=== PATIENT | female | born 1950 | race Caucasian/White ===

== ENCOUNTER 2016-02-07 17:57 | Inpatient (IN) | payer OTHER ==
[~2016-02-07] VITALS: Ht 172.7 cm; Wt 113.4 kg
[~2016-02-07 17:57] MED LIST: AMITRIPTYLINE H25 M2 PO; ASPIRIN EC81 M1 PO; AUGMENTIN 875-1 EACH PO; BACLOFEN10 M1; CALCIUM 600600 M1 PO; CO-Q-10 200 MG-1 SGL PO; COLACE100 MG PO; CRANBERRY FRUI425 MG PO; DOXYCYCLINE MO100 M2 PO; ENSURE CLEAR PO; FERROUS SULFAT325 M1 PO; FLAGYL 500500 MG/100 IV; GABAPENTIN300 M2 PO; KLONOPIN0.5 M1 PO; LOVAZA1 GM PO; MEDROL4 M2 PO; NITROFURANTOIN100 M1 PO; ROCEPHIN2000 MG IV; TIZANIDINE HCL4 M1 PO; TYLENOL 8 HOUR650 MG PO; Theragran Vitamins PO; ULTRAM(MONOGRAP50 MG PO; VITAMIN A NA10000 IU PO; VITAMIN B121000 MCG PO; VITAMIN C250 M1 PO; VITAMIN D31000 UNI2 PO; ZINC SULFATE 2220 MG PO
--- NOTE | 2016-02-07 18:07 | ED GI/GU/ABDOMINAL COMPLAINT ---
History of Present Illness General Chief Complaint: General Adult Stated Complaint: SBO Source: patient, old records Exam Limitations: no limitations Vital Signs & Intake/Output Vital Signs & Intake/Output Vital Signs Date Time Temp Pulse Resp B/P Pulse O2 O2 Flow FiO2 Ox Delivery Rate 02/07 0026 97.8 91 18 151/83 93 Nasal 4.0L Cannula 02/062 99.3 93 16 141/91 90 Nasal 4.0L Cannula 02/06 2006 Room Air Room Air 02/06 1836 97.0 84 22 158/89 98 Room Air ED Intake and Output 02/07 0000 02/06 1200 Intake Total 1000 Output Total Balance 1000 Intake, IV 1000 Patient 250 lb Weight Allergies Coded Allergies: amoxicillin (From Augmentin) (UNKNOWN 11/08/15) clavulanic acid (From Augmentin) (UNKNOWN 11/08/15) Reconcile Medications Amitriptyline HCl 25 MG TABLET ANTIDEPRESSANT (Reported) Aspirin (Ecotrin) 81 MG TABLET.DR 1 TAB PO DAILY HEART HEALTH (Reported) Baclofen 20 MG TABLET 2 TAB PO 4 TIMES/DAY MS (Reported) Cholecalciferol (Vitamin D3) 5,000 IU CAP 1 CAP PO DAILY SUPPLEMENT (Reported ) Clonazepam 0.5 MG TABLET 1 TAB PO DAILY SHAKES (Reported) Oxybutynin Chloride (Unknown Strength) TABLET 15 MG PO BID INCONTINENCE ( Reported) Tizanidine HCl (Unknown Strength) TABLET (Unknown Dose) PO AD PRN MUSCLE SPASM (Reported) Triage Nurses Notes Reviewed? yes ? n Is pt currently ? No Onset: Abrupt Duration: day(s): (3), constant Timing: recent history Quality/Severity: vomiting Severity Numbers: 6 Radiation: no radiation Activities at Onset: none Prior Abdominal Problems: none No Modifying Factors: none Associated Symptoms: nausea/vomiting HPI: 65-year-old female with history of MS, colostomy bag for the past 10 years status post perfect diverticulitis, with recent suprapubic tube, transvaginal bladder neck closure 9 days ago here at this hospital presents to emergency room complaining of a three-day history of multiple episodes of nausea and vomiting and decreased output from her colostomy bag. The patient had an outpatient x- ray performed today that showed "marketed small bowel dilatation in the midabdomen this could represent ileus or partial obstruction." The patient denies any abdominal pain, no black or bloody stools noted in her ostomy. She denies any fever chills chest pain shortness of breath (RONAL MONTOYA) Past History Travel History Traveled to [place] past 21 day No Medical History Any Pertinent Medical History? 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 No (RONAL MONTOYA) Review of Systems Review of Systems Constitutional: Reports: see HPI. All Other Systems: Reviewed and Negative Comments Review of systems: See HPI, All other systems negative. Constitutional, no chills no fever, no malaise no weight loss HEENT: No visual changes no sore throat no congestion Cardiovascular: No chest pain , no palpitation Skin, no jaundice no rashes, no change in skin Respiratory: No dyspnea no cough no sputum GI: nausea vomiting, no diarrhea, : No dysuria No hematuria, no frequency, no discharge Muscle skeletal: No joint pain, no back pain, no neck pain Neurologic: No numbness no headache Psych: No stress Heme/endocrine: No bruising no bleeding Immunology: No lymphadenopathy (RONAL MONTOYA) Physical Exam Physical Exam General Appearance: well developed/nourished, no apparent distress, alert, awake Gastrointestinal: soft Comments: Well-developed well-nourished person in no acute distress HEENT: Normal EENT exam; PERRL, EOMI. HEAD is atraumatic. moist mucous membranes. Neck: Supple, normal range of motion Back: Nontender, no CVA tenderness. Full range of motion Cardiovascular: Regular rate and rhythms no murmurs rubs Respiratory: No respiratory distress. Patient speaking in full complete sentences. Breath sounds clear to auscultation bilaterally: NO W/R/R Abdomen: Soft, colostomy bag noted to the left lower quadrant with small amount of stool noted in bag nontender nondistended, no appreciable organomegaly. Normal bowel sounds. No rebound/guarding, Extremity: No edema, full range of motion of extremities Neuro: Alert oriented x3, motor sensory normal,There were no obvious focal neurologic abnormalities. Skin: No appreciable rash on exposed skin, skin is warm and dry. Psych: Mood and affect is normal, memory and judgment is normal. Core Measures ACS in differential dx? No Severe Sepsis Present: No Septic Shock Present: No (SERA RAMIREZ,RONAL) Progress Differential Diagnosis: appendicitis, bowel obstruction, colon cancer, cholecystitis, diverticulitis, gastritis, inflamm bowel dis, peptic ulcer, PUD/ GERD, perforated viscous, SBO, ileus Plan of Care: Orders Procedure Date/time Status Nothing by Mouth 02/07 B Active Admit to inpatient 02/07 013 Active Vital Signs 02/07 013 Active Code Status 02/07 013 Active XRY-PORTABLE ABDOMEN 02/07 0049 Active NGT 02/068 Active LIPASE 02/06 1813 Complete COMPREHENSIVE METABOLIC PANEL 02/06 181 Complete CBC WITHOUT DIFFERENTIAL 02/06 181 Complete AMYLASE 02/06 181 Complete EKG 02/06 1802 Active Laboratory Tests 02/06/ 1826: Anion Gap 14, Estimated GFR > 60, BUN/Creatinine Ratio 41.3 H, Glucose 156 H, Calcium 9.5, Total Bilirubin 0.6, AST 23, ALT 32, Alkaline Phosphatase 118, Total Protein 8.8 H, Albumin 4.1, Globulin 4.7 H, Albumin/Globulin Ratio 0.9 L, Amylase 75, Lipase 67, CBC w Diff NO MAN DIFF REQ, RBC 5.89 H, MCV 82.0, MCH 26.7 L, RDW 15.1 H, MPV 7.9, Gran % 77.2 H, Lymphocytes % 11.6 L, Monocytes % 10.9 H, Eosinophils % 0.1, Basophils % 0.2, Absolute Granulocytes 12.2 H, Absolute Lymphocytes 1.8, Absolute Monocytes 1.7 H, Absolute Eosinophils 0, Absolute Basophils 0, PUBS MCHC 32.6 L Old records reviewed including the patient's outpatient x-ray that she had performed today. The results of the AP study demonstrated markedly dilated small bowel loops in the mid abdomen. There is gas in the nondistended colon. The stomach is nondistended. No suspicious calcifications. This could represent an ileus or partial obstruction clinical correlation is recommended Patient medicated with Zofran 4 IV IV fluids CAT scan and labs ordered. case d/w dr sevilla 02/07/2016 9:31:13 PM pending callback from surgery 02/07/2016 10:22:59 PM STILL PENDING CALL BACK FROM SURGERY, PER NURSING PICKER FEEDER HE IS CURRENTLY IN CASE 02/07/2016 11:25:07 PM pending call back from surgery, pt has had no episodes of vomiting resting comfortably 2335 CASE D/W DR BILL will have surgical pa eval the pt 02/08/2016 12:57:56 AMPatient was evaluated by surgical PA, pending callback from urology at surgeries request Zac was discussed with and signed out to Dr. sevilla at 100 pending urology callback (SERA RAMIREZ,RONAL) Diagnostic Imaging: Viewed by Me: Radiology Read, CT Scan. Discussed w/RAD: Radiology Read, CT Scan. Radiology Impression: PATIENT: GLENN MAYO PRESENT AGE: 65 PATIENT ACCOUNT NO: [id number] : 49 LOCATION: [facility] ORDERING PHYSICIAN: RONAL RAMIREZ SERVICE DATE: 02/07/16 EXAM TYPE: RAD - XRY- PORTABLE CHEST XRAY EXAMINATION: XR PORTABLE CHEST CLINICAL INFORMATION: Hypoxia. Cough. COMPARISON: Chest x-ray 06/14/2015. TECHNIQUE: Portable view of the chest was obtained. FINDINGS: The lungs are hypoinflated, without focal airspace consolidation. There is minimal dependent bibasilar atelectasis. No pleural effusions or pneumothoraces are identified. Cardiomediastinal contours are stable. Soft tissues are unremarkable. No acute osseous abnormality is identified. IMPRESSION: Pulmonary hypoinflation and dependent bibasilar atelectasis. No focal airspace consolidation. DICTATED BY: FOX VARGAS MD DATE/TIME DICTATED:02/07/162257 SUEDING MACHINE OPERATOR:PB DATE/TIME TRANSCRIBED:02/07/162257 CONFIDENTIAL, DO NOT COPY WITHOUT APPROPRIATE AUTHORIZATION. <Electronically signed in Other Vendor System> SIGNED BY: FOX VARGAS MD 02/07/16 [id number], PATIENT: GLENN MAYO PRESENT AGE: 65 PATIENT ACCOUNT NO: [id number] : 49 LOCATION: [facility] ORDERING PHYSICIAN: RONAL RAMIREZ SERVICE DATE: 02/07/16 EXAM TYPE: CAT - CT ABD & PELVIS W/O IV CONTRAS EXAMINATION: CT ABDOMEN AND PELVIS WITHOUT CONTRAST CLINICAL INFORMATION: Nausea and vomiting. Evaluate for small bowel obstruction. COMPARISON: CT abdomen and pelvis without contrast 07/13/2012. TECHNIQUE: Multidetector volumetric imaging was performed from the superior aspect of the liver through the pubic symphysis. Sagittal and coronal reformatted images were obtained on the technologist's workstation. DLP: 1581 mGy-cm. FINDINGS: Limited evaluation of the solid abdominal viscera in the absence of intravenous contrast. LUNG BASES: Evaluation of the included lung bases demonstrates right basilar infiltrates. This finding is nonspecific but may reflect atelectasis, infection or aspiration pneumonitis. No pleural or pericardial effusions are identified. LIVER, GALLBLADDER, AND BILIARY TREE: The liver is normal in size, shape, and attenuation. No focal hepatic lesion or biliary ductal dilatation is present. The gallbladder is surgically absent. PANCREAS: Unremarkable. SPLEEN: Unremarkable. ADRENAL GLANDS: Unremarkable. KIDNEYS AND URETERS: Mild renal cortical atrophy of the bilateral kidneys. Nephrolithiasis of the right kidney with nonobstructing stones identified within the upper and lower poles of the right kidneys. Specifically, there is a 6 mm nonobstructing stone within the upper pole of the right kidney. There are several clustered nonobstructing stones within the lower pole of the right kidney visualized measuring up to 4 mm. No appreciable nephrolithiasis of the left kidney. No ureteral stones and no hydroureteronephrosis of either kidney or renal collecting system. BLADDER: Suprapubic catheter is in place within the urinary bladder. No large bladder stones are identified. GASTROINTESTINAL TRACT: Evaluation of the gastrointestinal system is notable for multiple dilated air and fluid-filled loops of small bowel throughout the abdomen and pelvis which are visualized measuring up to 6.9 cm. There is a suspected transition point within the left hemipelvis, at the level of the left sacroiliac joint (series 2, image 75). This site of transition may correspond to the proximal ileum. Loops of small bowel distal to this site of transition or decompressed. Loops of small bowel proximal to this site of transition including the duodenum and stomach are distended. Redemonstrated is evidence of prior distal colonic surgery and left lower quadrant colostomy. There is a moderate amount of retained stool within the cecum and ascending colon. A large fecalith is present within the rectum. ABDOMINAL WALL: Left lower quadrant colostomy. Moderate fat-containing parastomal hernia. LYMPH NODES: No significant intra-abdominal or pelvic adenopathy. VASCULAR: Normal caliber of the abdominal aorta and its branching vessels, without aneurysmal dilatation. Limited evaluation for vascular patency in the absence of intravenous contrast. PELVIC VISCERA: Unremarkable. OSSEOUS STRUCTURES: Diffuse demineralization of the visualized bones. Remote intertrochanteric fracture of the right femur. Left convex curvature of the lumbar spine. No acute thoracolumbar compression deformity. Moderate multilevel degenerative disc disease and facet arthrosis of the imaged thoracolumbar spine. IMPRESSION: Multiple dilated air and fluid-filled loops of small bowel throughout the abdomen and pelvis, visualized measuring up to 6.9 cm in diameter. There is a suspected transition point within the left hemipelvis, at the level of the left sacroiliac joint. Primary diagnostic consideration is for small bowel obstruction. Loops of small bowel distal to this site of transition or decompressed. Loops of small bowel proximal to the site of transition including the duodenum and stomach or distended. This critical result was discussed with Dr. Ronal Persaud at 8:28 PM on 01/30/2016 and it was ascertained that the content and urgency of the report was understood at the time of direct communication. DICTATED BY: FOX VARGAS MD DATE/TIME DICTATED:02/07/162002 SUEDING MACHINE OPERATOR:PB DATE/TIME TRANSCRIBED:02/07/162002 CONFIDENTIAL, DO NOT COPY WITHOUT APPROPRIATE AUTHORIZATION. <Electronically signed in Other Vendor System> SIGNED BY: FOX VARGAS MD 02/07/162031 Initial ED EKG: none Hand-Off Endorsed To: EYAL SEVILLA MD Endorsed Time: 57 Pending: consult (urology) (RONAL MONTOYA) Departure Departure Disposition: STILL A PATIENT Condition: Stable Clinical Impression Primary Impression: SBO (small bowel obstruction) Referrals: BARBARA MACIEL MD (PCP/Family) Referred to [facility] as new patient No Departure Forms: Customer Survey General Discharge Information (RONAL MONTOYA) Departure Time of Disposition: 144 Admission Note Spoke With: LANDY CHUNG,AWA N. Documentation of Exam: Documentation of any treatments & extenuating circumstances including Concerns Regarding Discharge (functional status, medication knowledge or non-compliance, living conditions, etc.) that warrant an admission rather than observation: [NPO , NGT, IV FLUID, SERIAL ABDOMINAL EXAMINATIONS, DR HESS CONSULTED FROM UROLOGY] PA/RESOURCE SPECIALIST Co-Sign Statement Statement: ED Attending supervision documentation- [X] I saw and evaluated the patient. I have also reviewed all the pertinent lab results and diagnostic results. I agree with the findings and the plan of care as documented in the PA's/RESOURCE SPECIALIST's documentation. [X] I have reviewed the ED Record and agree with the PA's/RESOURCE SPECIALIST's documentation. [] Additions or exceptions (if any) to the PAs/RESOURCE SPECIALIST's note and plan are summarized below: [] (JAY CHUNG,EYAL)
--- NOTE | 2016-02-07 18:16 | NUR ---
PT BIBA FROM [facility] FOR ?SBO. PT WENT FOR XRAY'S TODAY AND XRAY REPORT CAME BACK WITH ?SBO. PT SENT FOR SURGICAL EVAL. PT HAS BEEN VOMITING; MINIMAL OUTPUT INTO COLOSTOMY BAG.
[2016-02-07 18:37] LABS: ABSOLUTE BASOPHIL COUNT 0 /CUMM (0.0-0.2); ABSOLUTE EOSINOPHIL COUNT 0 /CUMM (0.0-0.7); ABSOLUTE GRANULOCYTE CT 12.2 /CUMM (1.4-6.5); ABSOLUTE LYMPH COUNT 1.8 /CUMM (1.2-3.4); ABSOLUTE MONOCYTE COUNT 1.7 /CUMM (0.10-0.60); BASOPHIL % 0.2 % (0.0-2.0); EOSINOPHIL % 0.1 % (0-5); GRANULOCYTE % 77.2 % (42.2-75.2); HEMATOCRIT 48.3 % (37-47); MEAN CORPUSCULAR HGB 26.7 PG (27.0-31.0); MEAN CORPUSCULAR HGB CONC 32.6 G/DL (33.0-37.0); MEAN PLATELET VOLUME 7.9 FL (7.4-10.4); PLATELET COUNT 381 /CUMM (130-400); RBC DISTRIBUTION WIDTH 15.1 % (11.5-14.5); RED BLOOD CELL CT 5.89 /CUMM (4.20-5.40); WHITE BLOOD CELL COUNT 15.8 /CUMM (4.8-10.8)
--- NOTE | 2016-02-07 20:08 | NUR ---
PT RETURNED FROM CAT SCAN.
--- NOTE | 2016-02-07 20:32 | CT SCAN REPORT ---
EXAMINATION: CT ABDOMEN AND PELVIS WITHOUT CONTRAST CLINICAL INFORMATION: Nausea and vomiting. Evaluate for small bowel obstruction. COMPARISON: CT abdomen and pelvis without contrast 07/13/2012. TECHNIQUE: Multidetector volumetric imaging was performed from the superior aspect of the liver through the pubic symphysis. Sagittal and coronal reformatted images were obtained on the technologist's workstation. DLP: 1581 mGy-cm. FINDINGS: Limited evaluation of the solid abdominal viscera in the absence of intravenous contrast. LUNG BASES: Evaluation of the included lung bases demonstrates right basilar infiltrates. This finding is nonspecific but may reflect atelectasis, infection or aspiration pneumonitis. No pleural or pericardial effusions are identified. LIVER, GALLBLADDER, AND BILIARY TREE: The liver is normal in size, shape, and attenuation. No focal hepatic lesion or biliary ductal dilatation is present. The gallbladder is surgically absent. PANCREAS: Unremarkable. SPLEEN: Unremarkable. ADRENAL GLANDS: Unremarkable. KIDNEYS AND URETERS: Mild renal cortical atrophy of the bilateral kidneys. Nephrolithiasis of the right kidney with nonobstructing stones identified within the upper and lower poles of the right kidneys. Specifically, there is a 6 mm nonobstructing stone within the upper pole of the right kidney. There are several clustered nonobstructing stones within the lower pole of the right kidney visualized measuring up to 4 mm. No appreciable nephrolithiasis of the left kidney. No ureteral stones and no hydroureteronephrosis of either kidney or renal collecting system. BLADDER: Suprapubic catheter is in place within the urinary bladder. No large bladder stones are identified. GASTROINTESTINAL TRACT: Evaluation of the gastrointestinal system is notable for multiple dilated air and fluid-filled loops of small bowel throughout the abdomen and pelvis which are visualized measuring up to 6.9 cm. There is a suspected transition point within the left hemipelvis, at the level of the left sacroiliac joint (series 2, image 75). This site of transition may correspond to the proximal ileum. Loops of small bowel distal to this site of transition or decompressed. Loops of small bowel proximal to this site of transition including the duodenum and stomach are distended. Redemonstrated is evidence of prior distal colonic surgery and left lower quadrant colostomy. There is a moderate amount of retained stool within the cecum and ascending colon. A large fecalith is present within the rectum. ABDOMINAL WALL: Left lower quadrant colostomy. Moderate fat-containing parastomal hernia. LYMPH NODES: No significant intra-abdominal or pelvic adenopathy. VASCULAR: Normal caliber of the abdominal aorta and its branching vessels, without aneurysmal dilatation. Limited evaluation for vascular patency in the absence of intravenous contrast. PELVIC VISCERA: Unremarkable. OSSEOUS STRUCTURES: Diffuse demineralization of the visualized bones. Remote intertrochanteric fracture of the right femur. Left convex curvature of the lumbar spine. No acute thoracolumbar compression deformity. Moderate multilevel degenerative disc disease and facet arthrosis of the imaged thoracolumbar spine. IMPRESSION: Multiple dilated air and fluid-filled loops of small bowel throughout the abdomen and pelvis, visualized measuring up to 6.9 cm in diameter. There is a suspected transition point within the left hemipelvis, at the level of the left sacroiliac joint. Primary diagnostic consideration is for small bowel obstruction. Loops of small bowel distal to this site of transition or decompressed. Loops of small bowel proximal to the site of transition including the duodenum and stomach or distended. This critical result was discussed with Dr. Jeffrey Persaud at 8:28 PM on 01/30/2016 and it was ascertained that the content and urgency of the report was understood at the time of direct communication.
--- NOTE | 2016-02-07 21:40 | NUR ---
PT PLACED ON 4L OXYGEN. O2 SAT STEADY AT 90%. PA AWARE
--- NOTE | 2016-02-07 21:44 | NUR ---
PT REPORTS +SKIN BREAKDOWN ON COCCYX AREA; UNABLE TO VIEW DURING ASSESSMENT DUE TO PT'S SIZE. PT UNABLE TO TURN IN BED TO VISUALIZE ?SORES.
--- NOTE | 2016-02-07 21:50 | NUR ---
PT NOTED TO BE HYPOXIC AT 85% ON RA WITH STEADY WAVEFORM. PT PLACED ON 4L NC O2 WITH IMPROVEMENT TO 90%. ASHLEY BOLIVAR.
--- NOTE | 2016-02-07 22:37 | NUR ---
SPOKE WITH KENNEDY IN REGARDS TO PT STAYING OVERNIGHT.
--- NOTE | 2016-02-07 23:03 | RADIOLOGY REPORT ---
EXAMINATION: XR PORTABLE CHEST CLINICAL INFORMATION: Hypoxia. Cough. COMPARISON: Chest x-ray 06/14/2015. TECHNIQUE: Portable view of the chest was obtained. FINDINGS: The lungs are hypoinflated, without focal airspace consolidation. There is minimal dependent bibasilar atelectasis. No pleural effusions or pneumothoraces are identified. Cardiomediastinal contours are stable. Soft tissues are unremarkable. No acute osseous abnormality is identified. IMPRESSION: Pulmonary hypoinflation and dependent bibasilar atelectasis. No focal airspace consolidation.
--- NOTE | 2016-02-08 | NUR ---
PT A/O X4. RESP UNLABORED. NO APPARENT DISTRESS. WILL CONTINUE TO MONITOR.
--- NOTE | 2016-02-08 00:51 | NUR ---
NG TUBE PLACED IN LEFT NARE. MARKED AT 48 PRIOR TO XRAY.
--- NOTE | 2016-02-08 02:06 | NUR ---
PT ADMIT TO RM [id number]
--- NOTE | 2016-02-08 02:25 | NUR ---
PT CLEANED OF URINARY INCONTINENCE. SHEETS CLEANED. PT REPOSTIONED TO THE RIGHT. PT HAS PILLOWS UNDER ARMS, LEGS AND HEAD.
--- NOTE | 2016-02-08 02:37 | RADIOLOGY REPORT ---
EXAMINATION: XR PORTABLE ABDOMEN CLINICAL INFORMATION: NG tube placement. COMPARISON: CT abdomen 02/07/2016. TECHNIQUE: Frontal image of the abdomen was obtained. FINDINGS: The NG tube terminates over the distal esophagus. Dilated loops of bowel are redemonstrated. Right upper quadrant surgical clips. Asymmetric elevation of the right hemidiaphragm. Scoliosis. IMPRESSION: NG tube terminates over the distal esophagus. Recommend advancement.
--- NOTE | 2016-02-08 02:53 | NUR ---
X- RAY BACK NG TUBE ADVANCED 10 CM TO 58 1400 ML GASTRIC CONTENTS OUTPUT
[2016-02-08 03:30] VITALS: BP 141/79
--- NOTE | 2016-02-08 03:30 | NUR ---
NURSING NOTE: PT ARRIVED TO FLOOR VIA STRETCHER WITH ER STAFF. DIAGNOSIS SBO. PT AWAKE AX0 X3, BED ALAM PLACED. VITALS OBTIANED AND STABLE. 4L NC 94%. NG TUBE TO LOW WALL SUCTION PER TEE RAMIREZ 416. IV PATENT, COLOSTOMY TO LEFT ABD, SUPRAPUBIC TUBE. MULTIPLE AREAS OF SKIN ALTERATION. WOUND CARE EVAL PENDING. WILL ORDER SIZEWISE MATTRESS. NPO. DENIES PAIN. ADMISSION ASSESSMENT COMPLTEED PT ORIENTED TO ROOM AND CALL [facility], INFO PACKET GIVEN. BED ALARM WORKING. WILL CONTINUE TO MONITOR.
--- NOTE | 2016-02-08 07:23 | PN- Student ---
Subjective Subjective: Patient admitted from ED last night for SBO. Patient was here last week for transvaginal bladder neck closure with replacement of suprapubic tube. Since then patient had been complaining of nausea and vomiting. She currently has a NGT in place and reports to feeling better this AM. She denies any more episodes of nausea or vomiting. She wants to know when she can go back on her home medications for her MS and for her bladder. She denies pain, discomfort, headaches, dizziness, lightheadedness, chest pain, shortness of breath. Objective Objective: Temp: 98.4, HR: 87, RR: 20, BP: 141/79, O2: 94% 4L NC Urine: 350mL shift NGT: 1400mL Ostomy: gas, fecal content, brown Gen: in no apparent distress, resting in bed Skin: warm, dry, multiple lesions on distal extremities Cardiac: S1 S2 present Pulm: CTA bilaterally Abd: hypoactive bowel sounds. Non-tender, mildly distended. Suprapubic tube draining urine. Colostomy on left side, intact, bag has gas and fecal content. no green content Ext: sacral decubitus. Right foot has dry gauze over wound. Non-palpable pulses. Assessment/Plan Assessment: 65 yo F with extensive PMHx significant for MS, neurogenic bladder s/p transvaginal bladder neck closure with replacement of suprapubic tube 01/29/2016 now admitted for SBO. Currently patient's symptoms have improved since yesterday with all vital signs stable. - Keep NPO - Continue NGT to suction - FU multi-view in AM - Continue D5 NS - DVT prophylaxis: heparin - Discuss with attending
[2016-02-08 08:19] VITALS: BP 160/80
--- NOTE | 2016-02-08 12:36 | RADIOLOGY REPORT ---
EXAMINATION: XR ABDOMEN WITH PA CHEST CLINICAL INDICATION: Nausea and vomiting. COMPARISON: CT abdomen and pelvis, and chest radiograph, from 02/07/2016 TECHNIQUE: Chest, PA view Abdomen, 2 views FINDINGS: Large body habitus. There is persistent opacity of atelectasis or consolidation in the posteroinferior right lower lobe; overall, the aeration of the lower lobes is improved compared to 02/07/2016. Again noted is mild elevation of the right diaphragm. Cardiac silhouette is normal in size. The enteric tube extends below the diaphragm and into the proximal stomach, and the side-port of the tube is located just above the level of the EG junction. There is anterior fusion hardware of the incompletely visualized lower cervical spine. Small bowel is diffusely distended with gas and measures up to approximately 6 cm maximum dimension-- consistent with high-grade small bowel obstruction. No pneumatosis intestinalis or pneumoperitoneum. There are cholecystectomy clips in the right upper quadrant. Bones appear diffusely osteopenic. No acute findings within the visualized degenerated thoracolumbar spine. IMPRESSION: 1. The aeration of the lower lobes has improved compared to 02/07/2016. 2. Persistent high-grade small bowel obstruction without pneumoperitoneum. 3. The side port of the enteric tube projects just above the level of the EG junction and the tip of the tube is in the proximal stomach; consider advancing the tube further into the stomach.
--- NOTE | 2016-02-08 14:04 | NUR ---
WOUND CARE: REQUESTED BY NURSING STAFF TO EVALUATE PT FOR SKIN ALTERATIONS PRESENT ON ADMISSION TO MULTIPLE AREAS MENTIONED BELOW - PT HX REVIEWED - PT HAS BEEN AT [facility] FOR SHORT TERM REHAB FOR APPROX 2 WEEKS - SKIN ASSESSMENT FOLLOWS: RIGHT ISCHIUM STAGE 3 PRESSURE INJURY 4X2X0.2 CM CLEAN RED JOE FILL - MOD AMOUNT SANG DRNG - PERIWOUND NO INDURATION - RIGHT BUTTOCKS EVOLVING DEEP TISSUE INJURY 12X96 CM WITH MULTIPLE SUPERFICIAL AREAS OF SKIN BREAKDOWN AND EXCORIATION THROUGHOUT - LIGHT PURPLE DISCOLORED HUE OVER PREDOMINANENTLY RED HUE - COCCYX STAGE 3 PRESSURE INJURY 2.6 X 3 X 0.2 CM DARK RED GRANULAR FILL WTIH PERIWOUND MACERATION - SMALL AMOUNT SEROUS DRNG - LEFT BUTTOCKS 18X9 CM EVOLVING DTI PRESENTS CLUSTERED WOUND WITH VARYING PARTIAL AND FULL THICKNESS SKIN LOSS WTIH EXCORATION - MAJORITY OF KORTNEY BUTTOCKS TISSUE IS DRY FLAKY PEELING SKIN - LEFT DORSAL FOOT THICK CALLOUS AREA AT BASE OF TOES CURRENTLY TX WITH BETADINE - RIGHT POSTERIOR LEG STAGE 3 PRESSURE INJURY WITH SIGNIFICANT DETERIORATION SINCE PRIOR ASSESSMENT 7.5 X 4.5 CM MIXED RED AND YELLOW FILL - PERIWOUND ERYTHEMA WITH ? CELLULITIC CHANGES NOTED - DR HOYT MADE AWARE OF THIS WRITERS FINDINGS AND NEED FOR MD TO ASSESS IMPRESSION: DETERIORATION OF ALL WOUNDS SINCE LAST HOSPITAL ADMISSION ASSESSMENT - KROTNEY BUTTOCKS INC ASSOCIATED DERMATITIS WITH PRESSURE INJUROES RECOMMENDATION: CLEANSE RIGHT POSTERIOR LEG WOUND WTIH NS FB SANTYL OINTMENT FB XEROFORM AND DPD DAILY - OFFLOAD PRESSURE TO POSTERIOR CALF AT ALL TIMES - DUE TO CONDITION OF BUTTOCKS, APPLICATION OF SECONDARY DRESSING WILL BE DIFFICULT AND MAY WORSEN SKIN INTEGRITY - APPLY VITAMIN A+D OINTMENT AND ZINC OXIDE TO KORTNEY BUTTOCKS WOUNDS FB (2) LARGE 5X9" XEROFORM DRESSINGS TO BUTTOCKS AND COCCYX TWICE DAILY AND PRN AFTER INC EPISODES - SIDELYING POSITION WIB - AWAIT DELIVERY OF GROUP 2 ALTERNATING PRESSURE MATTRESS - IF CONDITION SHOWS NO IMPROVEMENT IN 5 DAYS, CONSIDER CLINITRON MATTRESS - PLEASE HAVE DR HOYT ASSESS (MD AWARE) - LEAVE LEFT FOOT OPEN TO AIR AND MONITOR QS
[2016-02-08 16:00] VITALS: BP 130/78
[2016-02-08 16:19] VITALS: BP 130/78
--- NOTE | 2016-02-08 20:33 | NUR ---
NURSING NOTE: NG TUBE WWAS CLOGGED @ 1500. ASHLEY BABB AND DR LANGE WAS NOTIFIED. UNCLOGGED NG TUBE @ 1600 AND NOTIFIED ASHLEY AND . NG TUBE TO LOW WALL SXN ORDERED.
--- NOTE | 2016-02-08 20:54 | History & Physical Pre-Op ---
General Information and HPI Exam Limitations: confusion, poor historian History of Present Illness: Chief complaint vomiting History of present illness: Nondiabetic nonsmoker with MS for over 15 years, complicated by urinary incontinence, sacral decubiti, she's nonambulatory. We' ve seen her in the past for the decubiti, I did a consult on her here on 2013 the PFSH and ROS were reviewed and have not changed significantly since then, unless stated here. She has a colostomy from 2004 related to diverticulitis, this was not reversed because she is relatively bedbound, but last week she was just discharged on the after a transvaginal bladder neck closure this was not intraperitoneal, she's been doing well for several days but just started to vomit no real abdominal pain no fevers no sweats this is unusual not really one of her issues, and according to the ER the ostomy still has some stool in it, but overall the senses that it's not as productive the past day or 2. She is a little confused and somewhat lethargic so most of the history is gotten from the chart prepares is not her baseline an NG tube has been placed in the significant amount has come out. The particular onset or any meals right before is unknown. Allergies/Medications Allergies: Coded Allergies: amoxicillin (From Augmentin) (UNKNOWN 11/08/15) clavulanic acid (From Augmentin) (UNKNOWN 11/08/15) Home Med list Amitriptyline HCl 25 MG TABLET ANTIDEPRESSANT (Reported) Aspirin (Ecotrin) 81 MG TABLET.DR 1 TAB PO DAILY HEART HEALTH (Reported) Baclofen 20 MG TABLET 2 TAB PO 4 TIMES/DAY MS (Reported) Cholecalciferol (Vitamin D3) 5,000 IU CAP 1 CAP PO DAILY SUPPLEMENT (Reported ) Clonazepam 0.5 MG TABLET 1 TAB PO DAILY SHAKES (Reported) Tizanidine HCl (Unknown Strength) TABLET (Unknown Dose) PO AD PRN MUSCLE SPASM (Reported) Past History Medical History Neurological: multiple sclerosis EENT: NONE Cardiovascular: NONE Respiratory: NONE Gastrointestinal: DIVERTICULITIS W COLON RESECTION Hepatic: NONE Renal: SUPRAPUBIC TUBE Musculoskeletal: NONE Psychiatric: NONE Endocrine: NONE Blood Disorders: NONE Cancer(s): NONE History of MRSA: Yes History of VRE: No History of CDIFF: No Isolation History: Contact Pneumonia Vaccine: 02/07/13 Influenza Vaccine: 11/11/15 Surgical History Pertinent Surgical History: cholecystectomy, COLOSTOMY BAG LOW BACK SURGERY R HEEL I+D Past Family/Social History Family History Relations & Conditions if any BROTHER FH: cancer MOTHER Pacemaker Relation not specified for: Family history unknown 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, 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 Smoking Status: Never Smoked ETOH Use: denies use Illicit Drug Use: denies illicit drug use Review of Systems Review of Systems: As mentioned above her previously in my consult otherwise unobtainable Exam & Diagnostic Data Last 24 Hrs of Vital Signs/I&O I reviewed Vital Signs Date Time Temp Pulse Resp B/P Pulse O2 O2 Flow FiO2 Ox Delivery Rate 02/07 1619 98.0 91 20 130/78 96 Nasal 4.0L Cannula 02/07 1600 98.0 91 20 130/78 96 Nasal 4.0L Cannula 02/07 0819 98.3 79 20 160/80 95 Nasal 4.0L Cannula 02/07 0410 94 Nasal 4.0L Cannula 02/07 0330 98.4 87 20 141/79 94 Nasal 4.0L Cannula 02/07 0255 85 18 148/66 96 Nasal 4.0L Cannula 02/07 0026 97.8 91 18 151/83 93 Nasal 4.0L Cannula 02/06 2142 99.3 93 16 141/91 90 Nasal 4.0L Cannula I reviewed Intake & Output 02/07 1600 02/07 0800 02/07 0000 Intake Total 720 1000 Output Total 451 2150 Balance 269 -2150 1000 Intake, IV 700 1000 Intake, Tube 20 Feeding Number 1 Bowel Movements Output, 1800 Gastric Drainage Output, Stool 1 Output, Urine 450 350 Patient 250 lb 250 lb Weight Physical Exam: Constitutional: pleasant, no acute distress, confused not really conversant denies abdominal pain Eyes: sclera anicteric ENMT: ears and nose atraumatic, moist mucous membranes, good dentition, no lip lesions Neck: Supple, trachea is midline, no cervical or supraclavicular adenopathy and no palpable thyromegaly Cardiovascular: S1, S2, no murmurs, no peripheral edema Respiratory: clear to auscultation with normal respiratory effort and no intercostal retractions GI: abdomen soft, nontender, large but seems a little distended, because of habitus unable to assess hepatosplenomegaly by palpation, suprapubic catheter Extremities / lymphatics: symmetrically warm, range of motion not evaluated, dressing on dorsum right foot chronic wound, no peripheral edema, no cervical, supraclavicular, axillary adenopathy Musculoskeletal: gait and station N/A, no digital cyanosis, muscle strength not evaluated, no increased tone no atrophy Skin: no jaundice, no rashes warm, nondiaphoretic, presently her back was not examined Psychiatric: mood and affect are appropriate but reticent right now Last 24 Hrs of Labs/Ace: I reviewed Assessment/Plan Assessment/Plan: Studies I reviewed CT scan from yesterday in the ER on PACS myself, there are some significantly dilated loops of small bowel with distal collapse suggesting a transition in the pelvis. Impression is small bowel obstruction presumably from adhesions from prior surgeries, often exacerbated by an unusual meal high in fiber or chewy food, or even straining. We don't have these historical details available now, but also interesting is that she was just admitted and discharged here for urologic procedure but that was not intraperitoneal. In the meantime will treat in routine nonoperative fashion with bowel rest, NG tube for decompression, maintenance IV fluids and for the GI losses, monitor uo, electrolytes, vital signs, serial exams, labs, abdominal x-rays. Presently there are no peritoneal signs, if situation plateaus or worsens, especially if abdominal pain worsens in next 6-12 hours, might need urgent surgical intervention in the interest of bowel viability, but as I explained, most of the time it is not needed. The wound care service will follow her back As Ranked By This Provider Problem List: 1. SBO (small bowel obstruction) 2. Sacral decubitus ulcer 3. H/O multiple sclerosis
[2016-02-08 23:40] VITALS: BP 130/72
[2016-02-09 08:00] LABS: ABSOLUTE BASOPHIL COUNT 0 /CUMM (0.0-0.2); ABSOLUTE EOSINOPHIL COUNT 0.2 /CUMM (0.0-0.7); ABSOLUTE GRANULOCYTE CT 7.2 /CUMM (1.4-6.5); ABSOLUTE LYMPH COUNT 2.2 /CUMM (1.2-3.4); ABSOLUTE MONOCYTE COUNT 1.1 /CUMM (0.10-0.60); GRANULOCYTE % 67.4 % (42.2-75.2); MEAN CORPUSCULAR HGB CONC 32.7 G/DL (33.0-37.0); MEAN CORPUSCULAR VOLUME 82.3 FL (81.0-99.0); WHITE BLOOD CELL COUNT 10.7 /CUMM (4.8-10.8)
[2016-02-09 08:30] LABS: BASOPHIL % 0.1 % (0.0-2.0); EOSINOPHIL % 1.6 % (0-5); MEAN CORPUSCULAR HGB 26.9 PG (27.0-31.0); MEAN PLATELET VOLUME 8.2 FL (7.4-10.4); PLATELET COUNT 261 /CUMM (130-400); RBC DISTRIBUTION WIDTH 14.9 % (11.5-14.5); RED BLOOD CELL CT 4.62 /CUMM (4.20-5.40)
[2016-02-09 11:11] VITALS: BP 160/90
--- NOTE | 2016-02-09 13:00 | NUR ---
LATE ENTRY: RN CONTACTED WOUND CARE CENTER TO INQUIRE IF DR. HOYT WAS INDEED COMING IN TO ASSESS PT'S WOUNDS. PER STAFF MEMBER AT WOUND CENTER, DR. ALFONSO WILL COME UP TO DO SO SHORTLY. PENDING MD ASSESSMENT OF PT'S WOUNDS. WILL CONT TO MONITOR.
--- NOTE | 2016-02-09 15:00 | NUR ---
LATE ENTRY: DR. ALFONSO CONTACTED AGAIN MD NOT NOTED TO ASSESS PT MENTIONED EARLIER (SEE PREVIOUS NOTE). PER MD, HE IS "OFF" RN NOTIFIED MD THAT WOUND RN'S RECOMMENDATION WILL BE UTILIZED UNTIL HE MAKES HIS ASSESSMENT OF THE WOUNDS. SURGICAL PA MICKIE HIGGINS- [facility]O. WILL FOLLOW ORDERS AND CONT TO MONITOR. PT PLACED ON SIZEWISE WELL PER RECOMMENDATIONS.
[2016-02-09 16:36] VITALS: BP 142/78
--- NOTE | 2016-02-09 20:09 | PN- General Surgery ---
Subjective Subjective: Follow-up for small bowel obstruction NG tube in 250 overnight denies any nausea or vomiting denies abdominal pain there is ostomy output and with flatus, thirsty Objective Vital Signs and I&Os I reviewed Vital Signs Date Time Temp Pulse Resp B/P Pulse O2 O2 Flow FiO2 Ox Delivery Rate 02/08 1636 98.4 76 18 142/78 95 Nasal 2.0L Cannula 02/08 1111 98.2 90 20 160/90 93 Nasal 2.0L Cannula 02/08 0800 94 Nasal 4.0L Cannula 02/08 0000 Nasal 4.0L Cannula 02/07 2340 98.2 82 20 130/72 94 Nasal 4.0L Cannula I reviewed Intake & Output 02/08 1600 02/08 0800 02/08 0000 02/07 1600 02/07 0800 02/07 0000 Intake Total 800 783 443 8911 Output Total 440 700 302 238 7269 Balance -440 100 125 269 -2150 1000 Intake, IV 800 719 659 2583 Intake, Tube 20 Feeding Number 1 Bowel Movements Output, 698 518 9654 Gastric Drainage Output, Stool 50 75 1 Output, Urine 440 400 450 350 Patient 250 lb 250 lb Weight Physical Exam: Constitutional: no acute distress no pain Eyes: sclera anicteric ENMT: moist mucous membranes Cardiovascular: S1-S2 no murmurs no peripheral edema Respiratory: clear to auscultation with normal respiratory effort and no intercostal retractions GI: abdomen soft nontender not more distended Extremities / lymphatics: free range of motion no peripheral edema Skin: no jaundice no rashes warm, nondiaphoretic Psychiatric: mood and affect are appropriate and alert and oriented to person place and time Current Medications: I reviewed Current Medications Sig/Mary Grace Start time Last Medication Dose Route Stop Time Status Admin Amitriptyline HCl 25 MG DAILY 02/07 1000 AC 02/08 PO 1018 Aspirin 81 MG DAILY 02/08 1000 AC 02/08 PO 1020 Aspirin Buffered 81 MG DAILY 02/07 1000 DC 02/07 PO 1000 Baclofen 40 MG Q6 02/07 0600 AC 02/08 PO 1831 Cholecalciferol 5,000 IU DAILY 02/07 1000 AC 02/08 PO 1020 Clonazepam 0.5 MG DAILY 02/07 1000 AC 02/08 PO 02/14 0959 1020 Collagenase 1 LAZARA DAILY 02/08 1330 AC 02/08 TOP 1530 Dextrose/Sodium 1,000 ML Q10H 02/07 0645 DC 02/08 Chloride IV 0536 Heparin Sodium 5,000 UNIT Q8 02/07 0634 AC 02/08 (Porcine) SC 1526 Nystatin 1 LAZARA Q8P PRN 02/07 0815 AC 02/07 TOP 1951 Oxybutynin Chloride 15 MG BID 02/07 1000 AC 02/08 PO 1018 Vitamin A/Vitamin D 1 LAZARA BID 02/08 1319 AC 02/08 TOP 1530 Zinc Oxide 1 LAZARA BID 02/08 1320 AC 02/08 TOP 1530 Results Last 48 Hours of Labs: I reviewed Laboratory Tests 02/08 0650 Chemistry Sodium (137 - 145 mmol/L) 141 Potassium (3.5 - 5.1 mmol/L) 3.7 Chloride (98 - 107 mmol/L) 107 Carbon Dioxide (22 - 30 mmol/L) 26 Anion Gap (5 - 16) 8 BUN (7 - 17 mg/dL) 20 H Creatinine (0.5 - 1.0 mg/dL) 0.6 Estimated GFR (>60 ml/min) > 60 BUN/Creatinine Ratio (7 - 25 %) 33.3 H Hematology CBC w Diff NO MAN DIFF REQ WBC (4.8 - 10.8 /CUMM) 10.7 RBC (4.20 - 5.40 /CUMM) 4.62 Hgb (12.0 - 16.0 G/DL) 12.4 Hct (37 - 47 %) 38.0 MCV (81.0 - 99.0 FL) 82.3 MCH (27.0 - 31.0 PG) 26.9 L RDW (11.5 - 14.5 %) 14.9 H Plt Count (130 - 400 /CUMM) 261 MPV (7.4 - 10.4 FL) 8.2 Gran % (42.2 - 75.2 %) 67.4 Lymphocytes % (20.5 - 51.1 %) 21.0 Monocytes % (1.7 - 9.3 %) 9.9 H Eosinophils % (0 - 5 %) 1.6 Basophils % (0.0 - 2.0 %) 0.1 Absolute Granulocytes (1.4 - 6.5 /CUMM) 7.2 H Absolute Lymphocytes (1.2 - 3.4 /CUMM) 2.2 Absolute Monocytes (0.10 - 0.60 /CUMM) 1.1 H Absolute Eosinophils (0.0 - 0.7 /CUMM) 0.2 Absolute Basophils (0.0 - 0.2 /CUMM) 0 PUBS MCHC (33.0 - 37.0 G/DL) 32.7 L Assessment/Plan Assessment/Plan Small bowel obstruction with improved ostomy output will remove NG tube and start clear liquid diet monitor for aspiration precautions and start slow. Core Measures/Miscellaneous Venous Thromboembolism VTE Risk Factors: Acute medical illness VTE Contraindications: No Contraindications VTE Prophylaxis Ordered Inpt Mech & Pharm VTE Diagnosis: No Beta Nora Is Beta Nora a Home Med? No Antibiotics Is Patient on Antibiotics? No
[2016-02-09 23:40] VITALS: BP 143/96
--- NOTE | 2016-02-10 07:05 | NUR ---
SURGICAL PA 416 MADE AWARE THAT SPT IS LEAKING LARGE AMOUNT OF FLUID AT INSERTION SITE. DRESSING CHANGED SEVERAL TIMES. WILL CONTINUE TO MONITOR.
[2016-02-10 08:00] VITALS: BP 144/78
--- NOTE | 2016-02-10 11:37 | PN- General Surgery ---
See Addendum Subjective Subjective: Awake, alert, no complaints except constant leakage around the suprapubic. Pt states this has happened in the distant past but Dr Nicole replaced the tube with a larger size (24) and it resolved. She now has a size 18 catheter. Denies abdominal pain or nausea Objective Vital Signs and I&Os Vital Signs Date Time Temp Pulse Resp B/P Pulse O2 O2 Flow FiO2 Ox Delivery Rate 02/09 08 98.4 73 20 144/78 95 Nasal 3.0L Cannula 02/09 0000 Nasal 3.0L Cannula 02/08 2340 98.2 76 18 143/96 93 Nasal 2.0L Cannula 02/08 1636 98.4 76 18 142/78 95 Nasal 2.0L Cannula Intake & Output 02/09 1600 02/09 0800 02/09 0000 02/08 1600 02/08 0800 02/08 0000 Intake Total 120 480 600 800 800 Output Total 401 300 441 700 675 Balance -281 180 159 100 125 Intake, IV 300 800 800 Intake, Oral 120 480 300 Output, 250 600 Gastric Drainage Output, Stool 1 0 1 50 75 Output, Urine 400 300 440 400 Physical Exam: afebrile, vss Ostomy: gas, fecal content, brown Gen: in no apparent distress, resting in bed Skin: warm, dry, multiple lesions on distal extremities Cardiac: RRR, CTA anteriorly bilaterally Abd: hypoactive bowel sounds. Non-tender, softly distended. Suprapubic tube draining urine. Colostomy on left side, intact, bag has gas and soft/liquid brown stool Current Medications: Current Medications Sig/Mary Grace Start time Last Medication Dose Route Stop Time Status Admin Amitriptyline HCl 25 MG DAILY 02/07 1000 AC 02/09 PO 0934 Aspirin 81 MG DAILY 02/08 1000 AC 02/09 PO 0932 Baclofen 40 MG Q6 02/07 0600 AC 02/09 PO 0646 Cholecalciferol 5,000 IU DAILY 02/07 1000 AC 02/09 PO 0933 Clonazepam 0.5 MG DAILY 02/07 1000 AC 02/09 PO 02/14 0959 0933 Collagenase 1 LAZARA DAILY 02/08 1330 AC 02/09 TOP 0934 Dextrose/Sodium 1,000 ML Q10H 02/07 0645 DC 02/08 Chloride IV 0536 Heparin Sodium 5,000 UNIT Q8 02/07 0634 AC 02/09 (Porcine) SC 0647 Nystatin 1 LAZARA Q8P PRN 02/07 0815 AC 02/09 TOP 0934 Oxybutynin Chloride 15 MG BID 02/07 1000 AC 02/09 PO 0932 Vitamin A/Vitamin D 1 LAZARA BID 02/08 1319 AC 02/09 TOP 0934 Zinc Oxide 1 LAZARA BID 02/08 1320 AC 02/09 TOP 0934 Assessment/Plan Assessment/Plan 65 yo female admitted with SBO, now resolved Discussed with Dr Del Toro advance to fulls chronic wounds managed by wound care continue to reinforce dressing around suprapubic tube - Pt will need to return to Dr Hernandez for catheter management and recommendations hep sc - dvt ppx Core Measures/Miscellaneous Lopez Catheter Date In: 02/08/16 (chronic indwelling) Still Needed? Yes Venous Thromboembolism VTE Risk Factors: Age > 40 VTE Contraindications: No Contraindications VTE Prophylaxis Ordered Inpt Mech & Pharm VTE Diagnosis: No Beta Nora Is Beta Nora a Home Med? No Antibiotics Is Patient on Antibiotics? No
--- NOTE | 2016-02-10 14:21 | NUR ---
O2 SAT 94% ON 2L. WILL TITRATE TOLERATED.
--- NOTE | 2016-02-10 16:13 | Patient Discharge Instructions ---
Discharge Instructions General Discharge Information You were seen/treated for: small bowel obstruction Watch for these problems: increased abdominal pain, nausea, vomiting Diet Continue normal diet: Yes Activity Activity Self Limited: Yes Acute Coronary Syndrome Inclusion Criteria At DC or during hospital stay patient has or had the following: ACS DIAGNOSIS No Discharge Core Measures Meds if any: Prescribed or Continued at Discharge Meds if any: NOT Prescribed or Continued at Discharge Congestive Heart Failure Inclusion Criteria At DC or during hospital stay patient has or had the following: CHF DIAGNOSIS No Discharge Core Measures Meds if any: Prescribed or Continued at Discharge Meds if any: NOT Prescribed or Continued at Discharge Cerebrovascular accident Inclusion Criteria At DC or during hospital stay patient has or had the following: CVA/TIA Diagnosis No Discharge Core Measures Meds if any: Prescribed or Continued at Discharge Meds if any: NOT Prescribed or Continued at Discharge Venous thromboembolism Inclusion Criteria VTE Diagnosis No VTE Type NONE VTE Confirmed by (Test) NONE Discharge Core Measures - Per Current guidelines, there needs to be overlap - treatment for the first 5 days of Warfarin therapy. - If discharged on Warfarin prior to 5 days of - overlap therapy, the patient will need to be - assessed for post discharge needs including - *Post discharge parental anticoagulation - *Warfarin and/or parental anticoagulation education - *Follow up date to check INR post discharge At least 5 days overlap therapy as Inpatient No Meds if any: Prescribed or Continued at Discharge Note: Overlap Therapy is Warfarin and Anticoagulant Meds if any: NOT Prescribed or Continued at Discharge
[2016-02-10 17:13] VITALS: BP 138/82
[2016-02-10 23:40] VITALS: BP 144/78
--- NOTE | 2016-02-11 07:41 | PN- General Surgery ---
See Addendum Subjective Subjective: The patient was seen this morning. She is tolerating a clear liquid diet without any nausea. Her colostomy has restarted putting out formed stools and she continues to leak small amounts of urine around her suprapubic tube. The patient has no other complaints at the current time. Objective Vital Signs and I&Os Vital Signs Date Time Temp Pulse Resp B/P Pulse O2 O2 Flow FiO2 Ox Delivery Rate 02/09 2340 98.9 74 18 144/78 93 Nasal 2.0L Cannula 02/09 1713 98.4 68 22 138/82 93 Nasal Cannula 02/09 08 Nasal 3.0L Cannula 02/10 800 98.4 73 20 144/78 95 Nasal 3.0L Cannula Intake & Output 02/10 0802/10 0000 02/09 1600 02/09 0800 02/09 0000 02/08 1600 Intake Total 240 700 120 480 600 Output Total 1700 401 300 441 Balance -1460 700 -281 180 159 Intake, IV 300 Intake, Oral 240 700 120 480 300 Output, Stool 1 0 1 Output, Urine 1700 400 300 440 Patient 250 lb Weight Physical Exam: Gen.: Alert and in obvious distress Skin: Warm and dry Abdomen: Soft, obese, mild bilateral lower quadrant tenderness without rebound or guarding. Suprapubic tube in place with mild surrounding erythema. Colostomy is pink and viable with positive formed stool and gas in the bag Extremities: Bilateral lower extremities are warm without calf tenderness and are edematous. Assessment/Plan Assessment/Plan Assessment: 65-year-old female with a slowly resolving small bowel obstruction. The patient has shown signs of increased bowel function and she is tolerating clear liquid diet without nausea. Plan: Advance to full liquid diet Strict I's and O's Colostomy and suprapubic tube maintenance Follow-up morning laboratory studies GI and DVT prophylaxis Continue current pain regiment Out of bed to chair Core Measures/Miscellaneous Lopez Catheter Date In: 02/08/16 (chronic indwelling) Venous Thromboembolism VTE Risk Factors: Age > 40 VTE Contraindications: No Contraindications VTE Prophylaxis Ordered Inpt Mech & Pharm VTE Diagnosis: No Beta Nora Is Beta Nora a Home Med? No Antibiotics Is Patient on Antibiotics? No
[2016-02-11 08:35] VITALS: BP 156/76
[2016-02-11 15:54] VITALS: BP 128/66
[2016-02-11 23:52] VITALS: BP 164/64
--- NOTE | 2016-02-12 08:00 | PN- General Surgery ---
See Addendum Subjective Subjective: Patient reporting no overnight nausea and vomitting. Denies chest pain and shortness of breath. Denies pain at the present moment. Objective Vital Signs and I&Os Vital Signs Date Time Temp Pulse Resp B/P Pulse O2 O2 Flow FiO2 Ox Delivery Rate 02/11 0000 Nasal 1.0L Cannula 02/10 2352 97.8 69 20 164/64 92 Nasal 1.0L Cannula 02/10 1554 98.0 76 20 128/66 93 02/10 0835 98.1 72 20 156/76 93 Nasal 2.0L Cannula 02/10 08 Nasal 2.0L Cannula Intake & Output 02/11 0800 02/11 0000 02/10 1600 02/10 0800 02/10 0000 02/09 1600 Intake Total 400 800 600 240 700 Output Total 650 3437 260 4658 Balance -250 -1105 600 -200 -1460 700 Intake, Oral 400 800 600 240 700 Number 1 Bowel Movements Output, Stool 30 200 Output, Urine 650 1875 1700 Patient 250 lb Weight Physical Exam: General: Alert and oriented x3 Cardiac: RRR, s1s2 Pulm: CTA bilaterally [place]: Ostomy with formed stool and flatus, suprapubic with blue tinged urine output Assessment/Plan Assessment/Plan Assessment/Plan Assessment: 65-year-old female with a resolving small bowel obstruction. The patient has shown signs of increased bowel function and she is heart healthy diet without nausea. Plan: Strict I's and O's Colostomy and suprapubic tube maintenance GI and DVT prophylaxis Continue current pain regiment Out of bed to chair Consider d/c to snf today Core Measures/Miscellaneous Lopez Catheter Date In: 02/08/16 (chronic indwelling) Venous Thromboembolism VTE Risk Factors: Age > 40 VTE Contraindications: No Contraindications VTE Prophylaxis Ordered Inpt Mech & Pharm VTE Diagnosis: No Beta Nora Is Beta Nora a Home Med? No Antibiotics Is Patient on Antibiotics? No
[2016-02-12 08:14] VITALS: BP 110/84
[2016-02-12 08:54] LABS: ABSOLUTE BASOPHIL COUNT 0 /CUMM (0.0-0.2); ABSOLUTE EOSINOPHIL COUNT 0.7 /CUMM (0.0-0.7); ABSOLUTE GRANULOCYTE CT 4.5 /CUMM (1.4-6.5); ABSOLUTE LYMPH COUNT 2.1 /CUMM (1.2-3.4); ABSOLUTE MONOCYTE COUNT 0.9 /CUMM (0.10-0.60); BASOPHIL % 0.4 % (0.0-2.0); EOSINOPHIL % 8.2 % (0-5); GRANULOCYTE % 54.6 % (42.2-75.2); MEAN CORPUSCULAR HGB 26.8 PG (27.0-31.0); MEAN CORPUSCULAR HGB CONC 32.9 G/DL (33.0-37.0); MEAN CORPUSCULAR VOLUME 81.6 FL (81.0-99.0); MEAN PLATELET VOLUME 7.9 FL (7.4-10.4); PLATELET COUNT 263 /CUMM (130-400); RBC DISTRIBUTION WIDTH 14.4 % (11.5-14.5); RED BLOOD CELL CT 5.31 /CUMM (4.20-5.40); WHITE BLOOD CELL COUNT 8.2 /CUMM (4.8-10.8)
[2016-02-12 09:54] LABS: HEMATOCRIT 43.4 % (37-47)
[2016-02-12 16:45] VITALS: BP 122/74
[2016-02-12 23:27] VITALS: BP 120/76
--- NOTE | 2016-02-13 07:24 | PN- General Surgery ---
See Addendum Subjective Subjective: NAEO. Patient without new c/o. No pain. Tolerating diet without n/v. Ostomy continues to put out gas/stool. Good UO. Patient does c/o leaking around suprapubic catheter. Continues to have daily wound management by wound care team of decubitus ulcers. Denies CP/SOB. Objective Vital Signs and I&Os Vital Signs Date Time Temp Pulse Resp B/P Pulse O2 O2 Flow FiO2 Ox Delivery Rate 02/12 0000 Nasal 1.0L Cannula 02/11 2327 97.4 68 20 120/76 93 02/11 1645 97.8 69 17 122/74 92 Nasal 1.0L Cannula 02/11 0814 97.8 66 18 110/84 92 Nasal 1.0L Cannula 02/11 0800 Nasal 1.0L Cannula Intake & Output 02/12 0800 02/12 0000 02/11 1600 02/11 0800 02/11 0000 02/10 1600 Intake Total 240 830 460 400 800 600 Output Total 550 700 337 749 8951 Balance -310 130 -390 -250 -1105 600 Intake, IV 10 Intake, Oral 240 830 450 400 800 600 Number 1 Bowel Movements Output, Stool 150 350 30 Output, Urine 550 550 440 034 1287 Physical Exam: General: NAD, comfortable, A&Ox3 Chest: CTAB. RRR. Abdomen: soft, nontender, nondistended. +Bowel sounds x4 quadrants. Stoma pink and viable in ostomy in place with light brown stool and gas in bag. Groin: 18 [place] suprapubic catheter in place with cloudy light yellow colored urine output Ext: No calve swelling/TTP, neurovascularly intact bilateral lower extremities Current Medications: Current Medications Sig/Mary Grace Start time Last Medication Dose Route Stop Time Status Admin Amitriptyline HCl 25 MG DAILY 02/07 1000 AC 02/11 PO 0949 Aspirin 81 MG DAILY 02/08 1000 AC 02/11 PO 0949 Baclofen 40 MG Q6 02/07 0600 AC 02/12 PO 0616 Cholecalciferol 5,000 IU DAILY 02/07 1000 AC 02/11 PO 0949 Clonazepam 0.5 MG DAILY 02/07 1000 AC 02/11 PO 02/14 0959 0949 Collagenase 1 LAZARA DAILY 02/08 1330 AC 02/11 TOP 0950 Heparin Sodium 5,000 UNIT Q8 02/07 0634 AC 02/12 (Porcine) SC 0616 Nystatin 1 LAZARA Q8P PRN 02/07 0815 DC 02/10 TOP 2158 Oxybutynin Chloride 15 MG BID 02/07 1000 AC 02/11 PO 2113 Patient Medication 1 ED .STK-MED ONE 02/11 1345 DC Teaching ED 02/11 1346 Vitamin A/Vitamin D 1 LAZARA BID 02/08 1319 AC 02/11 TOP 2113 Zinc Oxide 1 LAZARA BID 02/08 1320 AC 02/11 TOP 211 Results Last 48 Hours of Labs: Laboratory Tests 02/11 0820 Chemistry Sodium (137 - 145 mmol/L) 138 Potassium (3.5 - 5.1 mmol/L) 3.7 Chloride (98 - 107 mmol/L) 100 Carbon Dioxide (22 - 30 mmol/L) 28 Anion Gap (5 - 16) 10 BUN (7 - 17 mg/dL) 9 Creatinine (0.5 - 1.0 mg/dL) 0.6 Estimated GFR (>60 ml/min) > 60 BUN/Creatinine Ratio (7 - 25 %) 15.0 Hematology CBC w Diff NO MAN DIFF REQ WBC (4.8 - 10.8 /CUMM) 8.2 RBC (4.20 - 5.40 /CUMM) 5.31 Hgb (12.0 - 16.0 G/DL) 14.3 Hct (37 - 47 %) 43.4 MCV (81.0 - 99.0 FL) 81.6 MCH (27.0 - 31.0 PG) 26.8 L RDW (11.5 - 14.5 %) 14.4 Plt Count (130 - 400 /CUMM) 263 MPV (7.4 - 10.4 FL) 7.9 Gran % (42.2 - 75.2 %) 54.6 Lymphocytes % (20.5 - 51.1 %) 25.6 Monocytes % (1.7 - 9.3 %) 11.2 H Eosinophils % (0 - 5 %) 8.2 H Basophils % (0.0 - 2.0 %) 0.4 Absolute Granulocytes (1.4 - 6.5 /CUMM) 4.5 Absolute Lymphocytes (1.2 - 3.4 /CUMM) 2.1 Absolute Monocytes (0.10 - 0.60 /CUMM) 0.9 H Absolute Eosinophils (0.0 - 0.7 /CUMM) 0.7 Absolute Basophils (0.0 - 0.2 /CUMM) 0 PUBS MCHC (33.0 - 37.0 G/DL) 32.9 L Assessment/Plan Assessment/Plan 65yo F with resolving SBO/Ileus. Patient progressing well. - continue diet - wound care - I/O's - OOB to chair - GI and DVT ppx - f/u labs - plan for DC to snf/str today - will d/w attending Core Measures/Miscellaneous Lopez Catheter Date In: 02/08/16 (chronic indwelling) Venous Thromboembolism VTE Risk Factors: Age > 40 VTE Contraindications: No Contraindications VTE Prophylaxis Ordered Inpt Mech & Pharm VTE Diagnosis: No Beta Nora Is Beta Nora a Home Med? No Antibiotics Is Patient on Antibiotics? No
[2016-02-13 08:21] VITALS: BP 120/71
--- NOTE | 2016-02-13 08:55 | PN- Wound Care ---
See Addendum Subjective Subjective: She feels improved and is able to eat her colostomy appears to be functioning. She is on a low air loss mattress. She is incontinence despite Lopez catheter Objective Vital Signs and I&Os Vital Signs Result Date Time Pulse Ox 91 02/13 820 B/P 120/71 02/13 820 O2 Delivery Nasal Cannula 02/13 820 O2 Flow Rate 1.0L 02/13 820 Temp 98.2 02/13 820 Pulse 72 02/13 820 Resp 20 02/13 820 Intake & Output 02/12 0000 02/11 1600 02/11 0800 Intake Total 830 460 400 Output Total 700 850 650 Balance 130 -390 -250 Intake, IV 10 Intake, Oral 830 450 400 Output, Stool 150 350 Output, Urine 550 500 650 There are multiple decubitus ulcers present over both buttocks posterior thighs and coccyx over the left buttock is a 9 x 3 cm full-thickness ulcer with areas of deep tissue injury adjacent 2-2.5 x 1 cm full-thickness O's are over the left posterior thigh is a 2 x 0.3 cm full-thickness ulcer these are stage III over the coccyx is a 4 x 2 cm stage III pressure ulcer over the right posterior thigh is a 2.5 x 2 cm stage III ulcer over the right buttock are several less than 1 cm apparent partial thickness ulcer. Over the right lower lateral leg is a approximately 5 x 3 cm stage III pressure ulcer there is some areas of epithelialization there is 100% red fill Impression/Plan Impression/Plan Impression/Plan: 65-year-old woman functionally paraplegic due to multiple sclerosis who has multiple pressure ulcers of her buttocks coccyx and posterior thighs. Patient requires aggressive offloading and management of her urinary incontinence. Wound care can be barrier cream to areas of partial thickness and deep tissue injury and Xeroform to stage III pressure ulcers. The right leg ulcer needs to be offloaded and elevated Xeroform can be used on a daily basis
[2016-02-13 09:20] LABS: ABSOLUTE BASOPHIL COUNT 0 /CUMM (0.0-0.2); ABSOLUTE EOSINOPHIL COUNT 0.7 /CUMM (0.0-0.7); ABSOLUTE GRANULOCYTE CT 4.6 /CUMM (1.4-6.5); ABSOLUTE LYMPH COUNT 2.2 /CUMM (1.2-3.4); ABSOLUTE MONOCYTE COUNT 0.9 /CUMM (0.10-0.60); BASOPHIL % 0.4 % (0.0-2.0); EOSINOPHIL % 7.9 % (0-5); GRANULOCYTE % 54.5 % (42.2-75.2); HEMATOCRIT 39.4 % (37-47); MEAN CORPUSCULAR HGB 27.1 PG (27.0-31.0); MEAN CORPUSCULAR HGB CONC 33.3 G/DL (33.0-37.0); MEAN CORPUSCULAR VOLUME 81.6 FL (81.0-99.0); MEAN PLATELET VOLUME 8.1 FL (7.4-10.4); PLATELET COUNT 303 /CUMM (130-400); RBC DISTRIBUTION WIDTH 14.6 % (11.5-14.5); RED BLOOD CELL CT 4.84 /CUMM (4.20-5.40); WHITE BLOOD CELL COUNT 8.4 /CUMM (4.8-10.8)
--- NOTE | 2016-02-13 12:00 | NUR ---
SUPRAPUBIC TUBE LEAKING COPIOUS AMT OF INSTENSELY AROMATIC URINE. COMPLETE BED CHANGE, EM COAT CHANGED. ABDOMINAL PAD APPLIED TO SITE. SURG PA CALLED, WHO CALLED DR HESS, LEAKAGE EXPECRED SMALLER TUBE WAS PLACED RECENTLY, NO INTERVENTIONS AT THIS TIME. WILL CONTINUE TO MONITOR.
[2016-02-13] MEDS ORDERED: OXYBUTYNIN CHLOR5 M2 PO (13:37)
--- NOTE | 2016-02-13 14:24 | Discharge Summary ---
Visit Information Visit Dates Admission Date: 02/08/16 Discharge Date: 02/14/16 Hospital Course Course Attending Physician: LANDY CHUNG,AWA Narayanan Primary Care Physician: BARBARA MACIEL MD Hospital Course: Patient is a 65yo F whom is s/p transvaginal bladder neck closure with replacement of suprapubic tube 01/29/2016. She was admitted from ED to floor under Dr. Del Toro's service with small bowel obstruction. Patient was initially NPO with NG tube placed to decompress stomach and small intestine. She initially put out 1400ml through NG tube and 2400mL total over first 24 hour period. NG tube output then decreased and ostomy started putting out stool and gas on HD #3. Her NG tube was dc'd and diet advanced. Patient progressed well. Of note wound care team was consulted for decubitus ulcers. Hospital course uneventful. Complications: None Allergies: Coded Allergies: amoxicillin (From Augmentin) (UNKNOWN 11/08/15) clavulanic acid (From Augmentin) (UNKNOWN 11/08/15) Significant Procedures: None Disposition Summary Disposition Principal Diagnosis: Small bowel obstruction Additional Diagnosis: None Discharge Disposition: SNF Discharge Instructions General Discharge Information Code Status: Full Code Patient's Diet: Resume normal diet. Patient's Activity: As tolerated Follow-Up Instructions/Appts: Call office to schecule/confirm appointment. Medications at Discharge Discharge Medications: Stop taking the following medications: Oxybutynin Chloride (Oxybutynin Chloride) (Unknown Strength) TABLET ORAL TWICE DAILY Continue taking these medications: Amitriptyline HCl (Amitriptyline HCl) 25 MG TABLET Comments: LAST GIVEN 02/13/16 @ 1000 Baclofen (Baclofen) 20 MG TABLET 2 Tablet ORAL 4 TIMES A DAY Qty = 16 Comments: Last Taken: 10/18/13 Time: 1400 Clonazepam (Clonazepam) 0.5 MG TABLET 1 Tablet ORAL DAILY Qty = 135 Comments: Last Taken: 10/17/13 Time: Tizanidine HCl (Tizanidine HCl) (Unknown Strength) TABLET Unknown Dose ORAL As Directed as needed for MUSCLE SPASM Comments: DOCUMENTED PER CMR DURING PRE-SX INTERVIEW Aspirin (Ecotrin) 81 MG TABLET. 1 Tablet ORAL DAILY Cholecalciferol (Vitamin D3) 5,000 IU CAP 1 Capsule ORAL DAILY Start taking the following new medications: Oxybutynin Chloride (Oxybutynin Chloride) 5 MG TABLET 15 Milligram ORAL THREE TIMES DAILY Days = 30 Refills = 1 Comments: NOT GIVEN Copies To: JANELL CUHNG,BARBARA Zhu
[2016-02-13 16:12] VITALS: BP 138/67
--- NOTE | 2016-02-13 17:02 | Discharge Summary ---
See Addendum Visit Information Visit Dates Admission Date: 02/08/16 Discharge Date: 02/13/16 Hospital Course Course Attending Physician: LANDY CHUNG,AWA Narayanan Primary Care Physician: BARBARA MACIEL MD Hospital Course: See note from earlier today she was admitted on the with small bowel obstruction requiring an NG tube placement it's unclear what caused her probably adhesions from prior surgery but it's her first such episode she gradually improved regain bowel function without any relapses she also has an ongoing issue with decubitus ulcers that stable followed in the wound clinic, plan is to discharge her back to rehabilitation facility at this point she has no signs of infection obstruction or ischemia or bleeding. She will also follow-up with urology regarding her bladder Allergies: Coded Allergies: amoxicillin (From Augmentin) (UNKNOWN 11/08/15) clavulanic acid (From Augmentin) (UNKNOWN 11/08/15) Disposition Summary Disposition Principal Diagnosis: Small bowel obstruction Additional Diagnosis: Decubitus ulcers Urinary incontinence Discharge Disposition: SNF Discharge Instructions General Discharge Information Code Status: Full Code Patient's Diet: Continue usual Patient's Activity: Physical therapy every day Follow-Up Instructions/Appts: 2 weeks in the office or sooner if issues arise such as recurrent symptoms fevers sweats nausea Medications at Discharge Discharge Medications: Stop taking the following medications: Oxybutynin Chloride (Oxybutynin Chloride) (Unknown Strength) TABLET ORAL TWICE DAILY Continue taking these medications: Amitriptyline HCl (Amitriptyline HCl) 25 MG TABLET Comments: LAST GIVEN 02/13/16 @ 1000 Baclofen (Baclofen) 20 MG TABLET 2 Tablet ORAL 4 TIMES A DAY Qty = 16 Comments: Last Taken: 10/18/13 Time: 1400 Clonazepam (Clonazepam) 0.5 MG TABLET 1 Tablet ORAL DAILY Qty = 135 Comments: Last Taken: 10/17/13 Time: Tizanidine HCl (Tizanidine HCl) (Unknown Strength) TABLET Unknown Dose ORAL As Directed as needed for MUSCLE SPASM Comments: DOCUMENTED PER CMR DURING PRE-SX INTERVIEW Aspirin (Ecotrin) 81 MG TABLET.DR 1 Tablet ORAL DAILY Cholecalciferol (Vitamin D3) 5,000 IU CAP 1 Capsule ORAL DAILY Start taking the following new medications: Oxybutynin Chloride (Oxybutynin Chloride) 5 MG TABLET 15 Milligram ORAL THREE TIMES DAILY Days = 30 Refills = 1 Comments: NOT GIVEN Copies To: LANDY CHUNG,AWA Narayanan
[2016-02-14 00:02] VITALS: BP 140/70
--- NOTE | 2016-02-14 07:48 | PN- General Surgery ---
Subjective Subjective: Patient reporting no acute overnight events. Denies nausea and vomitting. Denies chest pain, shortness of breath and difficulty breathing. Denies discomfort to bilateral upper and lower extremities. Objective Vital Signs and I&Os Vital Signs Date Time Temp Pulse Resp B/P Pulse O2 O2 Flow FiO2 Ox Delivery Rate 02/13 0002 98.6 70 19 140/70 91 Room Air 02/12 1612 98.5 76 20 138/67 92 02/12 0821 98.2 72 20 120/71 91 Nasal 1.0L Cannula 02/12 08 95 Room Air Intake & Output 02/13 0800 02/13 0000 02/12 1600 02/12 0802/12 0000 02/11 1600 Intake Total 360 700 240 830 460 Output Total 550 450 550 700 850 Balance -550 -90 700 -310 130 -390 Intake, IV 10 Intake, Oral 360 700 240 830 450 Output, Stool 150 350 Output, Urine 550 450 550 550 500 Physical Exam: General: Alert and oriented x3, no acute distress Cardiac: RRR, s1s2 Pulmonary: CTA bilaterally Abdomen: Ostomy with gas/stool, suprapubic catheter continues to leak Extremities: bilateral calves soft and non-tender Assessment/Plan Assessment/Plan This is a 65 year old female, hospital day 5 with resolved ileus/sbo -Plan is for discharge to SNF today -F/U case management regarding bed placement Core Measures/Miscellaneous Lopez Catheter Date In: 02/08/16 (chronic indwelling) Venous Thromboembolism VTE Risk Factors: Acute medical illness VTE Contraindications: No Contraindications VTE Prophylaxis Ordered Inpt Mech & Pharm VTE Diagnosis: No Beta Nora Is Beta Nora a Home Med? No Antibiotics Is Patient on Antibiotics? No
[2016-02-14 08:00] VITALS: BP 144/80
[2016-02-14 15:51] VITALS: BP 140/86
[2016-02-14 15:57] VITALS: BP 140/86
[2016-02-14] MEDS ORDERED: OXYBUTYNIN CHLOR5 M2 PO (16:22)
== END 2016-02-14 17:20 | DRG 388 ==
LOC: ERH 17:57 → ERHI 02-08 01:33 → 2NB 02-08 01:33
PROVIDERS: Nurse Practitioner; Physician Assistant Medical; Physician Assistant Surgical; ADMIT Surgery
PROC: 0D9670Z Drainage of Stomach with Drainage Device, Via Natural or Artificial Opening (ICD-10-PCS; principal; 2016-02-08)
DX: K56.5 Intestinal adhesions [bands] with obstruction (postinfection) (principal); L89.153 Pressure ulcer of sacral region, stage 3; G35 Multiple sclerosis; L89.323 Pressure ulcer of left buttock, stage 3; L89.313 Pressure ulcer of right buttock, stage 3; K56.60 Unspecified intestinal obstruction; Z93.3 Colostomy status
CPT/HCPCS: 2NBP; 36415; 74000; 74022; 74176; 82436; 93005; 93010; 96374; J1644; J2405; J3490; J7042

== ENCOUNTER 2016-03-08 21:02 | Inpatient (IN) | payer OTHER ==
[~2016-03-08] VITALS: Ht 172.7 cm; Wt 113.4 kg
[~2016-03-08 21:02] MED LIST changes: +OXYBUTYNIN CHLOR5 M2 PO
--- NOTE | 2016-03-08 21:13 | NUR ---
PT BIBA FOR POSSIBLE SMALL BOWEL OBSTRUCTION. PER EMS [facility] STATED THAT THEY DID AN XRAY AND "POSSIBLE SMALL BOWEL OBSTRUCTION. PT DENIES PAIN, ONLY COMPLAINT IS NAUSEA. PT CAME IN WITH A ALEJANDRO, PUTTING OUT CLOUDY DARK YELLOW URINE. ASHLEY HIRSCH AT BEDSIDE FOR PT EVAL
--- NOTE | 2016-03-08 21:19 | ED GI/GU/ABDOMINAL COMPLAINT ---
History of Present Illness General Chief Complaint: Abdominal Pain/Flank Pain Stated Complaint: ?SBO Source: patient Exam Limitations: no limitations Vital Signs & Intake/Output Vital Signs & Intake/Output Vital Signs Date Time Temp Pulse Resp B/P Pulse O2 O2 Flow FiO2 Ox Delivery Rate 03/10 2218 98.0 70 20 150/72 92 Room Air 03/10 1400 97.6 79 18 142/76 93 Room Air 03/10 0800 Room Air 03/10 0703 98.2 74 18 120/82 90 Room Air ED Intake and Output 03/11 0000 03/10 1200 Intake Total 1450 640 Output Total 962 275 Balance 488 365 Intake, IV 400 400 Intake, Oral 1050 240 Output, Stool 22 75 Output, Urine 940 200 Allergies Coded Allergies: amoxicillin (From Augmentin) (UNKNOWN 11/08/15) clavulanic acid (From Augmentin) (UNKNOWN 11/08/15) Triage Note: PT BIBA FOR POSSIBLE SMALL BOWEL OBSTRUCTION. PER EMS [facility] STATED THAT THEY DID AN XRAY AND "POSSIBLE SMALL BOWEL OBSTRUCTION. PT DENIES PAIN, ONLY COMPLAINT IS NAUSEA. PT CAME IN WITH A ALEJANDRO, PUTTING OUT CLOUDY DARK YELLOW URINE. Triage Nurses Notes Reviewed? yes ? N Is pt currently ? No Onset: Gradual Duration: day(s): (1) Timing: recent history Quality/Severity: vomiting Severity Numbers: 6 Location: generalized abdomen Activities at Onset: none Prior Abdominal Problems: similar symptoms Past Sexual History: Unobtainable at this time HPI: Patient is a 65-year-old female with history of previous small bowel obstruction , hypertension, sacral ulcer, suprapubic to presenting to the emergency department with chief complaint of nausea and vomiting that started this morning. Because of her history of the small bowel obstruction and did aN abdominal x-ray which showed questionable partial small bowel obstruction. They sent her into the emergency department for evaluation. Patient denying any abdominal pain. Positive nausea. She reports a few episodes of nonbloody nonbilious emesis today. Patient denying any shortness of breath or chest pain. No palpitations. She does report that her suprapubic tube is due to be changed. No fevers or chills. No recent sick contacts. No recent travel. Denies recent antibiotic use. Her last bowel movement was yesterday and normal for her. She does report foul-smelling urine from the [facility]. (TAMI DIAZ) Reconcile Medications Amitriptyline HCl 25 MG TABLET ANTIDEPRESSANT (Reported) Aspirin (Ecotrin*) 81 MG TABLET.DR VERONA HERNANDEZ (Reported) Baclofen 20 MG TABLET 1 TAB PO Q6 Muscle relaxant (Reported) Cholecalciferol (Vitamin D3) 1,000 UNIT TABLET SUPPLEMENT (Reported) Clonazepam (Klonopin) 0.5 MG TABLET SHAKES (Reported) Oxybutynin Chloride 5 MG TABLET 15 MG PO TID incontinence (AMADOR CHUNG,LANDON Kapadia) Past History Travel History Traveled to [place] past 21 day No Medical History Any Pertinent Medical History? 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 No (TAMI DIAZ) Review of Systems Review of Systems Constitutional: Reports: no symptoms. Comments Review of systems: See HPI, All other systems negative. Constitutional, no chills fever or weight loss HEENT: No visual changes no sore throat no congestion Cardiovascular: No chest pain ,palpitation , orthopnea or ankle swelling Skin, no jaundice no rashes Respiratory: No dyspnea cough sputum or hemoptysis GI: No diarrhea : No dysuria No hematuria Muscle skeletal: no back pain, no neck pain, Neurologic: No numbness no confusion Psych: No stress anxiety Immunology: No splenectomy or history of AIDS (TAMI DIAZ) Physical Exam Physical Exam General Appearance: no apparent distress, alert, comfortable, obese Gastrointestinal: non-tender, HYPOACTIVE BOWEL SOUNDS Comments: Well-developed well-nourished person in no acute distress HEENT: Pupils equally round and reactive to light and accommodation. Nose is atraumatic. Neck: Supple, no lymphadenopathy, normal range of motion without pain or tenderness Back: Nontender, no CVA tenderness. Full range of motion Cardiovascular: Regular rate and rhythms no murmurs rubs or gallops, normal JVP Respiratory: Chest nontender. No respiratory distress.breath sounds diminished to auscultation bilaterally Abdomen: Soft and obese, nontender nondistended, no appreciable organomegaly. Normal bowel sounds. No ascites. Suprapubic tube is in place, appears to have slight discharge surrounding the suprapubic tube. THICK YELLOW/GREEN URINE noted in the suprapubic tube. Extremity: NOT PITTING EDEMA, no calf tenderness to palpation, normal and equal pulses. Neuro: Alert oriented x3, motor sensory normal Skin: No appreciable rash on exposed skin, skin is warm and dry. Psych: Mood and affect is normal, memory and judgment is normal. (TORREY RAMIREZ,TAMI) Core Measures ACS in differential dx? No Severe Sepsis Present: No Septic Shock Present: No (AMADOR CHUNG,LANDON Kapadia) Progress Differential Diagnosis: SMALL BOWEL OBSTRUCTION, GASTRITIS, PNEUMONIA, copd, chf , pe, acs, VIRAL SYNDROME, uti, PYELONEPHRITIS Plan of Care: Orders Procedure Date/time Status CBC WITHOUT DIFFERENTIAL 03/11 0600 Active BASIC ELECTROLYTES PLUS BUN&CR 03/11 0600 Active Full Liquid Diet 03/10 L Active Turn and Reposition 03/10 2250 Active CULTURE,URINE 03/10 1039 Active Nursing Misc 03/10 UNK Active Current Medications Sig/Mary Grace Start time Last Medication Dose Stop Time Status Admin Insulin Aspart 0 TIDAC 03/09 0800 AC (NovoLOG) Laboratory Tests 03/10/16 1258: Anion Gap 10, Estimated GFR > 60, BUN/Creatinine Ratio 16.3, CBC w Diff NO MAN DIFF REQ, RBC 5.39, MCV 79.2 L, MCH 25.7 L, RDW 15.0 H, MPV 8.1, Gran % 66.6, Lymphocytes % 23.3, Monocytes % 7.2, Eosinophils % 2.6, Basophils % 0.3, Absolute Granulocytes 7.6 H, Absolute Lymphocytes 2.6, Absolute Monocytes 0.8 H, Absolute Eosinophils 0.3, Absolute Basophils 0, PUBS MCHC 32.5 L Microbiology 03/10 1313 URINE ROUT: Urine Culture - RECD Diagnostic Imaging: Viewed by Me: Radiology Read, CT Scan. Discussed w/RAD: Radiology Read, CT Scan. Radiology Impression: PATIENT: GLENN MAYO PRESENT AGE: 65 PATIENT ACCOUNT NO: [id number] : 49 LOCATION: [facility] ORDERING PHYSICIAN: TAMI RAMIREZ SERVICE DATE: 03/08/16 EXAM TYPE: RAD - XRY-PORTABLE CHEST XRAY EXAMINATION: XR PORTABLE CHEST CLINICAL INFORMATION: Hypoxia. Evaluate for congestive heart failure. COMPARISON: Portable chest x-ray 02/07/2016. TECHNIQUE: Portable AP view of the chest was obtained. FINDINGS: The lungs are hypoinflated. Bibasilar retrocardiac opacities are nonspecific and could reflect atelectasis given low lung volumes although superimposed infiltrates cannot be excluded in the appropriate clinical setting. No pleural effusions or pneumothoraces are identified. Cardiomediastinal contours are stable. Soft tissues are unremarkable. No acute osseous abnormality is identified. The patient is rotated to the left. There is right convex curvature of the thoracic spine. Also noted is mechanical hardware related to anterior cervical discectomy. IMPRESSION: Pulmonary hypoinflation. Bibasilar retrocardiac opacities are nonspecific and could reflect atelectasis given low lung volumes although superimposed infection cannot be excluded in the appropriate clinical setting. Initial ED EKG: INUS TACHYCARDIA AT 101 BPM,PROBABLE LEFT ATRIAL ABNORMALITY Hand-Off Endorsed To: AMADOR CHUNG,LANDON Kapadia Endorsed Time: 2250 Pending: CT, labs Comments: 03/08/2016 10:50:48 PM the patient is hypoxic to 87%. On discharge from the senior living she was 91%. Patient was also tachycardic at senior living. There is a foul-smelling odor in her room and related to the urine. Suprapubic tube was changed. Patient will for CT of the abdomen to rule out SBO. Patient not complaining of any pain. Given nausea medication. 03/08/2016 10:53:33 PM on initial labs patient does seem to be hemoconcentrated, slight bump and BUN and creatinine. IV fluids initiated. (TORREY RAMIREZ,TAMI) Comments: PATIENT: GLENN MAYO PRESENT AGE: 65 PATIENT ACCOUNT NO: [id number] : 49 LOCATION: [facility] ORDERING PHYSICIAN: TAMI RAMIREZ SERVICE DATE: 03/08/16 EXAM TYPE: CAT - CT ABD & PELVIS W/O IV CONTRAS EXAMINATION: CT ABDOMEN AND PELVIS WITHOUT CONTRAST CLINICAL INFORMATION: Nausea and vomiting COMPARISON: Abdominal CT 02/07/2016 TECHNIQUE: Multidetector volumetric imaging was performed from the superior aspect of the liver through the pubic symphysis. Sagittal and coronal reformatted images were obtained on the technologist's workstation. FINDINGS: Airspace opacities at the lung bases may reflect atelectasis, aspiration, or pneumonia. Limited evaluation of the unenhanced liver, spleen, and adrenal glands reveals no definite abnormality. Fatty atrophy of the pancreas. The gallbladder is surgically absent. Several nonobstructing calculi within the right kidney are again noted. A 1.3 cm exophytic structure projecting anteriorly from the left kidney does not definitively measure simple cyst Hounsfield units and should be further assessed with ultrasound. Right parapelvic cysts are again noted. No aortic aneurysm. Stomach and proximal small bowel are significantly dilated with air fluid levels and a transition point to relatively decompressed small bowel within the left pelvis in similar position to the previous study. Remaining small bowel is exhibits air-fluid levels without dilatation. A large fecalith within the rectum is stable in appearance. Redemonstrated evidence of prior colonic surgery and left lower quadrant colostomy. There is no free air. No mesenteric or retroperitoneal adenopathy. Suprapubic Alejandro catheter decompresses the bladder contains air. No pelvic adenopathy. No free fluid within the pelvis. There are no acute osseous abnormalities. Multilevel degenerative disc disease and facet arthropathy throughout the thoracolumbar spine. Leftward convex scoliotic curvature of the upper lumbar spine. Chronic healed fracture of the right femur. There is diffuse osteopenia. No significant soft tissue abnormality. IMPRESSION: - Stomach and small bowel remain significantly dilated with air fluid levels and there is a transition point to relatively decompressed small bowel within the left pelvis that is in similar position to the 02/07/2016 CT study with findings remaining concerning for a small bowel obstruction. Left lower quadrant diverting colostomy is redemonstrated and there is a stable large fecalith within the rectum. - Airspace opacities at the lung bases may reflect atelectasis, aspiration, or pneumonia. - A 1.3 cm exophytic structure projecting anteriorly from the left kidney does not definitively measure simple cyst Hounsfield units and should be further assessed with ultrasound. - Additional stable chronic findings as described. DICTATED BY: LADARIUS RICHARDS MD DATE/TIME DICTATED:03/08/162353 BOTTOM PRESSER:PB DATE/TIME TRANSCRIBED:03/08/162353 CONFIDENTIAL, DO NOT COPY WITHOUT APPROPRIATE AUTHORIZATION. <Electronically signed in Other Vendor System> SIGNED BY: LADARIUS RICHARDS MD 03/09/16 0015 (LANDON ENGLISH MD) Departure Departure Disposition: HOME OR SELF CARE Condition: Stable Referrals: ELADIO GARCIA MD Departure Forms: Customer Survey General Discharge Information (TAMI DIAZ) Departure Clinical Impression Primary Impression: Dehydration Secondary Impressions: Ileus, Leukocytosis, Pneumonia, Sepsis, UTI (urinary tract infection) Admission Note Spoke With: EVELIN PIMENTEL MD Documentation of Exam: Documentation of any treatments & extenuating circumstances including Concerns Regarding Discharge (functional status, medication knowledge or non-compliance, living conditions, etc.) that warrant an admission rather than observation: pt with ileus (discussed with surgery) as well as sepsis (likely pneumonia vs uti). pt merits broad spectrum abx due to recent hospitalization. High mortality/morbidity in this medically complex patient. PA/BRASSIERE CUP MOLD CUTTER Co-Sign Statement Statement: ED Attending supervision documentation- [X] I saw and evaluated the patient. I have also reviewed all the pertinent lab results and diagnostic results. I agree with the findings and the plan of care as documented in the PA's/BRASSIERE CUP MOLD CUTTER's documentation. [] I have reviewed the ED Record and agree with the PA's/BRASSIERE CUP MOLD CUTTER's documentation. [] Additions or exceptions (if any) to the PAs/BRASSIERE CUP MOLD CUTTER's note and plan are summarized below: [] (AMADOR CHUNG,LANDON Kapadia) PA/BRASSIERE CUP MOLD CUTTER Co-Sign Statement Statement: ED Attending supervision documentation- [] I saw and evaluated the patient. I have also reviewed all the pertinent lab results and diagnostic results. I agree with the findings and the plan of care as documented in the PA's/BRASSIERE CUP MOLD CUTTER's documentation. [] I have reviewed the ED Record and agree with the PA's/BRASSIERE CUP MOLD CUTTER's documentation. [] Additions or exceptions (if any) to the PAs/BRASSIERE CUP MOLD CUTTER's note and plan are summarized below: [] (LADARIUS REYNOLDS DO) Procedures Additional Procedures Additional Procedures: SUPRAPUBIC TUBE CHANGE:THE BALLOON OF THE OLD TUBE WAS DEFLATED, 18fRENCH SUPRAPUBIC TUBE WAS THEN REMOVED WITH NO RESISTANCE. mILD AMOUNT OF BLOOD AFTER REMOVING THE 2 WHICH WAS CONTROLLED WITH PRESSURE. wITH STERILE PROCEDURE AND TECHNIQUE A NEW SUPRAPUBIC TUBE, 20 Libyan WAS INSERTED AFTER bETADINE PREP. tHE BLADDER WAS IRRIGATED WITH SALINE. pATIENT TOLERATED PROCEDURE WELL. Progress: Tolerated procedure well. (TORREY RAMIREZ,TAMI) Critical Care Note Critical Care Note Critical Care Time: 30-74 min (AMADOR CHUNG,LANDON Kapadia) within the rectum is stable in appearance. Redemonstrated evidence of prior colonic surgery and left lower quadrant colostomy. There is no free air. No mesenteric or retroperitoneal adenopathy. Suprapubic Alejandro catheter decompresses the bladder contains air. No pelvic adenopathy. No free fluid within the pelvis. There are no acute osseous abnormalities. Multilevel degenerative disc disease and facet arthropathy throughout the thoracolumbar spine. Leftward convex scoliotic curvature of the upper lumbar spine. Chronic healed fracture of the right femur. There is diffuse osteopenia. No significant soft tissue abnormality. IMPRESSION: - Stomach and small bowel remain significantly dilated with air fluid levels and there is a transition point to relatively decompressed small bowel within the left pelvis that is in similar position to the 02/07/2016 CT study with findings remaining concerning for a small bowel obstruction. Left lower quadrant diverting colostomy is redemonstrated and there is a stable large fecalith within the rectum. - Airspace opacities at the lung bases may reflect atelectasis, aspiration, or pneumonia. - A 1.3 cm exophytic structure projecting anteriorly from the left kidney does not definitively measure simple cyst Hounsfield units and should be further assessed with ultrasound. - Additional stable chronic findings as described. DICTATED BY: LADARIUS RICHARDS MD DATE/TIME DICTATED:03/08/162353 BOTTOM PRESSER:PB DATE/TIME TRANSCRIBED:03/08/162353 CONFIDENTIAL, DO NOT COPY WITHOUT APPROPRIATE AUTHORIZATION. <Electronically signed in Other Vendor System> SIGNED BY: LADARIUS RICHARDS MD 03/09/16 0015 (LANDON ENGLISH MD) Departure Departure Disposition: HOME OR SELF CARE Condition: Stable Referrals: ELADIO GARCIA MD Departure Forms: Customer Survey General Discharge Information (TAMI DIAZ) Departure Clinical Impression Primary Impression: Dehydration Secondary Impressions: Ileus, Leukocytosis, Pneumonia, Sepsis, UTI (urinary tract infection) Admission Note Spoke With: EVELIN PIMENTEL MD Documentation of Exam: Documentation of any treatments & extenuating circumstances including Concerns Regarding Discharge (functional status, medication knowledge or non-compliance, living conditions, etc.) that warrant an admission rather than observation: pt with ileus (discussed with surgery) as well as sepsis (likely pneumonia vs uti). pt merits broad spectrum abx due to recent hospitalization. High mortality/morbidity in this medically complex patient. PA/BRASSIERE CUP MOLD CUTTER Co-Sign Statement Statement: ED Attending supervision documentation- [X] I saw and evaluated the patient. I have also reviewed all the pertinent lab results and diagnostic results. I agree with the findings and the plan of care as documented in the PA's/BRASSIERE CUP MOLD CUTTER's documentation. [] I have reviewed the ED Record and agree with the PA's/BRASSIERE CUP MOLD CUTTER's documentation. [] Additions or exceptions (if any) to the PAs/BRASSIERE CUP MOLD CUTTER's note and plan are summarized below: [] (LANDON ENGLISH MD) PA/BRASSIERE CUP MOLD CUTTER Co-Sign Statement Statement: ED Attending supervision documentation- [] I saw and evaluated the patient. I have also reviewed all the pertinent lab results and diagnostic results. I agree with the findings and the plan of care as documented in the PA's/BRASSIERE CUP MOLD CUTTER's documentation. [] I have reviewed the ED Record and agree with the PA's/BRASSIERE CUP MOLD CUTTER's documentation. [] Additions or exceptions (if any) to the PAs/BRASSIERE CUP MOLD CUTTER's note and plan are summarized below: [] (LADARIUS REYNOLDS DO) Procedures Additional Procedures Additional Procedures: SUPRAPUBIC TUBE CHANGE:THE BALLOON OF THE OLD TUBE WAS DEFLATED, 18fRENCH SUPRAPUBIC TUBE WAS THEN REMOVED WITH NO RESISTANCE. mILD AMOUNT OF BLOOD AFTER REMOVING THE 2 WHICH WAS CONTROLLED WITH PRESSURE. wITH STERILE PROCEDURE AND TECHNIQUE A NEW SUPRAPUBIC TUBE, 20 Libyan WAS INSERTED AFTER bETADINE PREP. tHE BLADDER WAS IRRIGATED WITH SALINE. pATIENT TOLERATED PROCEDURE WELL. Progress: Tolerated procedure well. (TAMI DIAZ) Critical Care Note Critical Care Note Critical Care Time: 30-74 min (AMADOR CHUNG,LANDON Kapadia)
--- NOTE | 2016-03-08 21:46 | NUR ---
RESPIRATORY CALLED FOR TREATMENT
--- NOTE | 2016-03-08 21:51 | NUR ---
BLOOD WORK DRAWN AND SENT TO LAB: SST, LAV, BLUE, LUNDBERG TOPS.
--- NOTE | 2016-03-08 21:57 | NUR ---
RESPIRATORY AT BEDSIDE FOR TREATMENT, PT MEDICATED WITH 4MG ZOFRAN PER EMAR
[2016-03-08 22:06] LABS: ABSOLUTE BASOPHIL COUNT 0 /CUMM (0.0-0.2); ABSOLUTE EOSINOPHIL COUNT 0 /CUMM (0.0-0.7); ABSOLUTE LYMPH COUNT 0.9 /CUMM (1.2-3.4); ABSOLUTE MONOCYTE COUNT 0.8 /CUMM (0.10-0.60); BASOPHIL % 0.1 % (0.0-2.0); EOSINOPHIL % 0 % (0-5); HEMATOCRIT 51.6 % (37-47); MEAN CORPUSCULAR HGB 25.5 PG (27.0-31.0); MEAN CORPUSCULAR HGB CONC 32.4 G/DL (33.0-37.0); MEAN CORPUSCULAR VOLUME 78.7 FL (81.0-99.0); MEAN PLATELET VOLUME 8.1 FL (7.4-10.4); PLATELET COUNT 318 /CUMM (130-400); RBC DISTRIBUTION WIDTH 14.6 % (11.5-14.5); RED BLOOD CELL CT 6.56 /CUMM (4.20-5.40); WHITE BLOOD CELL COUNT 18.7 /CUMM (4.8-10.8)
[2016-03-08 22:10] LABS: GRANULOCYTE % 90.7 % (42.2-75.2)
--- NOTE | 2016-03-08 22:33 | RADIOLOGY REPORT ---
EXAMINATION: XR PORTABLE CHEST CLINICAL INFORMATION: Hypoxia. Evaluate for congestive heart failure. COMPARISON: Portable chest x-ray 02/07/2016. TECHNIQUE: Portable AP view of the chest was obtained. FINDINGS: The lungs are hypoinflated. Bibasilar retrocardiac opacities are nonspecific and could reflect atelectasis given low lung volumes although superimposed infiltrates cannot be excluded in the appropriate clinical setting. No pleural effusions or pneumothoraces are identified. Cardiomediastinal contours are stable. Soft tissues are unremarkable. No acute osseous abnormality is identified. The patient is rotated to the left. There is right convex curvature of the thoracic spine. Also noted is mechanical hardware related to anterior cervical discectomy. IMPRESSION: Pulmonary hypoinflation. Bibasilar retrocardiac opacities are nonspecific and could reflect atelectasis given low lung volumes although superimposed infection cannot be excluded in the appropriate clinical setting.
--- NOTE | 2016-03-08 22:50 | NUR ---
PT SUPRAPUBIC CATHETER REPLACED BY , ASHLEY HIRSCH, AND ASSISTANCE BY THIS RN.
--- NOTE | 2016-03-09 00:15 | CT SCAN REPORT ---
EXAMINATION: CT ABDOMEN AND PELVIS WITHOUT CONTRAST CLINICAL INFORMATION: Nausea and vomiting COMPARISON: Abdominal CT 02/07/2016 TECHNIQUE: Multidetector volumetric imaging was performed from the superior aspect of the liver through the pubic symphysis. Sagittal and coronal reformatted images were obtained on the technologist's workstation. FINDINGS: Airspace opacities at the lung bases may reflect atelectasis, aspiration, or pneumonia. Limited evaluation of the unenhanced liver, spleen, and adrenal glands reveals no definite abnormality. Fatty atrophy of the pancreas. The gallbladder is surgically absent. Several nonobstructing calculi within the right kidney are again noted. A 1.3 cm exophytic structure projecting anteriorly from the left kidney does not definitively measure simple cyst Hounsfield units and should be further assessed with ultrasound. Right parapelvic cysts are again noted. No aortic aneurysm. Stomach and proximal small bowel are significantly dilated with air fluid levels and a transition point to relatively decompressed small bowel within the left pelvis in similar position to the previous study. Remaining small bowel is exhibits air-fluid levels without dilatation. A large fecalith within the rectum is stable in appearance. Redemonstrated evidence of prior colonic surgery and left lower quadrant colostomy. There is no free air. No mesenteric or retroperitoneal adenopathy. Suprapubic Lopez catheter decompresses the bladder contains air. No pelvic adenopathy. No free fluid within the pelvis. There are no acute osseous abnormalities. Multilevel degenerative disc disease and facet arthropathy throughout the thoracolumbar spine. Leftward convex scoliotic curvature of the upper lumbar spine. Chronic healed fracture of the right femur. There is diffuse osteopenia. No significant soft tissue abnormality. IMPRESSION: - Stomach and small bowel remain significantly dilated with air fluid levels and there is a transition point to relatively decompressed small bowel within the left pelvis that is in similar position to the 02/07/2016 CT study with findings remaining concerning for a small bowel obstruction. Left lower quadrant diverting colostomy is redemonstrated and there is a stable large fecalith within the rectum. - Airspace opacities at the lung bases may reflect atelectasis, aspiration, or pneumonia. - A 1.3 cm exophytic structure projecting anteriorly from the left kidney does not definitively measure simple cyst Hounsfield units and should be further assessed with ultrasound. - Additional stable chronic findings as described.
--- NOTE | 2016-03-09 01:14 | NUR ---
PT COLOSTOMY BAG CHANGED. PT CLEANED. BARRIER CREAM APPLED. PT REPOSITIONED. PT APPEARS MORE COMFORTBALE. RESP UNLABORED. DENIES PAIN AND SOB
--- NOTE | 2016-03-09 02:36 | NUR ---
COLOSTOMY BAG EMPTIED OF LIQUID STOOL
--- NOTE | 2016-03-09 02:51 | Cons- General Surgery ---
BAILEE RAMIREZJANINA 03/09/16 0236: General Information and HPI Consulting Request Date of Consult: 03/09/16 Requested By: Emerson Maravilla MD (Emergency dept) Reason for Consult: vomiting, possible sbo Source of Information: patient, old records Exam Limitations: poor historian History of Present Illness: Pt is a 65 yo F, resident at [facility], with a pmh significant for HTN, MS (non-ambulatory), s/p diverting colostomy due to chronic decubitus ulcers and suprapubic catheter due to neurogenic bladder, who was brought into the ED by ambulance with reports of vomiting this morning. Pt states that she vomited x 1 after breakfast yesterday morning and was nauseated throughout most of the day. She thinks she had bowel function in her ostomy during the day because it was changed, but she was not sure. Per [facility] reports, an x-ray of the abdomen was done , which revealed suspicion for partial sbo. At this time, pt denies nausea or further emesis. A large amount of stool was just emptied from her ostomy, prior to my arrival. Pt denies abdominal pain or fever, but max temp in the ED is 100. She is noted to have gross hematuria with pink urine. She is also requiring 4L of O2 to maintain adequate saturations. Of note, she is s/p transvaginal bladder neck closure on 01/29/[address] Hernandez. This procedure was followed by a hospital admission for sbo on 02/08/16, which was treated conservatively with npo, ngt decompression, and slow advancement of diet upon resumption of bowel function. CT on this admission reveals concerns for recurrent partial sbo, so surgical consultation is being requested. Allergies/Medications Allergies: Coded Allergies: amoxicillin (From Augmentin) (UNKNOWN 11/08/15) clavulanic acid (From Augmentin) (UNKNOWN 11/08/15) Past History Medical History Neurological: multiple sclerosis EENT: NONE Cardiovascular: NONE Respiratory: NONE Gastrointestinal: DIVERTING COLOSTOMY Hepatic: NONE Renal: SUPRAPUBIC TUBE Musculoskeletal: NONE Psychiatric: NONE Endocrine: NONE Blood Disorders: NONE Cancer(s): NONE Surgical History Pertinent Surgical History: cholecystectomy, COLOSTOMY BAG LOW BACK SURGERY R HEEL I+D'S SACRAL DECUB I&D'S Family History Relations & Conditions If Any: BROTHER FH: cancer MOTHER Pacemaker Relation not specified for: Family history unknown Psychosocial History Where Do You Live? [facility] Services at Home: Home Health Aide, Nursing Functional Ability Ambulation: non-ambulatory Review of Systems Review of Systems: Positive for emesis, low grade fever, hematuria. Negative for chills, sweating, weakness, fatigue, dizziness, visual disturbances , chest pain, palpitations, shortness of breath, cough, congestion, abdominal pain, nausea (at this time), constipation, hematochezia. Exam & Diagnostic Data Vital Signs and I&O Vital Signs Date Time Temp Pulse Resp B/P Pulse O2 O2 Flow FiO2 Ox Delivery Rate 03/09 0100 99.3 96 20 128/69 95 Nasal 4.0L Cannula 03/08 2306 100.0 103 20 122/65 93 Nasal 4.0L Cannula 03/08 2256 90 Nasal 4.0L Cannula 03/08 2125 18 89 Nasal 4.0L Cannula 03/08 2124 98.6 106 18 128/71 82 Room Air Intake & Output 03/09 0800 03/09 0000 03/08 1600 03/08 0800 03/08 0000 03/07 1600 Intake Total 1000 Output Total Balance 1000 Intake, IV 1000 Patient 250 lb Weight Physical Exam: General: Pt is awake and alert. NAD. Verbalizing well. Abdomen: Obese, soft. Moderate distention in the epigastric area. Stoma is pink and viable. There is a small amount of soft stool in the bag. No air, but the bag was just changed and RN reported very large amounts of air and soft stool. Suprapubic catheter in place. Normoactive BS are heard throughtout. Rectal exam deferred as pt is unable to turn on her own and limited available staff at this time. Last 24 Hours of Labs: Laboratory Tests 03/09 03/09 0252 0210 Chemistry Lactic Acid Pending Urines Urine Color (YEL,AMB,STR) PINK H Urine Clarity (CLEAR) HAZY H Urine pH (5.0 - 8.0) 6.0 Ur Specific [place] (1.001 - 1.035) 1.010 Urine Protein (NEG,<30 MG/DL) 30 H Urine Ketones (NEG) NEG Urine Nitrite (NEG) POS H Urine Bilirubin (NEG) NEG@ICTO Urine Urobilinogen (0.1 - 1.0 EU/dl) 0.2 Ur Leukocyte Esterase (NEG) MOD H Ur Microscopic SEDIMENT EXAMINED Urine RBC (0 - 5 /HPF) PACKD H Urine WBC (0 - 2 /HPF) 3-5 H Ur Epithelial Cells (NONE,FEW) FEW Urine Hemoglobin (NEG) LARGE H Urine Glucose (N MG/DL) NEG 03/08 03/08 2145 2125 Chemistry Sodium (137 - 145 mmol/L) 137 Potassium (3.5 - 5.1 mmol/L) 5.0 Chloride (98 - 107 mmol/L) 100 Carbon Dioxide (22 - 30 mmol/L) 19 L Anion Gap (5 - 16) 19 H BUN (7 - 17 mg/dL) 19 H Creatinine (0.5 - 1.0 mg/dL) 1.1 H Estimated GFR (>60 ml/min) 50 L BUN/Creatinine Ratio (7 - 25 %) 17.3 Glucose (65 - 99 mg/dL) 226 H Lactic Acid (0.7 - 2.1 mmol/L) 2.5 H Calcium (8.4 - 10.2 mg/dL) 10.1 Total Bilirubin (0.2 - 1.3 mg/dL) 0.6 AST (14 - 36 U/L) 32 ALT (9 - 52 U/L) 39 Alkaline Phosphatase (<127 U/L) 161 H Troponin I (< 0.11 ng/ml) < 0.01 Cancelled Jku-H-Ghimcwlsuci Pept (<125 pg/mL) 204 H Cancelled Total Protein (6.3 - 8.2 g/dL) 9.8 H Albumin (3.5 - 5.0 g/dL) 4.4 Globulin (1.9 - 4.2 gm/dL) 5.4 H Albumin/Globulin Ratio (1.1 - 2.2 %) 0.8 L Hematology CBC w Diff MAN DIFF ORDERED WBC (4.8 - 10.8 /CUMM) 18.7 H RBC (4.20 - 5.40 /CUMM) 6.56 H Hgb (12.0 - 16.0 G/DL) 16.7 H Hct (37 - 47 %) 51.6 H MCV (81.0 - 99.0 FL) 78.7 L MCH (27.0 - 31.0 PG) 25.5 L RDW (11.5 - 14.5 %) 14.6 H Plt Count (130 - 400 /CUMM) 318 MPV (7.4 - 10.4 FL) 8.1 Gran % (42.2 - 75.2 %) 90.7 H Lymphocytes % (20.5 - 51.1 %) 4.8 L Monocytes % (1.7 - 9.3 %) 4.4 Eosinophils % (0 - 5 %) 0 Basophils % (0.0 - 2.0 %) 0.1 Absolute Granulocytes (1.4 - 6.5 /CUMM) 17.0 H Segmented Neutrophils (42.2 - 75.2 %) 85 H Band Neutrophils (0.0 - 5.0 %) 4 Absolute Lymphocytes (1.2 - 3.4 /CUMM) 0.9 L Lymphocytes (20.5 - 51.1 %) 5 L Monocytes (1.7 - 9.3 %) 6 Absolute Monocytes (0.10 - 0.60 /CUMM) 0.8 H Absolute Eosinophils (0.0 - 0.7 /CUMM) 0 Absolute Basophils (0.0 - 0.2 /CUMM) 0 Platelet Estimate (ADEQUATE) VERIFIED BY SMEAR Normocytic RBCs VERIFIED Normochromic RBCs VERIFIED PUBS MCHC (33.0 - 37.0 G/DL) 32.4 L Other Body Source Fld Total RBCs Counted (%) 100 Imaging Results: CT abdomen/pelvis: - Stomach and small bowel remain significantly dilated with air fluid levels and there is a transition point to relatively decompressed small bowel within the left pelvis that is in similar position to the 02/07/2016 CT study with findings remaining concerning for a small bowel obstruction. Left lower quadrant diverting colostomy is redemonstrated and there is a stable large fecalith within the rectum. - Airspace opacities at the lung bases may reflect atelectasis, aspiration, or pneumonia. - A 1.3 cm exophytic structure projecting anteriorly from the left kidney does not definitively measure simple cyst Hounsfield units and should be further assessed with ultrasound. - Additional stable chronic findings as described. CXR: Pulmonary hypoinflation. Bibasilar retrocardiac opacities are nonspecific and could reflect atelectasis given low lung volumes although superimposed infection cannot be excluded in the appropriate clinical setting. Other Results: EKG: Sinus tachycardia, rate 101 Assessment/Plan Assessment/Plan Pt is a 65 yo F, resident at [facility], with a pmh significant for HTN, diabetes, MS (non-ambulatory), s/p diverting colostomy due to chronic decubitus ulcers and suprapubic catheter due to neurogenic bladder, who returns with emesis, hematuria, and leukocytosis. UA is grossly positive for UTI and CT reveals suspicion for sbo. At this time, pt is not clinically obstructed. However, given her hx of recent SBO, should be monitored closely. Recommendations: -Agree with admission to medicine for urosepsis. -Would keep pt npo overnight and monitor for nausea. Ok to hold off on placing NGT since pt is not nauseated and is having bowel function. Low threshold for placement if nausea occurs because stomach is dilated on CT upon admission. During her last admission for sbo in January, she had large output from her NGT upon placement. Repeat MV x-ray of the abdomen in the AM. -IV antibiotics. IVF. -Repeat lactic acid level. Monitor lytes. -I d/w Dr. Simmons, who is covering the surgical service [facility], and he agrees. Consult Acknowledgment - Thank you for your consult request. HANG MARTINEZHERB 03/09/16 1219: General Information and HPI Allergies/Medications Home Med List: Amitriptyline HCl 25 MG TABLET ANTIDEPRESSANT (Reported) Aspirin (Ecotrin*) 81 MG TABLET.DR VERONA HERNANDEZ (Reported) Baclofen 20 MG TABLET 1 TAB PO Q6 Muscle relaxant (Reported) Cholecalciferol (Vitamin D3) 1,000 UNIT TABLET SUPPLEMENT (Reported) Clonazepam (Klonopin) 0.5 MG TABLET SHAKES (Reported) Oxybutynin Chloride 5 MG TABLET 15 MG PO TID incontinence Assessment/Plan Consult Acknowledgment - Thank you for your consult request. Attending MD Review Statement Attending Statement Attending MD Statement: examined this patient, discuss w/resident/PA/COLD ROLL CATCHER, agreed w/resident/PA/COLD ROLL CATCHER Attending Assessment/Plan: Vomiting and nuasea, less than a month ago admission for SBO. Has had ostomy output. AVSS Abd-soft, ostomy with gas and still this AM. Will give PO gastrograffin and then repeat AXR to assess for transit. Clinically does not appear to be obstructed as she is tolerating diet w/o N/V.
--- NOTE | 2016-03-09 03:28 | History & Physical ---
GEENA MONSALVE MD 03/09/16 0328: General Information and HPI MD Statement: I have seen and personally examined GLENN MAYO and documented this H&P. The patient is a 65 year old F who presented with a patient stated chief complaint of [nausea and vomiting]. Source of Information: patient, old records Exam Limitations: no limitations, pt agitated because she wants to sleep History of Present Illness: 65-year-old female with PMH of multiple sclerosis, with sacral ulcers, diverting colostomy, suprapubic catheter, small bowel obstruction, was brought to the hospital from [place] for nausea and 1 episode of vomiting. On the last hospital admission on 01/29/16, patient had small bowel obstruction that was relieved with NPO, and NGT decompression. At that time, she was not passing stool for days and had nausea for days. She has liquid stool in her ostomy bag. The ostomy bag was already changed at least once in the ED. During our evaluation, she denied any symptoms other than feeling tired and agitated because she wants to rest. She specifically denied abdominal pain, nausea, or vomiting since she came to the hospital. Her suprapubic catheter was changed in the ED today, and her urine turned bloody afterwards. She reports that "it always happens when they change the catheter". The urine has cleared up to clear yellow in color. She denied urinary symptoms, including foul smelling urine. She has grown pseudomonas in her urine in the past. She denied sick contacts at the facility. She denies cough, shortness of breath. On presentation, she was 82% on RA, which improved to 95% on 4L. She reports that her O2 sat is always low on the pulse oxymeter. She still has pressure ulcers, she described it as "chafed" skin. Allergies/Medications Allergies: Coded Allergies: amoxicillin (From Augmentin) (UNKNOWN 11/08/15) clavulanic acid (From Augmentin) (UNKNOWN 11/08/15) Home Med list Amitriptyline HCl 25 MG TABLET ANTIDEPRESSANT (Reported) Aspirin (Ecotrin*) 81 MG TABLET.DR VERONA HERNANDEZ (Reported) Baclofen 20 MG TABLET 1 TAB PO Q6 Muscle relaxant (Reported) Cholecalciferol (Vitamin D3) 1,000 UNIT TABLET SUPPLEMENT (Reported) Clonazepam (Klonopin) 0.5 MG TABLET SHAKES (Reported) Oxybutynin Chloride 5 MG TABLET 15 MG PO TID incontinence Past History Travel History Traveled to [place] past 21 day No Medical History Neurological: multiple sclerosis EENT: NONE Cardiovascular: NONE Respiratory: NONE Gastrointestinal: DIVERTING COLOSTOMY, small bowel obstruction Hepatic: NONE Renal: SUPRAPUBIC TUBE Musculoskeletal: NONE Psychiatric: NONE Endocrine: NONE Blood Disorders: NONE Cancer(s): NONE History of MRSA: Yes History of VRE: No History of CDIFF: No Pneumonia Vaccine: 02/07/13 Influenza Vaccine: 11/11/15 Surgical History Surgical History: cholecystectomy, COLOSTOMY BAG LOW BACK SURGERY R HEEL I+D'S SACRAL DECUB I&D'S Past Family/Social History Family History Relations & Conditions if any BROTHER FH: cancer MOTHER Pacemaker Relation not specified for: Family history unknown Psychosocial History Where do you live? [facility] Services at Home: Home Health Aide, Nursing Functional Ability Ambulation: non-ambulatory, wheelchair Sexual History Past Sexual History Unobtainable at this time Review of Systems Review of Systems Constitutional: Denies: chills, diaphoresis, fever. EENTM: Denies: visual changes. Cardiovascular: Denies: chest pain, palpitations. Respiratory: Denies: cough, short of breath, sputum production. GI: Denies: abdominal pain, bloating, constipation, diarrhea, nausea, bloody stool, vomiting. Genitourinary: Reports: hematuria (after cath replacement). Exam & Diagnostic Data Last 24 Hrs of Vital Signs/I&O Vital Signs Date Time Temp Pulse Resp B/P Pulse O2 O2 Flow FiO2 Ox Delivery Rate 03/09 0441 98.3 87 20 114/68 93 Nasal Cannula 03/09 0325 99.9 96 18 135/79 95 Nasal 4.0L Cannula 03/09 0100 99.3 96 20 128/69 95 Nasal 4.0L Cannula 03/08 2306 100.0 103 20 122/65 93 Nasal 4.0L Cannula 03/08 2256 90 Nasal 4.0L Cannula 03/086 18 89 Nasal 4.0L Cannula 03/08 2124 98.6 106 18 128/71 82 Room Air Intake & Output 03/09 0800 03/09 0000 03/08 1600 Intake Total 1000 Output Total Balance 1000 Intake, IV 1000 Patient 113.398 kg Weight Physical Exam General Appearance Alert, Oriented X3, Mild Distress, agitated due to fatigue Skin pressure ulcers on right buttock, left buttock , coccyx, right thigh. , ulcer on right ankle/alcantar HEENT Atraumatic, PERRLA, EOMI, dry mucous membrane Neck Supple, +2 Carotid Pulse wo Bruit Lymphatic Axillary nl, Cervical nl Cardiovascular Regular Rate, Normal S1, Normal S2, No Murmurs, Gallops, Rubs Lungs difficult to assess due to body habitus and paraplegia Abdomen Normal Bowel Sounds, Soft, No Tenderness, stoma red, brown liquid stool in ostomy bag , urine clear yellow in catheter Neurological Normal Speech Extremities No Edema, Normal Pulses, cold feet, chronic Vascular Normal Pulses Last 24 Hrs of Labs/Ace: Laboratory Tests 03/09/16 0252: Lactic Acid 2.8 H 03/09/16 0210: Urine Color PINK H, Urine Clarity HAZY H, Urine pH 6.0, Ur Specific [place] 1.010, Urine Protein 30 H, Urine Ketones NEG, Urine Nitrite POS H, Urine Bilirubin NEG@ICTO, Urine Urobilinogen 0.2, Ur Leukocyte Esterase MOD H, Ur Microscopic SEDIMENT EXAMINED, Urine RBC PACKD H, Urine WBC 3-5 H, Ur Epithelial Cells FEW, Urine Hemoglobin LARGE H, Urine Glucose NEG 03/08/16 2145: Anion Gap 19 H, Estimated GFR 50 L, BUN/Creatinine Ratio 17.3, Glucose 226 H, Lactic Acid 2.5 H, Calcium 10.1, Total Bilirubin 0.6, AST 32, ALT 39, Alkaline Phosphatase 161 H, Troponin I < 0.01, Afo-I-Sflmuvetrha Pept 204 H, Total Protein 9.8 H, Albumin 4.4, Globulin 5.4 H, Albumin/Globulin Ratio 0.8 L, CBC w Diff MAN DIFF ORDERED, RBC 6.56 H, MCV 78.7 L, MCH 25.5 L, RDW 14.6 H, MPV 8.1, Gran % 90.7 H, Lymphocytes % 4.8 L, Monocytes % 4.4, Eosinophils % 0, Basophils % 0.1, Absolute Granulocytes 17.0 H, Segmented Neutrophils 85 H, Band Neutrophils 4, Absolute Lymphocytes 0.9 L, Lymphocytes 5 L, Monocytes 6, Absolute Monocytes 0.8 H, Absolute Eosinophils 0, Absolute Basophils 0, Platelet Estimate VERIFIED BY SMEAR, Normocytic RBCs VERIFIED, Normochromic RBCs VERIFIED, PUBS MCHC 32.4 L, Fld Total RBCs Counted 100 Microbiology 03/09 327 LOWER RESP: Respiratory Culture - ORD 03/09 327 LOWER RESP: Gram Stain - ORD 03/09 0210 URINE ROUT: Urine Culture - RECD 03/08 2316 BLOOD: Blood Culture - RECD Diagnostic Data EKG Results SR, 101, QTc 493 CXR Results IMPRESSION: Pulmonary hypoinflation. Bibasilar retrocardiac opacities are nonspecific and could reflect atelectasis given low lung volumes although superimposed infection cannot be excluded in the appropriate clinical setting. Other Results IMPRESSION: - Stomach and small bowel remain significantly dilated with air fluid levels and there is a transition point to relatively decompressed small bowel within the left pelvis that is in similar position to the 02/07/2016 CT study with findings remaining concerning for a small bowel obstruction. Left lower quadrant diverting colostomy is redemonstrated and there is a stable large fecalith within the rectum. - Airspace opacities at the lung bases may reflect atelectasis, aspiration, or pneumonia. - A 1.3 cm exophytic structure projecting anteriorly from the left kidney does not definitively measure simple cyst Hounsfield units and should be further assessed with ultrasound. Assessment/Plan Assessment: 65-year-old female with PMH of multiple sclerosis, with sacral ulcers, diverting colostomy, suprapubic catheter, small bowel obstruction, was brought to the hospital from [place] for nausea and 1 episode of vomiting. UA suggestive of UTI. # Sepsis of urological origin, risk factor being suprapubic catheter, previously grew pseudomonas in her urine. She had tachycardia with leukocytosis and bandemia. Other source of sepsis could be HCAP, pt was at [place] facility, desat to 82% on RA, CXR suspicous for PNA vs atelectasis, however pt reports that desaturation is chronic and denies respiratory symptoms. vs C diff colitis (liquid stool in ostomy bag, however unlikely given no recent abx use) - Suprapubic catheter changed in ED - Given 1 time IV ceftriaxone , IV ceftazidime, vancomycin in ED * Continue ceftazidime * Follow up UC, BCX2, LRC * Consider checking for c diff # Possible partial small bowel obstruction - Pt has significant liquid output in the ostomy bag - Lactic acid 2.5 --> 2.8 - GIven zofran 4 mg once, QTc prolonged at 493 * Surgery on board * Keep NPO * Hold off NGT unless pt has significant nausea and vomiting * Follow up lactic acid * Follow up EKG in am at 11(for QTc prolongation) # Acute kidney injury - BUN/Cr: 1.1 - Feb 262017: 11/0.7 * Gentle hydration with 50ml/hr # Exophytic mass on the left kidney * Consider follow up with kidney ultrasound # Multiple sclerosis - Pressure ulcers over coccyx, right buttock, left buttock, right thigh, right ankle/alcantar present on admission * Continue amitriptylene 25 mg daily, clonazepam 0.5, oxybutinin 15, baclofen 20 qid * Obtain wound consult in am # DM * Accucheck and novolog ss low dose # Home meds * Continue aspirin 81 mg daily , vit d3 1000 Diet: NPO DVT ppx: mech and pharm FULL CODE As Ranked By This Provider Problem List: 1. Sepsis 2. UTI (urinary tract infection) 3. Sacral decubitus ulcer, stage III 4. SBO (small bowel obstruction) Core Measures/Miscellaneous Acute Coronary Syndrome ACS Diagnosis: No Cerebrovascular Accident CVA/TIA Diagnosis: No Congestive Heart Failure CHF Diagnosis: No Venous Thromboembolism VTE Risk Factors: Acute medical illness, Age > 40 VTE Prophylaxis Ordered Inpt: Mech & Pharm No Mech VTE prophylaxis d/t: No contraindications No VTE Pharm Prophylaxis d/t: No contraindications VTE Diagnosis: No VTE Type: NONE VTE Confirmed by (Test): NONE Severe Sepsis Severe Sepsis Present: No Septic Shock Septic Shock Present: No Miscellaneous Documentation Attending Case Discussed With: EVELIN PIMENTEL MD Primary Care Physician: BARBARA MACIEL MD Patient sees these Specialists Dr Hernandez urology Level of Patient Care: General Medicine MARIN MAHAN 03/09/16 0403: Resident Review Statement Resident Statement: examined this patient, discussed with director international, agreed with director international, reviewed images Other Findings: This is a 65-year-old lady with past medical history significant for MS, sacral ulcers, status post colostomy and suprapubic catheter, small bowel obstruction who was brought to the hospital from [facility] for nausea and vomiting. Patient has recent history of small bowel obstruction which was relieved with NG tube decompression and keeping nothing by mouth(01/29/2016). Please see above for more details. On admission, she had maximum temperature of 100, pulse rate 106, respiratory rate 18, blood pressure 128/71, oxygen saturation 82% on room air (improved to 95% with 4 L nasal cannula oxygen) Physical exam at the time of admission: AAO 3, in no distress, head atraumatic, normocephalic, PERRLA, EOMI, mucous membranes dry. Neck supple, no JVD, no carotid bruit. Cardiovascular, RRR, no murmur. Lungs CTA BL. Abdomen: Normal bowel sounds, soft, nontender, nondistended, ostomy bag and suprapubic catheter intact. Urine clear and yellow in catheter, red color in bag extremities: Bilateral lower extremity edema noted, pulses palpable and symmetrical. Neurology exam: Cranial nerves III-12 intact. Normal speech, sensation intact, reflexes 2+ and symmetrical skin: Pressure ulcers present on buttocks, coccyx right thigh. Also on right alcantar/ankle. Available labs on diagnostic data reviewed. Problem list #1 sepsis: SIRS positive, source most likely UTI, chest x-ray shows suspect area for atelectasis versus pneumonia however patient has no clinical signs of pneumonia; no cough, sputum etc. #2 possible small bowel obstruction versus ileus #3 AK I #4 MS #5 mass on the left kidney Plan * Vital signs per protocol * I's and O's * Incentive spirometry * Blood cultures, urine culture, sputum culture * Trend lactic acid levels continue normal * Patient received a dose of vancomycin and ceftriaxone in the ED. Given history of positive urine culture for Pseudomonas in past will start the patient on ceftazidime, will discontinue ceftriaxone and vancomycin. * Surgery consult was placed in the ED; no need for NG tube at the moment, consider NG tube placement if nausea or worsening abdominal distention * Given QTC prolongation will avoid Zofran, can use Tigan for nausea * Will keep the patient nothing by mouth; will start gentle IV hydration * Continue home medications of baclofen, amitriptyline, aspirin and oxybutynin * Was consider renal ultrasound * Wound Consult in the morning * Please confirm medications * Full code EVELIN PIMENTEL 03/09/16 0727: Attending MD Review Statement Attending Statement Attending MD Statement: examined this patient, discuss w/resident/PA/EDITORIAL MANAGER, agreed w/resident/PA/EDITORIAL MANAGER, reviewed EMR data (avail), reviewed images, amended to note Attending Assessment/Plan: Cc : Nausea vomiting PMH: MS, paraparesis, left-sided colostomy bag (diverting colostomy due to chronic decubitus ulcers) suprapubic catheter due to neurogenic bladder Patient was recently admitted for small bowel obstruction, managed consultatively and discharged to [facility]. She was brought in ER for 4 episodes of vomiting today, x-ray abdomen was obtained which showed small bowel obstruction. Patient had stool output in colostomy bag, does not have any other complaints. Patient does not have any cough, chest pain, shortness of breath, phlegm production. Yesterday, She had temperature of 100 in half-way. In ER suprapubic catheter was changed ?Blocked, and it had pus discharge. Vitals: T max 100.0, mild tachycardia on presentation, RR, BP unremarkable, patient on 4 L saturating 94% on exam: A O 3, no distress, responds appropriately, no strength bilateral lower extremity and right upper extremity, good strength left upper extremity, abdomen: Colostomy bag present with liquid stool, suprapubic catheter present there is some blood around the perineum, local examination did not reveal any vaginal bleed. Bowel sounds present, no guarding or rigidity. CVS: S1-S2, RRR. RS: Clear to auscultation at bases. No dependent edema. Labs: WBC 18.7, hemoglobin 16.7, neutrophils 90%, bicarbonate 19, anion gap 19, lactate 2.5, alkaline phosphatase 161, proBNP 204, troponin less than 0.01, albumin 4.4 UA is positive for nitrite and leukocyte esterse. CT abdomen: Stomach and small bowel remain significantly dilated with air fluid levels and there is a transition point to relatively decompressed small bowel within the left pelvis that is in similar position to the 02/07/2016 CT study with findings remaining concerning for a small bowel obstruction. Left lower quadrant diverting colostomy is redemonstrated and there is a stable large fecalith within the rectum. Airspace opacities at the lung bases may reflect atelectasis, aspiration, or pneumonia. A 1.3 cm exophytic structure projecting anteriorly from the left kidney does not definitively measure simple cyst Hounsfield units and should be further assessed with ultrasound. A and P #1 ? Partial SBO versus ileus : Surgery was consulted in ER, follow their suggestions, nothing by mouth, gentle hydration #2 patient has evidence of UTI on UA, pus while changing suprapubic catheter, leukocytosis, low-grade fever: Patient has history of Pseudomonas and manipulations with the suprapubic catheter, continue ceftaz, get urine culture, and blood culture. Continue hydration #3 there is blood in urinary bag, also around her perineum area, patient states that whenever they changed the suprapubic catheter she gets this blood which is not new to her. Patient recently underwent transvaginal bladder neck closure and has not followed up with urologist thereafter I would recommend to consult urology at this point. #4 anion gap acidosis: Lactate 2.5: Sepsis secondary to UTI, continue hydration, repeat BMP in 6 hours. Trend lactate #5 CT and chest x-ray shows some evidence of airspace disease, patient denies any cough or chest pain sputum production. Patient does not require baseline oxygen, but currently on 4 L, try to titrate down oxygen. Less likely pneumonia. Patient may have atelectasis secondary to her for sure and abdominal distention. Incentive spirometry. #6 DVT prophylaxis with Lovenox, adequate pain control.
--- NOTE | 2016-03-09 03:36 | NUR ---
PT'S RM ASSIGNMENT 221 BED 1
--- NOTE | 2016-03-09 03:46 | NUR ---
HOUSE STAFF AT BEDSIDE
--- NOTE | 2016-03-09 03:48 | NUR ---
PT A/O X3. RESP UNLABORED. NO APPARENT DISTRESS. DENIES PAIN
[2016-03-09 04:41] VITALS: BP 114/68
[2016-03-09] MEDS ORDERED: BACLOFEN20 M1 PO (06:13)
--- NOTE | 2016-03-09 06:58 | NUR ---
PT ARRIVED TO FLOOR AT 0422 VIA STRETCHER. A&OX3, VSS, ON 4L NC 02 SAT 94%, LUNGS EXPRIATORY WHEEZES, NO DISTRESS, PT BED BOUND AND NAMITA AT BASELINE. RT ARM WEAKNESS PT STATES FROM MS AND HX OF OLD FRACTURE. LEFT FOOT PURPLE SCALY SCAB NOTED, MULTIPLE ULCERS, ULCER TO RT LLE PURPLE, RED NO DRAINAGE MEASURES [id number] KERLEX, BACITRACIN AND TELFA APPLIED, NO DRESSING ORDERS. MULTIPLE ULCERS TO BUTTOM, COCCYX ULCER RED 3CM DIAMETER AND .5 DEPTH. RT BUTTOCK ULCER 3X1CM, LEFT BUTTOCK ULCER 6CMX3 RED AND DRAINING SEROSANGIOUS FLUID. RT POSTERIOR THIGH 1.5CMX2. ULCERS TO BUTTOM HAD OLD DRIED XEROFORM, REMOVED AND RE-DRESSED AWAITING DRESSING ORDERS. PT HAS COLOSTOMY DRAINING BROWN LIQUID AND APPLIANCE LEAKING, APPLICAN WAS CHANGED. PT HAS PRE-HOSPITAL SUPRA PUBIC TUBE, DRESSING WAS SATURATED IN DRAINAGE FROM LEAKING COLOSTOMY, DRESSING WAS CHANGED TO SURPAPUBIC TUBE, TUBE DRAINING DARK JENNIFER CLOUDY URINE. PT OFFERS NO COMPLIANTS AT THIS TIME, ORIENTED TO ROOM, STAFF AND CALL GRAYSON WITHIN REACH.
--- NOTE | 2016-03-09 07:29 | Admission Certification ---
Admission Certification Certification Statement - As attending physician, I certify that at the time of - admission, based on clinical presentation, severity of - symptoms, need for further diagnostic testing and - therapeutic interventions, and risk of adverse outcomes - without in-hospital treatment, in my clinical assessment, - this patient requires an acute hospital stay for a minimum - of two nights or longer. I have also considered psychsocial - factors such as support system, advanced age, financial - issues, cognitive issues, and failed out-patient treatments, - past re-admission history, safety of patient, and lack of - compliance as applicable. Specific rationale supporting this admission is: Partial SBO versus ileus, UTI
--- NOTE | 2016-03-09 10:55 | PN- General Surgery ---
Subjective Subjective: Patient resting comfortably in bed. Hungry. Tolerating clears without N/V. No CP/SOB, F/C. Objective Vital Signs and I&Os Vital Signs Date Time Temp Pulse Resp B/P Pulse O2 O2 Flow FiO2 Ox Delivery Rate 03/09 0441 98.3 87 20 114/68 93 Nasal Cannula 03/09 0422 Nasal 4.0L Cannula 03/09 0325 99.9 96 18 135/79 95 Nasal 4.0L Cannula 03/09 0100 99.3 96 20 128/69 95 Nasal 4.0L Cannula 03/08 2306 100.0 103 20 122/65 93 Nasal 4.0L Cannula 03/08 2256 90 Nasal 4.0L Cannula 03/08 2125 18 89 Nasal 4.0L Cannula 03/08 2124 98.6 106 18 128/71 82 Room Air Intake & Output 03/09 1600 03/09 0800 03/09 0000 03/08 1600 03/08 0800 03/08 0000 Intake Total 100 1000 Output Total 375 Balance -275 1000 Intake, IV 100 1000 Output, Stool 200 Output, Urine 175 Patient 250 lb 250 lb Weight Physical Exam: Gen: AAOx3 in NAD Cor: S1+S2+ Lungs: CTA huey Abd: soft, NT, ND, +Bs x4 ostomy pink, viable. Gas in bag. No stool noted. Ext: no edema or calf tenderness to huey lower extremities. Results Last 48 Hours of Labs: Laboratory Tests 03/09 03/09 03/09 0315 0252 0210 Chemistry Lactic Acid (0.7 - 2.1 mmol/L) Cancelled 2.8 H Urines Urine Color (YEL,AMB,STR) PINK H Urine Clarity (CLEAR) HAZY H Urine pH (5.0 - 8.0) 6.0 Ur Specific [place] (1.001 - 1.035) 1.010 Urine Protein (NEG,<30 MG/DL) 30 H Urine Ketones (NEG) NEG Urine Nitrite (NEG) POS H Urine Bilirubin (NEG) NEG@ICTO Urine Urobilinogen (0.1 - 1.0 EU/dl) 0.2 Ur Leukocyte Esterase (NEG) MOD H Ur Microscopic SEDIMENT EXAMINED Urine RBC (0 - 5 /HPF) PACKD H Urine WBC (0 - 2 /HPF) 3-5 H Ur Epithelial Cells (NONE,FEW) FEW Urine Hemoglobin (NEG) LARGE H Urine Glucose (N MG/DL) NEG 03/085 Chemistry Sodium (137 - 145 mmol/L) 137 Potassium (3.5 - 5.1 mmol/L) 5.0 Chloride (98 - 107 mmol/L) 100 Carbon Dioxide (22 - 30 mmol/L) 19 L Anion Gap (5 - 16) 19 H BUN (7 - 17 mg/dL) 19 H Creatinine (0.5 - 1.0 mg/dL) 1.1 H Estimated GFR (>60 ml/min) 50 L BUN/Creatinine Ratio (7 - 25 %) 17.3 Glucose (65 - 99 mg/dL) 226 H Lactic Acid (0.7 - 2.1 mmol/L) 2.5 H Calcium (8.4 - 10.2 mg/dL) 10.1 Total Bilirubin (0.2 - 1.3 mg/dL) 0.6 AST (14 - 36 U/L) 32 ALT (9 - 52 U/L) 39 Alkaline Phosphatase (<127 U/L) 161 H Troponin I (< 0.11 ng/ml) < 0.01 Cancelled Gpt-L-Tomfdcruywb Pept (<125 pg/mL) 204 H Cancelled Total Protein (6.3 - 8.2 g/dL) 9.8 H Albumin (3.5 - 5.0 g/dL) 4.4 Globulin (1.9 - 4.2 gm/dL) 5.4 H Albumin/Globulin Ratio (1.1 - 2.2 %) 0.8 L Hematology CBC w Diff MAN DIFF ORDERED WBC (4.8 - 10.8 /CUMM) 18.7 H RBC (4.20 - 5.40 /CUMM) 6.56 H Hgb (12.0 - 16.0 G/DL) 16.7 H Hct (37 - 47 %) 51.6 H MCV (81.0 - 99.0 FL) 78.7 L MCH (27.0 - 31.0 PG) 25.5 L RDW (11.5 - 14.5 %) 14.6 H Plt Count (130 - 400 /CUMM) 318 MPV (7.4 - 10.4 FL) 8.1 Gran % (42.2 - 75.2 %) 90.7 H Lymphocytes % (20.5 - 51.1 %) 4.8 L Monocytes % (1.7 - 9.3 %) 4.4 Eosinophils % (0 - 5 %) 0 Basophils % (0.0 - 2.0 %) 0.1 Absolute Granulocytes (1.4 - 6.5 /CUMM) 17.0 H Segmented Neutrophils (42.2 - 75.2 %) 85 H Band Neutrophils (0.0 - 5.0 %) 4 Absolute Lymphocytes (1.2 - 3.4 /CUMM) 0.9 L Lymphocytes (20.5 - 51.1 %) 5 L Monocytes (1.7 - 9.3 %) 6 Absolute Monocytes (0.10 - 0.60 /CUMM) 0.8 H Absolute Eosinophils (0.0 - 0.7 /CUMM) 0 Absolute Basophils (0.0 - 0.2 /CUMM) 0 Platelet Estimate (ADEQUATE) VERIFIED BY SMEAR Normocytic RBCs VERIFIED Normochromic RBCs VERIFIED PUBS MCHC (33.0 - 37.0 G/DL) 32.4 L Other Body Source Fld Total RBCs Counted (%) 100 Assessment/Plan Assessment/Plan A: HD #1 with UTI, PSBO seen on CT, not on clinical exam. AVSS. Plan: Continue current care and clear liquids for now. ? advancing diet. Will discuss plan with Dr. Simmons.
[2016-03-09 11:25] VITALS: BP 125/82
--- NOTE | 2016-03-09 11:45 | PN- Att Addend ---
Attending Addendum Attending Brief Note 65-year-old female with past medical history significant for multiple sclerosis, paraparesis, left sided colostomy bag, suprapubic catheter, recent procedure ( trans-vagina and bladder neck closure), and a recent admission for small bowel obstruction that was managed conservatively is being readmitted on the floor with nausea and vomiting. Patient was seen and examined on the bedside, and reports no abdominal pain, nausea or vomiting and just finished with her breakfast, but denied passing any gas or stool per rectum. Vitals stable, elevated white count, chemistry pending and urine positive for nitrites, chest x-ray without any consultation and a CT scan shows small bowel obstruction. Patient's suprapubic catheter was changed in the ER that showed pus and patient was started on IV antibiotics. Surgery has been consulted for possible small bowel obstruction and the plan is to continue treating the patient conservatively. No NG tube for now. We'll continue with IV ceftazidime 2 g every 8 and will continue the rest of her home medications with DVT prophylaxis. Urology was consulted and no further recommendations from them.
--- NOTE | 2016-03-09 12:15 | NUR ---
ADMINISTERED 4 BOTTLES OF GASTROVIEW, OBSERVED PT FINISH 120ML PER ASHLEY BRANNON. WILL CONTINUE TO MONITOR.
[2016-03-09 14:43] VITALS: BP 130/74
--- NOTE | 2016-03-09 19:07 | RADIOLOGY REPORT ---
EXAMINATION: XR ABDOMEN CLINICAL INDICATION: Evaluate for progression of contrast. COMPARISON: Multiple priors, most recent CT abdomen/pelvis dated 03/08/2016. TECHNIQUE: Multiple AP views of the abdomen were obtained. FINDINGS: There are multiple dilated proximal small bowel loops. Oral contrast is seen within the ascending colon. These findings could represent a partial small bowel obstruction versus ileus. There is an additional density within the rectum is noted as was seen on the prior abdomen/pelvis CT. Multiple surgical clips are noted in the right upper quadrant. Scoliosis and degenerative changes are redemonstrated within the visualized spine. The bones appear osteopenic. IMPRESSION: Dilated proximal small bowel loops with oral contrast in the ascending colon. This could represent a partial small bowel obstruction versus ileus.
[2016-03-09 22:27] VITALS: BP 140/76
--- NOTE | 2016-03-10 01:29 | NUR ---
PT O2 SAT 90% ON RA, RR 18 APPEARS TO BE IN NO DISTRESS. PT REFUSING TO WEAR OXYGEN, MD CHACORTA HUGO MADE AWARE. MD TO BEDSIDE AND PT STILL REFUSING. WILL MONITOR.
[2016-03-10 07:03] VITALS: BP 120/82
--- NOTE | 2016-03-10 08:05 | PN- Housestaff ---
Assessment/Plan Assessment: Ms. Hernandez is a pleasant 65 year old female with PMH multiple sclerosis, stage 3 sacral ulcers, diverting colostomy, suprapubic catheter and small bowel obstruction who was transferred from [place] due to persistent nausea and 1 episode of vomiting. Of note, patient had a prior SBO on last admission 01/29/16, which was relieved by NPO and NGT decompression. At time of admission, patient denies abdominal pain, nausea, vomiting but did endorse loose stool in her ostomy bag. In the ED: Vital signs showed T Her ostomy bag and suprapubic catheter were changed at time of arrival to the ED.
--- NOTE | 2016-03-10 10:02 | PN- Housestaff ---
See Addendum Subjective Follow-up For: Sepsis likely 2/2 UTI SBO vs Ileus MS Left Kidney mass Subjective: Patient seen and examined at bedside this AM. She reports she has no abdominal pain, fever, chills, chest pain, shortness of breath, nausea, vomiting. She does report her stool appeared loose yesterday. She is hungry and requesting that her diet be advanced. Review of Systems Constitutional: Denies: chills, fever, malaise. EENTM: Denies: blurred vision, visual changes, hearing changes. Cardiovascular: Denies: chest pain, palpitations. Respiratory: Denies: cough, short of breath. Gastrointestinal: Reports: changes in stool (Loose stool). Denies: abdominal pain, bloating, distention, melena, nausea, vomiting. Genitourinary: Reports: no symptoms. Musculoskeletal: Denies: back pain. Skin: Reports: lesions (RLE, wound). Denies: change in skin color, change in hair/ nails. Neurological/Psychological: Denies: confusion. Hematologic/Endocrine: Denies: bruising, bleeding. Objective Last 24 Hrs of Vital Signs/I&O Vital Signs Date Time Temp Pulse Resp B/P Pulse O2 O2 Flow FiO2 Ox Delivery Rate 03/10 0703 98.2 74 18 120/82 90 Room Air 03/10 0000 90 Room Air 03/09 2227 97.3 74 18 140/76 92 Room Air 03/09 1600 96 Room Air 03/09 1443 97.4 74 18 130/74 94 Room Air 03/09 1432 Room Air 03/09 1125 98.1 64 18 125/82 96 Room Air Intake & Output 03/10 1600 03/10 0800 03/10 0000 Intake Total 640 Output Total 275 300 Balance 365 -300 Intake, IV 400 Intake, Oral 240 Output, Stool 75 Output, Urine 200 300 Physical Exam General Appearance: Alert, Oriented X3, Cooperative, No Acute Distress Skin: No Significant Lesion HEENT: Atraumatic, Mucous Membr. moist/pink Neck: Supple, No JVD Lymphatic: Cervical nl Cardiovascular: Regular Rate, Normal S1, Normal S2 Lungs: Due to large body habitus, hard to assess Abdomen: Normal Bowel Sounds, Soft, No Tenderness, Stoma red, no stool in ostomy bag Neurological: Normal Speech Extremities: No Clubbing, No Cyanosis, No Edema, Cold feet, chronic Vascular: Pulses Symmetrical Current Medications: Current Medications Sig/Mary Grace Start time Last Medication Dose Route Stop Time Status Admin Amitriptyline HCl 25 MG DAILY 03/09 1000 AC 03/10 PO 0953 Aspirin Buffered 81 MG DAILY 03/09 1000 AC 03/10 PO 0954 Baclofen 20 MG Q6 03/09 0812 AC 03/10 PO 0535 Ceftazidime 2,000 MG Q8H 03/09 0900 AC 03/10 IV 0953 Insulin Aspart 0 TIDAC 03/09 0800 AC SC Oxybutynin Chloride 15 MG BID 03/09 1000 AC 03/10 PO 0954 Sodium Chloride 1,000 ML Q20H 03/09 0430 AC 03/10 IV 0017 Last 24 Hrs of Lab/Ace Results Last 24 Hrs of Labs/Mics: Laboratory Tests 03/09/16 1210: Lactic Acid 1.7 03/09/16 1210: Anion Gap 13, Estimated GFR 55 L, BUN/Creatinine Ratio 21.0 Orders Radiology Findings: EXAMINATION: XR ABDOMEN CLINICAL INDICATION: Evaluate for progression of contrast. COMPARISON: Multiple priors, most recent CT abdomen/pelvis dated 03/08/2016. TECHNIQUE: Multiple AP views of the abdomen were obtained. FINDINGS: There are multiple dilated proximal small bowel loops. Oral contrast is seen within the ascending colon. These findings could represent a partial small bowel obstruction versus ileus. There is an additional density within the rectum is noted as was seen on the prior abdomen/pelvis CT. Multiple surgical clips are noted in the right upper quadrant. Scoliosis and degenerative changes are redemonstrated within the visualized spine. The bones appear osteopenic. IMPRESSION: Dilated proximal small bowel loops with oral contrast in the ascending colon. This could represent a partial small bowel obstruction versus ileus. Miscellaneous Findings: EXAMINATION: CT ABDOMEN AND PELVIS WITHOUT CONTRAST CLINICAL INFORMATION: Nausea and vomiting COMPARISON: Abdominal CT 02/07/2016 TECHNIQUE: Multidetector volumetric imaging was performed from the superior aspect of the liver through the pubic symphysis. Sagittal and coronal reformatted images were obtained on the technologist's workstation. FINDINGS: Airspace opacities at the lung bases may reflect atelectasis, aspiration, or pneumonia. Limited evaluation of the unenhanced liver, spleen, and adrenal glands reveals no definite abnormality. Fatty atrophy of the pancreas. The gallbladder is surgically absent. Several nonobstructing calculi within the right kidney are again noted. A 1.3 cm exophytic structure projecting anteriorly from the left kidney does not definitively measure simple cyst Hounsfield units and should be further assessed with ultrasound. Right parapelvic cysts are again noted. No aortic aneurysm. Stomach and proximal small bowel are significantly dilated with air fluid levels and a transition point to relatively decompressed small bowel within the left pelvis in similar position to the previous study. Remaining small bowel is exhibits air-fluid levels without dilatation. A large fecalith within the rectum is stable in appearance. Redemonstrated evidence of prior colonic surgery and left lower quadrant colostomy. There is no free air. No mesenteric or retroperitoneal adenopathy. Suprapubic Lopez catheter decompresses the bladder contains air. No pelvic adenopathy. No free fluid within the pelvis. There are no acute osseous abnormalities. Multilevel degenerative disc disease and facet arthropathy throughout the thoracolumbar spine. Leftward convex scoliotic curvature of the upper lumbar spine. Chronic healed fracture of the right femur. There is diffuse osteopenia. No significant soft tissue abnormality. IMPRESSION: - Stomach and small bowel remain significantly dilated with air fluid levels and there is a transition point to relatively decompressed small bowel within the left pelvis that is in similar position to the 02/07/2016 CT study with findings remaining concerning for a small bowel obstruction. Left lower quadrant diverting colostomy is redemonstrated and there is a stable large fecalith within the rectum. - Airspace opacities at the lung bases may reflect atelectasis, aspiration, or pneumonia. - A 1.3 cm exophytic structure projecting anteriorly from the left kidney does not definitively measure simple cyst Hounsfield units and should be further assessed with ultrasound. - Additional stable chronic findings as described EXAMINATION: XR PORTABLE CHEST CLINICAL INFORMATION: Hypoxia. Evaluate for congestive heart failure. COMPARISON: Portable chest x-ray 02/07/2016. TECHNIQUE: Portable AP view of the chest was obtained. FINDINGS: The lungs are hypoinflated. Bibasilar retrocardiac opacities are nonspecific and could reflect atelectasis given low lung volumes although superimposed infiltrates cannot be excluded in the appropriate clinical setting. No pleural effusions or pneumothoraces are identified. Cardiomediastinal contours are stable. Soft tissues are unremarkable. No acute osseous abnormality is identified. The patient is rotated to the left. There is right convex curvature of the thoracic spine. Also noted is mechanical hardware related to anterior cervical discectomy. IMPRESSION: Pulmonary hypoinflation. Bibasilar retrocardiac opacities are nonspecific and could reflect atelectasis given low lung volumes although superimposed infection cannot be excluded in the appropriate clinical setting. Assessment/Plan Assessment: Ms. Hernandez is a pleasant 65 year old female with PMH multiple sclerosis, stage 3 sacral ulcers, diverting colostomy, suprapubic catheter and small bowel obstruction who was transferred from [place] due to persistent nausea and 1 episode of vomiting. Of note, patient had a prior SBO on last admission 01/29/16, which was relieved by NPO and NGT decompression. At time of admission, patient denies abdominal pain, nausea, vomiting but did endorse loose stool in her ostomy bag. In the ED: Vital signs showed T 98.6, HR 106, RR 18, BP 128/71 and O2 saturation of 82 on RA. Labs showed WBC 18.7 with 4 bands, H&H 16.7/51.6, Plt 318, BUN/cre 19/1.1, lactic acid 2.5, troponin <0.01, UA + for UTI. CXR showed bibasilar retrocardiac opacities (atelectasis vs superimposed infection) and abdominal/pelvis CT showed concerns for small bowel obstruction. A noted 1.3 cm exophytic structure projecting from left kidney that does not seem like a simple cyst. Her ostomy bag and suprapubic catheter were changed at time of arrival to the ED. Patient was admitted to the general medicine floor and the following is the management: 1. Ileus vs partial SBO * Patient currently remains hemodynamically stable with no nausea, vomiting, abdominal pain, guarding etc. * Patient given zofran once, QTC prolonged to 493 * Holding off NGT unless she reports significant nausea, vomiting or other abdominal signs * She did pass loose stool via ostomy bag, no formed stool * Surgical consult placed and appreciated * Abdominal XRay with gastrografin yesterday showed dilated proximal small bowel loops with could represent partial SBO vs ileus * Will consider advancing diet to full liquid pending surgical recommendations today * Continue NS at 50 cc/h 2. Sepsis of urological origin * Of note, patient previously grew pseudomonas in her urine (suprapubic cath) * Suprapubic catheter changed in ED on arrival * She was tachycardia with leukocytosis/bandemia and increased lactic acid on admission * Sepsis from HCAP less likely as her desaturation is chronic and she denies respiratory sxs * Given 1 time IV ceftriaxone , IV ceftazidime, vancomycin in ED * Continue ceftazadime 2 mg IV Q8H * Follow up blood, [facility] as they are pending, urine culture resubmitted as it showed contamination * Monitor for fevers, leukoyctosis 3. Renal dysfunction * Baseline BUN/cre 11/0.7, noted to be 19/1.1 on admission * Continue NS at 50 cc/h * Repeat BEP in AM 4. Exophytic mass, left kidney * Consider close follow up outpatient with renal US 5. Multiple sclerosis * Pressure ulcers over coccyx, right buttock, left buttock, right thigh, right ankle/alcantar present on admission * Continue amitriptylene 25 mg daily, clonazepam 0.5, oxybutinin 15, baclofen 20 qid * Obtain wound consult on Friday for follow up on wound care 6. Diabetes mellitus * Accuchecks TIDAC/HS * Low dose NSS FULL CODE Diet: Clear liquid DVTP: Mechanical & pharm Mild pain pathway Problem List: 1. Sepsis 2. Ileus 3. Sacral decubitus ulcer, stage III 4. SBO (small bowel obstruction) Pain Ratin Pain Location: n/a Pain Goal: Remain pain free Pain Plan: No pain at present, will address if patient reports pain. Tomorrow's Labs & Rationales: CBC (leukocytosis in the setting of sepsis), BEP (monitor renal function)
--- NOTE | 2016-03-10 10:16 | PN- General Surgery ---
See Addendum Subjective Subjective: HD #2 with urosepsis and resulting ileus. Pt has no major complaints at this time. She is tolerating clears and is requesting food. No nausea or vomiting. She has been having loose stool in her ostomy. Objective Vital Signs and I&Os Vital Signs Date Time Temp Pulse Resp B/P Pulse O2 O2 Flow FiO2 Ox Delivery Rate 03/10 0703 98.2 74 18 120/82 90 Room Air 03/10 0000 90 Room Air 03/09 2227 97.3 74 18 140/76 92 Room Air 03/09 1600 96 Room Air 03/09 1443 97.4 74 18 130/74 94 Room Air 03/09 1432 Room Air 03/09 1125 98.1 64 18 125/82 96 Room Air Intake & Output 03/10 1600 03/10 0800 03/10 0000 03/09 1600 03/09 0800 03/09 0000 Intake Total 640 5923 493 8350 Output Total 275 300 500 375 Balance 365 -300 1300 -275 1000 Intake, IV 016 056 0651 Intake, Oral 240 1800 Output, Stool 75 200 Output, Urine 200 300 500 175 Patient 250 lb 250 lb Weight Physical Exam: Gen: Pt is awake and alert. NAD. Abdomen: Soft, mildly distended. Stoma is pink and viable with air and liquid stool in the bag. There is also a small amount of soft stool this am. +BS. No tenderness. Results Recent Imaging Studies: Abdominal post-gastrograffin x-ray from 03/09: Dilated proximal small bowel loops with oral contrast in the ascending colon. This could represent a partial small bowel obstruction versus ileus. Assessment/Plan Assessment/Plan Pt is a 65 yo F admitted with urosepsis and concern for SBO. Clinical picture appears to be more of ileus in nature, but patient is having bowel function and no longer symptomatic. Also, x-ray shows gastrograffin moving thorugh into the colon. Recommendations: -Can most likely advance diet as tolerated. Will confirm with attending and notify team. -Antibiotics as per primary team for UTI. -No surgical intervention indicated at this time.
[2016-03-10 13:59] LABS: ABSOLUTE BASOPHIL COUNT 0 /CUMM (0.0-0.2); ABSOLUTE EOSINOPHIL COUNT 0.3 /CUMM (0.0-0.7); ABSOLUTE GRANULOCYTE CT 7.6 /CUMM (1.4-6.5); ABSOLUTE MONOCYTE COUNT 0.8 /CUMM (0.10-0.60); BASOPHIL % 0.3 % (0.0-2.0); MEAN CORPUSCULAR HGB 25.7 PG (27.0-31.0); WHITE BLOOD CELL COUNT 11.4 /CUMM (4.8-10.8)
[2016-03-10 14:00] VITALS: BP 142/76
[2016-03-10 14:01] LABS: ABSOLUTE LYMPH COUNT 2.6 /CUMM (1.2-3.4); EOSINOPHIL % 2.6 % (0-5); GRANULOCYTE % 66.6 % (42.2-75.2); MEAN CORPUSCULAR HGB CONC 32.5 G/DL (33.0-37.0); MEAN CORPUSCULAR VOLUME 79.2 FL (81.0-99.0); MEAN PLATELET VOLUME 8.1 FL (7.4-10.4); PLATELET COUNT 221 /CUMM (130-400); RED BLOOD CELL CT 5.39 /CUMM (4.20-5.40)
[2016-03-10 14:02] LABS: HEMATOCRIT 42.7 % (37-47)
[2016-03-10 22:18] VITALS: BP 150/72
[2016-03-11 06:00] VITALS: BP 144/70
--- NOTE | 2016-03-11 06:58 | PN- Housestaff ---
See Addendum Subjective Follow-up For: Sepsis Ileus Nausea and vomiting Subjective: Patient seen and examined at bedside this AM. SHe reports she is hungry and she is requesting a regular diet. SHe is also refusing an IV. She denies fever, chills, nausea, vomiting, chest pain, shortness of breath, abdominal pain, loose stool via her ostomy bag or any other complaints. Review of Systems Constitutional: Denies: chills, fever, malaise. EENTM: Denies: blurred vision, visual changes, hearing changes, nasal congestion. Cardiovascular: Denies: chest pain, palpitations. Respiratory: Denies: cough, short of breath. Gastrointestinal: Denies: abdominal pain, bloating, constipation, diarrhea, nausea, vomiting. Genitourinary: Denies: dysuria, frequency, hematuria. Musculoskeletal: Denies: neck pain. Skin: Reports: lesions (Sacral ulcer present on admiss). Neurological/Psychological: Denies: anxiety, confusion, headache, numbness, tingling. Hematologic/Endocrine: Denies: bruising, bleeding. Objective Last 24 Hrs of Vital Signs/I&O Vital Signs Date Time Temp Pulse Resp B/P Pulse O2 O2 Flow FiO2 Ox Delivery Rate 03/11 1333 97.6 80 20 130/70 93 Room Air 03/11 1153 Room Air 4.0L 03/11 0600 98.4 65 20 144/70 92 Room Air 03/10 2218 98.0 70 20 150/72 92 Room Air 03/10 1400 97.6 79 18 142/76 93 Room Air Intake & Output 03/11 1600 03/11 0800 03/11 0000 Intake Total 600 450 Output Total 900 312 Balance -300 138 Intake, IV 400 Intake, Oral 200 450 Output, Stool 200 12 Output, Urine 700 300 Physical Exam General Appearance: Alert, Oriented X3, Cooperative, No Acute Distress Skin: No Rashes, Sacral ulcer present on admission HEENT: Atraumatic, PERRLA, Mucous Membr. moist/pink Neck: Supple Lymphatic: Cervical nl Cardiovascular: Regular Rate, Normal S1, Normal S2 Lungs: Clear to Auscultation, Normal Air Movement Abdomen: Normal Bowel Sounds, Soft, No Tenderness Neurological: Normal Speech Extremities: No Clubbing, No Cyanosis Vascular: Pulses Symmetrical Current Medications: Current Medications Sig/Mary Grace Start time Last Medication Dose Route Stop Time Status Admin Amitriptyline HCl 25 MG DAILY 03/09 1000 AC 03/11 PO 0939 Aspirin Buffered 81 MG DAILY 03/09 1000 AC 03/11 PO 0939 Baclofen 20 MG Q6 03/09 0812 AC 03/11 PO 1216 Ceftazidime 2,000 MG Q8H 03/09 0900 DC 03/11 IV 0018 Insulin Aspart 0 TIDAC 03/09 0800 AC SC Oxybutynin Chloride 15 MG BID 03/09 1000 AC 03/11 PO 0939 Sodium Chloride 1,000 ML Q20H 03/09 0430 DC 03/10 IV 1858 Last 24 Hrs of Lab/Ace Results Last 24 Hrs of Labs/Mics: Laboratory Tests 03/11/16 0730: Anion Gap 9, Estimated GFR > 60, BUN/Creatinine Ratio 12.9, CBC w Diff NO MAN DIFF REQ, RBC 4.80, MCV 78.7 L, MCH 25.8 L, RDW 14.7 H, MPV 8.2, Gran % 58.2, Lymphocytes % 28.7, Monocytes % 7.5, Eosinophils % 5.2 H, Basophils % 0.4, Absolute Granulocytes 4.7, Absolute Lymphocytes 2.3, Absolute Monocytes 0.6, Absolute Eosinophils 0.4, Absolute Basophils 0, PUBS MCHC 32.7 L Orders Radiology Findings: EXAMINATION: XR ABDOMEN CLINICAL INDICATION: Evaluate for progression of contrast. COMPARISON: Multiple priors, most recent CT abdomen/pelvis dated 03/08/2016. TECHNIQUE: Multiple AP views of the abdomen were obtained. FINDINGS: There are multiple dilated proximal small bowel loops. Oral contrast is seen within the ascending colon. These findings could represent a partial small bowel obstruction versus ileus. There is an additional density within the rectum is noted as was seen on the prior abdomen/pelvis CT. Multiple surgical clips are noted in the right upper quadrant. Scoliosis and degenerative changes are redemonstrated within the visualized spine. The bones appear osteopenic. IMPRESSION: Dilated proximal small bowel loops with oral contrast in the ascending colon. This could represent a partial small bowel obstruction versus ileus. Assessment/Plan Assessment: Ms. Hernandez is a pleasant 65 year old female with PMH multiple sclerosis, stage 3 sacral ulcers, diverting colostomy, suprapubic catheter and small bowel obstruction who was transferred from [place] due to persistent nausea and 1 episode of vomiting. Of note, patient had a prior SBO on last admission 01/29/16, which was relieved by NPO and NGT decompression. At time of admission, patient denies abdominal pain, nausea, vomiting but did endorse loose stool in her ostomy bag. In the ED: Vital signs showed T 98.6, HR 106, RR 18, BP 128/71 and O2 saturation of 82 on RA. Labs showed WBC 18.7 with 4 bands, H&H 16.7/51.6, Plt 318, BUN/cre 19/1.1, lactic acid 2.5, troponin <0.01, UA + for UTI. CXR showed bibasilar retrocardiac opacities (atelectasis vs superimposed infection) and abdominal/pelvis CT showed concerns for small bowel obstruction. A noted 1.3 cm exophytic structure projecting from left kidney that does not seem like a simple cyst. Her ostomy bag and suprapubic catheter were changed at time of arrival to the ED. Patient was admitted to the general medicine floor and the following is the management: 1. Ileus vs partial SBO * Patient currently remains hemodynamically stable with no nausea, vomiting, abdominal pain, guarding etc. * Patient given zofran once, QTC prolonged to 493 * Surgical consult placed and appreciated * Abdominal XRay with gastrografin showed dilated proximal small bowel loops with could represent partial SBO vs ileus * Surgical consult suggests this is more likely an ileus, we have advanced diet to full today and patient shows no signs of SBO, nausea, vomiting * Patient stable for discharge today, no NGT needed for this SBO vs ileus * Fluids discontinued as patient tolerating regular diet without issue 2. Sepsis of urological origin * Of note, patient previously grew pseudomonas in her urine (suprapubic cath) * Suprapubic catheter changed in ED on arrival * She was tachycardia with leukocytosis/bandemia and increased lactic acid on admission * Sepsis from HCAP less likely as her desaturation is chronic and she denies respiratory sxs * Given 1 time IV ceftriaxone , IV ceftazidime, vancomycin in ED * Discontinued ceftazadime 2 mg IV Q8H as leukocytosis improving, cultures show no organisms, and patient has no obvious source of infection at this point in time * Monitor for fevers, leukoyctosis 3. Renal dysfunction * Baseline BUN/cre 11/0.7, noted to be 19/1.1 on admission * NO further need for fluids at this time as she is tolerating PO fluids * WNL today to 9/.7 4. Exophytic mass, left kidney * Consider close follow up outpatient with renal US 5. Multiple sclerosis * Pressure ulcers over coccyx, right buttock, left buttock, right thigh, right ankle/alcantar present on admission * Continue amitriptylene 25 mg daily, clonazepam 0.5, oxybutinin 15, baclofen 20 qid * Wound consult appreciated today, social media strategist at [place] working on an offloading mattress, patient told she requires frequent repositioning and she is aware, wound care with aquacel AG every 1-2 days 6. Diabetes mellitus * Accuchecks TIDAC/HS * Low dose NSS FULL CODE Diet: Regular DVTP: Mechanical & pharm Mild pain pathway Problem List: 1. Ileus 2. Sepsis 3. DVT prophylaxis 4. Colostomy care 5. Suprapubic catheter 6. Sacral decubitus ulcer 7. Dehydration 8. Leukocytosis Pain Ratin Pain Location: n/a Pain Goal: Remain pain free Pain Plan: n/a Tomorrow's Labs & Rationales: Discharge today
--- NOTE | 2016-03-11 08:29 | Patient Discharge Instructions ---
Discharge Instructions General Discharge Information You were seen/treated for: Urinary tract infection Ileus with nausea and vomiting Special Instructions: Please follow up with your PCP Dr. Parra within 7 days of discharge from [facility]. Please follow up with your outpatient neurologist for continued management of your MS within 2 weeks of discharge. [facility] with Dr. Lopez for continued care of your ulcers. Please take all medications as directed. Please proceed with getting an offloading mattress. Please do frequent repositioning. Please use aquacel AG every 1-2 days for dressing changes. Diet Recommended Diet: Heart Healthy Activity Activity Self Limited: Yes Acute Coronary Syndrome Inclusion Criteria At DC or during hospital stay patient has or had the following: ACS DIAGNOSIS No Discharge Core Measures Meds if any: Prescribed or Continued at Discharge Meds if any: NOT Prescribed or Continued at Discharge Congestive Heart Failure Inclusion Criteria At DC or during hospital stay patient has or had the following: CHF DIAGNOSIS No Discharge Core Measures Meds if any: Prescribed or Continued at Discharge Meds if any: NOT Prescribed or Continued at Discharge Cerebrovascular accident Inclusion Criteria At DC or during hospital stay patient has or had the following: CVA/TIA Diagnosis No Discharge Core Measures Meds if any: Prescribed or Continued at Discharge Meds if any: NOT Prescribed or Continued at Discharge Venous thromboembolism Inclusion Criteria VTE Diagnosis No VTE Type NONE VTE Confirmed by (Test) NONE Discharge Core Measures - Per Current guidelines, there needs to be overlap - treatment for the first 5 days of Warfarin therapy. - If discharged on Warfarin prior to 5 days of - overlap therapy, the patient will need to be - assessed for post discharge needs including - *Post discharge parental anticoagulation - *Warfarin and/or parental anticoagulation education - *Follow up date to check INR post discharge At least 5 days overlap therapy as Inpatient No Meds if any: Prescribed or Continued at Discharge Note: Overlap Therapy is Warfarin and Anticoagulant Meds if any: NOT Prescribed or Continued at Discharge
--- NOTE | 2016-03-11 09:05 | Discharge Summary ---
Visit Information Visit Dates Admission Date: 03/09/16 Discharge Date: 03/11/2016 Hospital Course Course Attending Physician: EVELIN PIMENTEL MD Primary Care Physician: JANELL CHUNG,BARBARA Zhu Hospital Course: 65-year-old female with PMH of multiple sclerosis, with sacral ulcers, diverting colostomy, suprapubic catheter, small bowel obstruction, was brought to the hospital from [place] for nausea and 1 episode of vomiting. On the last hospital admission on 01/29/16, patient had small bowel obstruction that was relieved with NPO, and NGT decompression. At that time, she was not passing stool for days and had nausea for days. She has liquid stool in her ostomy bag. The ostomy bag was already changed at least once in the ED. During our evaluation, she denied any symptoms other than feeling tired and agitated because she wants to rest. She specifically denied abdominal pain, nausea, or vomiting since she came to the hospital. She denied sick contacts at the facility. She denies cough, shortness of breath. On presentation, she was 82% on RA, which improved to 95% on 4L. She reports that her O2 sat is always low on the pulse oxymeter. Vital Signs Date Time Temp Pulse Resp B/P Pulse O2 O2 Flow FiO2 Ox Delivery Rate 03/09 0441 98.3 87 20 114/68 93 Nasal Cannula 03/09 0325 99.9 96 18 135/79 95 Nasal 4.0L Cannula 03/09 0100 99.3 96 20 128/69 95 Nasal 4.0L Cannula 03/08 2306 100.0 103 20 122/65 93 Nasal 4.0L Cannula 03/08 2256 90 Nasal 4.0L Cannula 03/08 2126 18 89 Nasal 4.0L Cannula 03/08 2124 98.6 106 18 128/71 82 Room Air Physical Exam General Appearance Alert, Oriented X3, Mild Distress, agitated due to fatigue Skin pressure ulcers on right buttock, left buttock , coccyx, right thigh. , ulcer on right ankle/alcantar HEENT Atraumatic, PERRLA, EOMI, dry mucous membrane Neck Supple, +2 Carotid Pulse wo Bruit Lymphatic Axillary nl, Cervical nl Cardiovascular Regular Rate, Normal S1, Normal S2, No Murmurs, Gallops, Rubs Lungs difficult to assess due to body habitus and paraplegia Abdomen Normal Bowel Sounds, Soft, No Tenderness, stoma red, brown liquid stool in ostomy bag , urine clear yellow in catheter Neurological Normal Speech Extremities No Edema, Normal Pulses, cold feet, chronic Vascular Normal Pulses Last 24 Hrs of Labs/Ace: Laboratory Tests 03/09/16 0252: Lactic Acid 2.8 H 03/09/16 0210: Urine Color PINK H, Urine Clarity HAZY H, Urine pH 6.0, Ur Specific [place] 1.010, Urine Protein 30 H, Urine Ketones NEG, Urine Nitrite POS H, Urine Bilirubin NEG@ICTO, Urine Urobilinogen 0.2, Ur Leukocyte Esterase MOD H, Ur Microscopic SEDIMENT EXAMINED, Urine RBC PACKD H, Urine WBC 3-5 H, Ur Epithelial Cells FEW, Urine Hemoglobin LARGE H, Urine Glucose NEG 03/08/16 2145: Anion Gap 19 H, Estimated GFR 50 L, BUN/Creatinine Ratio 17.3, Glucose 226 H, Lactic Acid 2.5 H, Calcium 10.1, Total Bilirubin 0.6, AST 32, ALT 39, Alkaline Phosphatase 161 H, Troponin I < 0.01, Xqr-N-Ohsmhyavfia Pept 204 H, Total Protein 9.8 H, Albumin 4.4, Globulin 5.4 H, Albumin/Globulin Ratio 0.8 L, CBC w Diff MAN DIFF ORDERED, RBC 6.56 H, MCV 78.7 L, MCH 25.5 L, RDW 14.6 H, MPV 8.1, Gran % 90.7 H, Lymphocytes % 4.8 L, Monocytes % 4.4, Eosinophils % 0, Basophils % 0.1, Absolute Granulocytes 17.0 H, Segmented Neutrophils 85 H, Band Neutrophils 4, Absolute Lymphocytes 0.9 L, Lymphocytes 5 L, Monocytes 6, Absolute Monocytes 0.8 H, Absolute Eosinophils 0, Absolute Basophils 0, Platelet Estimate VERIFIED BY SMEAR, Normocytic RBCs VERIFIED, Normochromic RBCs VERIFIED, PUBS MCHC 32.4 L, Fld Total RBCs Counted 100 Microbiology 03/09 327 LOWER RESP: Respiratory Culture - ORD 03/09 327 LOWER RESP: Gram Stain - ORD 03/09 209 URINE ROUT: Urine Culture - RECD 03/08 2316 BLOOD: Blood Culture - RECD Diagnostic Data EKG Results SR, 101, QTc 493 CXR Results IMPRESSION: Pulmonary hypoinflation. Bibasilar retrocardiac opacities are nonspecific and could reflect atelectasis given low lung volumes although superimposed infection cannot be excluded in the appropriate clinical setting. Other Results IMPRESSION: - Stomach and small bowel remain significantly dilated with air fluid levels and there is a transition point to relatively decompressed small bowel within the left pelvis that is in similar position to the 02/07/2016 CT study with findings remaining concerning for a small bowel obstruction. Left lower quadrant diverting colostomy is redemonstrated and there is a stable large fecalith within the rectum. - Airspace opacities at the lung bases may reflect atelectasis, aspiration, or pneumonia. - A 1.3 cm exophytic structure projecting anteriorly from the left kidney does not definitively measure simple cyst Hounsfield units and should be further assessed with ultrasound. patient was admitted to general floor and treated for these medical conditions: # SIRS Patient was was on IV hydration and IV ceftazidime. Leukocytosis. Quickly and no fevers were observed. Patient overall condition improved and there were no episode of nausea vomiting. Urine culture and blood culture were unremarkable. CXR was mostly atelectasis.she dizziness stable to go to ECF without any further antibiotic therapy # Possible partial small bowel obstruction vs ileus Darby patient was meeting by mouth and put on IV hydration. Surgery suggested the symptoms are from ileus.subsequently patient was reintroduced to diet which she tolerated well.I edition was stopped and lactic acidosis or resolved.patient in the stable to be discharged to ECF # Exophytic mass on the left kidney Patient needs outpatient follow-up with PCP is for the abnormal exophytic mass in her left kidney with kidney ultrasound # Multiple sclerosis /multiple wounds patient had Pressure ulcers over coccyx, right buttock, left buttock, right thigh, right ankle/alcantar present on admission. wound care was on board and suggested Recommend offloading mattress upon discharge. Patient needs frequent repositioning. Wound care can be Aquacel Ag changed every 1-2 days. Allergies: Coded Allergies: amoxicillin (From Augmentin) (UNKNOWN 11/08/15) clavulanic acid (From Augmentin) (UNKNOWN 11/08/15) Disposition Summary Disposition Principal Diagnosis: SBO PNA Additional Diagnosis: MS Discharge Disposition: SNF Discharge Instructions General Discharge Information Code Status: Full Code Patient's Diet: regular diet Patient's Activity: as tolerated Follow-Up Instructions/Appts: Please follow up with your PCP Dr. Parra within 7 days of discharge from [facility] work up with your exophytuc kidness mass. Please follow up with your outpatient neurologist for continued management of your MS within 2 weeks of discharge. Please follow up at the [facility] with Dr. Lopez for continued care of your ulcers. Please take all medications as directed. Medications at Discharge Discharge Medications: Continue taking these medications: Amitriptyline HCl (Amitriptyline HCl) 25 MG TABLET Comments: LAST GIVEN 03/01/16 AT 9AM Clonazepam (Klonopin) 0.5 MG TABLET Comments: NOT TAKEN IN HOSPITAL Aspirin (Ecotrin*) 81 MG TABLET. Comments: NOT GIVEN IN HOSPITAL Cholecalciferol (Vitamin D3) 1,000 UNIT TABLET Comments: NOT TAKEN IN HOSPITAL Oxybutynin Chloride (Oxybutynin Chloride) 5 MG TABLET 15 Milligram ORAL THREE TIMES DAILY Days = 30 Comments: LAST GIVEN 03/11/16 9 AM Baclofen (Baclofen) 20 MG TABLET 1 Tablet ORAL EVERY SIX HOURS Comments: LAST GIVEN 03/01/16 AT 12 NOON Copies To: JANELL CHUNG,BARBARA Zhu Attending MD Review Statement Documenting Attending: GOMEZ SAMANIEGO MD Other Findings: Pt seen and examined at bedside. Agree with the discharge plan and hospital course as mentioned in discharge summary. We will be stopping the abx. pt is tolerating regular diet and is being dced to STR today. Suprapubic catheter was changed in ER on this admission. 1 Tablet ORAL EVERY SIX HOURS Copies To: JANELL CHUNG,BARBARA Zhu - Suprapubic catheter changed in ED - Given 1 time IV ceftriaxone , IV ceftazidime, vancomycin in ED * Continue ceftazidime * Follow up UC, BCX2, LRC * Consider checking for c diff # Possible partial small bowel obstruction - Pt has significant liquid output in the ostomy bag - Lactic acid 2.5 --> 2.8 - GIven zofran 4 mg once, QTc prolonged at 493 * Surgery on board * Keep NPO * Hold off NGT unless pt has significant nausea and vomiting * Follow up lactic acid * Follow up EKG in am at 11(for QTc prolongation) # Acute kidney injury - BUN/Cr: 19/1.1 - Feb: 11/0.7 * Gentle hydration with 50ml/hr # Exophytic mass on the left kidney * Consider follow up with kidney ultrasound # Multiple sclerosis - Pressure ulcers over coccyx, right buttock, left buttock, right thigh, right ankle/alcantar present on admission * Continue amitriptylene 25 mg daily, clonazepam 0.5, oxybutinin 15, baclofen 20 qid * Obtain wound consult in am # DM * Accucheck and novolog ss low dose # Home meds * Continue aspirin 81 mg daily , vit d3 1000 Diet: NPO DVT ppx: mech and pharm FULL CODE Allergies: Coded Allergies: amoxicillin (From Augmentin) (UNKNOWN 11/08/15) clavulanic acid (From Augmentin) (UNKNOWN 11/08/15) Disposition Summary Disposition Principal Diagnosis: SBO PNA Additional Diagnosis: MS Discharge Disposition: SNF Discharge Instructions General Discharge Information Code Status: Full Code Patient's Diet: regular diet Patient's Activity: as tolerated Medications at Discharge Discharge Medications: Continue taking these medications: Amitriptyline HCl (Amitriptyline HCl) 25 MG TABLET Comments: LAST GIVEN 02/14/16 @ 1000 Clonazepam (Klonopin) 0.5 MG TABLET Comments: LAST GIVEN 02/14/16 @ 1000 Aspirin (Ecotrin*) 81 MG TABLET. Comments: LAST GIVEN 02/14/16 @ 1000 Cholecalciferol (Vitamin D3) 1,000 UNIT TABLET Comments: LAST GIVEN 02/14/16 @ 1000 Oxybutynin Chloride (Oxybutynin Chloride) 5 MG TABLET 15 Milligram ORAL THREE TIMES DAILY Days = 30 Comments: NOT GIVEN Baclofen (Baclofen) 20 MG TABLET 1 Tablet ORAL EVERY SIX HOURS Copies To: JANELL CHUNG,BARBARA Zhu
[2016-03-11 09:14] LABS: ABSOLUTE BASOPHIL COUNT 0 /CUMM (0.0-0.2); ABSOLUTE EOSINOPHIL COUNT 0.4 /CUMM (0.0-0.7); ABSOLUTE GRANULOCYTE CT 4.7 /CUMM (1.4-6.5); ABSOLUTE LYMPH COUNT 2.3 /CUMM (1.2-3.4); ABSOLUTE MONOCYTE COUNT 0.6 /CUMM (0.10-0.60); BASOPHIL % 0.4 % (0.0-2.0); EOSINOPHIL % 5.2 % (0-5); HEMATOCRIT 37.8 % (37-47); MEAN CORPUSCULAR HGB 25.8 PG (27.0-31.0); MEAN CORPUSCULAR HGB CONC 32.7 G/DL (33.0-37.0); MEAN CORPUSCULAR VOLUME 78.7 FL (81.0-99.0); MEAN PLATELET VOLUME 8.2 FL (7.4-10.4); PLATELET COUNT 222 /CUMM (130-400); RBC DISTRIBUTION WIDTH 14.7 % (11.5-14.5)
[2016-03-11 10:15] LABS: GRANULOCYTE % 58.2 % (42.2-75.2)
--- NOTE | 2016-03-11 10:35 | NUR ---
MULTIPLE WOUNDS VISUALIZED ON BACKSIDE OF PATIENT. APPLIED XEROFORM AND ABD PADS, REINFORCED WITH PAPER TAPE. WCE PENDING. WILL CONTINUE TO MONITOR.
--- NOTE | 2016-03-11 11:30 | PN- Student ---
Subjective Subjective: Patient is a 65 year old female with PMH of multiple sclerosis with sacral ulcers, diverting colostomy, suprapubic catherter, small bowel obstruction, presenting with nausea and vomitting. This morning patient was observed at bed side. She appeared comfortable, was alert and oriented, and did not have any complaints. Patient reports feeling well, denied any nausea, dizzinness, or abdominal pain. Objective Objective: Patient observed at bedside appearing comfotable. Patient's temp is 98.4, pulse 65, RR 20, BP 144/70, pulse ox 92 on room air. Vital Signs Date Time Temp Pulse Resp B/P Pulse O2 O2 Flow FiO2 Ox Delivery Rate 03/11 0600 98.4 65 20 144/70 92 Room Air 03/10 2218 98.0 70 20 150/72 92 Room Air 03/10 1400 97.6 79 18 142/76 93 Room Air Intake & Output 03/11 1600 03/11 0800 03/11 0000 Intake Total 600 450 Output Total 900 312 Balance -300 138 Intake, IV 400 Intake, Oral 200 450 Output, Stool 200 12 Output, Urine 700 300 Results Results: Laboratory Tests 03/11/16 0730: Anion Gap 9, Estimated GFR > 60, BUN/Creatinine Ratio 12.9, CBC w Diff NO MAN DIFF REQ, RBC 4.80, MCV 78.7 L, MCH 25.8 L, RDW 14.7 H, MPV 8.2, Gran % 58.2, Lymphocytes % 28.7, Monocytes % 7.5, Eosinophils % 5.2 H, Basophils % 0.4, Absolute Granulocytes 4.7, Absolute Lymphocytes 2.3, Absolute Monocytes 0.6, Absolute Eosinophils 0.4, Absolute Basophils 0, PUBS MCHC 32.7 L 03/10/16 1258: Anion Gap 10, Estimated GFR > 60, BUN/Creatinine Ratio 16.3, CBC w Diff NO MAN DIFF REQ, RBC 5.39, MCV 79.2 L, MCH 25.7 L, RDW 15.0 H, MPV 8.1, Gran % 66.6, Lymphocytes % 23.3, Monocytes % 7.2, Eosinophils % 2.6, Basophils % 0.3, Absolute Granulocytes 7.6 H, Absolute Lymphocytes 2.6, Absolute Monocytes 0.8 H, Absolute Eosinophils 0.3, Absolute Basophils 0, PUBS MCHC 32.5 L 03/09/16 1210: Lactic Acid 1.7 03/09/16 1210: Anion Gap 13, Estimated GFR 55 L, BUN/Creatinine Ratio 21.0 03/09/16 0315: Lactic Acid Cancelled 03/09/16 0252: Lactic Acid 2.8 H 03/09/16 0210: Urine Color PINK H, Urine Clarity HAZY H, Urine pH 6.0, Ur Specific [place] 1.010, Urine Protein 30 H, Urine Ketones NEG, Urine Nitrite POS H, Urine Bilirubin NEG@ICTO, Urine Urobilinogen 0.2, Ur Leukocyte Esterase MOD H, Ur Microscopic SEDIMENT EXAMINED, Urine RBC PACKD H, Urine WBC 3-5 H, Ur Epithelial Cells FEW, Urine Hemoglobin LARGE H, Urine Glucose NEG 03/08/16 2145: Anion Gap 19 H, Estimated GFR 50 L, BUN/Creatinine Ratio 17.3, Glucose 226 H, Lactic Acid 2.5 H, Calcium 10.1, Total Bilirubin 0.6, AST 32, ALT 39, Alkaline Phosphatase 161 H, Troponin I < 0.01, Dqi-C-Aqeghpamrox Pept 204 H, Total Protein 9.8 H, Albumin 4.4, Globulin 5.4 H, Albumin/Globulin Ratio 0.8 L, CBC w Diff MAN DIFF ORDERED, RBC 6.56 H, MCV 78.7 L, MCH 25.5 L, RDW 14.6 H, MPV 8.1, Gran % 90.7 H, Lymphocytes % 4.8 L, Monocytes % 4.4, Eosinophils % 0, Basophils % 0.1, Absolute Granulocytes 17.0 H, Segmented Neutrophils 85 H, Band Neutrophils 4, Absolute Lymphocytes 0.9 L, Lymphocytes 5 L, Monocytes 6, Absolute Monocytes 0.8 H, Absolute Eosinophils 0, Absolute Basophils 0, Platelet Estimate VERIFIED BY SMEAR, Normocytic RBCs VERIFIED, Normochromic RBCs VERIFIED, PUBS MCHC 32.4 L, Fld Total RBCs Counted 100 03/08/162124: Troponin I Cancelled, Aup-H-Yrbyohjsgmg Pept Cancelled Microbiology 03/10 1313 URINE ROUT: Urine Culture - RES 03/09 327 LOWER RESP: Respiratory Culture - CAN Cancelled: SPECIMEN NOT RECEIVED IN LABORATORY 03/09 327 LOWER RESP: Gram Stain - CAN Cancelled: SPECIMEN NOT RECEIVED IN LABORATORY 03/09 209 URINE ROUT: Urine Culture - COMP 03/08 2316 BLOOD: Blood Culture - RES Assessment/Plan Assessment: Patient is a 65 year old female with PMH multiple sclerosis, diverting colostomy , subprapubic catherter, small bowel obstruction, presenting for nausea and vomitting. 1. Sepsis of Urological origin - urine cultures showed no growth after 1 day - discontinue patient from ceftazidime 2. Possible partial SBO - Lactic acid levels 1.7 - change to regular diet 3. Multiple Sclerosis - pressure ulcers over coccyx, right buttock, left buttock, right thigh, right ankle/alcantar - continue amitypteleye 25 mg - clonazepam .5 - oxybutinin 15 - backlofen 20 qid - discuss getting a cushion for patient's mobile wheelchair 4. DVT prophylaxis - kaylen canox
--- NOTE | 2016-03-11 12:52 | PN- Wound Care ---
Subjective Subjective: Patient feels better and discharge is pending. She is on a low air loss mattress for multiple pressure injury ulcers present on admission. Objective Vital Signs and I&Os Vital Signs Result Date Time O2 Delivery Room Air 03/11 1153 O2 Flow Rate 4.0L 03/11 1153 Pulse Ox 92 03/11 0600 B/P 144/70 03/11 0600 Temp 98.4 03/11 0600 Pulse 65 03/11 0600 Resp 20 03/11 0600 Intake & Output 03/11 0000 03/10 1600 03/10 0800 Intake Total 450 1000 640 Output Total 312 650 275 Balance 138 350 365 Intake, IV 400 400 Intake, Oral 450 600 240 Output, Stool 12 10 75 Output, Urine 300 640 200 Physical Exam: Exam for coccyx shows there to be stage III rash or ulcer 3 x 3 cm. There multiple pressure ulcers over her right buttocks and upper thighs which be stage III with red fill. These have been previously measured. They are clean without undermining or sinus tracking. Does not appear to be evidence of soft tissue skin infection Impression/Plan Impression/Plan Impression/Plan: 65-year-old woman with morbid obesity essentially immobile with multiple pressure ulcers present on admission. Recommend offloading mattress upon discharge. Patient needs frequent repositioning. Wound care can be Aquacel Ag changed every 1-2 days.
[2016-03-11 13:33] VITALS: BP 130/70
[2016-03-11 16:11] VITALS: BP 130/70
--- NOTE | 2016-03-11 16:40 | NUR ---
CALL PLACED TO [facility] TO GIVE REPORT ON PATIENT AT THIS TIME
--- NOTE | 2016-03-11 16:49 | NUR ---
CALL PLACED TO [place] AT THIS TIME AND REPORT GIVEN. [facility] ARRIVED AT THIS TIME. PT REQUESTING TO HAVE DINNER PACKAGED FOR [place]. DIETARY PROVIDED.
== END 2016-03-11 17:03 | DRG 871 ==
LOC: ENRESERVTM → ENRESERVDT → ERH 21:02 → 2NA 03-09 03:15 → ERHI 03-09 03:15 → EDBEDREQ 03-09 03:31 → 2NA 03-09 04:36
PROVIDERS: Physician Assistant; Student in an Organized Health Care Education/Training Program; ADMIT Internal Medicine
DX: A41.9 Sepsis, unspecified organism (principal); L89.153 Pressure ulcer of sacral region, stage 3; N17.9 Acute kidney failure, unspecified; G82.20 Paraplegia, unspecified; G35 Multiple sclerosis; K56.7 Ileus, unspecified; E66.01 Morbid (severe) obesity due to excess calories; L89.893 Pressure ulcer of other site, stage 3; L89.313 Pressure ulcer of right buttock, stage 3; N39.0 Urinary tract infection, site not specified; J98.11 Atelectasis; T83.511A Infection and inflammatory reaction due to indwelling urethral catheter, initial encounter; Z68.38 Body mass index [BMI] 38.0-38.9, adult; Z93.3 Colostomy status; E11.9 Type 2 diabetes mellitus without complications; Z79.4 Long term (current) use of insulin
CPT/HCPCS: 2NAP; 36415; 74020; 74176; 81001; 82436; 87040; 87070; 87071; 87086; 93005; 93010; 96374; 96375; 99291; J0696; J0713; J2405; J3370; J7060

== ENCOUNTER 2016-03-25 10:56 | Emergency (ER) | payer OTHER ==
[~2016-03-25] VITALS: Ht 172.7 cm; Wt 113.4 kg
[~2016-03-25 10:56] MED LIST changes: +BACLOFEN20 M1 PO
--- NOTE | 2016-03-25 12:54 | ED ANKLE/FOOT INJURY COMPLAINT ---
History of Present Illness General Chief Complaint: Lower Extremity Injury Stated Complaint: FOOT LAC Source: patient, family, old records Exam Limitations: no limitations Vital Signs & Intake/Output Vital Signs & Intake/Output Vital Signs Date Time Temp Pulse Resp B/P Pulse O2 O2 Flow FiO2 Ox Delivery Rate 03/25 1104 97.6 93 20 134/104 95 Room Air Allergies Coded Allergies: No Known Allergies (03/25/16) Reconcile Medications Amitriptyline HCl 25 MG TABLET 1 TAB PO DAILY DEPRESSION (Reported) Aspirin (Ecotrin*) 81 MG TABLET.DR 1 TAB PO DAILY HEART HEALTH (Reported) Baclofen 20 MG TABLET 1 TAB PO Q6 Muscle relaxant (Reported) Cholecalciferol (Vitamin D3) 1,000 UNIT TABLET 1 TAB PO DAILY SUPPLEMENT ( Reported) Clonazepam (Klonopin) 0.5 MG TABLET 1 TAB PO DAILY SHAKES (Reported) Oxybutynin Chloride 5 MG TABLET 15 MG PO TID incontinence Triage Note: TRIAGE: PT TO ER C/C LACERATION TO L TOE S/P INJURY LAST NIGHT. PT USES MOTORIZED W/C AND STATES SHE ACCIDENTALLY BANGED HER FOOT INTO THE DOOR LAST NIGHT. WOUND NOT VISUALIZED AT TRIAGE PATIENT IS WEARING SOCKS AND SHOES. DENIES ANY PAIN. Triage Nurses Notes Reviewed? yes HPI: Patient is a 65-year-old female presents complaining of wound to her left foot. Patient reports that she accidentally cut her left foot while using her motorized chair yesterday evening at approximately 10 PM. Patient reports that the wounds have been bleeding since then. Pain is 0 out of 10. Patient is unsure of her last tetanus immunization. 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 (BENY RAMIREZ,LOGAN) Past History Travel History Traveled to [place] past 21 day No Medical History Any Pertinent Medical History? 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 No (LOGAN VELEZ) Review of Systems Review of Systems Constitutional: Denies: chills, fever. Cardiovascular: Reports: peripheral edema (chronic). Musculoskeletal: Reports: see HPI. Skin: Reports: see HPI. Hematologic/Endocrine: Reports: bleeding (from wounds). Immunologic/Allergic: Denies: splenectomy. (LOGAN VELEZ) Physical Exam Physical Exam General Appearance: alert, awake, obese Head: atraumatic, normal appearance Eyes: Bilateral: normal appearance. Ears, Nose, Throat: hearing grossly normal Neck: normal inspection, full range of motion Cardiovascular/Respiratory: no respiratory distress Back: normal inspection, normal range of motion Leg/Knee/Thigh Left: normal range of motion Foot Left: 0.5 cm superifical wound to the dorsal left 2nd toe. 1 cm superficial wound to the dorsum of the left foot over the distal 3rd and 4th metatarsal. Tinea pedis infection. 1 cm blister over the distal 1st/2nd metatarsal on the dorsal surface intact. No tenderness to the foot. Neuro/Vascular: normal motor function, normal sensation Tendon: normal tendon function Psychiatric: awake, alert, oriented x 3 Skin: see foot exam. Fine purpura rash to bilateral lower extremities (LOGAN VELEZ) Progress Differential Diagnosis: laceration, vasculitis, thrombocytopenia, tinea pedis Plan of Care: Current Medications Sig/Mary Grace Start time Last Medication Dose Stop Time Status Admin Tetanus/Diphtheria 0.5 ML ONCE ONE 03/25 1330 AC Toxoids Adsorbed 03/25 1331 (Decavac) Discussed with Dr. Sullivan. Bacitracin and clean dressings placed by nursing staff. Wounds superficial, no signs of infection, no sutures indicated. Patient has been seen by Dr. Lopez in the wound care center previously. Instructed to contact the wound care center for follow up. (LOGAN VELEZ) Departure Departure Time of Disposition: 1313 Disposition: HOME OR SELF CARE Condition: Stable Clinical Impression Primary Impression: Open wound of foot Qualifiers: Encounter type: initial encounter Laterality: left Qualified Code: S91.302A - Unspecified open wound, left foot, initial encounter Referrals: JANELL CHUNG,BARBARA Zhu (PCP/Family) Additional Instructions: Bacitracin and a clean dressing to the wounds daily. Elevate your legs as much as possible. Follow up with the wound care clinic this week for further evaluation. Return to the ER if redness spreading, pus from wounds, fevers or worsening of symptoms. Departure Forms: Customer Survey General Discharge Information (LOGAN VELEZ) PA/CREDIT ADJUSTER Co-Sign Statement Statement: ED Attending supervision documentation- [X] I saw and evaluated the patient. I have also reviewed all the pertinent lab results and diagnostic results. I agree with the findings and the plan of care as documented in the PA's/CREDIT ADJUSTER's documentation. [X] I have reviewed the ED Record and agree with the PA's/CREDIT ADJUSTER's documentation. [] Additions or exceptions (if any) to the PAs/CREDIT ADJUSTER's note and plan are summarized below: [] (JAY CHUNG,EYAL)
[2016-03-25 13:38] VITALS: BP 133/88
== END 2016-03-25 13:38 ==
LOC: ERH 10:56
DX: S91.302A Unspecified open wound, left foot, initial encounter (principal); X58.XXXA Exposure to other specified factors, initial encounter
CPT/HCPCS: 90471; 90714

== ENCOUNTER 2016-03-28 18:49 | Inpatient (IN) | payer OTHER ==
[~2016-03-28] VITALS: Ht 172.7 cm; Wt 113.4 kg
--- NOTE | 2016-03-28 18:57 | NUR ---
PT SENT IN BY DR. ALFONSO FOR INCREASED FLUID IN HER LEGS.
--- NOTE | 2016-03-28 19:02 | NUR ---
PT STATES INCREASED SWELLING
--- NOTE | 2016-03-28 20:11 | NUR ---
PT TRANSFERRED FROM PT'S OWN WHEELCHAIR TO STRETCHER ASSIST X4
--- NOTE | 2016-03-28 20:13 | ED UPPER/LOWER EXTREMITY COMPL ---
History of Present Illness General Chief Complaint: Lower Extremity Problems Stated Complaint: SENT FROM [facility] FOR LEG PAIN AND SWELLING Source: patient, old records Exam Limitations: no limitations Vital Signs & Intake/Output Vital Signs & Intake/Output Vital Signs Date Time Temp Pulse Resp B/P Pulse O2 O2 Flow FiO2 Ox Delivery Rate 03/28 2014 Room Air 03/28 2010 86 96 Room Air 03/28 1857 98.1 116 18 138/82 92 Room Air Allergies Coded Allergies: No Known Allergies (03/25/16) Reconcile Medications Amitriptyline HCl 25 MG TABLET 1 TAB PO DAILY DEPRESSION (Reported) Aspirin (Ecotrin*) 81 MG TABLET.DR 1 TAB PO DAILY HEART HEALTH (Reported) Baclofen 20 MG TABLET 1 TAB PO Q6 Muscle relaxant (Reported) Cholecalciferol (Vitamin D3) 1,000 UNIT TABLET 1 TAB PO DAILY SUPPLEMENT ( Reported) Clonazepam (Klonopin) 0.5 MG TABLET 1 TAB PO DAILY SHAKES (Reported) Oxybutynin Chloride 5 MG TABLET 15 MG PO TID incontinence Triage Note: PT SENT IN BY DR. VEGA FOR INCREASED FLUID IN HER LEGS. Triage Nurses Notes Reviewed? yes Onset: Gradual Duration: day(s):, getting worse Timing: recent history Severity: moderate, severe Pain/Injury Location: Bilateral: Leg. No Modifying Factors: none HPI: 65-year-old female comes into emergency room with complaints of wounds to her lower legs. Patient was sent in by Dr. Vega for admission of these wounds. Patient has had a leakage of fluid and black discoloration to the skin. Denies any fever chills. Patient is in a wheelchair chronically and does not ambulate at all. (ABAD FORRESTER) Past History Travel History Traveled to [place] past 21 day No Medical History Any Pertinent Medical History? 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 No (ABAD FORRESTER) Review of Systems Review of Systems Constitutional: Reports: no symptoms. EENTM: Reports: no symptoms. Respiratory: Reports: no symptoms. Cardiovascular: Reports: no symptoms. Gastrointestinal/Abdominal: Reports: no symptoms. Genitourinary: Reports: no symptoms. Musculoskeletal: Reports: see HPI. Skin: Reports: see HPI. Neurological/Psychological: Reports: no symptoms. Hematologic/Endocrine: Reports: no symptoms. Immunological: Reports: no symptoms. All Other Systems: Reviewed and Negative (ABAD FORRESTER) Physical Exam Physical Exam General Appearance: well developed/nourished, mild distress Head: atraumatic Eyes: Bilateral: normal appearance. Ears, Nose, Throat: normal ENT inspection, hearing grossly normal Neck: normal inspection Cardiovascular/Respiratory: regular rate/rhythm, no respiratory distress Back: severe pressure ulcers ungradable covering entire gluteus, erythematous, discharge, no extension to bone Leg Right: erythema, black tissue, leakage of serous fluid, covering entire right calf to ankle posteriorly Neurologic/Tendon: normal sensation, normal motor functions, normal tendon functions, responds to pain, no evidence tendon injury, no pulse deficit Skin: intact, normal color, warm/dry Lymphatic: no anterior cervical stephania (ABAD FORRESTER) Progress Differential Diagnosis: arterial insufficiency, cellulitis, CHF, contusion, dislocation, DVT, fracture, gout, septic arthritis, sprain, tendon injury, osteomyelitis,sepsis, Plan of Care: Orders Procedure Date/time Status Regular Diet 03/29 B Active Intake & Output 03/28 2315 Active Patient Data 03/28 2240 Active OXYGEN SETUP (GEN) 03/28 2238 Active Saline Lock 03/28 2238 Active Admit to inpatient 03/28 2238 Active Vital Signs 03/28 2238 Active Activity/Ambulation 03/28 2238 Active Code Status 03/28 2238 Active EKG 03/28 2035 Active BLOOD CULTURE 03/28 2010 Active WESTERGREN SED RATE 03/28 2010 Complete C-REACTIVE PROTEIN 03/28 2010 Complete COMPREHENSIVE METABOLIC PANEL 03/28 2010 Complete CBC WITHOUT DIFFERENTIAL 03/28 2010 Complete Laboratory Tests 03/28/162144: Anion Gap 13, Estimated GFR > 60, BUN/Creatinine Ratio 17.5, Glucose 123 H, Calcium 9.2, Total Bilirubin 0.6, AST 26, ALT 34, Alkaline Phosphatase 139 H, C -Reactive Prot, Quant > 9.0 H, Total Protein 8.3 H, Albumin 3.6, Globulin 4.7 H, Albumin/Globulin Ratio 0.8 L, CBC w Diff NO MAN DIFF REQ, RBC 5.37, MCV 76.5 L, MCH 25.0 L, RDW 15.4 H, MPV 7.9, Gran % 61.1, Lymphocytes % 24.0, Monocytes % 9.8 H, Eosinophils % 4.0, Basophils % 1.1, Absolute Granulocytes 7.1 H, Absolute Lymphocytes 2.8, Absolute Monocytes 1.1 H, Absolute Eosinophils 0.5, Absolute Basophils 0.1, PUBS MCHC 32.7 L, ESR Westergren 38 H Microbiology 03/28 2214 BLOOD: Blood Culture - RECD 03/28 2144 BLOOD: Blood Culture - RECD Initial ED EKG: normal intervals, normal p-waves, normal sinus rhythm, rate (84) (ABAD FORRESTER) Departure Departure Disposition: STILL A PATIENT Condition: Stable Clinical Impression Primary Impression: Pressure ulcer of buttock, unstageable Secondary Impressions: Cellulitis, Multiple open wounds Referrals: JANELL CHUNG,BARBARA Zhu (PCP/Family) Departure Forms: Customer Survey General Discharge Information Admission Note Spoke With: EVELIN PIMENTEL MD Documentation of Exam: Documentation of any treatments & extenuating circumstances including Concerns Regarding Discharge (functional status, medication knowledge or non-compliance, living conditions, etc.) that warrant an admission rather than observation: Patient will require wound care consult. Surgery consult for debridement. IV antibiotics. Patient may require MRI is still rule out any type of osteomyelitis. Patient would do poorly as an outpatient. (ABAD FORRESTER) PA/CAMPUS REP Co-Sign Statement Statement: ED Attending supervision documentation- x I saw and evaluated the patient. I have also reviewed all the pertinent lab results and diagnostic results. I agree with the findings and the plan of care as documented in the PA's/CAMPUS REP's documentation. [] I have reviewed the ED Record and agree with the PA's/CAMPUS REP's documentation. [] Additions or exceptions (if any) to the PAs/CAMPUS REP's note and plan are summarized below: [] (KRISTIAN CHUNG,YAKELIN)
--- NOTE | 2016-03-28 20:35 | NUR ---
SKIN ASSESSED BY THIS RN AND ASHLEY MAY. MULTIPLE OPEN WOUNDS TO BILATERAL BUTTOCKS APPEARING ?STAGE 3 PRESSURE ULCERS. BRIGHT RED BLOOD ON COVIDIEN DRAW SHEET. PT STATES SHE WAS RECEIVING WOUND CARE AT [facility]
[2016-03-28 21:55] LABS: ABSOLUTE BASOPHIL COUNT 0.1 /CUMM (0.0-0.2); ABSOLUTE EOSINOPHIL COUNT 0.5 /CUMM (0.0-0.7); ABSOLUTE GRANULOCYTE CT 7.1 /CUMM (1.4-6.5); ABSOLUTE LYMPH COUNT 2.8 /CUMM (1.2-3.4); ABSOLUTE MONOCYTE COUNT 1.1 /CUMM (0.10-0.60); BASOPHIL % 1.1 % (0.0-2.0); GRANULOCYTE % 61.1 % (42.2-75.2); HEMATOCRIT 41.1 % (37-47); MEAN CORPUSCULAR HGB CONC 32.7 G/DL (33.0-37.0); MEAN CORPUSCULAR VOLUME 76.5 FL (81.0-99.0); MEAN PLATELET VOLUME 7.9 FL (7.4-10.4); PLATELET COUNT 369 /CUMM (130-400); RBC DISTRIBUTION WIDTH 15.4 % (11.5-14.5); RED BLOOD CELL CT 5.37 /CUMM (4.20-5.40); WHITE BLOOD CELL COUNT 11.7 /CUMM (4.8-10.8)
--- NOTE | 2016-03-28 23:41 | NUR ---
PT GOING TO ROOM 234-1
--- NOTE | 2016-03-28 23:59 | NUR ---
REPORT GIVEN TO ROSALIE RANDHAWA. ROSALIE RANDHAWA STATES SHE WILL SEND DOWN A TECH FOR TRANSFER UP TO FLOOR.
--- NOTE | 2016-03-29 00:27 | History & Physical ---
DENA CHUNG,ISREAL 03/29/16 0026: General Information and HPI MD Statement: I have seen and personally examined GLENN MAYO and documented this H&P. The patient is a 65 year old F who presented with a patient stated chief complaint of [foot ulcers]. Source of Information: patient, old records Exam Limitations: no limitations History of Present Illness: This is a 65-year-old lady with a past medical history significant for multiple sclerosis with right-sided hemiparesis, colostomy, suprapubic catheter, recent small bowel obstruction, sacral decubitus ulcers that presented to the emergency room this evening per the request of her wound care physician secondary to necrotic second toe on the left foot, with accompanying necrotic skin on the dorsum of the left foot and right calf. Patient was recently admitted at [facility] for small bowel traction discharged to [facility] and subsequently re-presented with nausea and vomiting and was resent to [place]. She states that she has been at a short-term rehabilitation now for a week and a half and went to see her training and documentation specialist today who recommended getting admitted to the hospital for possible surgery for the necrotic skin. She denies any fevers, chills, nausea, vomiting, diarrhea. Denies any pain, loss of sensation in the feet. Allergies/Medications Allergies: Coded Allergies: No Known Allergies (03/25/16) Home Med list Amitriptyline HCl 25 MG TABLET 1 TAB PO DAILY DEPRESSION (Reported) Aspirin (Ecotrin*) 81 MG TABLET.DR 1 TAB PO DAILY HEART HEALTH (Reported) Baclofen 20 MG TABLET 1 TAB PO Q6 Muscle relaxant (Reported) Cholecalciferol (Vitamin D3) 1,000 UNIT TABLET 1 TAB PO DAILY SUPPLEMENT ( Reported) Clonazepam (Klonopin) 0.5 MG TABLET 1 TAB PO DAILY SHAKES (Reported) Oxybutynin Chloride 5 MG TABLET 15 MG PO TID incontinence Past History Travel History Traveled to [place] past 21 day No Medical History Neurological: multiple sclerosis EENT: NONE Cardiovascular: NONE Respiratory: NONE Gastrointestinal: DIVERTING COLOSTOMY small bowel obstruction Hepatic: NONE Renal: SUPRAPUBIC TUBE Musculoskeletal: disk herniation Psychiatric: NONE Endocrine: NONE Blood Disorders: NONE Cancer(s): NONE 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 History of MRSA: Yes History of VRE: No History of CDIFF: No Tetanus Vaccine: 03/25/16 Surgical History Surgical History: cholecystectomy, COLOSTOMY BAG LOW BACK SURGERY R HEEL I+D'S SACRAL DECUB I&D'S Past Family/Social History Family History Relations & Conditions if any BROTHER FH: cancer MOTHER Pacemaker Relation not specified for: Family history unknown Psychosocial History Services at Home: Home Health Aide, Nursing ETOH Use: denies use Illicit Drug Use: denies illicit drug use Functional Ability Ambulation: non-ambulatory, wheelchair Review of Systems Review of Systems Constitutional: Reports: see HPI. Exam & Diagnostic Data Last 24 Hrs of Vital Signs/I&O Vital Signs Date Time Temp Pulse Resp B/P Pulse O2 O2 Flow FiO2 Ox Delivery Rate 03/28 2331 98.0 68 16 178/91 96 Room Air 03/28 2014 Room Air 03/28 2011 86 170/82 96 Room Air 03/28 1857 98.1 116 18 138/82 92 Room Air Intake & Output 03/29 0800 03/29 0000 03/28 1600 Intake Total 0 Output Total Balance 0 Intake, Oral 0 Patient 250 lb Weight Physical Exam General Appearance Alert, Oriented X3, Cooperative, No Acute Distress Skin Black necrotic skin on right calf, multiple skin breakdown on buttocks, necrotic 2nd toe on left foot HEENT Atraumatic, PERRLA, EOMI Cardiovascular Regular Rate, Normal S1, Normal S2 Lungs Clear to Auscultation, Normal Air Movement Abdomen Normal Bowel Sounds, Soft, No Tenderness, sSuprapubic catheter and colostomy present Neurological Normal Tone, Cranial Nerves 3-12 NL, 3/5 R upper and lower extremity, 5/5 on the left Extremities No Clubbing, 1+ b/l le edema and dry skin Diagnostic Data EKG Results rate 84, pr 162, qrs 118, qtc 572 sinus rhythm Assessment/Plan Assessment: Assessment- 1. Skin necrosis on the right calf and left foot second toe necrosis 2. Possible gas gangrene 3. Possible osteomyelitis 4. Multiple areas of skin breakdown on buttocks and posterior thighs 5. History of multiple sclerosis 6. Urinary incontinence requiring suprapubic catheter Plan- Admit to general med Vitals per protocol Panculture Hold off on IV antibiotics for now We'll get an x-ray of the left foot and x-ray of the right lower extremity to rule out subcutaneous gas She will need an MRI Surgery/podiatry consult Continue all home meds Regular diet DVT prophylaxis with subcutaneous heparin Pain pathway Full code As Ranked By This Provider Problem List: 1. Sacral decubitus ulcer, stage III 2. Multiple open wounds 3. Cellulitis 4. Pressure ulcer of buttock, unstageable 5. Open wound of foot Core Measures/Miscellaneous Acute Coronary Syndrome ACS Diagnosis: No Cerebrovascular Accident CVA/TIA Diagnosis: No Congestive Heart Failure CHF Diagnosis: No Venous Thromboembolism VTE Risk Factors: Age > 40 VTE Prophylaxis Ordered Inpt: Pharm- Heparin No Mech VTE prophylaxis d/t: No contraindications No VTE Pharm Prophylaxis d/t: No contraindications VTE Diagnosis: No VTE Type: NONE VTE Confirmed by (Test): NONE Severe Sepsis Severe Sepsis Present: No Septic Shock Septic Shock Present: No Miscellaneous Documentation Attending Case Discussed With: EVELIN PIMENTEL MD Primary Care Physician: BARBARA MACIEL MD Patient sees these Specialists DR. DESHAWN SUBRAMANIAN Level of Patient Care: General Medicine Resident Review Statement Resident Statement: examined this patient EVELIN PIMENTEL 03/29/16 0635: Attending MD Review Statement Attending Statement Attending MD Statement: examined this patient, discuss w/resident/PA/COARSE WIRE DRAWER, agreed w/resident/PA/COARSE WIRE DRAWER, reviewed EMR data (avail), reviewed images, amended to note Attending Assessment/Plan: CC: left foot wound PMH: MS, paraparesis, left-sided colostomy bag (diverting colostomy due to chronic decubitus ulcers) suprapubic catheter due to neurogenic bladder Patient was recently admitted at [facility] for ileus discharged to [facility] and subsequently discharged home. She states that she has been at a [facility] for a week and a half. She has help at home, who saw blackish discoloration on lateral aspect of right leg (dependent area), she had wound on left foot, which got injured by a door while moving on wheelchair. The skin avulsed and there is black discoloration so she went to see her training and documentation specialist today who recommended getting admitted to the hospital for possible surgical debridement. Patient denies any fevers, chills, nausea, vomiting, diarrhea, she has sensation on left-sided but this wound is not very painful. Vitals: Afebrile, mildly tachycardic at presentation, RRR, HR, O2 saturation in acceptable range. on exam: A O 3, no distress, responds appropriately, no strength bilateral lower extremity and right upper extremity, good strength left upper extremity, abdomen: Colostomy bag present with liquid stool, suprapubic catheter present, bloody discharge around the catheter. Abdomen soft and the bowel sounds present. CVS: S1-S2, RRR. RS: Clear to auscultation at bases. Wounds: Bilateral buttocks macerated, multiple skin breakdowns on bilateral buttocks (all stage II wounds), coccyx has stage III wound, with blackish discoloration at Center, no obvious pus expression. Medial aspect of thigh has some curdy discharge, foul-smelling, probably coming from vagina or local fungal infection needs detailed exam. Left lower extremity dorsum of foot has blackish discoloration, blisters, second toe injury is new. Left lower extremity is warm, erythematous, swelling. Medial aspect of the right lower extremity has blackish discoloration with serous weeping. Labs: WBC 11.7, otherwise C BC BMP unremarkable No imaging was done in ER A and P #1 left foot injury followed by blackish discoloration, one blister appears secondary infected, needs surgical consult, hold off antibiotic for plan of surgery, resume antibiotic if surgery is not done, obtain x-ray to rule out any gas underlying tissue. 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 #2 blackish discoloration on the lateral side of right foot : Again will need surgical evaluation #3 multiple pressure wounds on back: Wound care consult #4 nothing by mouth for expected surgery #5 DVT prophylaxis with heparin
--- NOTE | 2016-03-29 01:00 | NUR ---
PT ARRIVED TO FLOOR AT 0040 VIA STRETCHER. A&OX3, RA, DENIES PAIN OR DISTRESS AT THIS TIME. PT HAS SUPRAPUBIC TUBE W LEG BAG, LEG BAG REPLACED WITH ALEJANDRO BAG. COLOSOTOMY ON L SIDE OF ABD. MULTIPLE SKIN WOUNDS, SEE WOUND/SKIN MAN, TO COCCYX, SACRUM, R LOWER EXTRM, L FOOT AND TOES NECTROTIC. MD AT BEDSIDE TO ASSESS. WOUNDS DRESSED AT THIS TIME W ABD AND XEROFORM. PT DENIES PAIN. PT TURNED TO L SIDE. PT'S OWN LEG BAG STRAPS REMOVED AND PLACED UNDER TV IN ROOM.
[2016-03-29 01:54] VITALS: BP 150/80
[2016-03-29 06:33] VITALS: BP 140/70
--- NOTE | 2016-03-29 06:37 | Admission Certification ---
Admission Certification Certification Statement - As attending physician, I certify that at the time of - admission, based on clinical presentation, severity of - symptoms, need for further diagnostic testing and - therapeutic interventions, and risk of adverse outcomes - without in-hospital treatment, in my clinical assessment, - this patient requires an acute hospital stay for a minimum - of two nights or longer. I have also considered psychsocial - factors such as support system, advanced age, financial - issues, cognitive issues, and failed out-patient treatments, - past re-admission history, safety of patient, and lack of - compliance as applicable. Specific rationale supporting this admission is: Multiple pressure wounds with secondary infections, left foot trauma
--- NOTE | 2016-03-29 08:05 | RADIOLOGY REPORT ---
EXAMINATION: XR FOOT, LEFT CLINICAL INFORMATION: Necrotic second toe and skin breakdown COMPARISON: Radiographs of the foot from 01/03/2014 TECHNIQUE: Left foot, 3 views FINDINGS: Diffuse soft tissue swelling of the visualized lower leg, ankle and foot without radiopaque foreign body or soft tissue emphysema. Bone density is diffusely decreased. No evidence of osseous erosion, periostitis or acute fracture. Bones have normal alignment at the Chopart and Lisfranc joints. There is enthesophyte formation at the posterior and plantar surfaces of the calcaneus. IMPRESSION: 1. Nonspecific soft tissue swelling of the left foot. 2. No radiographic evidence of osteomyelitis.
--- NOTE | 2016-03-29 08:10 | RADIOLOGY REPORT ---
EXAMINATION: XR TIBIA AND FIBULA, RIGHT CLINICAL INFORMATION: Necrotic skin on calf. Evaluate for gas gangrene or osteomyelitis. COMPARISON: None TECHNIQUE: AP and lateral views of the right tibia and fibula were obtained. FINDINGS: Diffuse subcutaneous tissue edema of the leg and ankle. No radiopaque foreign body or soft tissue emphysema. Bone density is diffusely decreased. No acute fracture or malalignment at the visualized knee or ankle. There is an old, healed, mildly displaced fracture of the proximal tibial metaphysis. Probable old, healed fracture of the fibular metaphysis, as well. At the ankle, the talar dome is well-positioned within the intact mortise. No ankle joint effusion. IMPRESSION: 1. Diffuse soft tissue swelling of the leg and ankle. 2. No radiographic evidence of gas gangrene or osteomyelitis.
[2016-03-29 10:09] LABS: ABSOLUTE BASOPHIL COUNT 0.1 /CUMM (0.0-0.2); ABSOLUTE EOSINOPHIL COUNT 0.5 /CUMM (0.0-0.7); ABSOLUTE GRANULOCYTE CT 5.5 /CUMM (1.4-6.5); ABSOLUTE MONOCYTE COUNT 0.8 /CUMM (0.10-0.60); BASOPHIL % 0.7 % (0.0-2.0); EOSINOPHIL % 5.6 % (0-5); GRANULOCYTE % 62.1 % (42.2-75.2); MEAN CORPUSCULAR HGB 25.3 PG (27.0-31.0); MEAN CORPUSCULAR HGB CONC 33.2 G/DL (33.0-37.0); MEAN PLATELET VOLUME 7.6 FL (7.4-10.4); PLATELET COUNT 342 /CUMM (130-400); RBC DISTRIBUTION WIDTH 15.6 % (11.5-14.5); RED BLOOD CELL CT 4.66 /CUMM (4.20-5.40); WHITE BLOOD CELL COUNT 8.8 /CUMM (4.8-10.8)
[2016-03-29 10:10] LABS: HEMATOCRIT 35.4 % (37-47)
--- NOTE | 2016-03-29 11:20 | Cons- Vascular Surgery ---
General Information and HPI Consulting Request Date of Consult: 03/29/16 Requested By: LUIZA KAY MD Reason for Consult: Bilateral foot wounds Source of Information: patient, old records Exam Limitations: no limitations History of Present Illness: This is a complicated 65-year-old female with multiple medical problems including multiple sclerosis with right-sided hemiparesis, suprapubic catheter, colostomy, history of multiple small bowel obstructions who presents with approximately a 5-6 day worsening of a right dorsal distal foot wound. She reports having had a thickened darkened area on the dorsum of the foot at the base of the toes previously and recently injured her toe on the foot and now this has progressed to worsening ecchymosis with small associated skin tears. I am asked to evaluate from a circulatory standpoint. Allergies/Medications Allergies: Coded Allergies: No Known Allergies (03/25/16) Home Med List: Amitriptyline HCl 25 MG TABLET 1 TAB PO DAILY DEPRESSION (Reported) Aspirin (Ecotrin*) 81 MG TABLET.DR 1 TAB PO DAILY HEART HEALTH (Reported) Baclofen 20 MG TABLET 1 TAB PO Q6 Muscle relaxant (Reported) Cholecalciferol (Vitamin D3) 1,000 UNIT TABLET 1 TAB PO DAILY SUPPLEMENT ( Reported) Clonazepam (Klonopin) 0.5 MG TABLET 1 TAB PO DAILY SHAKES (Reported) Oxybutynin Chloride 5 MG TABLET 15 MG PO TID incontinence Current Medications: Current Medications Sig/Mary Grace Start time Last Medication Dose Route Stop Time Status Admin Acetaminophen 650 MG Q6P PRN 03/29 0130 AC PO Acetaminophen/ 1 TAB Q6P PRN 03/29 0130 AC Hydrocodone Bitart PO Amitriptyline HCl 25 MG DAILY 03/29 1000 AC 03/29 PO 1007 Ampicillin Sodium/ 3,000 MG Q6 03/29 1200 AC Sulbactam Sodium IV Sodium Chloride 100 ML Ampicillin Sodium/ 0 .STK-MED ONE 03/28 2320 DC Sulbactam Sodium .ROUTE Ampicillin Sodium/ 3,000 MG ONCE ONE 03/28 2245 DC 03/28 Sulbactam Sodium IV 03/28 2314 2315 Sodium Chloride 100 ML Aspirin Buffered 81 MG DAILY 03/29 1000 AC 03/29 PO 1008 Baclofen 20 MG Q6 03/29 0600 AC 03/29 PO 0651 Clonazepam 0.5 MG DAILY 03/29 1000 AC 03/29 PO 04/05 0959 1008 Nystatin 1 LAZARA TID 03/29 1000 AC 03/29 TOP 1010 Oxybutynin Chloride 5 MG TID 03/29 1000 AC 03/29 PO 1008 Oxycodone HCl 10 MG Q6P PRN 03/29 0130 AC PO Past History Medical History Blood Transfusion Hx: No Neurological: multiple sclerosis EENT: NONE Cardiovascular: NONE Respiratory: NONE Gastrointestinal: DIVERTING COLOSTOMY small bowel obstruction Hepatic: NONE Renal: SUPRAPUBIC TUBE Musculoskeletal: disk herniation Psychiatric: NONE Endocrine: NONE Blood Disorders: NONE Cancer(s): 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 Home Services at Home: Home Health Aide, Nursing Smoking Status: Former Smoker ETOH Use: denies use Illicit Drug Use: denies illicit drug use Functional Ability Ambulation: non-ambulatory, wheelchair Review of Systems Review of Systems: Right posterior calf wound, left distal dorsal foot wound Review of Systems Constitutional: Denies: no symptoms. Exam & Diagnostic Data Vital Signs and I&O Vital Signs Date Time Temp Pulse Resp B/P Pulse O2 O2 Flow FiO2 Ox Delivery Rate 03/29 0844 Room Air Room Air 03/29 0633 100.4 90 20 140/70 91 Room Air 03/29 0154 98.6 91 20 150/80 97 Room Air 03/28 2331 98.0 68 16 178/91 96 Room Air 03/28 2014 Room Air 03/28 2010 86 170/82 96 Room Air 03/28 1857 98.1 116 18 138/82 92 Room Air Intake & Output 03/29 1600 03/29 0800 03/29 0000 03/28 1600 03/28 0800 03/28 0000 Intake Total 0 Output Total 200 Balance -200 0 Intake, Oral 0 Output, Urine 200 Patient 113.398 kg 113.398 kg Weight Physical Exam: Ecchymotic dorsal distal left foot wound at the base of her toes. There is some small skin tears overlying some of the toes. There is a open wound on the posterior aspect of the right calf with an overlying eschar. There does not appear to be foul odor from either wound or significant drainage or purulence. There are strongly palpable left dorsalis pedis and posterior tibial pulses and a strongly palpable right posterior tibial pulse. The right dorsalis pedis pulse likely cannot be appreciated due to significant lower extremity edema. Both legs exhibit significant lower extremity edema. Last 24 Hours of Labs: Laboratory Tests 03/29 03/29 1000 0950 Hematology CBC w Diff NO MAN DIFF REQ WBC (4.8 - 10.8 /CUMM) 8.8 RBC (4.20 - 5.40 /CUMM) 4.66 Hgb (12.0 - 16.0 G/DL) 11.8 L Hct (37 - 47 %) 35.4 L MCV (81.0 - 99.0 FL) 76.0 L MCH (27.0 - 31.0 PG) 25.3 L RDW (11.5 - 14.5 %) 15.6 H Plt Count (130 - 400 /CUMM) 342 MPV (7.4 - 10.4 FL) 7.6 Gran % (42.2 - 75.2 %) 62.1 Lymphocytes % (20.5 - 51.1 %) 22.3 Monocytes % (1.7 - 9.3 %) 9.3 Eosinophils % (0 - 5 %) 5.6 H Basophils % (0.0 - 2.0 %) 0.7 Absolute Granulocytes (1.4 - 6.5 /CUMM) 5.5 Absolute Lymphocytes (1.2 - 3.4 /CUMM) 2.0 Absolute Monocytes (0.10 - 0.60 /CUMM) 0.8 H Absolute Eosinophils (0.0 - 0.7 /CUMM) 0.5 Absolute Basophils (0.0 - 0.2 /CUMM) 0.1 PUBS MCHC (33.0 - 37.0 G/DL) 33.2 Urines Urine Color Pending Urine Clarity Pending Urine pH Pending Ur Specific [place] Pending Urine Protein Pending Urine Ketones Pending Urine Nitrite Pending Urine Bilirubin Pending Urine Urobilinogen Pending Ur Leukocyte Esterase Pending Ur Microscopic Pending Urine Hemoglobin Pending Urine Glucose Pending 03/28 655 Chemistry Sodium (137 - 145 mmol/L) 136 L Potassium (3.5 - 5.1 mmol/L) 4.0 Chloride (98 - 107 mmol/L) 98 Carbon Dioxide (22 - 30 mmol/L) 25 Anion Gap (5 - 16) 13 BUN (7 - 17 mg/dL) 14 Creatinine (0.5 - 1.0 mg/dL) 0.8 Estimated GFR (>60 ml/min) > 60 BUN/Creatinine Ratio (7 - 25 %) 17.5 Glucose (65 - 99 mg/dL) 123 H Calcium (8.4 - 10.2 mg/dL) 9.2 Total Bilirubin (0.2 - 1.3 mg/dL) 0.6 AST (14 - 36 U/L) 26 ALT (9 - 52 U/L) 34 Alkaline Phosphatase (<127 U/L) 139 H C-Reactive Prot, Quant (<1.0 mg/dL) > 9.0 H Total Protein (6.3 - 8.2 g/dL) 8.3 H Albumin (3.5 - 5.0 g/dL) 3.6 Globulin (1.9 - 4.2 gm/dL) 4.7 H Albumin/Globulin Ratio (1.1 - 2.2 %) 0.8 L Hematology CBC w Diff NO MAN DIFF REQ WBC (4.8 - 10.8 /CUMM) 11.7 H RBC (4.20 - 5.40 /CUMM) 5.37 Hgb (12.0 - 16.0 G/DL) 13.4 Hct (37 - 47 %) 41.1 MCV (81.0 - 99.0 FL) 76.5 L MCH (27.0 - 31.0 PG) 25.0 L RDW (11.5 - 14.5 %) 15.4 H Plt Count (130 - 400 /CUMM) 369 MPV (7.4 - 10.4 FL) 7.9 Gran % (42.2 - 75.2 %) 61.1 Lymphocytes % (20.5 - 51.1 %) 24.0 Monocytes % (1.7 - 9.3 %) 9.8 H Eosinophils % (0 - 5 %) 4.0 Basophils % (0.0 - 2.0 %) 1.1 Absolute Granulocytes (1.4 - 6.5 /CUMM) 7.1 H Absolute Lymphocytes (1.2 - 3.4 /CUMM) 2.8 Absolute Monocytes (0.10 - 0.60 /CUMM) 1.1 H Absolute Eosinophils (0.0 - 0.7 /CUMM) 0.5 Absolute Basophils (0.0 - 0.2 /CUMM) 0.1 PUBS MCHC (33.0 - 37.0 G/DL) 32.7 L ESR Westergren (0 - 20 MM) 38 H Assessment/Plan Assessment/Plan Complicated 65-year-old patient with multiple medical problems who presents with bilateral lower extremity wounds. X-rays obtained do not demonstrate evidence of subcutaneous emphysema or osteomyelitis grossly. There is no significant foul odor or purulence associated with either wound. There is an overlying eschar of the right posterior calf which may benefit from debridement. From a vascular standpoint I do not feel the patient requires further intervention, though I would like a bilateral lower extremity arterial ultrasound to document her circulation. We will sign off for now, recommend podiatry consult. Please call with questions. Consult Acknowledgment - Thank you for your consult request. Attending Review Statement Attending Statement Attending MD Statement: examined this patient, reviewed images
--- NOTE | 2016-03-29 13:15 | ULTRASOUND REPORT ---
EXAMINATION: US DUPLEX SCAN LOWER EXTREMITY, LEFT INTERPRETING VASCULAR \T\ INTERVENTIONAL RADIOLOGIST: Pako Fitzgerald MD CLINICAL INFORMATION: Necrosis left foot with discoloration and bilateral lower extremity swelling. TECHNIQUE: Left lower extremity duplex ultrasound was performed with velocity measurements and waveform analysis in the common femoral arteries, profunda femoris arteries, proximal mid and distal superficial femoral arteries, popliteal arteries and tibial vessels. This study was performed only at rest. COMPARISON: None. FINDINGS: Velocities in cm/sec and phasicity as well as the presence of plaque are reported below: LEFT LEG: Common Femoral: 136 Profunda Femoris: 90 Proximal SFA: 112 Mid SFA: 151 Distal SFA: 173 Popliteal: 154 Posterior Tibial: 113 Anterior Tibial: 101 Dorsalis Pedis: 154 Triphasic flow is noted in the common femoral artery, proximal SFA, and profunda femoris artery. Biphasic flow is noted throughout the remainder of the vascular system. A large amount of plaque is not seen. IMPRESSION: There is no evidence of any hemodynamically significant left lower extremity arterial disease by pressure, or duplex Doppler criteria at rest.
[2016-03-29 14:57] VITALS: BP 132/66
--- NOTE | 2016-03-29 15:00 | Cons- General Surgery ---
General Information and HPI Consulting Request Date of Consult: 03/29/16 Requested By: LUIZA KAY MD Reason for Consult: foot and leg wound History of Present Illness: patient with multiple pressure ulcer issues in the past related to MS. Now presents to medical service after being seen in wound center and referred to ER. Patient has prior right leg/heel ulcer rx with flap by plastics. now has ulceration posterior right calf. More importantly, there is new necrosis to the left foot/toes. no pain. she thinks it started by hitting her foot on a door. she lives at home with aides. Allergies/Medications Allergies: Coded Allergies: No Known Allergies (03/25/16) Home Med List: Amitriptyline HCl 25 MG TABLET 1 TAB PO DAILY DEPRESSION (Reported) Aspirin (Ecotrin*) 81 MG TABLET.DR 1 TAB PO DAILY HEART HEALTH (Reported) Baclofen 20 MG TABLET 1 TAB PO Q6 Muscle relaxant (Reported) Cholecalciferol (Vitamin D3) 1,000 UNIT TABLET 1 TAB PO DAILY SUPPLEMENT ( Reported) Clonazepam (Klonopin) 0.5 MG TABLET 1 TAB PO DAILY SHAKES (Reported) Oxybutynin Chloride 5 MG TABLET 15 MG PO TID incontinence Current Medications: Current Medications Sig/Mary Grace Start time Last Medication Dose Route Stop Time Status Admin Acetaminophen 650 MG Q6P PRN 03/29 0130 AC PO Acetaminophen/ 1 TAB Q6P PRN 03/29 0130 AC Hydrocodone Bitart PO Amitriptyline HCl 25 MG DAILY 03/29 1000 AC 03/29 PO 1007 Ampicillin Sodium/ 3,000 MG Q6 03/29 1200 AC 03/29 Sulbactam Sodium IV 1301 Sodium Chloride 100 ML Ampicillin Sodium/ 0 .STK-MED ONE 03/28 2320 DC Sulbactam Sodium .ROUTE Ampicillin Sodium/ 3,000 MG ONCE ONE 03/28 2245 DC 03/28 Sulbactam Sodium IV 03/28 2314 2315 Sodium Chloride 100 ML Aspirin Buffered 81 MG DAILY 03/29 1000 AC 03/29 PO 1008 Baclofen 20 MG Q6 03/29 0600 AC 03/29 PO 1301 Clonazepam 0.5 MG DAILY 03/29 1000 AC 03/29 PO 04/05 0959 1008 Non-Formulary 0 SEE ADMIN CRITERIA 03/29 1330 UNVr Medication ANY Nystatin 1 LAZARA TID 03/29 1000 AC 03/29 TOP 1010 Oxybutynin Chloride 15 MG TID 03/29 1600 UNVr PO Oxybutynin Chloride 5 MG TID 03/29 1000 DC 03/29 PO 1008 Oxycodone HCl 10 MG Q6P PRN 03/29 0130 AC PO Past History Medical History Blood Transfusion Hx: No Neurological: multiple sclerosis EENT: NONE Cardiovascular: NONE Respiratory: NONE Gastrointestinal: DIVERTING COLOSTOMY small bowel obstruction Hepatic: NONE Renal: SUPRAPUBIC TUBE Musculoskeletal: disk herniation Psychiatric: NONE Endocrine: NONE Blood Disorders: NONE Cancer(s): NONE 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 Family History Relations & Conditions If Any: BROTHER FH: cancer MOTHER Pacemaker Relation not specified for: Family history unknown Psychosocial History Where Do You Live? Home Services at Home: Home Health Aide, Nursing Smoking Status: Former Smoker ETOH Use: denies use Illicit Drug Use: denies illicit drug use Functional Ability Ambulation: non-ambulatory, wheelchair Review of Systems Review of Systems: no cp/sob. no f/c/s. immobile from MS. remainder 8 pts neg. Exam & Diagnostic Data Vital Signs and I&O Vital Signs Date Time Temp Pulse Resp B/P Pulse O2 O2 Flow FiO2 Ox Delivery Rate 03/29 0844 Room Air Room Air 03/29 0633 100.4 90 20 140/70 91 Room Air 03/29 0154 98.6 91 20 150/80 97 Room Air 03/28 2331 98.0 68 16 178/91 96 Room Air 03/28 2014 Room Air 03/28 2010 86 170/82 96 Room Air 03/28 1857 98.1 116 18 138/82 92 Room Air Intake & Output 03/29 1600 03/29 0800 03/29 0000 03/28 1600 03/28 0800 03/28 0000 Intake Total 1800 0 Output Total 200 Balance 1800 -200 0 Intake, Oral 1800 0 Output, Urine 200 Patient 250 lb 250 lb Weight Physical Exam: Gen: obese. nad. a/ox3 Heent: anicteric. dentures. perrl Ext: right posterior calf with large wound approx [id number]. healthy granulation. moderated eschar centrally measuring approx 8x3cm. Left foot with heat, erythema and necrosis proximal digits across forefoot. plantar tissues intact. no purulence. palpable pulses. Last 24 Hours of Labs: Laboratory Tests 03/29 03/29 1000 0950 Hematology CBC w Diff NO MAN DIFF REQ WBC (4.8 - 10.8 /CUMM) 8.8 RBC (4.20 - 5.40 /CUMM) 4.66 Hgb (12.0 - 16.0 G/DL) 11.8 L Hct (37 - 47 %) 35.4 L MCV (81.0 - 99.0 FL) 76.0 L MCH (27.0 - 31.0 PG) 25.3 L RDW (11.5 - 14.5 %) 15.6 H Plt Count (130 - 400 /CUMM) 342 MPV (7.4 - 10.4 FL) 7.6 Gran % (42.2 - 75.2 %) 62.1 Lymphocytes % (20.5 - 51.1 %) 22.3 Monocytes % (1.7 - 9.3 %) 9.3 Eosinophils % (0 - 5 %) 5.6 H Basophils % (0.0 - 2.0 %) 0.7 Absolute Granulocytes (1.4 - 6.5 /CUMM) 5.5 Absolute Lymphocytes (1.2 - 3.4 /CUMM) 2.0 Absolute Monocytes (0.10 - 0.60 /CUMM) 0.8 H Absolute Eosinophils (0.0 - 0.7 /CUMM) 0.5 Absolute Basophils (0.0 - 0.2 /CUMM) 0.1 PUBS MCHC (33.0 - 37.0 G/DL) 33.2 Urines Urinalysis LIGHT H Urine Color (YEL,AMB,STR) YEL Urine Clarity (CLEAR) HAZY H Urine pH (5.0 - 8.0) 6.0 Ur Specific [place] (1.001 - 1.035) 1.020 Urine Protein (NEG,<30 MG/DL) TRACE H Urine Ketones (NEG) NEG Urine Nitrite (NEG) POS H Urine Bilirubin (NEG) NEG Urine Urobilinogen (0.1 - 1.0 EU/dl) 0.2 Ur Leukocyte Esterase (NEG) MOD H Ur Microscopic SEDIMENT EXAMINED Urine RBC (0 - 5 /HPF) 5-10 H Urine WBC (0 - 2 /HPF) 50-75 H Ur Epithelial Cells (NONE,FEW) MOD H Urine Hemoglobin (NEG) MOD H Urine Glucose (N MG/DL) NEG 03/28 2145 Chemistry Sodium (137 - 145 mmol/L) 136 L Potassium (3.5 - 5.1 mmol/L) 4.0 Chloride (98 - 107 mmol/L) 98 Carbon Dioxide (22 - 30 mmol/L) 25 Anion Gap (5 - 16) 13 BUN (7 - 17 mg/dL) 14 Creatinine (0.5 - 1.0 mg/dL) 0.8 Estimated GFR (>60 ml/min) > 60 BUN/Creatinine Ratio (7 - 25 %) 17.5 Glucose (65 - 99 mg/dL) 123 H Calcium (8.4 - 10.2 mg/dL) 9.2 Total Bilirubin (0.2 - 1.3 mg/dL) 0.6 AST (14 - 36 U/L) 26 ALT (9 - 52 U/L) 34 Alkaline Phosphatase (<127 U/L) 139 H C-Reactive Prot, Quant (<1.0 mg/dL) > 9.0 H Total Protein (6.3 - 8.2 g/dL) 8.3 H Albumin (3.5 - 5.0 g/dL) 3.6 Globulin (1.9 - 4.2 gm/dL) 4.7 H Albumin/Globulin Ratio (1.1 - 2.2 %) 0.8 L Hematology CBC w Diff NO MAN DIFF REQ WBC (4.8 - 10.8 /CUMM) 11.7 H RBC (4.20 - 5.40 /CUMM) 5.37 Hgb (12.0 - 16.0 G/DL) 13.4 Hct (37 - 47 %) 41.1 MCV (81.0 - 99.0 FL) 76.5 L MCH (27.0 - 31.0 PG) 25.0 L RDW (11.5 - 14.5 %) 15.4 H Plt Count (130 - 400 /CUMM) 369 MPV (7.4 - 10.4 FL) 7.9 Gran % (42.2 - 75.2 %) 61.1 Lymphocytes % (20.5 - 51.1 %) 24.0 Monocytes % (1.7 - 9.3 %) 9.8 H Eosinophils % (0 - 5 %) 4.0 Basophils % (0.0 - 2.0 %) 1.1 Absolute Granulocytes (1.4 - 6.5 /CUMM) 7.1 H Absolute Lymphocytes (1.2 - 3.4 /CUMM) 2.8 Absolute Monocytes (0.10 - 0.60 /CUMM) 1.1 H Absolute Eosinophils (0.0 - 0.7 /CUMM) 0.5 Absolute Basophils (0.0 - 0.2 /CUMM) 0.1 PUBS MCHC (33.0 - 37.0 G/DL) 32.7 L ESR Westergren (0 - 20 MM) 38 H Assessment/Plan Assessment/Plan Posterior right calf pressure ulcer has necrosis but not an active source of infection. It can be debrided at the bedside. More importantly is the necrosis and possible infectious process left foot. No vascular disease. Recommend podiatry eval for potential amputation of forefoot. Consult Acknowledgment - Thank you for your consult request.
[2016-03-29] MEDS ORDERED: OXYBUTYNIN CHLOR5 M2 PO ×2 (16:00→16:01)
--- NOTE | 2016-03-29 17:51 | NUR ---
PT MOVED TO AN AIRMATRESS. TOLERATED WELL. DSG CHANGED AT THIS TIME. COLOSTOMY BAG CHANGED. OFFERS NO COMPLAINTS. WILL CONT TO MONITOR
--- NOTE | 2016-03-29 18:03 | PN- Att Addend ---
Attending Addendum Attending Brief Note S: The patient was seen and noted new ulcerations as per H & P. Vascular surgery seeing as well. O: VS: Vital Signs Date Time Temp Pulse Resp B/P Pulse O2 O2 Flow FiO2 Ox Delivery Rate 03/29 1457 99.1 86 20 132/66 91 Room Air 03/29 0844 Room Air Room Air 03/29 0633 100.4 90 20 140/70 91 Room Air 03/29 0154 98.6 91 20 150/80 97 Room Air 03/28 2331 98.0 68 16 178/91 96 Room Air 03/28 2014 Room Air 03/28 2010 86 170/82 96 Room Air 03/28 1857 98.1 116 18 138/82 92 Room Air Intake & Output 03/29 1600 03/29 0800 03/29 0000 Intake Total 1800 0 Output Total 200 Balance 1800 -200 0 Intake, Oral 1800 0 Output, Urine 200 Patient 113.398 kg 113.398 kg Weight Current Medications Sig/Mary Grace Start time Last Medication Dose Route Stop Time Status Admin Acetaminophen 650 MG Q6P PRN 03/29 0130 AC PO Acetaminophen/ 1 TAB Q6P PRN 03/29 0130 AC Hydrocodone Bitart PO Amitriptyline HCl 25 MG DAILY 03/29 1000 AC 03/29 PO 1007 Ampicillin Sodium/ 3,000 MG Q6 03/29 1200 AC 03/29 Sulbactam Sodium IV 1723 Sodium Chloride 100 ML Ampicillin Sodium/ 0 .STK-MED ONE 03/28 2320 DC Sulbactam Sodium .ROUTE Ampicillin Sodium/ 3,000 MG ONCE ONE 03/28 2245 DC 03/28 Sulbactam Sodium IV 03/28 2314 2315 Sodium Chloride 100 ML Aspirin Buffered 81 MG DAILY 03/29 1000 AC 03/29 PO 1008 Baclofen 20 MG Q6 03/29 0600 AC 03/29 PO 1722 Clonazepam 0.5 MG DAILY 03/29 1000 AC 03/29 PO 04/05 0959 1008 Non-Formulary 0 SEE ADMIN CRITERIA 03/29 1330 DC Medication ANY Nystatin 1 LAZARA TID 03/29 1000 AC 03/29 TOP 1725 Oxybutynin Chloride 15 MG BID 03/29 2200 AC PO Oxybutynin Chloride 15 MG TID 03/29 1600 DC PO Oxybutynin Chloride 5 MG TID 03/29 1000 DC 03/29 PO 1008 Oxycodone HCl 10 MG Q6P PRN 03/29 0130 AC PO Physical Exam: HEENT: lauren- moist mucosa Neck: no JVD, adenopathy Chest: clear Cor: RRR, nl S1, S2 w/o murm Abd: BS+, soft, NT Ext: ulcers w/o change from description on admit; also with sacral ulcer that has increased since last admission per nursing Labs: Laboratory Tests 03/29/16 1000: Urinalysis LIGHT H, Urine Color YEL, Urine Clarity HAZY H, Urine pH 6.0, Ur Specific [place] 1.020, Urine Protein TRACE H, Urine Ketones NEG, Urine Nitrite POS H, Urine Bilirubin NEG, Urine Urobilinogen 0.2, Ur Leukocyte Esterase MOD H, Ur Microscopic SEDIMENT EXAMINED, Urine RBC 5-10 H, Urine WBC 50-75 H, Ur Epithelial Cells MOD H, Urine Hemoglobin MOD H, Urine Glucose NEG 03/29/16 0950: CBC w Diff NO MAN DIFF REQ, RBC 4.66, MCV 76.0 L, MCH 25.3 L, RDW 15.6 H, MPV 7.6, Gran % 62.1, Lymphocytes % 22.3, Monocytes % 9.3, Eosinophils % 5.6 H, Basophils % 0.7, Absolute Granulocytes 5.5, Absolute Lymphocytes 2.0, Absolute Monocytes 0.8 H, Absolute Eosinophils 0.5, Absolute Basophils 0.1, PUBS MCHC 33.2 03/28/16 2145: Anion Gap 13, Estimated GFR > 60, BUN/Creatinine Ratio 17.5, Glucose 123 H, Calcium 9.2, Total Bilirubin 0.6, AST 26, ALT 34, Alkaline Phosphatase 139 H, C -Reactive Prot, Quant > 9.0 H, Total Protein 8.3 H, Albumin 3.6, Globulin 4.7 H, Albumin/Globulin Ratio 0.8 L, CBC w Diff NO MAN DIFF REQ, RBC 5.37, MCV 76.5 L, MCH 25.0 L, RDW 15.4 H, MPV 7.9, Gran % 61.1, Lymphocytes % 24.0, Monocytes % 9.8 H, Eosinophils % 4.0, Basophils % 1.1, Absolute Granulocytes 7.1 H, Absolute Lymphocytes 2.8, Absolute Monocytes 1.1 H, Absolute Eosinophils 0.5, Absolute Basophils 0.1, PUBS MCHC 32.7 L, ESR Westergren 38 H Microbiology 03/29 0951 URINE ROUT: Urine Culture - RECD 03/28 2214 BLOOD: Blood Culture - RES 03/28 2144 BLOOD: Blood Culture - RES Impression/Plan: #Lower Extremity Ulcers- being seen by vascular. Right calf and left foot ulcers that are new. Plan: As per wound care. Await Podiatry input. IV Unasyn. Vascular US being done. #Decubitus Ulcers- worsening in sacral are as per RN (compared to prior admission). Plan: As per wound care consult. #Multiple Sclerosis- followed in MS clinic here. Plan: Continue current care. Continue Baclofen. #Urinary Incontinence- has suprapubic catheter. Plan: Will culture urine.
[2016-03-29 22:46] VITALS: BP 130/70
--- NOTE | 2016-03-30 05:55 | NUR ---
PT SUPRAPUBIC TUBE IS LEAKING AROUND THE SITE. CHANGED THE SUPRPUBIC DSG, NOTIFIED MD ANTOINETTE RAMIREZ AND WAS INSTRUCTED TO FLUSH TUBE. WILL CONTINUE TO MONITOR THIS SHIFT.
[2016-03-30 06:10] VITALS: BP 152/82
--- NOTE | 2016-03-30 06:43 | NUR ---
PT VOIDED 350mL S/P FLUSHING SUPRAPUBIC TUBE.
[2016-03-30 08:15] LABS: ABSOLUTE BASOPHIL COUNT 0 /CUMM (0.0-0.2); ABSOLUTE EOSINOPHIL COUNT 0.6 /CUMM (0.0-0.7); ABSOLUTE LYMPH COUNT 1.8 /CUMM (1.2-3.4); BASOPHIL % 0.3 % (0.0-2.0); EOSINOPHIL % 8.7 % (0-5); GRANULOCYTE % 53.9 % (42.2-75.2); HEMATOCRIT 36.1 % (37-47); MEAN CORPUSCULAR HGB 25.1 PG (27.0-31.0); MEAN CORPUSCULAR HGB CONC 32.6 G/DL (33.0-37.0); MEAN CORPUSCULAR VOLUME 77.1 FL (81.0-99.0); MEAN PLATELET VOLUME 7.7 FL (7.4-10.4); PLATELET COUNT 294 /CUMM (130-400); RBC DISTRIBUTION WIDTH 15.7 % (11.5-14.5); RED BLOOD CELL CT 4.69 /CUMM (4.20-5.40); WHITE BLOOD CELL COUNT 7.5 /CUMM (4.8-10.8)
--- NOTE | 2016-03-30 08:40 | PN- Housestaff ---
FLO GANDARA 03/30/16 0839: Subjective Follow-up For: Necrotic right calf Necrotic left second toe Complaints: Leaking around duprapubic catheter Subjective: Interval history: Approximately 4 AM patient was noted to have urine leakage around the suprapubic catheter insertion site. She does report that this intermittent obstruction is something that she has been living with for a long time. She denies any nausea, abdominal pain, fevers, chills. Review of Systems Constitutional: Reports: see HPI. EENTM: Reports: no symptoms. Cardiovascular: Reports: no symptoms. Respiratory: Reports: no symptoms. Genitourinary: Reports: see HPI. Musculoskeletal: Reports: see HPI. Objective Last 24 Hrs of Vital Signs/I&O Vital Signs Date Time Temp Pulse Resp B/P Pulse O2 O2 Flow FiO2 Ox Delivery Rate 03/30 0610 98.4 71 20 152/82 96 03/29 2246 98.5 82 20 130/70 95 Room Air 03/29 1457 99.1 86 20 132/66 91 Room Air Intake & Output 03/30 1600 03/30 0800 03/30 0000 Intake Total 540 240 Output Total 350 1100 Balance 190 -860 Intake, IV 300 Intake, Oral 240 240 Output, Urine 350 1100 Physical Exam General Appearance: Cooperative, No Acute Distress Skin: Distal left foot wrapped in a clean dressing HEENT: Mucous Membr. moist/pink Cardiovascular: Regular Rate, Normal S1, Normal S2, Systolic murmur most audible in the aortic region, grade 3/6 Lungs: Diminshed breath sounds bilaterally Abdomen: Soft, No Tenderness, Suprapubic cathter in place. Colostomy bag secure at this time, slightly distended with gas Extremities: BL LE pitting edema Vascular: Pulses Symmetrical Last 24 Hrs of Lab/Ace Results Last 24 Hrs of Labs/Mics: Laboratory Tests 03/30/16 0700: CBC w Diff NO MAN DIFF REQ, RBC 4.69, MCV 77.1 L, MCH 25.1 L, RDW 15.7 H, MPV 7.7, Gran % 53.9, Lymphocytes % 24.3, Monocytes % 12.8 H, Eosinophils % 8.7 H, Basophils % 0.3, Absolute Granulocytes 4.0, Absolute Lymphocytes 1.8, Absolute Monocytes 1.0 H, Absolute Eosinophils 0.6, Absolute Basophils 0, PUBS MCHC 32.6 L Assessment/Plan Assessment: 65-year-old lady with a PMH of multiple sclerosis, hemiparesis, suprapubic Lopez catheter, history of colostomy, multiple SBO's came to [facility] with complaints of 6 day duration aggressive right dorsal distal foot wound that appeared thickened and darkened. VS: 138/82, HR 116, RR 18, SPO2 92% on RA Pertinent labs: WBC 11.7, platelets 369, sodium 136, BUN/CR 14/0.8, glucose 123, alkaline phosphatase 139 CRP: > 9.0 Problem list: 1. Ulcerations of lower extremities * Continue Unasyn pendingOR on friday 2. Decubitus ulcers * Afebrile at this time. Continue with daily dressing changes 3. Multiple sclerosis * Stable at this time 4. Urinary incontinence with suprapubic catheter * In the setting of urine leakage around suprapubic catheter, consider urology follow-up possible replacement * Oxybutynin 15 mg twice a day 5. Diet * Regular diet 6. CODE STATUS * Full code Problem List: 1. H/O multiple sclerosis 2. Multiple open wounds 3. Cellulitis Pain Ratin Pain Location: Distal LE Pain Goal: Pain 4 or less Pain Plan: NA Tomorrow's Labs & Rationales: COSMO SCHULZ MD,SAJAN 03/30/16 1312: Attending MD Review Statement Attending Statement Attending MD Statement: examined this patient, discuss w/resident/PA/MAGNETIC TAPE TYPEWRITER OPERATOR, agreed w/resident/PA/MAGNETIC TAPE TYPEWRITER OPERATOR, discussed with family, reviewed EMR data (avail), discussed with nursing, discussed with case mgmt, reviewed images, amended to note Attending Assessment/Plan: Patient sitting comfortably in bed. Bilateral lower extremity wounds, dressing on. Complains of urinary leak around the suprapubic catheter. Please obtain urology consult, ? Replace/reposition the catheter. Continue Unasyn for now. Awaiting Dr. Acosta evaluation on Friday.
[2016-03-30 14:27] VITALS: BP 120/80
--- NOTE | 2016-03-30 19:39 | PN- Urology ---
Subjective Subjective: pt awake and sitting up in bed. Review of Systems Constitutional: Reports: no symptoms. EENTM: Reports: no symptoms. Cardiovascular: Reports: no symptoms. Respiratory: Reports: no symptoms. Gastrointestinal: Reports: no symptoms. Musculoskeletal: Reports: no symptoms. Skin: Reports: see HPI. Neurological/Psychological: Reports: no symptoms. Hematologic/Endocrine: Reports: no symptoms. Immunologic/Allergic: Reports: no symptoms. Objective Vital Signs and I&Os Vital Signs Date Time Temp Pulse Resp B/P Pulse O2 O2 Flow FiO2 Ox Delivery Rate 03/30 1427 98.2 68 20 120/80 96 03/30 0610 98.4 71 20 152/82 96 03/29 2246 98.5 82 20 130/70 95 Room Air Intake & Output 03/30 1600 03/30 0800 03/30 0000 03/29 1600 03/29 0800 03/29 0000 Intake Total 920 597 502 2325 0 Output Total 195 019 0336 200 Balance 220 190 -860 1800 -200 0 Intake, IV 120 300 Intake, Oral 800 656 625 6056 0 Number 0 Bowel Movements Output, Urine 085 308 8052 200 Patient 113.398 kg 113.398 kg 113.398 kg Weight Physical Exam: abdomen soft, ND/NT SPT in place with gauze around the opening. Procedure: removed old SPT 24fr and placed new 26fr catheter without difficulty after prepping her sterile. Patient tolerated the procedure without issue. Yellow clear urine was emptied. Physical Exam General Appearance: well developed/nourished, no apparent distress, alert, awake , comfortable Head: atraumatic, normal appearance Ears, Nose, Throat: normal ENT inspection Respiratory: no respiratory distress Abdomen: soft, non-tender Skin: intact, normal color, warm/dry Current Medications: Current Medications Sig/Mary Grace Start time Last Medication Dose Route Stop Time Status Admin Acetaminophen 650 MG Q6P PRN 03/29 0130 AC PO Acetaminophen/ 1 TAB Q6P PRN 03/29 0130 AC Hydrocodone Bitart PO Amitriptyline HCl 25 MG DAILY 03/29 1000 AC 03/30 PO 0857 Ampicillin Sodium/ 3,000 MG Q6 03/29 1200 AC 03/30 Sulbactam Sodium IV 1641 Sodium Chloride 100 ML Aspirin Buffered 81 MG DAILY 03/29 1000 AC 03/30 PO 0857 Baclofen 20 MG Q6 03/29 0600 AC 03/30 PO 1641 Clonazepam 0.5 MG DAILY 03/29 1000 AC 03/30 PO 04/05 0959 0857 Nystatin 1 LAZARA TID 03/29 1000 AC 03/30 [facility] 1646 Oxybutynin Chloride 15 MG BID 03/29 2200 AC 03/30 PO 0857 Oxycodone HCl 10 MG Q6P PRN 03/29 0130 AC PO Results Last 48 Hours of Labs: Laboratory Tests 03/30 03/29 0700 1000 Hematology CBC w Diff NO MAN DIFF REQ WBC (4.8 - 10.8 /CUMM) 7.5 RBC (4.20 - 5.40 /CUMM) 4.69 Hgb (12.0 - 16.0 G/DL) 11.8 L Hct (37 - 47 %) 36.1 L MCV (81.0 - 99.0 FL) 77.1 L MCH (27.0 - 31.0 PG) 25.1 L RDW (11.5 - 14.5 %) 15.7 H Plt Count (130 - 400 /CUMM) 294 MPV (7.4 - 10.4 FL) 7.7 Gran % (42.2 - 75.2 %) 53.9 Lymphocytes % (20.5 - 51.1 %) 24.3 Monocytes % (1.7 - 9.3 %) 12.8 H Eosinophils % (0 - 5 %) 8.7 H Basophils % (0.0 - 2.0 %) 0.3 Absolute Granulocytes (1.4 - 6.5 /CUMM) 4.0 Absolute Lymphocytes (1.2 - 3.4 /CUMM) 1.8 Absolute Monocytes (0.10 - 0.60 /CUMM) 1.0 H Absolute Eosinophils (0.0 - 0.7 /CUMM) 0.6 Absolute Basophils (0.0 - 0.2 /CUMM) 0 PUBS MCHC (33.0 - 37.0 G/DL) 32.6 L Urines Urinalysis LIGHT H Urine Color (YEL,AMB,STR) YEL Urine Clarity (CLEAR) HAZY H Urine pH (5.0 - 8.0) 6.0 Ur Specific [place] (1.001 - 1.035) 1.020 Urine Protein (NEG,<30 MG/DL) TRACE H Urine Ketones (NEG) NEG Urine Nitrite (NEG) POS H Urine Bilirubin (NEG) NEG Urine Urobilinogen (0.1 - 1.0 EU/dl) 0.2 Ur Leukocyte Esterase (NEG) MOD H Ur Microscopic SEDIMENT EXAMINED Urine RBC (0 - 5 /HPF) 5-10 H Urine WBC (0 - 2 /HPF) 50-75 H Ur Epithelial Cells (NONE,FEW) MOD H Urine Hemoglobin (NEG) MOD H Urine Glucose (N MG/DL) NEG 03/29 03/28 0950 2145 Chemistry Sodium (137 - 145 mmol/L) 136 L Potassium (3.5 - 5.1 mmol/L) 4.0 Chloride (98 - 107 mmol/L) 98 Carbon Dioxide (22 - 30 mmol/L) 25 Anion Gap (5 - 16) 13 BUN (7 - 17 mg/dL) 14 Creatinine (0.5 - 1.0 mg/dL) 0.8 Estimated GFR (>60 ml/min) > 60 BUN/Creatinine Ratio (7 - 25 %) 17.5 Glucose (65 - 99 mg/dL) 123 H Calcium (8.4 - 10.2 mg/dL) 9.2 Total Bilirubin (0.2 - 1.3 mg/dL) 0.6 AST (14 - 36 U/L) 26 ALT (9 - 52 U/L) 34 Alkaline Phosphatase (<127 U/L) 139 H C-Reactive Prot, Quant (<1.0 mg/dL) > 9.0 H Total Protein (6.3 - 8.2 g/dL) 8.3 H Albumin (3.5 - 5.0 g/dL) 3.6 Globulin (1.9 - 4.2 gm/dL) 4.7 H Albumin/Globulin Ratio (1.1 - 2.2 %) 0.8 L Hematology CBC w Diff NO MAN DIFF REQ NO MAN DIFF REQ WBC (4.8 - 10.8 /CUMM) 8.8 11.7 H RBC (4.20 - 5.40 /CUMM) 4.66 5.37 Hgb (12.0 - 16.0 G/DL) 11.8 L 13.4 Hct (37 - 47 %) 35.4 L 41.1 MCV (81.0 - 99.0 FL) 76.0 L 76.5 L MCH (27.0 - 31.0 PG) 25.3 L 25.0 L RDW (11.5 - 14.5 %) 15.6 H 15.4 H Plt Count (130 - 400 /CUMM) 342 369 MPV (7.4 - 10.4 FL) 7.6 7.9 Gran % (42.2 - 75.2 %) 62.1 61.1 Lymphocytes % (20.5 - 51.1 %) 22.3 24.0 Monocytes % (1.7 - 9.3 %) 9.3 9.8 H Eosinophils % (0 - 5 %) 5.6 H 4.0 Basophils % (0.0 - 2.0 %) 0.7 1.1 Absolute Granulocytes (1.4 - 6.5 /CUMM) 5.5 7.1 H Absolute Lymphocytes (1.2 - 3.4 /CUMM) 2.0 2.8 Absolute Monocytes (0.10 - 0.60 /CUMM) 0.8 H 1.1 H Absolute Eosinophils (0.0 - 0.7 /CUMM) 0.5 0.5 Absolute Basophils (0.0 - 0.2 /CUMM) 0.1 0.1 PUBS MCHC (33.0 - 37.0 G/DL) 33.2 32.7 L ESR Westergren (0 - 20 MM) 38 H Assessment/Plan Assessment/Plan 65yo female well known to me with SPT chronically that was placed in January by me. She needed the SPT changed and it was done by the bedside without issue. She will have it changed regularly by [facility] or in our offices. Core Measures/Miscellaneous Venous Thromboembolism VTE Risk Factors: Age > 40, Immobility, paresis VTE Contraindications: No Contraindications VTE Prophylaxis Ordered Inpt: Pharm- Heparin VTE Diagnosis: No VTE Type: NONE VTE Confirmed by (Test): NONE Beta Nora Is Beta Nora a Home Med? Yes Antibiotics Is Patient on Antibiotics? Yes
[2016-03-30 22:25] VITALS: BP 136/84
[2016-03-31 07:31] VITALS: BP 124/64
[2016-03-31 08:07] LABS: ABSOLUTE BASOPHIL COUNT 0 /CUMM (0.0-0.2); ABSOLUTE EOSINOPHIL COUNT 0.7 /CUMM (0.0-0.7); ABSOLUTE GRANULOCYTE CT 2.7 /CUMM (1.4-6.5); ABSOLUTE LYMPH COUNT 2.6 /CUMM (1.2-3.4); ABSOLUTE MONOCYTE COUNT 0.7 /CUMM (0.10-0.60); BASOPHIL % 0.7 % (0.0-2.0); GRANULOCYTE % 39.7 % (42.2-75.2); HEMATOCRIT 34.8 % (37-47); MEAN CORPUSCULAR HGB CONC 32.7 G/DL (33.0-37.0); MEAN CORPUSCULAR VOLUME 76.6 FL (81.0-99.0); MEAN PLATELET VOLUME 7.6 FL (7.4-10.4); PLATELET COUNT 301 /CUMM (130-400); RBC DISTRIBUTION WIDTH 15.6 % (11.5-14.5); RED BLOOD CELL CT 4.54 /CUMM (4.20-5.40); WHITE BLOOD CELL COUNT 6.8 /CUMM (4.8-10.8)
--- NOTE | 2016-03-31 11:52 | PN- Housestaff ---
ANNETTE CHUNG,LY 03/31/16 1151: Subjective Follow-up For: Lower Extremity ulceration Subjective: Patient seen and examined bedside while her dressing of the left lower extremity was being changed. Patient denies any acute complaints including chest pain, palpitation, shortness of breath, fever, chills, nausea, vomiting, abdominal pain or dysuria. No acute overnight event reported by nursing staff. Review of Systems Constitutional: Reports: see HPI. Objective Last 24 Hrs of Vital Signs/I&O Vital Signs Date Time Temp Pulse Resp B/P Pulse O2 O2 Flow FiO2 Ox Delivery Rate 03/31 1417 97.4 71 20 145/80 96 03/31 0731 98.5 74 20 124/64 91 Room Air Intake & Output 03/31 1600 03/31 0800 03/31 0000 Intake Total 920 360 600 Output Total 1200 1000 550 Balance -280 -640 50 Intake, IV 120 260 Intake, Oral 800 100 600 Output, Stool 200 0 Output, Urine 1000 1000 550 Physical Exam General Appearance: Alert, Oriented X3, Cooperative Other Physical Findings: Skin: Distal left foot wrapped in a clean dressing HEENT: Mucous Membr. moist/pink Cardiovascular: Regular Rate, Normal S1, Normal S2, Systolic murmur most audible in the aortic region, grade 3/6 Lungs: Diminshed breath sounds bilaterally Abdomen: Soft, No Tenderness, Suprapubic cathter in place. Colostomy bag secure at this time, slightly distended with gas Extremities: BL LE pitting edema Vascular: Pulses Symmetrical Current Medications: Current Medications Sig/Mary Grace Start time Last Medication Dose Route Stop Time Status Admin Acetaminophen 650 MG Q6P PRN 03/29 0130 AC PO Acetaminophen/ 1 TAB Q6P PRN 03/29 0130 AC Hydrocodone Bitart PO Amitriptyline HCl 25 MG DAILY 03/29 1000 AC 03/31 PO 0848 Ampicillin Sodium/ 3,000 MG Q6 03/29 1200 AC 03/31 Sulbactam Sodium IV 1708 Sodium Chloride 100 ML Aspirin Buffered 81 MG DAILY 03/29 1000 AC 03/31 PO 0848 Baclofen 20 MG Q6 03/29 0600 AC 03/31 PO 1708 Clonazepam 0.5 MG DAILY 03/29 1000 AC 03/31 PO 04/05 0959 0848 Nystatin 1 LAZARA TID 03/29 1000 AC 03/31 TOP 2123 Oxybutynin Chloride 15 MG BID 03/29 2199 AC 03/31 PO 2122 Oxycodone HCl 10 MG Q6P PRN 03/29 0130 AC PO Last 24 Hrs of Lab/Ace Results Last 24 Hrs of Labs/Mics: Laboratory Tests 03/31/16 0610: CBC w Diff NO MAN DIFF REQ, RBC 4.54, MCV 76.6 L, MCH 25.0 L, RDW 15.6 H, MPV 7.6, Gran % 39.7 L, Lymphocytes % 38.6, Monocytes % 10.0 H, Eosinophils % 11.0 H, Basophils % 0.7, Absolute Granulocytes 2.7, Absolute Lymphocytes 2.6, Absolute Monocytes 0.7 H, Absolute Eosinophils 0.7, Absolute Basophils 0, PUBS MCHC 32.7 L Assessment/Plan Assessment: 65-year-old lady with a PMH of multiple sclerosis, hemiparesis, suprapubic Lopez catheter, history of colostomy, multiple SBO's came to [facility] with complaints of 6 day duration aggressive right dorsal distal foot wound that appeared thickened and darkened. VS: 138/82, HR 116, RR 18, SPO2 92% on RA Problem list: 1. Ulcerations of lower extremities * Continue Unasyn pending OR on friday 2. Decubitus ulcers * Afebrile at this time. Continue with daily dressing changes 3. Multiple sclerosis * Stable at this time 4. Urinary incontinence with suprapubic catheter * In the setting of urine leakage around suprapubic catheter, consider urology follow-up possible replacement * Oxybutynin 15 mg twice a day 5. Diet * Regular diet 6. CODE STATUS * Full code Problem List: 1. Multiple open wounds Pain Ratin Pain Location: none Pain Goal: Pain 4 or less Pain Plan: none Tomorrow's Labs & Rationales: mat SCHULZ MD,SAJAN 03/31/16 1156: Attending MD Review Statement Attending Statement Attending MD Statement: examined this patient, discuss w/resident/PA/MANAGER STORE, agreed w/resident/PA/MANAGER STORE, discussed with family, reviewed EMR data (avail), discussed with nursing, discussed with case mgmt, reviewed images, amended to note Attending Assessment/Plan: Patient sitting comfortably in bed. Bilateral lower extremity wounds, dressing on. No overnight events . Appreciate urology input. Plan for now is Continue Unasyn. Awaiting Dr. Acosta evaluation on Friday.
[2016-03-31 14:17] VITALS: BP 145/80
[2016-03-31 23:09] VITALS: BP 144/68
[2016-04-01 06:08] VITALS: BP 150/60
--- NOTE | 2016-04-01 07:42 | PN- Housestaff ---
DAE CHUNG,KOREY 04/01/16 0741: Subjective Follow-up For: Lt. leg ulcer Complaints: no complaints Subjective: Pt was seen by Dr. Hernandez and suprapubic catheter was changed during weekend. She denies any fever/chills, chest pain/shortness of breath. No current pain. Review of Systems Constitutional: Denies: chills, fever, weakness. EENTM: Reports: no symptoms. Cardiovascular: Reports: peripheral edema. Denies: chest pain, palpitations, syncope. Respiratory: Denies: cough, short of breath, sputum production. Gastrointestinal: Reports: constipation. Denies: abdominal pain, diarrhea, nausea, vomiting. Genitourinary: Reports: see HPI (s/p suprapubic catheter), dysuria. Musculoskeletal: Reports: see HPI. Skin: Reports: see HPI, lesions. Neurological/Psychological: Reports: pre-existing deficit. Hematologic/Endocrine: Reports: no symptoms. Immunologic/Allergic: Reports: no symptoms. Objective Last 24 Hrs of Vital Signs/I&O Vital Signs Date Time Temp Pulse Resp B/P Pulse O2 O2 Flow FiO2 Ox Delivery Rate 04/01 0608 98.9 73 20 150/60 93 Room Air 03/31 2309 99.8 87 20 144/68 94 Room Air 03/31 1417 97.4 71 20 145/80 96 Intake & Output 04/01 1600 04/01 0800 04/01 0000 Intake Total 240 Output Total 1000 900 Balance -1000 -660 Intake, Oral 240 Output, Stool 200 Output, Urine 1000 700 Physical Exam General Appearance: Alert, Oriented X3, Cooperative, No Acute Distress Skin: Lt. foot ulcer under dressing, multiple back pressure ulcers present on admission HEENT: Atraumatic, PERRLA, EOMI Neck: Supple, No JVD, No LAD Lymphatic: Cervical nl Cardiovascular: Regular Rate, Normal S1, Normal S2, No Murmurs Lungs: Clear to Auscultation, Normal Air Movement Abdomen: Normal Bowel Sounds, Soft, No Tenderness Neurological: Normal Speech, Normal Tone, Sensation Intact Extremities: Lt. foot ulcer under dressing, pedal edema + Vascular: Normal Pulses, Pulses Symmetrical Current Medications: Current Medications Sig/Mary Grace Start time Last Medication Dose Route Stop Time Status Admin Acetaminophen 650 MG Q6P PRN 03/29 0130 AC PO Acetaminophen/ 1 TAB Q6P PRN 03/29 0130 AC Hydrocodone Bitart PO Amitriptyline HCl 25 MG DAILY 03/29 1000 AC 04/01 PO 0831 Ampicillin Sodium/ 3,000 MG Q6 03/29 1200 AC 04/01 Sulbactam Sodium IV 1227 Sodium Chloride 100 ML Aspirin Buffered 81 MG DAILY 03/29 1000 AC 04/01 PO 0831 Baclofen 20 MG Q6 03/29 0600 AC 04/01 PO 1220 Clonazepam 0.5 MG DAILY 03/29 1000 AC 04/01 PO 04/05 0959 0830 Dextrose/Sodium 1,000 ML Q13H 04/01 0800 DC 04/01 Chloride IV 0830 Insulin Human Regular 0 Q6 04/01 1200 CAN SC Nystatin 1 LAZARA TID 03/29 1000 AC 04/01 TOP 0831 Oxybutynin Chloride 15 MG BID 03/29 2200 AC 04/01 PO 0831 Oxycodone HCl 10 MG Q6P PRN 03/29 0130 AC PO Polyethylene Glycol 17 GM DAILY 04/01 1352 UNVr PO Senna/Docusate Sodium 1 TAB BID 04/01 1352 UNVr PO Lines/Diet/Fluids Lines: peripheral lines Assessment/Plan Assessment: 65-year-old lady with a PMH of multiple sclerosis with Rt. sided hemiparesis, s/ p suprapubic Lopez catheter, history of colostomy, multiple SBO's came to [facility] with complaints of 6 day duration aggressive right dorsal distal foot wound that appeared thickened and darkened. 1. Ulcerations of Lt. lower extremities * Pt will go to OR tomorrow per Dr. Acosta. * Continue Unasyn for now 2. Decubitus ulcers * Continue with daily dressing / wound care 3. Multiple sclerosis * Pt follows blake Dodson. 4. Urinary incontinence with suprapubic catheter * Due to urine leakage around suprapubic catheter, catheter was changed by Dr. Hernandez on 03/30. * C/w Oxybutynin 15 mg twice a day 5. Diet * Regular diet, NPO after midnight DVT ppx: SC lovenox, full code Problem List: 1. Multiple open wounds 2. Sacral decubitus ulcer 3. H/O multiple sclerosis 4. Suprapubic catheter Pain Ratin Pain Location: distal LE Pain Goal: Pain 4 or less Pain Plan: tyrenol, vicodin, oxycodone prn Tomorrow's Labs & Rationales: CBC: Lt. leg ulcer BEP: pre op DVT/Prophylaxis: pharmacological Discharge Plan Stable for Discharge? No LUIZA KAY MD 04/01/16 4137: Attending MD Review Statement Attending Statement Attending MD Statement: examined this patient, discuss w/resident/PA/PATIENT SITTER, agreed w/resident/PA/PATIENT SITTER, reviewed EMR data (avail), discussed with nursing, amended to note Attending Assessment/Plan: The patient was seen and discussed with house staff. Await podiatry input tomorrow.
[2016-04-01 14:18] VITALS: BP 145/70
[2016-04-01 23:30] VITALS: BP 140/80
[2016-04-02 06:54] VITALS: BP 150/74
--- NOTE | 2016-04-02 07:48 | PN- Housestaff ---
DAE CHUNG,KOREY 04/02/16 0744: Subjective Follow-up For: Lt. foot ulcer/Rt. ankle wound sacral decubitus ulcer Complaints: no complaints Subjective: She is lying bed comfortably. She doesn't c/o pain from her bilateral leg wounds. She is NPO expecting debridgement from Dr. Acosta Review of Systems Constitutional: Denies: chills, fever, weakness. EENTM: Reports: no symptoms. Cardiovascular: Reports: peripheral edema. Denies: chest pain, orthopena, palpitations. Respiratory: Denies: cough, short of breath, sputum production, wheezing. Gastrointestinal: Reports: constipation. Denies: abdominal pain, nausea, vomiting. Genitourinary: Reports: see HPI (suprapubic catheter). Musculoskeletal: Reports: see HPI. Skin: Reports: see HPI, change in skin color, lesions. Neurological/Psychological: Reports: pre-existing deficit, weakness. Hematologic/Endocrine: Reports: no symptoms. Immunologic/Allergic: Reports: see HPI. Objective Last 24 Hrs of Vital Signs/I&O Vital Signs Date Time Temp Pulse Resp B/P Pulse O2 O2 Flow FiO2 Ox Delivery Rate 04/02 1511 98.0 69 18 148/100 96 Room Air 04/02 0654 98.0 73 20 150/74 94 Room Air 04/01 2330 98.8 76 20 140/80 92 Room Air Intake & Output 04/02 1600 04/02 0800 04/02 0000 Intake Total 500 530 Output Total 800 750 950 Balance -800 -250 -420 Intake, IV 500 150 Intake, Oral 380 Output, Stool 0 Output, Urine 800 750 950 Physical Exam General Appearance: Alert, Oriented X3, Cooperative, No Acute Distress, obese Skin: significant bilateral leg wounds on dressing, sacral decubitus ulcer HEENT: Atraumatic, PERRLA, EOMI, Mucous Membr. moist/pink Neck: Supple, No JVD, No LAD Lymphatic: Cervical nl Cardiovascular: Regular Rate, Normal S1, Normal S2, No Murmurs Lungs: Clear to Auscultation, Normal Air Movement Abdomen: Normal Bowel Sounds, Soft, No Tenderness Neurological: Normal Speech, Normal Tone, Sensation Intact, MS, Rt. sided weakness at baseline Extremities: bilateral pedal edema 2+, bilateral leg wound on dressing Vascular: Normal Pulses, Pulses Symmetrical Current Medications: Current Medications Sig/Mary Grace Start time Last Medication Dose Route Stop Time Status Admin Acetaminophen 650 MG Q6P PRN 03/29 0130 AC PO Acetaminophen/ 1 TAB Q6P PRN 03/29 0130 AC Hydrocodone Bitart PO Amitriptyline HCl 25 MG DAILY 03/29 1000 AC 04/02 PO 1041 Ampicillin Sodium/ 3,000 MG Q6 03/29 1200 DC 04/02 Sulbactam Sodium IV 0624 Sodium Chloride 100 ML Aspirin Buffered 81 MG DAILY 03/29 1000 AC 04/01 PO 0831 Baclofen 20 MG Q6 03/29 0600 AC 04/02 PO 0624 Bisacodyl 10 MG DAILY PRN 04/02 1530 AC MT Clonazepam 0.5 MG DAILY 03/29 1000 AC 04/02 PO 04/05 0959 1041 Dextrose/Sodium 1,000 ML Q20H 04/01 2345 DC 04/02 Chloride IV 0049 Docusate Sodium 100 MG BID 04/02 2200 AC PO Enoxaparin Sodium 40 MG DAILY 04/01 1400 AC 04/01 SC 1434 Nystatin 1 LAZARA TID 03/29 1000 DC 04/01 TOP 2124 Oxybutynin Chloride 15 MG BID 03/29 2200 AC 04/02 PO 1040 Oxycodone HCl 10 MG Q6P PRN 03/29 0130 AC PO Patient Medication 1 ED .STK-MED ONE 04/02 1424 TX Teaching ED 04/02 1425 Patient Medication 1 UNIT ONE NR 04/01 1415 [facility] ED 04/01 2015 Polyethylene Glycol 17 GM DAILY 04/01 1352 AC PO Senna/Docusate Sodium 1 TAB BID 04/01 1352 AC 04/02 PO 1041 Last 24 Hrs of Lab/Ace Results Last 24 Hrs of Labs/Mics: Laboratory Tests 04/02/16 0705: Anion Gap 9, Estimated GFR > 60, BUN/Creatinine Ratio 15.7, CBC w Diff NO MAN DIFF REQ, RBC 4.44, MCV 76.2 L, MCH 24.9 L, RDW 15.3 H, MPV 7.0 L, Gran % 52.9, Lymphocytes % 29.7, Monocytes % 6.9, Eosinophils % 10.0 H, Basophils % 0.5, Absolute Granulocytes 3.5, Absolute Lymphocytes 2.0, Absolute Monocytes 0.5 , Absolute Eosinophils 0.7, Absolute Basophils 0, PUBS MCHC 32.6 L Microbiology 04/02 1220 EXTREMITIE: Gross Specimen Examination - RECD 04/02 1220 EXTREMITIE: Gram Stain - RECD Lines/Diet/Fluids Lines: peripheral lines Assessment/Plan Assessment: 65-year-old lady with a PMH of multiple sclerosis with Rt. sided hemiparesis, s/ p suprapubic Lopez catheter, history of colostomy, multiple SBO's came to [facility] with complaints of 6 day duration aggressive right dorsal distal foot wound that appeared thickened and darkened. 1. Ulcerations of Lt. lower extremities * Pt will go to OR today for debridement per Dr. Acosta -> s/p open I & D deep to the fashion with exposure of the flexor tendon and tendon sheath multiple sites right ankle & left foot, excisional debridement * Continue Unasyn for now 2. Decubitus ulcers * Continue with daily dressing / wound care 3. Multiple sclerosis * Pt follows bl[facility] Dod[facility]. At baseline, she is dependent on cassandra lift. 4. Urinary incontinence with suprapubic catheter * Due to urine leakage around suprapubic catheter, catheter was changed by Dr. Heranndez on 03/30. * C/w Oxybutynin 15 mg twice a day 5. Diet * Regular diet, NPO after midnight -> diet was started today lunch. DVT ppx: SC lovenox, full code Problem List: 1. Multiple open wounds 2. Sacral decubitus ulcer, stage IV 3. H/O multiple sclerosis 4. Suprapubic catheter Pain Ratin Pain Location: Bilateral LE wounds Pain Goal: Pain 4 or less Pain Plan: tyrenol, vicodin, oxycodone prn Tomorrow's Labs & Rationales: CBC postop DVT/Prophylaxis: pharmacological Consulting Request: Consulting Specialty: Podiatry Consulting Physician: Dr. Acosta Reason for Consult: Necrotic leg wound Discharge Plan Stable for Discharge? No LUIZA KAY MD 04/02/16 1412: Attending MD Review Statement Attending Statement Attending MD Statement: examined this patient, discuss w/resident/PA/LANG INTERPRETER, agreed w/resident/PA/LANG INTERPRETER, reviewed EMR data (avail), discussed with nursing, amended to note Attending Assessment/Plan: The patient was seen and discussed with house staff. Agree with the plan of care as outlined. Debridement in OR with Dr. Acosta today.
[2016-04-02 09:09] LABS: ABSOLUTE BASOPHIL COUNT 0 /CUMM (0.0-0.2); ABSOLUTE EOSINOPHIL COUNT 0.7 /CUMM (0.0-0.7); ABSOLUTE GRANULOCYTE CT 3.5 /CUMM (1.4-6.5); ABSOLUTE MONOCYTE COUNT 0.5 /CUMM (0.10-0.60); BASOPHIL % 0.5 % (0.0-2.0); GRANULOCYTE % 52.9 % (42.2-75.2); HEMATOCRIT 33.9 % (37-47); MEAN CORPUSCULAR HGB 24.9 PG (27.0-31.0); MEAN CORPUSCULAR HGB CONC 32.6 G/DL (33.0-37.0); MEAN CORPUSCULAR VOLUME 76.2 FL (81.0-99.0); PLATELET COUNT 317 /CUMM (130-400); RBC DISTRIBUTION WIDTH 15.3 % (11.5-14.5); RED BLOOD CELL CT 4.44 /CUMM (4.20-5.40); WHITE BLOOD CELL COUNT 6.7 /CUMM (4.8-10.8)
--- NOTE | 2016-04-02 11:22 | NUR ---
PATIENT LEFT FLOOR AT [address] CONWAYS.
--- NOTE | 2016-04-02 12:40 | Operative Report ---
Operative/Inv Procedure Report Surgery Date: 04/02/16 Name of Procedure: 1 open incision and drainage deep to the fashion with exposure of the flexor tendon and tendon sheath multiple sites right ankle 2 open incision and drainage deep to the deep fascia with exposure of the extensor tendon and tendon sheath multiple sites left foot 3 intraoperative administration of ankle block anesthesia 4 excisional debridement Pre-Operative Diagnosis: 1 open necrotic wound right ankle 2 interspace abscess left fourth interspace Post-Operative Diagnosis: The same Estimated Blood Loss: less than 50ml Surgeon/Stonehand: PABLO FISCHER DPM Anesthesia: moderate sedation, block Operative/Procedure Note Note: After obtaining informed consent the patient was brought to the operating room and placed on the operating table in the supine position. The patient isn't securely fastened to the operating table utilizing safety belt. After administration of IV sedation, 10 mL of 0.5% Marcaine plain was infiltrated about the patient's left and right ankles. The left and right foot and ankle within scrubbed prepped and draped in usual aseptic manner. Attention directed to the posterior lateral aspect of the right ankle, where a large full-thickness necrotic was identified. A 15 blade visualized sharply revised skin margins. The dissection was then carried down deep to the fashion with exposure of the flexor tendon tension multiple sites, both proximally and distally. All necrotic nonviable infected tissue sharply evacuated from the wound bed. Nipple was then irrigated with 3 L normal sterile saline fissure 50,000 units of bacitracin. Following this the foot was redraped and the surgeon's top was changed clean gloves. Any bleeding vessels identified were cauterized or ligated as encountered. The wound was then packed with Xeroform 4 x 4's EBD pads and Kerlix followed by a Coban. Attention was then directed to the left foot, where a full-thickness chronic was identified through the fourth interspace. A 15 blade visualized sharply revised skin margins. Dissection was then carried down deep to the fascia with exposure of the extensor tendon and tendon sheath multiple sites, both flexion and distally. All necrotic nonviable infected tissue sharply evacuated from the wound bed. Nipple was then irrigated with 3 L normal sterile saline fissure 50,000 units of bacitracin. Specimen was harvested for Johnnie biologic inspection. Any bleeding vessels identified were cauterized or ligated as encountered. The wound was then packed with saline saturated 336 and 4-0 nylon retention sutures were placed. Foot was then dressed with Xeroform 4 x 4's EBD pad and Coban. The patient is noted tolerate both procedure and anesthesia well and the patient was transported from the operating room to recovery by sent stable best assess intact all digits bilateral feet.
--- NOTE | 2016-04-02 15:10 | NUR ---
PT ARRIVED TO FLOOR AT 1445. ALERT AND ORIENTED. VSS.
[2016-04-02 15:11] VITALS: BP 148/100
[2016-04-02] MEDS ORDERED: TYLENOL325 M1 PO (16:17)
--- NOTE | 2016-04-02 16:33 | NUR ---
1633 PT'S BP RECHECKED DUE TO DIASTOLIC BEING HIGH. BP 180/98, PULSE 81. PATIENT RESTING COMFORTABLY IN BED. ASYMPTOMATIC. DENIES ANY PAIN. DR. BERGMAN NOTIFIED OF BP. AWAITING ORDERS. WILL CONTINUE TO MONITOR PATIENT.
--- NOTE | 2016-04-02 16:44 | NUR ---
BP RECHECKED. PT 132/92. WILL CONTINUE TO MONITOR. PT RESTING COMFORTABLY. ALERT AND ORIENTED.
[2016-04-02 16:45] VITALS: BP 132/98
[2016-04-02 22:20] VITALS: BP 160/90
--- NOTE | 2016-04-03 01:21 | NUR ---
LATE ENTRY ON 04/02/2016 AT 2230, GIL ([facility]) REPORTED TO ME BP OF 160/90. THIS GIFTED PROGRAM TEACHER ASSESSED PATIENT. PATIENT DENIED PAIN OR DISCOMFORT. NO S&S OF DISTRESS NOTED. MD TONIA BERGMAN WAS NOTIFIED. REQUESTED TO RE-CHECK BP IN 1HOUR. BP WAS RE-CHECKED 146/90. PATIENT DENIES PAIN & DISCOMFORT. NO S&S OF DISTRESS NOTED. WILL CONTONUE TO MONITOR.
[2016-04-03 06:27] VITALS: BP 152/94
--- NOTE | 2016-04-03 07:10 | PN- Housestaff ---
DAE CHUNG,BRIGIDNicolásGEORGE 04/03/16 0710: Subjective Follow-up For: Lt. foot ulcer, Rt. ankle wound s/p I&D, debridgement Complaints: no complaints Subjective: Pt is doing well after surgery yesterday. No fever/chills, chest pain/shortness of breath, n/v. She has sharp intermittent pain on surgical sites, but she denies any pain now. Review of Systems Constitutional: Denies: chills, fever, weakness. EENTM: Reports: no symptoms. Cardiovascular: Reports: peripheral edema. Denies: chest pain, orthopena, palpitations. Respiratory: Denies: cough, short of breath, sputum production, wheezing. Gastrointestinal: Reports: no symptoms. Genitourinary: Reports: no symptoms. Musculoskeletal: Reports: see HPI, muscle pain. Skin: Reports: see HPI, lesions. Neurological/Psychological: Reports: pre-existing deficit. Hematologic/Endocrine: Reports: no symptoms. Immunologic/Allergic: Reports: no symptoms. Objective Last 24 Hrs of Vital Signs/I&O Vital Signs Date Time Temp Pulse Resp B/P Pulse O2 O2 Flow FiO2 Ox Delivery Rate 04/03 0627 98.6 73 20 152/94 94 Room Air 04/02 2220 98.8 77 20 160/90 93 Room Air 04/02 1645 132/98 04/02 1511 98.0 69 18 148/100 96 Room Air Intake & Output 04/03 1600 04/03 0800 04/03 0000 Intake Total 400 240 Output Total 800 1600 1400 Balance -800 -1200 -1160 Intake, Oral 400 240 Number 1 Bowel Movements Output, Urine 800 1600 1400 Physical Exam General Appearance: Alert, Oriented X3, Cooperative, No Acute Distress Skin: s/p I&D, debridement Rt. ankle & Lt. foot under dressing HEENT: Atraumatic, PERRLA, EOMI, Mucous Membr. moist/pink Neck: Supple, No JVD, No LAD Lymphatic: Cervical nl Cardiovascular: Regular Rate, Normal S1, Normal S2, No Murmurs Lungs: Clear to Auscultation, Normal Air Movement Abdomen: Normal Bowel Sounds, Soft, No Tenderness Neurological: Normal Speech, Normal Tone, Sensation Intact, baseline Rt. sided weakness 4/5 RUE, LE cassandra-dependent Extremities: s/p I&D, debridement under dressing, pitting edema + Vascular: Normal Pulses, Pulses Symmetrical Current Medications: Current Medications Sig/Mary Grace Start time Last Medication Dose Route Stop Time Status Admin Acetaminophen 650 MG Q6P PRN 03/29 0130 AC PO Acetaminophen/ 1 TAB Q6P PRN 03/29 0130 AC Hydrocodone Bitart PO Amitriptyline HCl 25 MG DAILY 03/29 1000 AC 04/03 PO 0951 Ampicillin Sodium/ 3,000 MG Q6 04/03 1200 AC 04/03 Sulbactam Sodium IV 1140 Sodium Chloride 100 ML Aspirin Buffered 81 MG DAILY 03/29 1000 AC 04/03 PO 0950 Baclofen 20 MG Q6 03/29 0600 AC 04/03 PO 1139 Bisacodyl 10 MG DAILY PRN 04/02 1530 AC ME Clonazepam 0.5 MG DAILY 03/29 1000 AC 04/03 PO 04/05 0959 0951 Dextrose/Sodium 1,000 ML Q20H 04/01 2345 DC 04/02 Chloride IV 0049 Docusate Sodium 100 MG BID 04/02 2200 AC 04/03 PO 0950 Enoxaparin Sodium 40 MG DAILY 04/01 1400 AC 04/03 SC 0951 Oxybutynin Chloride 15 MG BID 03/29 2200 AC 04/03 PO 1139 Oxycodone HCl 10 MG Q6P PRN 03/29 0130 AC PO Patient Medication 1 ED .STK-MED ONE 04/02 1424 MS Teaching ED 04/02 1425 Polyethylene Glycol 17 GM DAILY 04/01 1352 AC 04/03 PO 0952 Senna/Docusate Sodium 1 TAB BID 04/01 1352 AC 04/03 PO 0952 Last 24 Hrs of Lab/Ace Results Last 24 Hrs of Labs/Mics: Laboratory Tests 04/03/16 0630: CBC w Diff NO MAN DIFF REQ, RBC 4.88, MCV 76.4 L, MCH 24.8 L, RDW 15.4 H, MPV 7.2 L, Gran % 51.8, Lymphocytes % 31.7, Monocytes % 7.3, Eosinophils % 8.6 H, Basophils % 0.6, Absolute Granulocytes 3.3, Absolute Lymphocytes 2.0, Absolute Monocytes 0.5, Absolute Eosinophils 0.5, Absolute Basophils 0, PUBS MCHC 32.4 L Lines/Diet/Fluids Lines: peripheral lines Assessment/Plan Assessment: 65-year-old lady with a PMH of multiple sclerosis with Rt. sided hemiparesis, s/ p suprapubic Lopez catheter, history of colostomy, multiple SBO's came to [facility] with complaints of 6 day duration aggressive right dorsal distal foot wound that appeared thickened and darkened. 1. Ulcerations of Lt. foot/Rt. ankle * s/p open I & D deep to the fashion with exposure of the flexor tendon and tendon sheath multiple sites right ankle & left foot, excisional debridement * Will go fot another procedure on Friday. * Wound culture is growing gram positive cocci. * Continue IV Unasyn for now, follow culture results. * When she is discharged, daily dressing needs to be done on bilateral LE. 2. Sacaral Decubitus ulcers * Stage 4, Continue with daily dressing / wound care 3. Multiple sclerosis * Pt follows blake Dodson. At baseline, she is dependent on cassandra lift. 4. Urinary incontinence with suprapubic catheter * Due to urine leakage around suprapubic catheter, catheter was changed by Dr. Hernandez on 03/30. * C/w Oxybutynin 15 mg twice a day 5. Diet * Regular diet DVT ppx: SC lovenox, full code Problem List: 1. Multiple open wounds 2. Sacral decubitus ulcer 3. H/O multiple sclerosis 4. Suprapubic catheter Pain Ratin Pain Location: bilateral LE wounds Pain Goal: Pain 4 or less Pain Plan: tyrenol, vicodin, oxycodone prn Tomorrow's Labs & Rationales: CBC with infection DVT/Prophylaxis: pharmacological Consulting Request: Consulting Specialty: Podiatry Consulting Physician: Dr. Acosta Reason for Consult: Necrotic leg wound Discharge Plan Stable for Discharge? No LUIZA KAY MD 04/03/16 1329: Attending MD Review Statement Attending Statement Attending MD Statement: examined this patient, discuss w/resident/PA/PRINT LINE OPERATOR, agreed w/resident/PA/PRINT LINE OPERATOR, reviewed EMR data (avail), discussed with nursing, discussed with case mgmt, amended to note Attending Assessment/Plan: The patient was seen and discussed with house staff. Agree with the plan of care as outlined.
[2016-04-03 08:12] LABS: ABSOLUTE BASOPHIL COUNT 0 /CUMM (0.0-0.2); ABSOLUTE EOSINOPHIL COUNT 0.5 /CUMM (0.0-0.7); ABSOLUTE GRANULOCYTE CT 3.3 /CUMM (1.4-6.5); ABSOLUTE MONOCYTE COUNT 0.5 /CUMM (0.10-0.60); BASOPHIL % 0.6 % (0.0-2.0); EOSINOPHIL % 8.6 % (0-5); GRANULOCYTE % 51.8 % (42.2-75.2); HEMATOCRIT 37.3 % (37-47); MEAN CORPUSCULAR HGB 24.8 PG (27.0-31.0); MEAN CORPUSCULAR HGB CONC 32.4 G/DL (33.0-37.0); MEAN CORPUSCULAR VOLUME 76.4 FL (81.0-99.0); MEAN PLATELET VOLUME 7.2 FL (7.4-10.4); PLATELET COUNT 323 /CUMM (130-400); RBC DISTRIBUTION WIDTH 15.4 % (11.5-14.5); RED BLOOD CELL CT 4.88 /CUMM (4.20-5.40); WHITE BLOOD CELL COUNT 6.4 /CUMM (4.8-10.8)
[2016-04-03 14:06] VITALS: BP 125/70
[2016-04-03 23:01] VITALS: BP 130/70
[2016-04-04 06:37] VITALS: BP 130/60
--- NOTE | 2016-04-04 07:10 | PN- Housestaff ---
DAE CHUNG,KOREY 04/04/16 0710: Subjective Follow-up For: Lt. foot ulcer, Rt. ankle wound s/p I&D, debridgement Complaints: no complaints Subjective: She is lying bed comfortably. She didn't have any fever/chils, chest pain/shortness of breath, nausea/ vomiting. She denies pain from the surgical sites. No discomfort from suprapubic catheter. Review of Systems Constitutional: Denies: chills, fever, weakness. EENTM: Reports: no symptoms. Cardiovascular: Reports: peripheral edema. Denies: chest pain, orthopena. Respiratory: Denies: cough, short of breath, sputum production, wheezing. Gastrointestinal: Denies: abdominal pain, diarrhea, nausea, vomiting. Genitourinary: Denies: discharge, pain. Musculoskeletal: Reports: see HPI (under surgical dressing). Skin: Reports: see HPI (under surgical dressing). Neurological/Psychological: Reports: pre-existing deficit. Hematologic/Endocrine: Reports: no symptoms. Immunologic/Allergic: Reports: no symptoms. Objective Last 24 Hrs of Vital Signs/I&O Vital Signs Date Time Temp Pulse Resp B/P Pulse O2 O2 Flow FiO2 Ox Delivery Rate 04/04 0637 97.7 72 19 130/60 93 Room Air 04/03 2301 98.3 76 18 130/70 93 Room Air 04/03 1624 Room Air Room Air 04/03 1615 Room Air Room Air 04/03 1406 98.4 77 20 125/70 95 Intake & Output 04/04 1600 04/04 0800 04/04 0000 Intake Total 540 630 Output Total 850 1350 Balance -310 -720 Intake, IV 300 150 Intake, Oral 240 480 Number 200 Bowel Movements Output, Urine 850 1350 Physical Exam General Appearance: Alert, Oriented X3, Cooperative, No Acute Distress Skin: under bilateral surgical dressing HEENT: Atraumatic, PERRLA, EOMI, Mucous Membr. moist/pink Neck: Supple, No JVD, No LAD Lymphatic: Cervical nl Cardiovascular: Regular Rate, Normal S1, Normal S2, No Murmurs Lungs: Clear to Auscultation, Normal Air Movement Abdomen: Normal Bowel Sounds, Soft, No Tenderness Neurological: Normal Tone, Sensation Intact, residual Rt. sided weakness from MS , 4/5 Extremities: Rt. foot pitting edema +, bilateral leg under surgical dressing Vascular: Normal Pulses, Pulses Symmetrical Current Medications: Current Medications Sig/Mary Grace Start time Last Medication Dose Route Stop Time Status Admin Acetaminophen 650 MG Q6P PRN 03/29 0130 AC PO Acetaminophen/ 1 TAB Q6P PRN 03/29 0130 AC Hydrocodone Bitart PO Amitriptyline HCl 25 MG DAILY 03/29 1000 AC 04/04 PO 0951 Ampicillin Sodium/ 3,000 MG Q6 04/03 1200 AC 04/04 Sulbactam Sodium IV 0522 Sodium Chloride 100 ML Aspirin Buffered 81 MG DAILY 03/29 1000 AC 04/04 PO 0951 Baclofen 20 MG Q6 03/29 0600 AC 04/04 PO 0522 Bisacodyl 10 MG DAILY PRN 04/02 1530 AC [place] Clonazepam 0.5 MG DAILY 03/29 1000 AC 04/04 PO 04/05 0959 0951 Docusate Sodium 100 MG BID 04/02 2200 AC 04/04 PO 0951 Enoxaparin Sodium 40 MG DAILY 04/01 1400 AC 04/04 SC 0951 Oxybutynin Chloride 15 MG BID 03/29 2200 AC 04/04 PO 0951 Oxycodone HCl 10 MG Q6P PRN 03/29 0130 AC PO Patient Medication 1 ED .STK-MED ONE 04/03 1340 DC Teaching ED 04/03 1341 Polyethylene Glycol 17 GM DAILY 04/01 1352 AC 04/04 PO 0952 Senna/Docusate Sodium 1 TAB BID 04/01 1352 AC 04/04 PO 0951 Lines/Diet/Fluids Catheters/Tubes: mcclure (suprapubic) Lines: peripheral lines Assessment/Plan Assessment: 65-year-old lady with a PMH of multiple sclerosis with Rt. sided hemiparesis, s/ p suprapubic Mcclure catheter, history of colostomy, multiple SBO's came to [facility] with complaints of 6 day duration aggressive right dorsal distal foot wound that appeared thickened and darkened. 1. Ulcerations of Lt. foot/Rt. ankle * s/p open I & D deep to the fashion with exposure of the flexor tendon and tendon sheath multiple sites right ankle & left foot, excisional debridement * Will go fot another procedure on Friday, NPO after midnight. * Wound culture is growing gram positive cocci. * Continue IV Unasyn for now, follow culture results -> still pending * When she is discharged, daily dressing needs to be done on bilateral LE. 2. Sacaral Decubitus ulcers * Stage 4, Continue with daily dressing / wound care 3. Multiple sclerosis * Pt follows [facility]. At baseline, she is dependent on cassandra lift. 4. Urinary incontinence with suprapubic catheter * Due to urine leakage around suprapubic catheter, catheter was changed by Dr. Hernandez on 03/30. * C/w Oxybutynin 15 mg twice a day 5. Diet * Regular diet DVT ppx: SC lovenox, full code Problem List: 1. Multiple open wounds 2. Sacral decubitus ulcer 3. H/O multiple sclerosis 4. Suprapubic catheter Pain Ratin Pain Location: bilateral LE surgical sites Pain Goal: Pain 4 or less Pain Plan: tyrenol, vicodin, oxycodone prn Tomorrow's Labs & Rationales: No labs, stable DVT/Prophylaxis: pharmacological Consulting Request: Consulting Specialty: Podiatry Consulting Physician: Dr. Acosta Reason for Consult: Necrotic leg wound Discharge Plan Stable for Discharge? No LUIZA KAY MD 04/04/16 1320: Attending MD Review Statement Attending Statement Attending MD Statement: examined this patient, discuss w/resident/PA/TIRE GROOVER, agreed w/resident/PA/TIRE GROOVER, reviewed EMR data (avail), discussed with nursing, discussed with case mgmt, amended to note Attending Assessment/Plan: The patient was seen and discussed with house staff. Agree with the plan of care. To OR tomorrow.
[2016-04-04 14:45] VITALS: BP 126/72
[2016-04-04 22:27] VITALS: BP 128/70
[2016-04-05 06:53] VITALS: BP 120/60
--- NOTE | 2016-04-05 10:38 | NUR ---
PT TRANSPORTED VIA STRETCHER TO OR. DENTURES AND GLASSES LEFT AT BEDSIDE.
--- NOTE | 2016-04-05 10:52 | PN- Housestaff ---
DAE CHUNG,BRIGIDNicolásGEORGE 04/05/16 0754: Subjective Follow-up For: bilateral leg wounds s/p I&D sacral decubitus ulcer Subjective: She denies any pain on bilateral leg wounds. No fever/chills, chest pain/ shortness of breath. She has chronic pitting edema on Rt. foot. Both legs under surgical dressing. Regarding her disposition, she strongly declines to go to [facility]. She wants to go home with nursing services. Review of Systems Constitutional: Denies: chills, fever, weakness. EENTM: Reports: no symptoms. Cardiovascular: Reports: edema, peripheral edema. Denies: chest pain, palpitations. Respiratory: Denies: cough, short of breath, sputum production, wheezing. Gastrointestinal: Reports: no symptoms. Genitourinary: Reports: see HPI. Musculoskeletal: Reports: see HPI. Skin: Reports: see HPI (bilateral leg wounds/dressing). Neurological/Psychological: Reports: pre-existing deficit. Hematologic/Endocrine: Reports: no symptoms. Immunologic/Allergic: Reports: no symptoms. Objective Last 24 Hrs of Vital Signs/I&O Vital Signs Date Time Temp Pulse Resp B/P Pulse O2 O2 Flow FiO2 Ox Delivery Rate 04/05 0653 98.8 68 18 120/60 93 Room Air 04/04 2227 98.6 77 18 128/70 96 Room Air 04/04 1445 98.4 78 18 126/72 95 Intake & Output 04/05 0800 04/05 0000 04/04 1600 Intake Total 065 582 5713 Output Total 506 609 4014 Balance -190 50 -500 Intake, IV 600 200 100 Intake, Oral 60 700 1200 Output, Stool 0 100 Output, Urine 152 017 9395 Physical Exam General Appearance: Alert, Oriented X3, Cooperative, No Acute Distress Skin: s/p bilateral leg I&D, excisional debridement on dressing. HEENT: Atraumatic, PERRLA, EOMI, Mucous Membr. moist/pink Neck: Supple, No JVD, No LAD Lymphatic: Cervical nl Cardiovascular: Regular Rate, Normal S1, Normal S2, No Murmurs Lungs: Clear to Auscultation, Normal Air Movement Abdomen: Normal Bowel Sounds, Soft, No Tenderness Neurological: Normal Speech, Sensation Intact, Cranial Nerves 3-12 NL, decreased strength on Rt. side 4/5 Extremities: under surgical dressing Vascular: Normal Pulses, Pulses Symmetrical Current Medications: Current Medications Sig/Mary Grace Start time Last Medication Dose Route Stop Time Status Admin Acetaminophen 650 MG Q6P PRN 03/29 0130 AC PO Acetaminophen/ 1 TAB Q6P PRN 03/29 0130 AC Hydrocodone Bitart PO Amitriptyline HCl 25 MG DAILY 03/29 1000 AC 04/05 PO 0821 Ampicillin Sodium/ 3,000 MG Q6 04/03 1200 AC 04/05 Sulbactam Sodium IV 1317 Sodium Chloride 100 ML Aspirin Buffered 81 MG DAILY 03/29 1000 AC 04/04 PO 0951 Baclofen 20 MG Q6 03/29 0600 AC 04/05 PO 1317 Bisacodyl 10 MG DAILY PRN 04/02 1530 AC [place] Cholecalciferol 1,000 IU DAILY 04/04 1040 AC 04/05 PO 0820 Clonazepam 0.5 MG DAILY 03/29 1000 AC 04/05 PO 04/12 0958 0820 Dextrose/Sodium 1,000 ML Q13H 04/04 2100 DC 04/04 Chloride IV 04/05 0959 2135 Docusate Sodium 100 MG BID 04/02 2200 AC 04/05 PO 0821 Enoxaparin Sodium 40 MG DAILY 04/01 1400 AC 04/04 SC 0951 Oxybutynin Chloride 15 MG BID 03/29 2200 AC 04/05 PO 0821 Oxycodone HCl 10 MG Q6P PRN 03/29 0130 DC PO Polyethylene Glycol 17 GM DAILY 04/01 1352 AC 04/05 PO 0820 Senna/Docusate Sodium 1 TAB BID 04/01 1352 AC 04/05 PO 0820 Lines/Diet/Fluids Lines: peripheral lines Assessment/Plan Assessment: 65-year-old lady with a PMH of multiple sclerosis with Rt. sided hemiparesis, s/ p suprapubic Loepz catheter, history of colostomy, multiple SBO's came to [facility] with complaints of 6 day duration aggressive right dorsal distal foot wound that appeared thickened and darkened. 1. Ulcerations of Lt. foot/Rt. ankle * s/p open I & D deep to the fashion with exposure of the flexor tendon and tendon sheath multiple sites right ankle & left foot, excisional debridement on 04/02. * s/p delayed primary closure of open surgical wound with local random advancement flap today. * Wound culture is growing S.aureus, final sensitivity pending. * IV Unasyn will be switched to po antibiotics. * When she is discharged, daily dressing needs to be done on bilateral LE. 2. Sacaral Decubitus ulcers * Stage 4, Continue with daily dressing / wound care 3. Multiple sclerosis * Pt follows [facility]. At baseline, she is dependent on cassandra lift. 4. Urinary incontinence with suprapubic catheter * Due to urine leakage around suprapubic catheter, catheter was changed by Dr. Hernandez on 03/30. * C/w Oxybutynin 15 mg twice a day 5. Diet * Regular diet DVT ppx: SC lovenox, full code Problem List: 1. Multiple open wounds 2. Sacral decubitus ulcer 3. H/O multiple sclerosis 4. Suprapubic catheter Pain Ratin Pain Location: NA Pain Goal: Pain 4 or less Pain Plan: po tyrenol, vicodin prn Tomorrow's Labs & Rationales: possible D/C today DVT/Prophylaxis: pharmacological Consulting Request: Consulting Specialty: Podiatry Consulting Physician: Dr. Acosta Reason for Consult: Necrotic leg wound Discharge Plan Discharge Disposition: Home health services vs. STR Stable for Discharge? Yes Anticipated Discharge (Day): today LUIZA KAY MD 04/05/16 1433: Attending MD Review Statement Attending Statement Attending MD Statement: examined this patient, discuss w/resident/PA/HIGH SCHOOL ENGLISH TEACHER, agreed w/resident/PA/HIGH SCHOOL ENGLISH TEACHER, reviewed EMR data (avail), discussed with nursing, discussed with case mgmt, amended to note Attending Assessment/Plan: The patient was seen and discussed with house staff. To OR today with Dr. Acosta. CRM discussing rehab as home care cannot be arranged.
--- NOTE | 2016-04-05 12:03 | Operative Report ---
Operative/Inv Procedure Report Surgery Date: 04/05/16 Name of Procedure: 1 open incision and drainage deep to the D fashion with exposure of the extensor tendon and tendon sheath multiple sites left foot 2 delayed primary closure of open surgical wound with local random advancement flap 3 intraoperative administration of ankle block anesthesia 4 excisional debridement Pre-Operative Diagnosis: 1 open infected wound left foot 2 severe peripheral venous disease Post-Operative Diagnosis: The same Estimated Blood Loss: less than 50ml Surgeon/Carboy Filler: PABLO FISCHER DPM Anesthesia: moderate sedation, block Operative/Procedure Note Note: After obtaining informed consent the patient was brought to the operating room and placed on the operating table in the supine position. The patient isn't securely fastened to the operating table utilizing safety belt. After administration of IV sedation, 10 mL of 0.5% Marcaine plain was infiltrated about the patient's left ankle. Left foot and ankle then scrubbed prepped and draped in usual aseptic manner. Attention directed to the left foot, where a large full-thickness necrotic was identified. A 15 blade visualized sharply revised skin margins. Dissection was then carried down deep to the D fashion with exposure of the extensor tendon and tendon sheath multiple sites, both proximally and distally. Necrotic nonviable infected tissue sharply evacuated from the wound bed. Nipple was then irrigated with 3 L normal sterile saline fissure 50,000 units of bacitracin. Owing this, the foot was redraped and the surgeon's top was changed clean gloves. Any bleeding vessels identified were cauterized or ligated as encountered. A dorsal medial dorsal lateral flap was then developed with undermining, mobilization and advancement of the adjacent tissue towards the central aspect of the wound. Central aspect of the flap was held on its deep side with 3-0 Vicryl. The septae stitches reapproximated 4-0 Vicryl and the skin edges reapproximated 3-0 nylon. Incision was dressed with Xeroform 4 x 4's Kerlix and Zac wrap. The patient was noted to tolerate both procedure and anesthesia well and the patient was transported from the operating room to recovery with vital signs stable best assess intact to both the dorsal medial dorsal lateral flaps.
--- NOTE | 2016-04-05 13:00 | NUR ---
RETURNED FROM OR. A & O X 3. ON RA. VSS. DENIES PAIN. DRESSING TO RIGHT CALF AND LEFT FOOT C/D/I. LUNCH TRAY ORDERED. CALL LIGHT IN PLACE.
[2016-04-05 13:14] VITALS: BP 150/96
--- NOTE | 2016-04-05 14:14 | Discharge Summary ---
See Addendum Visit Information Visit Dates Admission Date: 03/28/16 Discharge Date: 04/05/16 Hospital Course Course Attending Physician: LUIZA KAY MD Primary Care Physician: JANELL CHUNG,BARBARA Zhu Consulting Request: Consulting Specialty: Podiatry Consulting Physician: Dr. Fischer Reason for Consult: Necrotic leg wound Hospital Course: 65-year-old lady with past medical history of multiple sclerosis with right- sided hemiparesis, Lt. sided colostomy (diverting colostomy due to chronic sacral decubitus ulcer), suprapubic catheter due to neurogenic bladder, and chronic sacral decubitus ulcers presented with Lt. necrotic 2nd toe with necrotic skin on the dorsum of Lt. foot and Rt. calf. Patient was recently admitted in [facility] for small bowel obtruction and discharged to [facility]. She subsequently discharged home after 1.5 weeks of rehabilitation. At home, she developted wound on Lt. foot from injury while she was moving on a wheelchair. She came to wound care center on day of admission, and due to black discolorization of wound, she was sent to ED for possible surgical debridgement. She denied any fevers/chills, nausea/vomiting, or diarrhea. She denies pain or loss of sensation on her feet. Initial vitals: 98.1F, AR 116 RR 18 BP 138/82 92% on RA On exam: Alert, Oriented 3, no acute distress, responds appropriately, HEENT: Atraumatic, PERRLA, EOMI, Cardiovascular: Regular Rate, Normal S1, Normal S2, Lungs: Clear to Auscultation, Normal Air Movement, abdomen: Colostomy bag present with liquid stool, suprapubic catheter present, bloody discharge around the catheter. Abdomen soft and the bowel sounds present. Wounds: Bilateral buttocks macerated, multiple skin breakdowns on bilateral buttocks (all stage II wounds), coccyx has stage III wound, with blackish discoloration at center, no obvious pus expression. Medial aspect of thigh has some curdy discharge, foul- smelling, probably coming from vagina or local fungal infection. Left lower extremity dorsum of foot has blackish discoloration, blisters, second toe injury is new. Left lower extremity is warm, erythematous, swelling. Medial aspect of the right lower extremity has blackish discoloration with serous weeping. Neurological: Normal Tone, Cranial Nerves 3-12 NL, 3/5 RUE, 5/5 on the LUE, no strength bilateral lower extremity, Extremities No Clubbing, 1+ b/l le edema and dry skin Labs: WBC 11.7, granulocytes 61.1%, Hb/Hct 13.4/41.1, Na 136, K 4.0, BUN/Cr 14/ 0.8 Lt. lower ext arterial Doppler : There is no evidence of any hemodynamically significant left lower extremity arterial disease by pressure, or duplex Doppler criteria at rest. Lt. foot x-ray: 1. Nonspecific soft tissue swelling of the left foot. 2. No radiographic evidence of osteomyelitis. Rt. tiba-fibula: 1. Diffuse soft tissue swelling of the leg and ankle. 2. No radiographic evidence of gas gangrene or osteomyelitis. Patient was admitted to general medicine floor for following problem lists; 1. Open necrotic wound Rt. ankle & Interspace abscess of Lt. fourth toe interspace: She was given IV unasyn empirically before surgical procedure as podiatry consult was not available during weekned. Vascular surgery and podiatry consults were obtained. She had open I & D deep to the fashion with exposure of the flexor tendon and tendon sheath multiple sites right ankle & left foot, and excisional debridement on 04/[address] Fischer. Wound culture was sent. She had following delayed primary closure of open surgical wound with local random advancement flap on 04/05/[address] Fischer. Wound culture was growing S.aureus, final sensitivity showed MSSA. She'll be discharged with 2 more day of po antibiotics to finish total 10-d course. When she is discharged to [facility], daily dressing needs to be done on bilateral LE. 2. Sacaral Decubitus ulcers: stage II-IV, We continued with daily aqua cell dressing with wound care / positonal change. Please follow up with wound care center for further management. 3. Multiple sclerosis: Patient follows Dr. Subramanian as outpatient, stable. At baseline, she is dependent on cassandra lift. 4. Urinary incontinence with suprapubic catheter: Due to urine leakage around suprapubic catheter, catheter was changed by Dr. Hernandez on 03/30. We continued Oxybutynin 15 mg twice a day. Please follow up with Dr. Hernandez as outpatient. 5. Anxiety/depression: We continued po klonopin 0.5mg daily and amitriptyline 25mg daily. DVT ppx: SC lovenox, full code Allergies: Coded Allergies: No Known Allergies (03/25/16) Significant Procedures: Operative/Inv Procedure Report Surgery Date: 04/02/16 Name of Procedure: 1 open incision and drainage deep to the fashion with exposure of the flexor tendon and tendon sheath multiple sites right ankle 2 open incision and drainage deep to the deep fascia with exposure of the extensor tendon and tendon sheath multiple sites left foot 3 intraoperative administration of ankle block anesthesia 4 excisional debridement Pre-Operative Diagnosis: 1 open necrotic wound right ankle 2 interspace abscess left fourth interspace Post-Operative Diagnosis: The same Estimated Blood Loss: less than 50ml Surgeon/Electric Motor Assembler: PABLO FISCHER DPM Operative/Inv Procedure Report Surgery Date: 04/05/16 Name of Procedure: 1 open incision and drainage deep to the D fashion with exposure of the extensor tendon and tendon sheath multiple sites left foot 2 delayed primary closure of open surgical wound with local random advancement flap 3 intraoperative administration of ankle block anesthesia 4 excisional debridement Pre-Operative Diagnosis: 1 open infected wound left foot 2 severe peripheral venous disease Post-Operative Diagnosis: The same Estimated Blood Loss: less than 50ml Surgeon/Electric Motor Assembler: PABLO FISCHER DPM Pertinent Lab Results: COMMENT: ADDITIONAL INFORMATION: SOFT TISSUE LEFT FOOT RECEIVED SMALL PIECE OF TISSUE IN STERILE CUP Procedure Result > GRAM STAIN Final 04/03/16-1109 WHITE BLOOD CELLS NONE GRAM POSITIVE COCCI FEW > EXTREMITIES OR SPECIMEN Final 04/05/16-1548 Scant growth of: STAPH AUREUS ISOLATED PRELIM OF GPC-Called to/Readback by JASIEL by [facility] [place] 04/03/16 0903 1. STAPH AUREUS RX ABN ------ --- 1. STAPH AUREUS RX AB ------ -- CEFAZOLIN S AMOXICILLIN/CLAVULINIC ACID S AMPICILLIN/SULBACTAM S TETRACYCLINE S TRIMETHOPRIM/SULFAMETHOXAZOLE S AZITHROMYCIN R # CLINDAMYCIN R # ERYTHROMYCIN R # OXACILLIN S VANCOMYCIN S Disposition Summary Disposition Principal Diagnosis: Open necrotic wound Rt. ankle & Interspace abscess of Lt. fourth toe interspace MSSA soft tissue infection Additional Diagnosis: Sacral decubitus ulcer stage II - IV Multiple sclerosis with Rt. sided weakness s/p colostomy s/p suprapubic catheter Hx of small bowel obstruction Discharge Disposition: [facility] Discharge Instructions General Discharge Information Code Status: Full Code Patient's Diet: Regular diet Patient's Activity: Patient is dependent on cassandra lift Out of bed to chair as tolerated Follow-Up Instructions/Appts: Please follow up with a primary doctor after discharge within 1 week Please follow up with Dr. Fischer for bilateral leg wounds Please follow up with wound care center for chronic sacral decubitus ulcer. Please follow up with Dr. Hernandez regarding suprapubic catheter change Medications at Discharge Discharge Medications: Continue taking these medications: Amitriptyline HCl (Amitriptyline HCl) 25 MG TABLET 1 Tablet ORAL DAILY Comments: LAST GIVEN 04/05/16 0821 AM Clonazepam (Klonopin) 0.5 MG TABLET 1 Tablet ORAL DAILY Comments: Last Taken: 04/05/16 Time: 0820 AM Aspirin (Ecotrin*) 81 MG TABLET.DR 1 Tablet ORAL DAILY Comments: Last Taken: 04/04/16 Time:0950 AM Cholecalciferol (Vitamin D3) 1,000 UNIT TABLET 1 Tablet ORAL DAILY Comments: Last Taken: 04/05/16 Time: 0820 AM Baclofen (Baclofen) 20 MG TABLET 1 Tablet ORAL EVERY SIX HOURS Comments: LAST GIVEN 04/05/16 6 PM Start taking the following new medications: Acetaminophen (Tylenol) 325 MG TABLET 650 Milligram ORAL EVERY SIX HOURS NEEDED as needed for PAIN SCALE 1-3 ( MILD) Qty = 40 No Refills Amoxicillin/Potassium Clav (Augmentin 875-125 Tablet) 875 MG-125 MG TABLET 1 Tablet ORAL TWICE DAILY Days = 2 No Refills Comments: Last Taken: UNASYN Time: 12 PM The following medications have been changed: Old: Oxybutynin Chloride (Oxybutynin Chloride) 5 MG TABLET 1 Milligram ORAL THREE TIMES DAILY Days = 30 New: Oxybutynin Chloride (Oxybutynin Chloride) 5 MG TABLET 3 Milligram ORAL THREE TIMES DAILY Days = 30 Comments: LAST GIVEN 04/05/16 820 am Copies To: DESHAWN CHUNG,BETH HOYT MD,JESSICA SUBRAMANIAN MD,TYLER FISCHER DPM,PABLO ; LUIZA KAY MD; JANELL CHUNG,BARBARA Zee. Attending MD Review Statement Documenting Attending: LUIZA KAY MD Other Findings: The patient was seen and agree with the plan of care upon discharge.
--- NOTE | 2016-04-05 14:18 | Patient Discharge Instructions ---
Discharge Instructions General Discharge Information You were seen/treated for: 1. open infected wound left foot 2. severe peripheral venous disease You had these procedures: 1.open incision and drainage deep to the D fashion with exposure of the extensor tendon and tendon sheath multiple sites left foot 2. delayed primary closure of open surgical wound with local random advancement flap 3. intraoperative administration of ankle block anesthesia 4. excisional debridement Watch for these problems: Fever, worsening pain, drainage from wound Other wound care: Please continue aqua cell dressing on sacral decubitus ulcer Please follow up with Dr. Acosta / wound care center for surgical dressing management Special Instructions: Please follow up with a primary doctor after discharge within 1 week Please follow up with Dr. Acosta for bilateral leg wounds Please follow up with wound care center for chronic sacral decubitus ulcer. Please follow up with Dr. Hernandez regarding suprapubic catheter change Diet Continue normal diet: Yes Recommended Diet: Regular Activity Full Activity/No Limits: No Activity Self Limited: Yes Activity Limited to: Out of Bed to Chair Additional ACTIVITY Info: Patient is dependent on cassandra lift with multiple sclerosis. Acute Coronary Syndrome Inclusion Criteria At DC or during hospital stay patient has or had the following: ACS DIAGNOSIS No Discharge Core Measures Meds if any: Prescribed or Continued at Discharge Meds if any: NOT Prescribed or Continued at Discharge Congestive Heart Failure Inclusion Criteria At DC or during hospital stay patient has or had the following: CHF DIAGNOSIS No Discharge Core Measures Meds if any: Prescribed or Continued at Discharge Meds if any: NOT Prescribed or Continued at Discharge Cerebrovascular accident Inclusion Criteria At DC or during hospital stay patient has or had the following: CVA/TIA Diagnosis No Discharge Core Measures Meds if any: Prescribed or Continued at Discharge Meds if any: NOT Prescribed or Continued at Discharge Venous thromboembolism Inclusion Criteria VTE Diagnosis No VTE Type NONE VTE Confirmed by (Test) NONE Discharge Core Measures - Per Current guidelines, there needs to be overlap - treatment for the first 5 days of Warfarin therapy. - If discharged on Warfarin prior to 5 days of - overlap therapy, the patient will need to be - assessed for post discharge needs including - *Post discharge parental anticoagulation - *Warfarin and/or parental anticoagulation education - *Follow up date to check INR post discharge At least 5 days overlap therapy as Inpatient No Meds if any: Prescribed or Continued at Discharge Note: Overlap Therapy is Warfarin and Anticoagulant Meds if any: NOT Prescribed or Continued at Discharge
[2016-04-05] MEDS ORDERED: AUGMENTIN 875-1 EACH PO (16:07)
[2016-04-05 18:19] VITALS: BP 150/96
== END 2016-04-05 19:13 | DRG 574 ==
LOC: ENRESERVDT → ENRESERVTM → ERH 18:49 → 2NA 22:39 → ERHI 22:39 → 2NA 03-29 00:46
PROVIDERS: Internal Medicine; Internal Medicine Endocrinology, Diabetes & Metabolism; Physician Assistant Medical; ADMIT Internal Medicine
PROC: 0JBQ0ZZ Excision of Right Foot Subcutaneous Tissue and Fascia, Open Approach (ICD-10-PCS; principal; 2016-04-02)
PROC: 0JBR0ZZ Excision of Left Foot Subcutaneous Tissue and Fascia, Open Approach (ICD-10-PCS; principal; 2016-04-02)
PROC: 0JBR0ZZ Excision of Left Foot Subcutaneous Tissue and Fascia, Open Approach (ICD-10-PCS; 2016-04-05)
PROC: 0HXNXZZ Transfer Left Foot Skin, External Approach (ICD-10-PCS; 2016-04-05)
DX: L97.319 Non-pressure chronic ulcer of right ankle with unspecified severity (principal); G81.91 Hemiplegia, unspecified affecting right dominant side; L89.154 Pressure ulcer of sacral region, stage 4; L89.322 Pressure ulcer of left buttock, stage 2; L89.312 Pressure ulcer of right buttock, stage 2; G35 Multiple sclerosis; N31.9 Neuromuscular dysfunction of bladder, unspecified; L02.612 Cutaneous abscess of left foot; L97.529 Non-pressure chronic ulcer of other part of left foot with unspecified severity; Z93.3 Colostomy status; N39.498 Other specified urinary incontinence
CPT/HCPCS: 2NAP; 87070; 87075; 87184; ERO; 73590-RT; 73630-LT; 81001; 82436; 87040; 87086; 93005; 93010; J0690; J1650; J2001; J7042

== ENCOUNTER 2016-05-09 13:45 | Emergency (ER) | payer OTHER ==
[~2016-05-09] VITALS: Ht 172.7 cm; Wt 113.4 kg
[~2016-05-09 13:45] MED LIST changes: +TYLENOL325 M1 PO
[2016-05-09] MEDS ORDERED: AUGMENTIN 875-1 EACH PO (15:57)
--- NOTE | 2016-05-09 15:58 | ED UPPER/LOWER EXTREMITY COMPL ---
History of Present Illness General Chief Complaint: Lower Extremity Problems Stated Complaint: "I NEED TO HAVE MY FOOT CHECKED" LEFT Source: patient Exam Limitations: no limitations Vital Signs & Intake/Output Vital Signs & Intake/Output Vital Signs Date Time Temp Pulse Resp B/P Pulse O2 O2 Flow FiO2 Ox Delivery Rate 05/09 1609 97.6 71 18 198/92 100 Room Air 05/09 1359 98.7 71 20 184/110 95 Room Air Allergies Coded Allergies: No Known Allergies (03/25/16) Reconcile Medications Acetaminophen (Tylenol) 325 MG TABLET 650 MG PO Q6P PRN PAIN SCALE 1-3 (MILD) Amitriptyline HCl 25 MG TABLET 1 TAB PO DAILY DEPRESSION (Reported) Amoxicillin/Potassium Clav (Augmentin 875-125 Tablet) 875 MG-125 MG TABLET 1 TAB PO BID CELLUTIS Aspirin (Ecotrin*) 81 MG TABLET.DR 1 TAB PO DAILY HEART HEALTH (Reported) Baclofen 20 MG TABLET 1 TAB PO Q6 Muscle relaxant (Reported) Cholecalciferol (Vitamin D3) 1,000 UNIT TABLET 1 TAB PO DAILY SUPPLEMENT ( Reported) Clonazepam (Klonopin) 0.5 MG TABLET 1 TAB PO DAILY SHAKES (Reported) Oxybutynin Chloride 5 MG TABLET 3 MG PO TID incontinence Triage Note: PT STATES SHE NEEDS TO HAVE LEFT FOOT LOOKED AT BECAUSE SHE THINKS IT'S INFECTED. HAD SURGERY A FEW WEEKS AGO WITH DR FISCHER BUT HASN'T BEEN BACK TO SEE HIM BECAUSE SHE CAN'T GET AN APPT Triage Nurses Notes Reviewed? yes HPI: 65-year-old female with 3 days of left foot redness pain and swelling. She previously had a wound on her foot required admission that was debridement and closed by Dr. Fischer one month ago after she ran into something with her wheelchair. She spent some time in rehabilitation and was discharged last week and the wound was doing well sutures were removed. She started having worsening symptoms of infection 3 days ago and has been unable to get in with Dr. Fischer. She denies any fever or flulike illness. He was noted in triage that her blood pressure was elevated I discussed with her, she states that she has elevated blood pressure only when she his in the hospital or has an infection. She does not routinely take blood pressure medication. She is not on any immunosuppressive medication. She denies any headaches nausea vomiting blurry vision or visual changes. Past History Travel History Traveled to [place] past 21 day No Medical History Any Pertinent Medical History? 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 No Review of Systems Review of Systems Constitutional: Reports: see HPI. EENTM: Reports: no symptoms. Respiratory: Reports: no symptoms. Cardiovascular: Reports: no symptoms. Gastrointestinal/Abdominal: Reports: no symptoms. Genitourinary: Reports: no symptoms. Musculoskeletal: Reports: no symptoms. Skin: Reports: see HPI. Neurological/Psychological: Reports: no symptoms. Hematologic/Endocrine: Reports: no symptoms. Immunological: Reports: no symptoms. All Other Systems: Reviewed and Negative Physical Exam Physical Exam General Appearance: well developed/nourished Comments: Well-developed well-nourished no apparent distress. Wheelchair bound HEENT: Atraumatic, extraocular motion intact Neck: Supple, no lymphadenopathy Back: Nontender Respiratory: No respiratory distress Extremities: Moderate edema to left foot, toes are red and warm with small amount of skin breakdown and serous discharge from several small wounds noted to the top of the foot. The wounds are superficial. There is no foul odor. Mild tenderness throughout the dorsum of the foot. Neuro: Alert and oriented x3 Psych: Mood affect normal, normal memory normal judgment. Skin: Warm and dry, no rash on exposed skin Progress Differential Diagnosis: arterial insufficiency, cellulitis, CHF, compartment syndrome, contusion, dislocation, DVT, fracture, gout, septic arthritis, sprain, tendon injury Plan of Care: Current Medications Sig/Mary Grace Start time Last Medication Dose Stop Time Status Admin Ampicillin Sodium/ 1.5 MG ONCE ONE 05/09 1600 CAN Sulbactam Sodium 05/09 1601 (Unasyn) Comments: Discussed with patient, recommend labs and admission for cellulitis and wound infection. She declined, she states that she does not want to be admitted to the hospital because she was just discharged from nursing facility and does not want to be readmitted. Discussed possibility of worsening infection with patient and complications of this. She understands and declined admission. We' ll give her a dose of Unasyn 1.5 g IM here and put her on Augmentin recommend that she has close follow-up with podiatry or return here with worsening symptoms. She has appointment to see the wound care center on which was already scheduled. Xeroform dressing and Kerlix and Zac wrap applied to left foot by myself Departure Departure Disposition: HOME OR SELF CARE Condition: Stable Clinical Impression Primary Impression: Cellulitis of left foot Secondary Impressions: HTN (hypertension) Qualifiers: Hypertension type: essential hypertension Qualified Code: I10 - Essential (primary) hypertension Referrals: AMADO FRANKLIN,PABLO MACIEL MD,BARBARA Zhu (PCP/Family) Additional Instructions: Take antibiotics as directed for your foot infection. Please follow up with Dr. Fischer as outpatient or if you cannot see him in the office follow-up with the wound care center on as scheduled. Return to the ER with worsening redness, pain, fever or flulike illness. Keep leg elevated as much as possible. Daily or every other dressing changes with bacitracin. Departure Forms: Customer Survey General Discharge Information Prescriptions: Current Visit Scripts Amoxicillin/Potassium Clav (Augmentin 875-125 Tablet) 1 TAB PO BID #20 TAB
[2016-05-09 16:09] VITALS: BP 198/92
== END 2016-05-09 16:59 ==
LOC: ERH 13:45
DX: L03.116 Cellulitis of left lower limb (principal)
CPT/HCPCS: 96372

== ENCOUNTER 2016-08-20 12:26 | Observation (INO) | payer OTHER ==
[~2016-08-20] VITALS: Ht 172.7 cm; Wt 113.4 kg
--- NOTE | 2016-08-20 13:34 | ED GENERAL ADULT ---
History of Present Illness General Chief Complaint: Suture Removal/Wound Recheck Stated Complaint: NEIL WITH A WOUND ON THE LEG Source: patient, old records Exam Limitations: no limitations Vital Signs & Intake/Output Vital Signs & Intake/Output Vital Signs Date Time Temp Pulse Resp B/P B/P Pulse O2 O2 Flow FiO2 Mean Ox Delivery Rate 08/20 1613 97.3 73 18 180/80 98 08/20 1307 99 08/20 1247 97.2 81 20 176/116 99 Room Air Allergies Coded Allergies: No Known Allergies (03/25/16) Reconcile Medications Amitriptyline HCl 25 MG TABLET 1 TAB PO QPM TREMORS (Reported) Ascorbic Acid (Vitamin C) (Unknown Strength) TABLET (Unknown Dose) PO DAILY SUPPLEMENT (Reported) Aspirin (Ecotrin*) 81 MG TABLET.DR 1 TAB PO DAILY HEART HEALTH (Reported) Cholecalciferol (Vitamin D3) 1,000 UNIT TABLET 1 TAB PO DAILY SUPPLEMENT ( Reported) Cyanocobalamin (Vitamin B-12) (Unknown Strength) TABLET (Unknown Dose) PO DAILY SUPPLEMENT (Reported) Solifenacin Succinate (Vesicare) 10 MG TABLET 1 TAB PO QPM BLADDER (Reported) Tizanidine HCl 4 MG TABLET 1 TAB PO PRN MUSCLE SPASMS (Reported) Vitamin A Palmitate (Vitamin A) (Unknown Strength) CAPSULE (Unknown Dose) PO DAILY SUPPLEMENT (Reported) Vitamin E Mixed (Vitamin E) (Unknown Strength) TABLET (Unknown Dose) PO DAILY SUPPLEMENT (Reported) ZINC (Unknown Strength) TABLET (Unknown Dose) PO DAILY SUPPLEMENT (Reported) Triage Note: BIBA FROM [facility] FOR [facility]RON[facility] WOUNDS AND [facility]CERN FOR SAFETY AT HOME. PT WITH MS, NONAMBULATORY, HAS SENIOR BUSINESS INTELLIGENCE ANALYST BID AT HOME WHO ASSIST PT TO NAMITA LOZANO TO W/C FOR THE DAY, PT HAS CHORNIC S/P TUBE AND COLOSTOMY WHICH SHE SELF-MANAGES. CHRONIC UNSTAGEABLE ULCER OVER COCCYX, EXCORIATION TO BILATERAL BUTTOCKS, ?VENOUS VS PRESSURE ULCERS TO BACKS OF BOTH LOWER LEGS, ALSO HAS ?VENOUS STASIS AREAS TO FEET AND LEFT GREAT TOENAIL IS OUT OF POSITION. PT STATES SHE WAS ADMITTED TO [facility] FOR CELLULTIS THEN AT [facility], D/C FROM [facility] 3 WEEKS AGO TO HOME AND HAS BEEN UNABLE TO OBTAIN WOUND CARE ASSISTANCE AT HOME. PT STATING SHE DOES NOT WANT TO RETURN TO DETENTION "I AM JUST FINE AT HOME IF I HAVE WOUND CARE, IT'S WHEN I'M IN ONE OF THOSE PLACES THAT MY WOUNDS GET THERE IN THE FIRST PLACE." Triage Nurses Notes Reviewed? yes Onset: Abrupt Duration: CHRONIC Timing: recent history Injury Environment: home Severity: moderate, severe No Modifying Factors: none HPI: 65-year-old female comes in by ambulance for evaluation of chronic wounds. Patient has a history of MS. She is not able to ambulate. She has chronic wounds in her gluteus region. She was recently discharged from nursing facility couple weeks ago. She has been doing wound care at home herself and does not had any bloody coming out. She has home health aides at home that come in but they do not do change the dressings. Denies any fever. Denies any other associated symptoms. (ABAD FORRESTER) Past History Travel History Traveled to [place] past 21 day No Medical History Any Pertinent Medical History? 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 Psychosocial History Who do you live with Patient/Self Services at Home Home Health Aide, Nursing What is your primary language Danish Tobacco Use: Quit >30 days ago Daily Tobacco Use Amount/Type: =< 4 Cigarettes daily Family History Family History, If Any: BROTHER FH: cancer MOTHER Pacemaker Relation not specified for: Family history unknown Hx Contributory? No (ABAD FORRESTER) Review of Systems Review of Systems Constitutional: Reports: no symptoms. EENTM: Reports: no symptoms. Respiratory: Reports: no symptoms. Cardiovascular: Reports: no symptoms. GI: Reports: no symptoms. Genitourinary: Reports: no symptoms. Musculoskeletal: Reports: see HPI. Skin: Reports: see HPI. Neurological/Psychological: Reports: no symptoms. Hematologic/Endocrine: Reports: no symptoms. Immunologic/Allergic: Reports: no symptoms. All Other Systems: Reviewed and Negative (ABAD FORRESTER) Physical Exam Physical Exam General Appearance: alert, awake Head: atraumatic, normal appearance Eyes: Bilateral: normal appearance. Ears, Nose, Throat: normal ENT inspection, hearing grossly normal Neck: normal inspection Respiratory: normal breath sounds, no respiratory distress Back: MULTIPLE OPEN CHRONIC WOUND, DECUBITUS ULCERS, DIFFERENT LEVELS OF STAGING , WEEPING, ERYTHEMA, Extremities: OPEN WOUNDS TO BILATERAL LOWER SHIMMYING, NO EDEMA, Neurologic/Psych: awake, alert, oriented x 3 Skin: SEE ABOVE Core Measures ACS in differential dx? No CVA/TIA Diagnosis: No Severe Sepsis Present: No Septic Shock Present: No (ABAD FORRESTER) Progress Differential Diagnoses I considered the following diagnoses in my evaluation of the patient: Cellulitis, tissue necrosis, osteomyelitis, sepsis, abscess, Plan of Care: Orders Procedure Date/time Status BLOOD CULTURE 08/20 1259 Active LACTIC ACID 08/20 1259 Complete C-REACTIVE PROTEIN 08/20 1259 Complete COMPREHENSIVE METABOLIC PANEL 08/20 1259 Complete CBC WITHOUT DIFFERENTIAL 08/20 1259 Complete Laboratory Tests 08/20/16 1559: Lactic Acid Cancelled 08/20/16 1340: Anion Gap 12, Estimated GFR > 60, BUN/Creatinine Ratio 10.0, Glucose 98, Lactic Acid 1.5, Calcium 8.8, Total Bilirubin 0.4, AST 19, ALT 20, Alkaline Phosphatase 128 H, C-Reactive Prot, Quant 4.4 H, Total Protein 9.0 H, Albumin 3.5, Globulin 5.5 H, Albumin/Globulin Ratio 0.6 L, CBC w Diff NO MAN DIFF REQ, RBC 5.03, MCV 70.2 L, MCH 22.0 L, RDW 18.8 H, MPV 7.1 L, Gran % 62.1, Lymphocytes % 27.7, Monocytes % 6.1, Eosinophils % 3.6, Basophils % 0.5, Absolute Granulocytes 6.3, Absolute Lymphocytes 2.8, Absolute Monocytes 0.6, Absolute Eosinophils 0.4, Absolute Basophils 0, PUBS MCHC 31.4 L Microbiology 08/20 1533 BLOOD: Blood Culture - RECD 08/20 1340 BLOOD: Blood Culture - RECD Initial ED EKG: none (ABAD FORRESTER) Departure Departure Disposition: STILL A PATIENT Condition: Stable Clinical Impression Primary Impression: Cellulitis and abscess of buttock Secondary Impressions: Decubitus ulcer Referrals: JANELL CHUNG,BARBARA Zhu (PCP/Family) Departure Forms: Customer Survey General Discharge Information Observation Note Spoke With: ELIZA CHUNG,LUIZA Physician Advisor Notified: LAI CHUNG,JESSICA Gayle Place Patient In: Non-ED OBS Care Area Rationale for Observation: My rational for observation is as follows . Patient needs wound care consult. Possibly some surgical debridement. IV antibiotics. Patient eventually needs safe discharge plan with home wound care. Case management consultation. (ABAD FORRESTER) PA/AGRONOMY SPECIALIST Co-Sign Statement Statement: ED Attending supervision documentation- x I saw and evaluated the patient. I have also reviewed all the pertinent lab results and diagnostic results. I agree with the findings and the plan of care as documented in the PA's/AGRONOMY SPECIALIST's documentation. [] I have reviewed the ED Record and agree with the PA's/AGRONOMY SPECIALIST's documentation. [] Additions or exceptions (if any) to the PAs/AGRONOMY SPECIALIST's note and plan are summarized below: [] (KRISTIAN CHUNG,YAKELIN) Critical Care Note Critical Care Note Critical Care Time: non-applicable (ABAD FORRESTER)
[2016-08-20 14:01] LABS: ABSOLUTE BASOPHIL COUNT 0 /CUMM (0.0-0.2); ABSOLUTE EOSINOPHIL COUNT 0.4 /CUMM (0.0-0.7); ABSOLUTE GRANULOCYTE CT 6.3 /CUMM (1.4-6.5); ABSOLUTE LYMPH COUNT 2.8 /CUMM (1.2-3.4); ABSOLUTE MONOCYTE COUNT 0.6 /CUMM (0.10-0.60); BASOPHIL % 0.5 % (0.0-2.0); EOSINOPHIL % 3.6 % (0-5); GRANULOCYTE % 62.1 % (42.2-75.2); HEMATOCRIT 35.3 % (37-47); MEAN CORPUSCULAR HGB CONC 31.4 G/DL (33.0-37.0); MEAN CORPUSCULAR VOLUME 70.2 FL (81.0-99.0); MEAN PLATELET VOLUME 7.1 FL (7.4-10.4); PLATELET COUNT 454 /CUMM (130-400); RBC DISTRIBUTION WIDTH 18.8 % (11.5-14.5); RED BLOOD CELL CT 5.03 /CUMM (4.20-5.40); WHITE BLOOD CELL COUNT 10.1 /CUMM (4.8-10.8)
[2016-08-20] MEDS ORDERED: VESICARE10 MG PO (15:50)
[2016-08-20] MEDS ORDERED: MULTIVITAMINS1 EAC9 PO (15:51)
[2016-08-20] MEDS ORDERED: TIZANIDINE HCL4 M1 PO (15:51)
[2016-08-20] MEDS ORDERED: AMITRIPTYLINE H25 M2 PO (15:51)
[2016-08-20] MEDS ORDERED: VITAMIN A10000 UNI1 PO (15:52)
[2016-08-20] MEDS ORDERED: VITAMIN C500 M8 PO (15:53)
[2016-08-20] MEDS ORDERED: VITAMIN B-121000 MC3 PO (15:53)
[2016-08-20] MEDS ORDERED: VITAMIN E100 UNI2 PO (15:53)
[2016-08-20] MEDS ORDERED: ZINC50 M2 PO (15:54)
[2016-08-20] MEDS ORDERED: KLONOPIN0.5 M1 PO (19:50)
[2016-08-20] MEDS ORDERED: BACLOFEN20 M1 PO (19:50)
--- NOTE | 2016-08-20 20:10 | History & Physical ---
General Information and HPI Allergies/Medications Allergies: Coded Allergies: No Known Allergies (03/25/16) Home Med list Amitriptyline HCl 25 MG TABLET 1 TAB PO QPM TREMORS (Reported) Ascorbic Acid (Vitamin C) (Unknown Strength) TABLET (Unknown Dose) PO DAILY SUPPLEMENT (Reported) Aspirin (Ecotrin*) 81 MG TABLET.DR 1 TAB PO DAILY HEART HEALTH (Reported) Baclofen 20 MG TABLET 1 TAB PO 4 TIMES/DAY MS (Reported) Cholecalciferol (Vitamin D3) 1,000 UNIT TABLET 1 TAB PO DAILY SUPPLEMENT ( Reported) Clonazepam (Klonopin) 0.5 MG TABLET 1 TAB PO BIDP PRN "SHAKES" (Reported) Cyanocobalamin (Vitamin B-12) (Unknown Strength) TABLET (Unknown Dose) PO DAILY SUPPLEMENT (Reported) Solifenacin Succinate (Vesicare) 10 MG TABLET 1 TAB PO QPM BLADDER (Reported) Tizanidine HCl 4 MG TABLET 1 TAB PO PRN MUSCLE SPASMS (Reported) Vitamin A Palmitate (Vitamin A) (Unknown Strength) CAPSULE (Unknown Dose) PO DAILY SUPPLEMENT (Reported) Vitamin E Mixed (Vitamin E) (Unknown Strength) TABLET (Unknown Dose) PO DAILY SUPPLEMENT (Reported) ZINC (Unknown Strength) TABLET (Unknown Dose) PO DAILY SUPPLEMENT (Reported) Past History Travel History Traveled to [place] past 21 day No Medical History Neurological: multiple sclerosis EENT: NONE Cardiovascular: NONE Respiratory: NONE Gastrointestinal: DIVERTING COLOSTOMY small bowel obstruction Hepatic: NONE Renal: SUPRAPUBIC TUBE Musculoskeletal: disk herniation Psychiatric: NONE Endocrine: NONE Blood Disorders: NONE Cancer(s): 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 Past Family/Social History Family History Relations & Conditions if any BROTHER FH: cancer MOTHER Pacemaker Relation not specified for: Family history unknown Psychosocial History Services at Home: Home Health Aide, Nursing Smoking Status: Unknown If Ever Smoked Functional Ability Ambulation: non-ambulatory, wheelchair Core Measures/Miscellaneous Cerebrovascular Accident CVA/TIA Diagnosis: No Sepsis (View Protocol) Severe Sepsis Present: No Septic Shock Septic Shock Present: No
--- NOTE | 2016-08-20 20:23 | History & Physical ---
REYES CARLOS 08/20/162022: General Information and HPI MD Statement: I have seen and personally examined GLENN MAYO and documented this H&P. The patient is a 65 year old F who presented with a patient stated chief complaint of chronic decubitus ulcer not able to manage by home health service. []. Source of Information: patient Exam Limitations: no limitations History of Present Illness: Patient is 65 year old female past medical history significant for MS not able to ambulate bedridden, chronic suprapubic catheter, status post colostomy, chronic leg, foot and sacrococcygeal decubitus ulcers was sent in from wound clinic with chief complaint of difficulty self managing her and difficulty arranging home health services as most of [facility] are refusing taking care of her. Patient had recent visit to [facility] with the last couple of weeks where apparently she was admitted for cellulitis and during her hospital stay at one point she was also transferred to ICU but patient wasn' t sure why and was discharged to [facility]. She stayed for 5 days in [facility] for IV antibiotics and then was discharged to home. She denied any chills, fever, recent MS flareup, headache, dizziness, any urinary or bowel complaints. Vital signs on admission were temperature 97.2, pulse 81, respiratory rate 20, blood pressure 176/116, pulse OX 99% on room air. Labs WBC count 10.1, hemoglobin 11.1, hematocrit 35.3, platelet count 454, sodium 143, potassium 4.1, BUNs 7, creatinine 0.7, lactic acid 1.5, AST 19, AST 20, alkaline phosphatase 128, C-reactive protein 4.4 Allergies/Medications Allergies: Coded Allergies: No Known Allergies (03/25/16) Home Med list Amitriptyline HCl 25 MG TABLET 1 TAB PO QPM TREMORS (Reported) Ascorbic Acid (Vitamin C) (Unknown Strength) TABLET (Unknown Dose) PO DAILY SUPPLEMENT (Reported) Aspirin (Ecotrin*) 81 MG TABLET.DR 1 TAB PO DAILY HEART HEALTH (Reported) Baclofen 20 MG TABLET 1 TAB PO 4 TIMES/DAY MS (Reported) Cholecalciferol (Vitamin D3) 1,000 UNIT TABLET 1 TAB PO DAILY SUPPLEMENT ( Reported) Clonazepam (Klonopin) 0.5 MG TABLET 1 TAB PO BIDP PRN "SHAKES" (Reported) Cyanocobalamin (Vitamin B-12) (Unknown Strength) TABLET (Unknown Dose) PO DAILY SUPPLEMENT (Reported) Solifenacin Succinate (Vesicare) 10 MG TABLET 1 TAB PO QPM BLADDER (Reported) Tizanidine HCl 4 MG TABLET 1 TAB PO PRN MUSCLE SPASMS (Reported) Vitamin A Palmitate (Vitamin A) (Unknown Strength) CAPSULE (Unknown Dose) PO DAILY SUPPLEMENT (Reported) Vitamin E Mixed (Vitamin E) (Unknown Strength) TABLET (Unknown Dose) PO DAILY SUPPLEMENT (Reported) ZINC (Unknown Strength) TABLET (Unknown Dose) PO DAILY SUPPLEMENT (Reported) Compliance With Home Meds: GOOD Observation Initial Note - I have personally examined GLENN MAYO on 08/20/16 at 2312. 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 Past Family/Social History Family History Relations & Conditions if any BROTHER FH: cancer MOTHER Pacemaker Relation not specified for: Family history unknown Psychosocial History Services at Home: Home Health Aide, Nursing Smoking Status: Unknown If Ever Smoked Functional Ability Ambulation: non-ambulatory, wheelchair Review of Systems Review of Systems Constitutional: Denies: chills, fever, malaise. EENTM: Denies: blurred vision, double vision. Cardiovascular: Denies: chest pain, orthopena. Respiratory: Denies: cough, hemoptysis. GI: Denies: abdominal pain, constipation, diarrhea. Genitourinary: Denies: dysuria, hematuria. Musculoskeletal: Denies: joint pain, joint swelling. Skin: Reports: see HPI. Neurological/Psychological: Reports: see HPI. Exam & Diagnostic Data Last 24 Hrs of Vital Signs/I&O Vital Signs Date Time Temp Pulse Resp B/P B/P Pulse O2 O2 Flow FiO2 Mean Ox Delivery Rate 08/20 2136 98.7 77 20 160/104 97 08/20 1928 97.4 76 18 185/77 99 Room Air 08/20 1613 97.3 73 18 180/80 98 08/20 1307 99 08/20 1247 97.2 81 20 176/116 99 Room Air Intake & Output 08/20 1600 08/20 0800 08/20 0000 Intake Total Output Total Balance Patient 250 lb Weight Weight Reported by Patient Measurement Method Physical Exam General Appearance Alert, Oriented X3, Cooperative, No Acute Distress Skin she has multiple sacrococcygeal decubitus ulcer at different stages from 22 stage IV, large being on coccygeal region stage IV almost 5 into 6 cm, left cough ulcer stage II, chronic scaly left foot skin with falling cough big toenail. HEENT Atraumatic, PERRLA Neck Supple Cardiovascular Regular Rate, Normal S1, Normal S2 Lungs Normal Air Movement Abdomen Normal Bowel Sounds, colostomy bag and suprapubic catheter in place Neurological Normal Tone, Sensation Intact, bilateral lower extremity 2 x 5, a right upper extremity 3 x 5, left upper extremity for by 5 Extremities No Cyanosis, bilateral lower extremity edema Last 24 Hrs of Labs/Ace: Laboratory Tests 08/20/16 1559: Lactic Acid Cancelled 08/20/16 1340: Anion Gap 12, Estimated GFR > 60, BUN/Creatinine Ratio 10.0, Glucose 98, Lactic Acid 1.5, Calcium 8.8, Total Bilirubin 0.4, AST 19, ALT 20, Alkaline Phosphatase 128 H, C-Reactive Prot, Quant 4.4 H, Total Protein 9.0 H, Albumin 3.5, Globulin 5.5 H, Albumin/Globulin Ratio 0.6 L, CBC w Diff NO MAN DIFF REQ, RBC 5.03, MCV 70.2 L, MCH 22.0 L, RDW 18.8 H, MPV 7.1 L, Gran % 62.1, Lymphocytes % 27.7, Monocytes % 6.1, Eosinophils % 3.6, Basophils % 0.5, Absolute Granulocytes 6.3, Absolute Lymphocytes 2.8, Absolute Monocytes 0.6, Absolute Eosinophils 0.4, Absolute Basophils 0, PUBS MCHC 31.4 L Microbiology 08/20 1533 BLOOD: Blood Culture - RECD 08/20 1340 BLOOD: Blood Culture - RECD Assessment/Plan Assessment: Patient is 65-year-old female with history of MS, bedridden, chronic decubitus sacrococcygeal ulcers stage 3-4 came here for further future management of her wounds. We will observe patient on general medical floor for the following problems Problem list 1. History of MS nonambulatory, bedridden, Mae lift 2. Chronic stage 3-4 sacral coccygeal decubitus ulcers 3. Chronic bilateral lower extremity edema with left of wound 4. History of neurogenic bladder status post suprapubic catheter 5. Status post colostomy Plan 1. Currently patient is afebrile with no signs of infections and we will watch patient off of antibiotics but we will repeat him and will watch her for any signs of infection 2. She has chronic suprapubic catheter replaced every month and she is due for suprapubic catheter change we will consider requesting urology to change the suprapubic cath 3. Podiatry consultation in a.m. for left toenail and left foot dermatitis 4. Bone consultation in a.m. meanwhile daily dressing changes with try to bat gauze, wet gauze packing and Xeroform 5. Social work/case management consultation in a.m. 6. We will request records from [facility] for recent admission 7. On examination her wounds do look like infected but we will consider ID consultation in a.m. if any need for further antibiotic use/wound culture 8. Patient was seen by Nick Del Toro MD in the past and we will request surgical consultation regarding requirement for wound debridement or skin grafting. Pharmacological DVT prophylaxis Patient is full code Regular diet As Ranked By This Provider Problem List: 1. Decubitus ulcer 2. Multiple open wounds Core Measures/Miscellaneous Acute Coronary Syndrome ACS Diagnosis: No Cerebrovascular Accident CVA/TIA Diagnosis: No Congestive Heart Failure CHF Diagnosis: No VTE (View Protocol) VTE Risk Factors: Age > 40 No Mech VTE prophylaxis d/t: Dermatitis No VTE Pharm Prophylaxis d/t: No contraindications VTE Diagnosis: No VTE Type: NONE VTE Confirmed by (Test): NONE Sepsis (View Protocol) Severe Sepsis Present: No Septic Shock Septic Shock Present: No Miscellaneous Documentation Attending Case Discussed With: LUIZA KAY MD Primary Care Physician: BARBARA MACIEL MD. Patient sees these Specialists Neurologist Level of Patient Care: General Medicine Resident Review Statement Resident Statement: examined this patient Other Findings: Patient was admitted by resident LUIZA KAY MD 08/20/16 2224: Observation Initial Note - I have personally examined GLENN MAYO on 08/20/16 at 2250. The disposition of GLENN MAYO is uncertain at this time and before a determination can be made, she requires a period of observation for the following reasons: need to evaluate if there is any active infection requiring IV antibiotics for multiple ulcers vs aggressive wound care that may be performed at a non-hospital setting. Will obtain ID, Podiatry, Wound care evaluations prior to making decision and bring in under observation. Attending MD Review Statement Attending Statement Attending MD Statement: examined this patient, discuss w/resident/PA/HELMINTHOLOGIST, agreed w/resident/PA/HELMINTHOLOGIST, reviewed EMR data (avail), amended to note Attending Assessment/Plan: The patient is a 65 yo female with h/o MS with h/o right hemiparesis, colostomy and suprapubic catheter, chronic sacral decubitus ulcer and LE ulcers, h/o SBO in past who was sent to ED from wound care clinic where she presented as an outpatient for follow-up wound care. Her recent h/o was significant for an admission to [facility] for cellulitis (?she described being ICU) and subsequent discharge to rehab ([facility]) for 5 additional days of IV antibiotics. She was then discharged to home with home care provided by [facility]? She stated that they saw her and said her wounds were too difficult for them to care for and thus they provided no care for her. She did have one of her home health aides with her in the hospital. She also stated that she could not afford ambulance rides to and from the wound care center for care. She requires a Mae lift for movement at home. She was sent to the ED and I was informed by PA that case management had suggested Observation stay in order to arrange proper home wound care. She denied any fever or chills or significant changes in wounds. ED had given a dose of Unasyn. Reviewed prior cultures at [facility] and in distant past had grown MRSA/Pseudomonas (no recent resistant infections - patient states she was not on isolation at [facility]). She has been seen by ID (Dr. Denney), surgery and Podiatry (Dr. Acosta) for wound care. Physical Exam: VS: T 97.2, P 811, R 20, BP 180/80, PO 98% RA HEENT: eyes- PERRLA, EOMI lauren- moist mucosa, no lesions Neck: no JVD/bruits, adenopathy Chest: diminished BS at bases, clear Cor: RRR, nl S1, S2 w/o murm Abd: BS+, soft, NT, - masses or HSM, colostomy and suprapubic catheter in place Ext: 2+ edema, pulses 1+, +bilat ulcers- left toes- left 1st toenail out of place Back: + sacral/coccygeal decubitus with some ulcerations back of buttocks and both lower legs, ? serous drainage Neuro: severe weakness, right > left- w/o change as per patient. Labs/Tests- as above Impression/Plan: #Sacral/Coccygeal/LE Ulcers- appear to be chronic and require aggressive wound care. After discharge from rehab, [facility] refused wound care as per patient. Was able to get into wound care clinic today and sent to ED. No definite infection at present. Did receive 1 dose of IV Unasyn in ED. No fever/ elevated WBC. Recent [facility] admit for cellulitis. Plan: Hold further antibiotics pending full evaluation. Will bring into hospital under observation status at present. Wound care consult, ID consult, Podiatry consult (Dr. Acosta) in morning. Case management evaluation for feasibility of home wound care- patient does not desire to return to rehab center. #Multiple Sclerosis- has been stable at present. Plan: Care as per Neurologist- continue Tizanidine, etc. Suprapubic catheter care. #S/P Colostomy- for diverticulitis. Plan: Routine colostomy care. #Anemia- chronic and w/o change. Plan: Will follow.
[2016-08-20 21:36] VITALS: BP 160/104
[2016-08-21 01:13] VITALS: BP 154/92
[2016-08-21 06:49] VITALS: BP 140/86
--- NOTE | 2016-08-21 07:57 | PN- Housestaff ---
See Addendum Subjective Follow-up For: Decubitus ulcer Subjective: She presented last night. She is feeling okay this morning. She does not have much pain. She came in because she could not take care of her wound at home. The visiting nurse services have ended. No chest pain or shortness of breath. Review of Systems Constitutional: Reports: no symptoms. EENTM: Reports: no symptoms. Cardiovascular: Reports: no symptoms. Respiratory: Reports: no symptoms. Gastrointestinal: Reports: no symptoms. Genitourinary: Reports: no symptoms. Musculoskeletal: Reports: no symptoms. Skin: Reports: see HPI. Neurological/Psychological: Reports: no symptoms. Hematologic/Endocrine: Reports: no symptoms. Immunologic/Allergic: Reports: no symptoms. Objective Last 24 Hrs of Vital Signs/I&O Vital Signs Date Time Temp Pulse Resp B/P B/P Pulse O2 O2 Flow FiO2 Mean Ox Delivery Rate 08/21 0649 98.5 74 20 140/86 92 08/21 0113 154/92 08/20 2136 98.7 77 20 160/104 97 08/20 1928 97.4 76 18 185/77 99 Room Air 08/20 1613 97.3 73 18 180/80 98 08/20 1307 99 08/20 1247 97.2 81 20 176/116 99 Room Air Intake & Output 08/21 0800 08/21 0000 08/20 1600 Intake Total 120 120 Output Total 651 1120 Balance -531 -1000 Intake, Oral 120 120 Output, Stool 1 Output, Urine 650 1120 Patient 250 lb 250 lb Weight Weight Reported by Patient Reported by Patient Measurement Method Physical Exam General Appearance: Alert, Oriented X3, Cooperative, No Acute Distress Cardiovascular: Regular Rate, Normal S1, Normal S2 Lungs: Clear to Auscultation Abdomen: ostomy bag present. No surrounding erythema. Abdomen nontender to palpation. Extremities: left foot with significant dry skin, some ulcerations. Some toenails are falinng off Current Medications: Current Medications Sig/Mary Grace Start time Last Medication Dose Route Stop Time Status Admin Acetaminophen 650 MG Q6P PRN 08/20 2115 AC PO Amitriptyline HCl 25 MG QPM 08/20 2200 AC 08/20 PO 2356 Ampicillin Sodium/ 0 .STK-MED ONE 08/20 1631 DC Sulbactam Sodium .ROUTE Ampicillin Sodium/ 3,000 MG ONCE ONE 08/20 1630 DC 08/20 Sulbactam Sodium IV 08/20 1659 1639 Sodium Chloride 100 ML Ascorbic Acid 500 MG DAILY 08/21 1000 AC PO Aspirin Buffered 81 MG DAILY 08/21 1000 AC PO Baclofen 20 MG Q6 08/20 2359 AC 08/21 PO 0552 Clonazepam 0.5 MG BID PRN 08/20 2114 AC PO 08/27 2113 Enoxaparin Sodium 40 MG DAILY 08/20 2300 AC SC Ibuprofen 600 MG Q6P PRN 08/20 2114 AC PO Oxybutynin Chloride 10 MG AT BEDTIME 08/20 2199 AC 08/20 PO 2356 Oxycodone/ 2 TAB Q6P PRN 08/20 2114 AC Acetaminophen PO Tizanidine HCl 4 MG DAILY PRN 08/20 2114 AC PO Last 24 Hrs of Lab/Ace Results Last 24 Hrs of Labs/Mics: Laboratory Tests 08/21/16 0630: Sodium Pending, Potassium Pending, Chloride Pending, Carbon Dioxide Pending, Anion Gap Pending, BUN Pending, Creatinine Pending, BUN/Creatinine Ratio Pending , CBC w Diff Pending, WBC Pending, RBC Pending, Hgb Pending, Hct Pending, MCV Pending, MCH Pending, RDW Pending, Plt Count Pending, MPV Pending, PUBS MCHC Pending 08/20/16 1559: Lactic Acid Cancelled 08/20/16 1340: Anion Gap 12, Estimated GFR > 60, BUN/Creatinine Ratio 10.0, Glucose 98, Lactic Acid 1.5, Calcium 8.8, Total Bilirubin 0.4, AST 19, ALT 20, Alkaline Phosphatase 128 H, C-Reactive Prot, Quant 4.4 H, Total Protein 9.0 H, Albumin 3.5, Globulin 5.5 H, Albumin/Globulin Ratio 0.6 L, CBC w Diff NO MAN DIFF REQ, RBC 5.03, MCV 70.2 L, MCH 22.0 L, RDW 18.8 H, MPV 7.1 L, Gran % 62.1, Lymphocytes % 27.7, Monocytes % 6.1, Eosinophils % 3.6, Basophils % 0.5, Absolute Granulocytes 6.3, Absolute Lymphocytes 2.8, Absolute Monocytes 0.6, Absolute Eosinophils 0.4, Absolute Basophils 0, PUBS MCHC 31.4 L Microbiology 08/20 1533 BLOOD: Blood Culture - RECD 08/20 1340 BLOOD: Blood Culture - RECD Assessment/Plan Assessment: Patient is 65-year-old female with history of MS, bedridden, chronic decubitus sacrococcygeal ulcers stage 3-4 came here for further future management of her wounds. She is status post colectomy with an ostomy bag for the past 10 years after severe diverticulitis. #Chronic stage 3-4 sacral coccygeal decubitus ulcers: She is currently afebrile with no signs of infection. We'll watch her off antibiotics. The reason she came into the hospital is because she has issues taking care of herself at home. We will have social work and case management see her. -Wound consult -family caseworker consult -Request records from [facility] -Pain control with Percocet and ibuprofen and acetaminophen #Chronic bilateral lower extremity edema with left of wound: Her left toenail is coming off. We will consult podiatry on this. -Follow up podiatry consult #History of neurogenic bladder status post suprapubic catheter: This needs to be changed every month which is now due. Call urology for this. -Follow up urology consult -Continue home oxybutynin #Microcytic anemia: Hemoglobin 10.2, MCV 69.8. Likely anemia of chronic disease given her decubitus ulcer. -Follow up iron studies #Ostomy: Does not look infected and is producing. -Ostomy care, continue to monitor #Chronic medical issues: Anxiety, constipation, vitamins supplementation -Continue home clonazepam, amitriptyline, baclofen, aspirin, ascorbic acid, Tizanidine for muscle spasms Pharmacological DVT prophylaxis with Lovenox Patient is full code Regular diet Problem List: 1. Sacral decubitus ulcer 2. Suprapubic catheter 3. Colostomy care 4. Open wound of foot 5. Decubitus ulcer Pain Ratin Pain Location: Back Pain Goal: Remain pain free Pain Plan: See assessment and plan Tomorrow's Labs & Rationales: CBC
[2016-08-21 08:10] LABS: ABSOLUTE BASOPHIL COUNT 0 /CUMM (0.0-0.2); ABSOLUTE EOSINOPHIL COUNT 0.4 /CUMM (0.0-0.7); ABSOLUTE GRANULOCYTE CT 4.3 /CUMM (1.4-6.5); ABSOLUTE LYMPH COUNT 1.7 /CUMM (1.2-3.4); ABSOLUTE MONOCYTE COUNT 0.5 /CUMM (0.10-0.60); BASOPHIL % 0.7 % (0.0-2.0); EOSINOPHIL % 5.6 % (0-5); HEMATOCRIT 31.9 % (37-47); MEAN CORPUSCULAR HGB 22.3 PG (27.0-31.0); MEAN CORPUSCULAR HGB CONC 31.9 G/DL (33.0-37.0); MEAN CORPUSCULAR VOLUME 69.8 FL (81.0-99.0); MEAN PLATELET VOLUME 7.4 FL (7.4-10.4); PLATELET COUNT 411 /CUMM (130-400); RED BLOOD CELL CT 4.57 /CUMM (4.20-5.40); WHITE BLOOD CELL COUNT 6.9 /CUMM (4.8-10.8)
[2016-08-21 14:16] VITALS: BP 158/98
--- NOTE | 2016-08-21 16:13 | Cons- General Surgery ---
General Information and HPI Consulting Request Date of Consult: 08/21/16 Requested By: DOMENICA DEJESUS MD History of Present Illness: cc: sacral decubitus HPI: She says she was admitted yesterday because there is no one to take care of her decubitus ulcers anymore. She is a 65 yo nondiabetic nonsmoker with MS for over 15 years, complicated by urinary incontinence (suprapubic catheter), sacral decubiti, she's nonambulatory. I saw her last 02/08/2016 for small bowel obstruction then more recently my colleague saw her in March for calf and foot decubiti. We've seen her in the past for the decubiti, I did a consult on her here on 04/14/2013 for a sacral decubitus. The PFSH and ROS were reviewed and have not changed significantly since then, unless stated here. She has a colostomy from 2004 related to diverticulitis, this was not reversed because she is relatively bedbound. She denies any fevers sweats pain nausea vomiting, chest pain or shortness of breath or significant changes in her bowel habits weight or appetite. Allergies/Medications Allergies: Coded Allergies: No Known Allergies (03/25/16) Home Med List: Amitriptyline HCl 25 MG TABLET 1 TAB PO QPM TREMORS (Reported) Ascorbic Acid (Vitamin C) (Unknown Strength) TABLET (Unknown Dose) PO DAILY SUPPLEMENT (Reported) Aspirin (Ecotrin*) 81 MG TABLET.DR 1 TAB PO DAILY HEART HEALTH (Reported) Baclofen 20 MG TABLET 1 TAB PO 4 TIMES/DAY MS (Reported) Cholecalciferol (Vitamin D3) 1,000 UNIT TABLET 1 TAB PO DAILY SUPPLEMENT ( Reported) Clonazepam (Klonopin) 0.5 MG TABLET 1 TAB PO BIDP PRN "SHAKES" (Reported) Cyanocobalamin (Vitamin B-12) (Unknown Strength) TABLET (Unknown Dose) PO DAILY SUPPLEMENT (Reported) Ferrous Sulfate 325 MG (65 MG IRON) TABLET.DR 1 TAB PO BID Iron deficiency Solifenacin Succinate (Vesicare) 10 MG TABLET 1 TAB PO QPM BLADDER (Reported) Tizanidine HCl 4 MG TABLET 1 TAB PO PRN MUSCLE SPASMS (Reported) Vitamin A Palmitate (Vitamin A) (Unknown Strength) CAPSULE (Unknown Dose) PO DAILY SUPPLEMENT (Reported) Vitamin E Mixed (Vitamin E) (Unknown Strength) TABLET (Unknown Dose) PO DAILY SUPPLEMENT (Reported) ZINC (Unknown Strength) TABLET (Unknown Dose) PO DAILY SUPPLEMENT (Reported) Current Medications: I reviewed Current Medications Sig/Mary Grace Start time Last Medication Dose Route Stop Time Status Admin Acetaminophen 650 MG Q6P PRN 08/20 2114 AC PO Amitriptyline HCl 25 MG QPM 08/20 220 AC 08/20 PO 2356 Ampicillin Sodium/ 0 .STK-MED ONE 08/20 1631 DC Sulbactam Sodium .ROUTE Ampicillin Sodium/ 3,000 MG ONCE ONE 08/20 1630 DC 08/20 Sulbactam Sodium IV 08/20 1659 1639 Sodium Chloride 100 ML Ascorbic Acid 500 MG DAILY 08/21 1000 AC 08/21 PO 0939 Aspirin Buffered 81 MG DAILY 08/21 1000 AC 08/21 PO 0939 Baclofen 20 MG Q6 08/20 235 AC 08/21 PO 1307 Clonazepam 0.5 MG BID PRN 08/20 2114 AC 08/21 PO 08/27 211 1310 Enoxaparin Sodium 40 MG DAILY 08/20 2300 AC 08/21 SC 0938 Ibuprofen 600 MG Q6P PRN 08/20 2114 AC PO Oxybutynin Chloride 10 MG AT BEDTIME 08/20 2199 AC 08/20 PO 2357 Oxycodone/ 2 TAB Q6P PRN 08/20 2114 AC Acetaminophen PO Tizanidine HCl 4 MG DAILY PRN 08/20 2114 AC PO Past History Medical History Blood Transfusion Hx: No Neurological: multiple sclerosis EENT: NONE Cardiovascular: NONE Respiratory: NONE Gastrointestinal: DIVERTING COLOSTOMY small bowel obstruction Hepatic: NONE Renal: SUPRAPUBIC TUBE Musculoskeletal: disk herniation Psychiatric: NONE Endocrine: NONE Blood Disorders: NONE Cancer(s): NONE HATCHERY MAN/Reproductive: NONE Surgical History Pertinent Surgical History: cholecystectomy, COLOSTOMY BAG LOW BACK SURGERY R HEEL I+D'S SACRAL DECUB I&D'S right leg/heel flap closure of decubitus multiple sacral decubitus ulcer debridements. Family History Relations & Conditions If Any: BROTHER FH: cancer MOTHER Pacemaker Relation not specified for: Family history unknown Psychosocial History Where Do You Live? Home Services at Home: Home Health Aide, Nursing Smoking Status: Never Smoked Functional Ability Ambulation: non-ambulatory, wheelchair Review of Systems Review of Systems: As above her stated previously Exam & Diagnostic Data Vital Signs and I&O I reviewed Vital Signs Date Time Temp Pulse Resp B/P B/P Pulse O2 O2 Flow FiO2 Mean Ox Delivery Rate 08/21 1416 98.7 81 20 158/98 93 Room Air 08/21 0649 98.5 74 20 140/86 92 08/21 0113 154/92 08/20 2136 98.7 77 20 160/104 97 08/20 1928 97.4 76 18 185/77 99 Room Air 08/20 1613 97.3 73 18 180/80 98 I reviewed Intake & Output 08/21 1600 08/21 0800 08/21 0000 08/20 1600 08/20 0808/20 0000 Intake Total 1800 120 120 Output Total 4969 479 2411 Balance 300 -531 -1000 Intake, IV 0 Intake, Oral 1800 120 120 Output, Stool 200 1 Output, Urine 7272 834 6622 Patient 250 lb 250 lb 250 lb Weight Weight Reported by Patient Reported by Patient Measurement Method Physical Exam: Constitutional: pleasant, no acute distress, conversant Eyes: sclera anicteric ENMT: ears and nose atraumatic, moist mucous membranes, good dentition, no lip lesions Neck: Supple, trachea is midline, no cervical or supraclavicular adenopathy and no palpable thyromegaly Cardiovascular: S1, S2, no murmurs, no peripheral edema Respiratory: clear to auscultation with normal respiratory effort and no intercostal retractions GI: abdomen soft, nontender, nondistended, no palpable hepatosplenomegaly Extremities / lymphatics: symmetrically warm, free range of motion no peripheral edema, no cervical, supraclavicular, axillary, or inguinal adenopathy Musculoskeletal: no digital cyanosis, good muscle strength and tone no atrophy, motor grossly 5 out of 5 throughout Skin: no jaundice, no rashes warm, nondiaphoretic, no areas of erythema or induration I examined her sacral area there is a broad over to 15 cm area of excoriation some mild venous oozing but no necrosis, centrally there is some exposed tendon but there is granulation tissue Psychiatric: mood and affect are appropriate and alert and oriented to person place and time Last 24 Hours of Labs: I reviewed Laboratory Tests 08/21 0630 Chemistry Sodium (137 - 145 mmol/L) 140 Potassium (3.5 - 5.1 mmol/L) 4.3 Chloride (98 - 107 mmol/L) 106 Carbon Dioxide (22 - 30 mmol/L) 25 Anion Gap (5 - 16) 8 BUN (7 - 17 mg/dL) 7 Creatinine (0.5 - 1.0 mg/dL) 0.6 Estimated GFR (>60 ml/min) > 60 BUN/Creatinine Ratio (7 - 25 %) 11.7 Iron (37 - 170 ug/dL) 23 L TIBC (265 - 497 ug/dL) 278 Ferritin (11.1 - 264 ng/mL) 12.3 Hematology CBC w Diff NO MAN DIFF REQ WBC (4.8 - 10.8 /CUMM) 6.9 RBC (4.20 - 5.40 /CUMM) 4.57 Hgb (12.0 - 16.0 G/DL) 10.2 L Hct (37 - 47 %) 31.9 L MCV (81.0 - 99.0 FL) 69.8 L MCH (27.0 - 31.0 PG) 22.3 L RDW (11.5 - 14.5 %) 19.0 H Plt Count (130 - 400 /CUMM) 411 H MPV (7.4 - 10.4 FL) 7.4 Gran % (42.2 - 75.2 %) 62.0 Lymphocytes % (20.5 - 51.1 %) 25.1 Monocytes % (1.7 - 9.3 %) 6.6 Eosinophils % (0 - 5 %) 5.6 H Basophils % (0.0 - 2.0 %) 0.7 Absolute Granulocytes (1.4 - 6.5 /CUMM) 4.3 Absolute Lymphocytes (1.2 - 3.4 /CUMM) 1.7 Absolute Monocytes (0.10 - 0.60 /CUMM) 0.5 Absolute Eosinophils (0.0 - 0.7 /CUMM) 0.4 Absolute Basophils (0.0 - 0.2 /CUMM) 0 PUBS MCHC (33.0 - 37.0 G/DL) 31.9 L Assessment/Plan Assessment/Plan Patient who because of her immobility has re-developed pressure sores on her sacrum and it is maybe compounded by the fact that she has some leakage either from her suprapubic catheter or some urinary incontinence. My recommendation from a surgical perspective is that this does not need excisional debridement at this time, and it doesn't appear cellulitic or otherwise infected, recommend enzymatic ointments frequent dressing changes keeping the pressure off and optimizing the nutrition. Nonoperative measures have healed these before in her. Problem List: 1. Sacral decubitus ulcer Consult Acknowledgment - Thank you for your consult request.
--- NOTE | 2016-08-21 17:08 | Cons- Urology ---
General Information and HPI Consulting Request Date of Consult: 08/21/16 Requested By: DOMENICA DEJESUS MD Reason for Consult: SPT change Source of Information: patient, old records Exam Limitations: physical impairment History of Present Illness: 65 yo female with PMH significant for MS bedridden, chronic suprapubic catheter, colostomy, chronic leg, foot and sacrococcygeal decubitus ulcers was sent in from wound clinic difficulty managing her and difficulty arranging home health services. She has a hx of urinary incontinence due to a crippled neurogenic bladder. She has a SPT in place 26fr and has failed a BN closure previously. No signs of an UTI. She was supposed to be seen in the office for SPT change and possible botox injections for incontinence issues. She is on oxybutynin high dose but still is incontinent. She has been on all the OAB meds to date. Allergies/Medications Allergies: Coded Allergies: No Known Allergies (03/25/16) Home Med List: Amitriptyline HCl 25 MG TABLET 1 TAB PO QPM TREMORS (Reported) Ascorbic Acid (Vitamin C) (Unknown Strength) TABLET (Unknown Dose) PO DAILY SUPPLEMENT (Reported) Aspirin (Ecotrin*) 81 MG TABLET.DR 1 TAB PO DAILY HEART HEALTH (Reported) Baclofen 20 MG TABLET 1 TAB PO 4 TIMES/DAY MS (Reported) Cholecalciferol (Vitamin D3) 1,000 UNIT TABLET 1 TAB PO DAILY SUPPLEMENT ( Reported) Clonazepam (Klonopin) 0.5 MG TABLET 1 TAB PO BIDP PRN "SHAKES" (Reported) Cyanocobalamin (Vitamin B-12) (Unknown Strength) TABLET (Unknown Dose) PO DAILY SUPPLEMENT (Reported) Solifenacin Succinate (Vesicare) 10 MG TABLET 1 TAB PO QPM BLADDER (Reported) Tizanidine HCl 4 MG TABLET 1 TAB PO PRN MUSCLE SPASMS (Reported) Vitamin A Palmitate (Vitamin A) (Unknown Strength) CAPSULE (Unknown Dose) PO DAILY SUPPLEMENT (Reported) Vitamin E Mixed (Vitamin E) (Unknown Strength) TABLET (Unknown Dose) PO DAILY SUPPLEMENT (Reported) ZINC (Unknown Strength) TABLET (Unknown Dose) PO DAILY SUPPLEMENT (Reported) Current Medications: Current Medications Sig/Mary Grace Start time Last Medication Dose Route Stop Time Status Admin Acetaminophen 650 MG Q6P PRN 08/20 2114 AC PO Amitriptyline HCl 25 MG QPM 08/20 2199 AC 08/20 PO 2356 Ascorbic Acid 500 MG DAILY 08/21 1000 AC 08/21 PO 0939 Aspirin Buffered 81 MG DAILY 08/21 1000 AC 08/21 PO 0939 Baclofen 20 MG Q6 08/20 2359 AC 08/21 PO 1307 Clonazepam 0.5 MG BID PRN 08/20 2114 AC 08/21 PO 08/27 211 1310 Enoxaparin Sodium 40 MG DAILY 08/20 2300 AC 08/21 SC 0938 Ibuprofen 600 MG Q6P PRN 08/20 2114 AC PO Oxybutynin Chloride 10 MG AT BEDTIME 08/20 2200 AC 08/20 PO 2357 Oxycodone/ 2 TAB Q6P PRN 08/20 2114 AC Acetaminophen PO Tizanidine HCl 4 MG DAILY PRN 08/20 2114 AC PO Past History Medical History Blood Transfusion Hx: No Neurological: multiple sclerosis EENT: NONE Cardiovascular: NONE Respiratory: NONE Gastrointestinal: DIVERTING COLOSTOMY small bowel obstruction Hepatic: NONE Renal: SUPRAPUBIC TUBE Musculoskeletal: disk herniation Psychiatric: NONE Endocrine: NONE Blood Disorders: NONE Cancer(s): NONE MANAGER EMS/Reproductive: NONE Surgical History Pertinent Surgical History: cholecystectomy, COLOSTOMY BAG LOW BACK SURGERY R HEEL I+D'S SACRAL DECUB I&D'S right leg/heel flap closure of decubitus multiple sacral decubitus ulcer debridements. Family History Relations & Conditions If Any: BROTHER FH: cancer MOTHER Pacemaker Relation not specified for: Family history unknown Psychosocial History Where Do You Live? Home Services at Home: Home Health Aide, Nursing Smoking Status: Never Smoked Functional Ability Ambulation: non-ambulatory, wheelchair Review of Systems Review of Systems Constitutional: Reports: no symptoms. EENTM: Reports: no symptoms. Cardiovascular: Reports: no symptoms. Respiratory: Reports: no symptoms. GI: Reports: no symptoms. Musculoskeletal: Reports: no symptoms. Neurological/Psychological: Reports: no symptoms. Hematologic/Endocrine: Reports: no symptoms. Immunologic/Allergic: Reports: no symptoms. Exam & Diagnostic Data Vital Signs and I&O Vital Signs Date Time Temp Pulse Resp B/P B/P Pulse O2 O2 Flow FiO2 Mean Ox Delivery Rate 08/21 1416 98.7 81 20 158/98 93 Room Air 08/21 0649 98.5 74 20 140/86 92 08/21 0113 154/92 07/11 2136 98.7 77 20 160/104 97 08/20 1928 97.4 76 18 185/77 99 Room Air Intake & Output 08/21 1600 08/21 0800 08/21 0000 08/20 1600 08/20 0800 08/20 0000 Intake Total 1800 120 120 Output Total 4411 146 4278 Balance 300 -531 -1000 Intake, IV 0 Intake, Oral 1800 120 120 Output, Stool 200 1 Output, Urine 5262 742 8514 Patient 113.398 kg 113.398 kg 113.398 kg Weight Weight Reported by Patient Reported by Patient Measurement Method Physical Exam: awake and alert, NAD lying in bed abd soft, ND/NT SPT 26Fr in place. Physical Exam General Appearance: no apparent distress, alert, awake, comfortable Head: atraumatic, normal appearance Eyes: Bilateral: normal appearance. Ears, Nose, Throat: normal ENT inspection Neck: normal inspection Respiratory: no respiratory distress, quiet respiration Gastrointestinal: soft, non-tender (SPT site c/d/i) Rectal: deferred Neurologic/Psych: awake, alert, oriented x 3 Cranial Nerves: normal hearing, normal speech Skin: intact, normal color, warm/dry Assessment/Plan Assessment/Plan 65yo female bedridden due to MS with chronic decubitus ulcers and urinary incontinence. did not change the SPT as the patient did not want me to downsize the SPT form the 26fr. Large catheter not available. FU in office and discussed the option of botox injection for the neurogenic bladder incontinence. She may need to have it in the OR as she is not able to transport onto an exam table. Consult Acknowledgment - Thank you for your consult request.
[2016-08-21 21:55] VITALS: BP 140/80
[2016-08-22 06:27] VITALS: BP 138/78
--- NOTE | 2016-08-22 06:53 | PN- Housestaff ---
Subjective Follow-up For: decubitus ulcer Subjective: Wound care came and saw her yesterday. There are about 4 large wounds that are stage 3/4. They recommended SNF however the patient is declining. We'll discuss with social work as she has lost services at home. These wounds will likely need close follow-up and care that the patient is not able to provide herself. Otherwise she slept okay, she was woken up at 1 AM and is annoyed by this. No pain or other complaints. Review of Systems Constitutional: Reports: no symptoms. EENTM: Reports: no symptoms. Cardiovascular: Reports: no symptoms. Respiratory: Reports: no symptoms. Gastrointestinal: Reports: no symptoms. Genitourinary: Reports: no symptoms. Musculoskeletal: Reports: see HPI. Skin: Reports: no symptoms. Neurological/Psychological: Reports: no symptoms. Hematologic/Endocrine: Reports: no symptoms. Immunologic/Allergic: Reports: no symptoms. Objective Last 24 Hrs of Vital Signs/I&O Vital Signs Date Time Temp Pulse Resp B/P B/P Pulse O2 O2 Flow FiO2 Mean Ox Delivery Rate 08/22 0627 98.7 75 20 138/78 94 Room Air 08/21 2155 98.6 80 20 140/80 94 Room Air 08/21 1416 98.7 81 20 158/98 93 Room Air Intake & Output 08/22 0800 08/22 0000 08/21 1600 Intake Total 615 530 1495 Output Total 469 109 8854 Balance -10 350 300 Intake, IV 0 Intake, Oral 111 740 1968 Output, Stool 50 200 Output, Urine 550 994 7690 Patient 250 lb Weight Physical Exam General Appearance: Alert, Oriented X3, Cooperative, No Acute Distress Cardiovascular: Regular Rate, Normal S1, Normal S2 Lungs: Clear to Auscultation Abdomen: Normal Bowel Sounds, Soft, No Tenderness Extremities: left foot has significant ulcerations/wounds on toes. Current Medications: Current Medications Sig/Mary Grace Start time Last Medication Dose Route Stop Time Status Admin Acetaminophen 650 MG Q6P PRN 08/20 2114 AC PO Amitriptyline HCl 25 MG QPM 08/20 2199 AC 08/21 PO 2111 Ascorbic Acid 500 MG DAILY 08/21 1000 AC 08/21 PO 0939 Aspirin Buffered 81 MG DAILY 08/21 1000 AC 08/21 PO 0939 Baclofen 20 MG Q6 08/20 2359 AC 08/22 PO 0534 Clonazepam 0.5 MG BID PRN 08/20 2114 AC 08/21 PO 08/27 2113 1310 Enoxaparin Sodium 40 MG DAILY 08/20 2300 AC 08/21 SC 0938 Ibuprofen 600 MG Q6P PRN 08/20 2114 AC PO Oxybutynin Chloride 10 MG AT BEDTIME 08/20 2199 AC 08/21 PO 2111 Oxycodone/ 2 TAB Q6P PRN 08/20 2114 AC Acetaminophen PO Tizanidine HCl 4 MG DAILY PRN 08/20 2114 AC PO Assessment/Plan Assessment: Patient is 65-year-old female with history of MS, bedridden, chronic decubitus sacrococcygeal ulcers stage 3-4 came here for further future management of her wounds. She is status post colectomy with an ostomy bag for the past 10 years after severe diverticulitis. #Chronic stage 3-4 sacral coccygeal decubitus ulcers: She is currently afebrile with no signs of infection. We'll watch her off antibiotics. The reason she came into the hospital is because she has issues taking care of herself at home. We will have social work and case management see her. Ernestine saw her yesterday. There are several wounds stage 3/4 that are relatively large. She likely cannot take care of these herself. However she is also refusing going to a SNF or any facility that can help her with this. She also does not have services at home. We will have the talk with case management about dispo and discharge -Wound consult -stock house worker consult -Request records from [facility] - release has been faxed. -Pain control with Percocet and ibuprofen and acetaminophen #Chronic bilateral lower extremity edema with left of wound: Her left toenail is coming off. We will consult podiatry on this. It does not seem that Dr. Scott saw her yesterday. -Follow up podiatry consult if any #History of neurogenic bladder status post suprapubic catheter: This needs to be changed every month which is now due. Dr. Carl saw her yesterday. Because they do not have the right size catheter, this will have to be done outpatient. She is -10 fluid balance for the past 24 hours. -Follow up urology consult -Continue home oxybutynin #Microcytic anemia: Hemoglobin 10.2, MCV 69.8. Iron is low with normal TIBC and ferritin. We will give her iron supplementation. -Follow up iron studies #Ostomy: Does not look infected and is producing. -Ostomy care, continue to monitor #Chronic medical issues: Anxiety, constipation, vitamins supplementation -Continue home clonazepam, amitriptyline, baclofen, aspirin, ascorbic acid, Tizanidine for muscle spasms Pharmacological DVT prophylaxis with Lovenox Patient is full code Regular diet Problem List: 1. Colostomy care 2. Decubitus ulcer Pain Ratin Pain Location: No pain Pain Goal: Remain pain free Pain Plan: See assessment and plan Tomorrow's Labs & Rationales: None
[2016-08-22 09:19] LABS: ABSOLUTE BASOPHIL COUNT 0 /CUMM (0.0-0.2); ABSOLUTE EOSINOPHIL COUNT 0.4 /CUMM (0.0-0.7); ABSOLUTE GRANULOCYTE CT 4.1 /CUMM (1.4-6.5); ABSOLUTE LYMPH COUNT 2.4 /CUMM (1.2-3.4); ABSOLUTE MONOCYTE COUNT 0.4 /CUMM (0.10-0.60); BASOPHIL % 0.6 % (0.0-2.0); EOSINOPHIL % 5.4 % (0-5); GRANULOCYTE % 55.7 % (42.2-75.2); HEMATOCRIT 33.2 % (37-47); MEAN CORPUSCULAR HGB 22.4 PG (27.0-31.0); MEAN CORPUSCULAR HGB CONC 32.1 G/DL (33.0-37.0); MEAN CORPUSCULAR VOLUME 69.7 FL (81.0-99.0); MEAN PLATELET VOLUME 7.6 FL (7.4-10.4); PLATELET COUNT 402 /CUMM (130-400); RBC DISTRIBUTION WIDTH 19.3 % (11.5-14.5); RED BLOOD CELL CT 4.76 /CUMM (4.20-5.40); WHITE BLOOD CELL COUNT 7.4 /CUMM (4.8-10.8)
[2016-08-22] MEDS ORDERED: FERROUS SULFAT325 M2 PO (10:15)
--- NOTE | 2016-08-22 10:18 | Patient Discharge Instructions ---
Discharge Instructions General Discharge Information You were seen/treated for: Chronic unstageable ulcers in the sacral region Chronic suprapubic catheter You had these procedures: Wound Care assessment Watch for these problems: Fevers, chills Other wound care: Cleanse all wounds with NS FB silver alginate and ABD pads daily and as needed. Due to periwound maceration, adherence with tape to secure dressing with a likely be difficult. Patient would benefit from an Mattress. Patient must have group 2 APMbedrest with Q2 hours repositioning. Follow-up at [facility] in 2 weeks after discharge for reevaluation Special Instructions: Please contact your urologist within 1 week after discharge to follow-up on replacement of your suprapubic catheter. Take all medications as directed. Please follow-up with your PCP within one week after discharge. Follow-up with the wound Center within 2 weeks after discharge. Follow-up with your travel information center supervisor Dr. Acosta for any further foot care. Diet Continue normal diet: Yes Activity Activity Self Limited: Yes Acute Coronary Syndrome Inclusion Criteria At DC or during hospital stay patient has or had the following: ACS DIAGNOSIS No Discharge Core Measures Meds if any: Prescribed or Continued at Discharge Meds if any: NOT Prescribed or Continued at Discharge Congestive Heart Failure Inclusion Criteria At DC or during hospital stay patient has or had the following: CHF DIAGNOSIS No Discharge Core Measures Meds if any: Prescribed or Continued at Discharge Meds if any: NOT Prescribed or Continued at Discharge Cerebrovascular accident Inclusion Criteria At DC or during hospital stay patient has or had the following: CVA/TIA Diagnosis No Discharge Core Measures Meds if any: Prescribed or Continued at Discharge Meds if any: NOT Prescribed or Continued at Discharge Venous thromboembolism Inclusion Criteria VTE Diagnosis No VTE Type NONE VTE Confirmed by (Test) NONE Discharge Core Measures - Per Current guidelines, there needs to be overlap - treatment for the first 5 days of Warfarin therapy. - If discharged on Warfarin prior to 5 days of - overlap therapy, the patient will need to be - assessed for post discharge needs including - *Post discharge parental anticoagulation - *Warfarin and/or parental anticoagulation education - *Follow up date to check INR post discharge At least 5 days overlap therapy as Inpatient No Meds if any: Prescribed or Continued at Discharge Note: Overlap Therapy is Warfarin and Anticoagulant Meds if any: NOT Prescribed or Continued at Discharge
--- NOTE | 2016-08-22 11:02 | Discharge Summary ---
Visit Information Visit Dates Admission Date: 08/20/16 Discharge Date: 08/22/16 Hospital Course Course Attending Physician: DOMENICA DEJESUS MD Primary Care Physician: BARBARA MACIEL MD Hospital Course: Patient is 65-year-old female with history of MS, bedridden, chronic decubitus sacrococcygeal ulcers stage 3-4 came here for further future management of her wounds. She had been recently discharged from a nursing facility a couple weeks ago after being admitted at [facility] for cellulitis. She is status post colectomy with an ostomy bag for the past 10 years after severe diverticulitis. She came to the hospital because she wasn't able to manage her wounds and had difficulty arranging home health services due to a change in insurance. Vital signs on admission were temperature 97.2, pulse 81, respiratory rate 20, blood pressure 176/116, pulse OX 99% on room air. Labs WBC count 10.1, hemoglobin 11.1, hematocrit 35.3, platelet count 454, sodium 143, potassium 4.1, BUNs 7, creatinine 0.7, lactic acid 1.5, AST 19, AST 20, alkaline phosphatase 128, C-reactive protein 4.4 In the Emergency room, she got a dose of Unasyn. She was admitted to general medicine. Wound care came and saw her and assessed her wounds. They recommended she goes to a facility that can give her better management of her months. However the patient has declined. She will go home with services and follow-up with wound care. Problems: #Multiple Chronic stage 3-4 sacral coccygeal decubitus ulcers: She is unable to care for these herself. She remained afebrile with no signs of infection throughout her stay. She'll need home services for further care at home. #Chronic bilateral lower extremity edema with left of wound: Her left toenail was coming off. Wound care assessed this. She will receive further care with home services and at follow-ups with wound care. #History of neurogenic bladder status post suprapubic catheter: Urology came to see her to change the catheter. However they did not have the right size catheter. So she will have to go have this done as an outpatient. We continued her home oxybutynin. #Microcytic anemia: Hemoglobin 10.2, MCV 69.8. Iron is low with normal TIBC and ferritin. We gave her iron supplementation. She should continue this at home. #Ostomy: Ostomy did not look infected and was producing. She should continue self-care at home. #Chronic medical issues: Anxiety, constipation, vitamins supplementation -Continue home medications clonazepam, amitriptyline, baclofen, aspirin, ascorbic acid, Tizanidine for muscle spasms were continued. She should continue these as directed. Allergies: Coded Allergies: No Known Allergies (03/25/16) Disposition Summary Disposition Principal Diagnosis: Decubitus ulcer Additional Diagnosis: Ostomy, chronic leg and foot wound. Discharge Disposition: home health services Discharge Instructions General Discharge Information Code Status: Full Code Patient's Diet: Regular diet Patient's Activity: As tolerated Follow-Up Instructions/Appts: Please follow-up with wound care in 12 weeks. Please see your PCP in 1-2 weeks. Please take all medications as directed. Medications at Discharge Discharge Medications: Continue taking these medications: Aspirin (Ecotrin*) 81 MG TABLET.DR 1 Tablet ORAL DAILY Comments: Last Taken: 08/22/16 Time: 0930am Cholecalciferol (Vitamin D3) 1,000 UNIT TABLET 1 Tablet ORAL DAILY Comments: not given in hospital Solifenacin Succinate (Vesicare) 10 MG TABLET 1 Tablet ORAL Every night Comments: ditropan given in hospital Last Taken: 08/21/16 Time: 2pm Amitriptyline HCl (Amitriptyline HCl) 25 MG TABLET 1 Tablet ORAL Every night Qty = 90 Comments: Last Taken: 08/21/16 Time: 2pm Tizanidine HCl (Tizanidine HCl) 4 MG TABLET 1 Tablet ORAL as needed for MUSCLE SPASMS Qty = 90 Comments: Last Taken: 08/22/16 Time: 0530am Vitamin A Palmitate (Vitamin A) (Unknown Strength) CAPSULE Unknown Dose ORAL DAILY Comments: not given in hospital Cyanocobalamin (Vitamin B-12) (Unknown Strength) TABLET Unknown Dose ORAL DAILY Comments: not given in hospital Ascorbic Acid (Vitamin C) (Unknown Strength) TABLET Unknown Dose ORAL DAILY Comments: Last Taken: 08/22/16 Time: 0930am Vitamin E Mixed (Vitamin E) (Unknown Strength) TABLET Unknown Dose ORAL DAILY Comments: not given in hospital ZINC (ZINC) (Unknown Strength) TABLET Unknown Dose ORAL DAILY Comments: not given in hospital Clonazepam (Klonopin) 0.5 MG TABLET 1 Tablet ORAL 2 x Daily as needed as needed for "SHAKES" Comments: Last Taken: 08/21/16 Time: 1310pm Baclofen (Baclofen) 20 MG TABLET 1 Tablet ORAL 4 TIMES A DAY Comments: Last Taken: 08/22/16 Time: 1200pm Start taking the following new medications: Ferrous Sulfate (Ferrous Sulfate) 325 MG (65 MG IRON) TABLET.DR 1 Tablet ORAL TWICE DAILY Qty = 60 No Refills Comments: Last Taken: 08/22/16 Time: 1200PM Copies To: JANELL CHUNG,BARBARA Zhu Attending MD Review Statement Documenting Attending: DOMENICA DEJESUS MD
== END 2016-08-22 13:12 | disposition home health service (06) ==
LOC: ERH 12:26 → 2NB 18:15 → ERHI 18:15 → ENRESERV 19:32 → CANRESERV 19:32 → ENTRNSPT 19:48 → ENRESERV 19:56 → EDTRNSPTSTS 19:58 → 2NB 20:29 → CMPTRNSPT 21:08 → 2NB 08-21 06:42 → ENPENDDIS 08-22 12:46 → 2NB 08-22 13:12
PROVIDERS: Internal Medicine; Physician Assistant Medical; ADMIT Internal Medicine
DX: L89.154 Pressure ulcer of sacral region, stage 4 (principal); G35 Multiple sclerosis; Z93.3 Colostomy status; N31.9 Neuromuscular dysfunction of bladder, unspecified; D64.9 Anemia, unspecified; L97.929 Non-pressure chronic ulcer of unspecified part of left lower leg with unspecified severity; L97.919 Non-pressure chronic ulcer of unspecified part of right lower leg with unspecified severity
CPT/HCPCS: 36415; 82436; 87040; 96372; 96374; G0378; J1650

== ENCOUNTER 2017-07-11 14:29 | Inpatient (IN) | payer OTHER ==
[~2017-07-11] VITALS: Ht 172.7 cm; Wt 109.0 kg
[~2017-07-11 14:29] MED LIST changes: +AMOX-CLAV 875-1 EACH PO; +AQUACEL AG FOA1 EAC7 TP; +BACTRIM DS TAB1 EACH PO; +EVENING PRIMRO1 EACH PO; +FERROUS SULFAT325 M2 PO; +MULTIVITAMINS1 EAC9 PO; +VESICARE10 MG PO; +VITAMIN A10000 UNI1 PO; +VITAMIN B-121000 MC3 PO; +VITAMIN C500 M8 PO; +VITAMIN E100 UNI2 PO; +ZINC50 M2 PO
[2017-07-11] MEDS ORDERED: TROSPIUM CHLORI20 M1 PO (15:15)
--- NOTE | 2017-07-11 15:21 | ED GI/GU/ABDOMINAL COMPLAINT ---
History of Present Illness General Chief Complaint: Nausea, Vomiting, Diarrhea Stated Complaint: +V X 6 HRS Source: patient, family, old records Exam Limitations: no limitations Vital Signs & Intake/Output Vital Signs & Intake/Output Vital Signs Date Time Temp Pulse Resp B/P B/P Pulse O2 O2 Flow FiO2 Mean Ox Delivery Rate 07/11 1700 98.0 84 20 156/80 95 Room Air 07/11 1444 98.5 102 20 174/86 93 Room Air Allergies Coded Allergies: No Known Allergies (03/25/16) Reconcile Medications Amitriptyline HCl 25 MG TABLET 1 TAB PO QPM TREMORS (Reported) Ascorbic Acid (Vitamin C) 500 MG TABLET 1 TAB PO DAILY SUPPLEMENT (Reported) Aspirin (Ecotrin*) 81 MG TABLET.DR 1 TAB PO DAILY HEART HEALTH (Reported) Baclofen 20 MG TABLET 2 TAB PO 4 TIMES/DAY MS (Reported) Cholecalciferol (Vitamin D3) 1,000 UNIT TABLET 1 TAB PO DAILY SUPPLEMENT ( Reported) Clonazepam (Klonopin) 0.5 MG TABLET 1 TAB PO DAILY PRN TREMOR (Reported) Cyanocobalamin (Vitamin B-12) 1,000 MCG TABLET 1 TAB PO DAILY SUPPLEMENT ( Reported) Ferrous Sulfate 325 MG (65 MG IRON) TABLET.DR 1 TAB PO BID Iron deficiency Solifenacin Succinate (Vesicare) 10 MG TABLET 1 TAB PO DAILY Bladder ( Reported) Tizanidine HCl 4 MG TABLET 1 TAB PO AT BEDTIME PRN MUSCLE SPASMS (Reported) Trospium Chloride 20 MG TABLET 1 TAB PO BID BLADDER (Reported) Vitamin A Palmitate (Vitamin A) 10,000 UNIT CAPSULE 1 CAP PO DAILY SUPPLEMENT (Reported) Vitamin E Mixed (Vitamin E) 100 UNIT TABLET 1 TAB PO DAILY SUPPLEMENT ( Reported) Triage Note: Pt presents to ER via ambulance with complaints of several vomitting episodes today. Pt denies any abdominal pain or diarrhea. Pt also complains of a headache. Triage Nurses Notes Reviewed? yes LMP (ages 10-50): post menopausal ? n Is pt currently ? No Onset: Morning Duration: hour(s):, constant, continues in ED Timing: recent history Quality/Severity: moderate, vomiting Radiation: no radiation Activities at Onset: rest Prior Abdominal Problems: similar symptoms Past Sexual History: Unobtainable at this time Modifying Factors: Worsens With: eating. Associated Symptoms: loss of appetite, nausea/vomiting HPI: Several hours prior to admission patient complains of nausea vomiting 6 times. She denies fever chills abdominal pain diarrhea chest pain cough shortness of breath headache dysuria rash bleeding. ED Sepsis Exam Date of Focused Sepsis Exam: 07/11/17 Time of Focused Sepsis Exam: 190 Sepsis Cardiac Exam: Regular Rate/Rhythm Sepsis Resp Exam: CTA Sepsis Cap Refill Exam: <2 Sec Sepsis Peripheral Pulse Exam: Normal Sepsis Peripheral Pulse Location: Radial Sepsis Skin Color Exam: Normal for Ethnicity Skin Temp/Moisture Exam: Warm/Dry Past History Travel History Traveled to [place] past 21 day No Medical History Any Pertinent Medical History? 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 Psychosocial History Who do you live with Patient/Self Services at Home Home Health Aide, Nursing What is your primary language Cypriot Tobacco Use: Never used Family History Family History, If Any: BROTHER FH: cancer MOTHER Pacemaker Relation not specified for: Family history unknown Hx Contributory? No Review of Systems Review of Systems Constitutional: Reports: see HPI, malaise. EENTM: Reports: no symptoms. Respiratory: Reports: no symptoms. Cardiovascular: Reports: no symptoms. GI: Reports: see HPI, nausea, vomiting. Genitourinary: Reports: no symptoms. Musculoskeletal: Reports: no symptoms. Skin: Reports: no symptoms. Neurological/Psychological: Reports: no symptoms. Hematologic/Endocrine: Reports: no symptoms. Immunologic/Allergic: Reports: no symptoms. All Other Systems: Reviewed and Negative Physical Exam Physical Exam General Appearance: well developed/nourished, alert, awake, mild distress, obese Head: atraumatic, normal appearance Eyes: Bilateral: normal appearance, PERRL, EOMI, normal inspection. Ears, Nose, Throat, Mouth: hearing grossly normal, moist mucous membrane Neck: normal inspection, supple, full range of motion, normal alignment, no midline tenderness Respiratory: normal breath sounds, chest non-tender, no respiratory distress, quiet respiration, lungs clear Cardiovascular: regular rate/rhythm, normal peripheral pulses, norml femoral pulses equa Peripheral Pulses: 4+ carotid (R), 4+ carotid (L) Gastrointestinal: normal bowel sounds, soft, non-tender, no organomegaly Back: normal inspection, normal range of motion, no vertebral tenderness Extremities: no ligament instability, Pressure ulcer right lower leg with ulceration eschar and surrounding erythema Neurologic/Psych: awake, alert, oriented x 3, check writer II-XII nml as tested, motor weakness Skin: rash, sacral decubitus ulcers with surrounding erythema warm to touch extending from presacral area to buttocks Core Measures ACS in differential dx? No Sepsis Present: Yes Sepsis Focused Exam Completed? Yes Progress Differential Diagnosis: pancreatitis, PUD/GERD, UTI/pyelo Plan of Care: Orders Procedure Date/time Status Regular Diet 07/11 D Active LACTIC ACID 07/11 1945 Active Add-on Test (ER Only) 07/11 1812 Active OXYGEN SETUP (GEN) 07/11 1727 Active Saline Lock 07/11 1727 Active Admit to inpatient 07/11 1727 Active Vital Signs 07/11 1727 Active Activity/Ambulation 07/11 1727 Active BLOOD CULTURE 07/11 1727 Active Code Status 07/11 1727 Active LACTIC ACID 07/11 1645 Complete CULTURE,URINE 07/11 1514 Active URINALYSIS 07/11 1514 Active TROPONIN LEVEL 07/11 1514 Complete LIPASE 07/11 1514 Complete COMPREHENSIVE METABOLIC PANEL 07/11 1514 Complete CBC WITHOUT DIFFERENTIAL 07/11 1514 Complete Current Medications Sig/Mary Grace Start time Last Medication Dose Stop Time Status Admin Sodium Chloride 1,000 ML BOLUS ONE 07/11 1814 AC (Normal Saline 0.9%) 07/11 1913 Sodium Chloride 1,000 ML BOLUS ONE 07/11 1814 AC 07/11 (Normal Saline 0.9%) 07/11 191 1827 Laboratory Tests 07/11/17 1845: Urine Color Pending, Urine Clarity Pending, Urine pH Pending, Ur Specific [place] Pending, Urine Protein Pending, Urine Ketones Pending, Urine Nitrite Pending, Urine Bilirubin Pending, Urine Urobilinogen Pending, Ur Leukocyte Esterase Pending, Ur Microscopic Pending, Urine Hemoglobin Pending, Urine Glucose Pending 07/11/17 1645: Anion Gap 24 H, Estimated GFR 41 L, BUN/Creatinine Ratio 22.3, Glucose 190 H, Lactic Acid 3.0 H, Calcium 10.2, Total Bilirubin 0.5, AST 27, ALT 22, Alkaline Phosphatase 145 H, Troponin I < 0.01, Total Protein 10.6 H, Albumin 4.5, Globulin 6.1 H, Albumin/Globulin Ratio 0.7 L, Lipase 107 07/11/17 1610: CBC w Diff MAN DIFF ORDERED, RBC 6.71 H, MCV 77.7 L, MCH 25.7 L, MCHC 33.1, RDW 16.9 H, MPV 7.4, Gran % 91.1 H, Lymphocytes % 6.8 L, Monocytes % 2.0, Eosinophils % 0.1, Basophils % 0, Absolute Granulocytes 19.0 H, Segmented Neutrophils 91 H, Band Neutrophils 1, Absolute Lymphocytes 1.4, Lymphocytes 3 L, Monocytes 5, Absolute Monocytes 0.4, Absolute Eosinophils 0, Absolute Basophils 0, Platelet Estimate VERIFIED BY SMEAR, Anisocytosis 1+, Fld Total RBCs Counted 100 Microbiology 07/11 1845 URINE ROUT: Urine Culture - RECD 07/11 1800 BLOOD: Blood Culture - RECD 07/11 1745 BLOOD: Blood Culture - RECD Initial ED EKG: none Rhythm Strip: sinus tachycardia Departure Departure Time of Disposition: 1728 Disposition: STILL A PATIENT Condition: Fair Clinical Impression Primary Impression: Cellulitis Secondary Impressions: Decubitus ulcer, Lactic acidosis, Leukocytosis, Nausea and vomiting Referrals: Aida CHUNG,Sophy Zhu (PCP/Family) Departure Forms: Customer Survey General Discharge Information Admission Note Spoke With: Berny Garza MD Documentation of Exam: Documentation of any treatments & extenuating circumstances including Concerns Regarding Discharge (functional status, medication knowledge or non-compliance, living conditions, etc.) that warrant an admission rather than observation: IV antibiotics IV antiemetic follow cultures serial lab exam medication adjustment continuing care discharge planning Critical Care Note Critical Care Note Critical Care Time: 30-74 min (30)
[2017-07-11 16:19] LABS: ABSOLUTE BASOPHIL COUNT 0 /CUMM (0.0-0.2); ABSOLUTE EOSINOPHIL COUNT 0 /CUMM (0.0-0.7); ABSOLUTE LYMPH COUNT 1.4 /CUMM (1.2-3.4); ABSOLUTE MONOCYTE COUNT 0.4 /CUMM (0.10-0.60); BASOPHIL % 0 % (0.0-2.0); EOSINOPHIL % 0.1 % (0-5); HEMATOCRIT 52.1 % (37-47); MEAN CORPUSCULAR HGB 25.7 PG (27.0-31.0); MEAN CORPUSCULAR HGB CONC 33.1 G/DL (33.0-37.0); MEAN CORPUSCULAR VOLUME 77.7 FL (81.0-99.0); MEAN PLATELET VOLUME 7.4 FL (7.4-10.4); PLATELET COUNT 457 /CUMM (130-400); RBC DISTRIBUTION WIDTH 16.9 % (11.5-14.5); RED BLOOD CELL CT 6.71 /CUMM (4.20-5.40); WHITE BLOOD CELL COUNT 20.9 /CUMM (4.8-10.8)
[2017-07-11 16:22] LABS: GRANULOCYTE % 91.1 % (42.2-75.2)
--- NOTE | 2017-07-11 19:44 | History & Physical ---
Gabrielle Maldonado MDapna 07/11/171942: General Information and HPI MD Statement: I have seen and personally examined GLENN HERNANDEZ and documented this H&P. The patient is a 66 year old F who presented with a patient stated chief complaint of [vomiting]. Source of Information: patient History of Present Illness: 66 YO F w/PMH significant for multiple sclerosis (wheelchair bound), small bowel obstruction status post diverting colostomy, suprapubic catheterization, disc herniation, cellulitis in December 2016, chronic decubitus ulcer stage IV came to [place] [facility] with complaints of nausea and vomiting since today morning. Patient was in usual state of health until yesterday, followed by 4-5 episodes of vomiting since morning containing both bile/food particles. She denied abdominal pain, fever, chills, dysuria, chest pain, shortness of breath, sick contacts. She is mostly wheelchair bound. She has health aide, to help with IADL,ADL. Patient is on Natalizumab. Allergies/Medications Allergies: Coded Allergies: No Known Allergies (03/25/16) Home Med list Amitriptyline HCl 25 MG TABLET 1 TAB PO QPM TREMORS (Reported) Ascorbic Acid (Vitamin C) 500 MG TABLET 1 TAB PO DAILY SUPPLEMENT (Reported) Aspirin (Ecotrin*) 81 MG TABLET.DR 1 TAB PO DAILY HEART HEALTH (Reported) Baclofen 20 MG TABLET 2 TAB PO 4 TIMES/DAY MS (Reported) Cholecalciferol (Vitamin D3) 1,000 UNIT TABLET 1 TAB PO DAILY SUPPLEMENT ( Reported) Clonazepam (Klonopin) 0.5 MG TABLET 1 TAB PO DAILY PRN TREMOR (Reported) Cyanocobalamin (Vitamin B-12) 1,000 MCG TABLET 1 TAB PO DAILY SUPPLEMENT ( Reported) Ferrous Sulfate 325 MG (65 MG IRON) TABLET.DR 1 TAB PO BID Iron deficiency Solifenacin Succinate (Vesicare) 10 MG TABLET 1 TAB PO DAILY Bladder ( Reported) Tizanidine HCl 4 MG TABLET 1 TAB PO AT BEDTIME PRN MUSCLE SPASMS (Reported) Trospium Chloride 20 MG TABLET 1 TAB PO BID BLADDER (Reported) Vitamin A Palmitate (Vitamin A) 10,000 UNIT CAPSULE 1 CAP PO DAILY SUPPLEMENT (Reported) Vitamin E Mixed (Vitamin E) 100 UNIT TABLET 1 TAB PO DAILY SUPPLEMENT ( Reported) Compliance With Home Meds: FAIR Past History Travel History Traveled to [place] past 21 day No Medical History Neurological: multiple sclerosis EENT: NONE Cardiovascular: NONE Respiratory: NONE Gastrointestinal: DIVERTING COLOSTOMY small bowel obstruction Hepatic: NONE Renal: SUPRAPUBIC TUBE Musculoskeletal: disk herniation Psychiatric: NONE Endocrine: NONE Blood Disorders: NONE Cancer(s): NONE RIPENING ROOM HAND/Reproductive: NONE History of MRSA: Yes History of VRE: No History of CDIFF: No Influenza Vaccine: 11/11/16 Tetanus Vaccine: 03/25/16 Surgical History Surgical History: cholecystectomy, COLOSTOMY BAG LOW BACK SURGERY R HEEL I+D'S SACRAL DECUB I&D'S right leg/heel flap closure of decubitus multiple sacral decubitus ulcer debridements. Past Family/Social History Family History Relations & Conditions if any BROTHER FH: cancer MOTHER Pacemaker Relation not specified for: Family history unknown Psychosocial History Where do you live? Home Who Do You Live With? self Services at Home: Home Health Aide, Nursing Primary Language: Bulgarian Smoking Status: Never Smoked Living Will? yes Functional Ability ADLs Independent: eating. Unknown: dressing, toileting, bathing. Ambulation: non-ambulatory, wheelchair IADLs Unknown: shopping, housework, finances, food prep, telephone, transportation, medication admin. Sexual History Past Sexual History Unobtainable at this time Review of Systems Review of Systems Constitutional: Reports: no symptoms, see HPI. Cardiovascular: Reports: no symptoms. Respiratory: Reports: no symptoms. GI: Reports: vomiting. Genitourinary: Reports: no symptoms. Musculoskeletal: Reports: no symptoms. Skin: Reports: no symptoms. Exam & Diagnostic Data Last 24 Hrs of Vital Signs/I&O Vital Signs Date Time Temp Pulse Resp B/P B/P Pulse O2 O2 Flow FiO2 Mean Ox Delivery Rate 07/110 98.8 88 20 138/78 92 Nasal 2.0L Cannula 07/11 210 98.5 84 20 148/82 95 Room Air 07/11 1935 98.4 84 18 144/80 95 Room Air 07/11 1700 98.0 84 20 156/80 95 Room Air 07/11 1444 98.5 102 20 174/86 93 Room Air Intake & Output 07/11 1600 07/11 0800 07/11 0000 Intake Total 0 Output Total Balance 0 Intake, Oral 0 Physical Exam General Appearance Alert, Oriented X3, Cooperative, No Acute Distress Skin STAGE 4 ULCER B/L BUTOCK Cardiovascular Regular Rate, Normal S1, Normal S2, No Murmurs Lungs Clear to Auscultation Abdomen Soft, No Tenderness, No Hepatospenomegaly Neurological Normal Speech Extremities No Cyanosis, No Edema Assessment/Plan Assessment: 66 YO F w/PMH significant for multiple sclerosis (wheelchair bound), small bowel obstruction status post diverting colostomy, suprapubic catheterization, disc herniation, cellulitis in December 2016 [treated with Bactrim and Augmentin], chronic decubitus ulcer stage IV came to [place] ER with complaints of nausea and vomiting since today morning. Admission labs WBC 20.9, hemoglobin 17.3, hematocrit 52.1,platelet count 457, sodium 145, potassium 5.4 BUN 29, creatinine 1.3, anion gap 24, lactic acid 3, alkaline phosphatase 145 pEnding-blood culture and urine culture Pelvic MRI-November 2016 decubitus ulcer overlying the sacrum. The signal abnormality extends to the dorsal surface of the lower sacrum and coccyx. There is no convincing marrow signal abnormality. Assessment and plan Anion gap metabolic acidosis Hyperkalemia HARIS Rule out small bowel obstruction Decubitus ulcer stage IV * Admitted in [facility] .keep nothing by mouth for possible surgical intervention. * CT abdomen and pelvis showes small bowel obstruction. * NG tube will be placed. Patient is on natalizumab for her multiple sclerosis. We will hold the medication. * 1 dose of vancomycin was given an EGD. * Given the small bowel obstruction we will give 1 dose of ceftriaxone and Flagyl. * Spoke to Dr. Carbajal over the phone who will evaluate the patient. * Code-full code * DVT prophylaxis-Lovenox As Ranked By This Provider Problem List: 1. Nausea and vomiting Core Measures/Misc (10/27) Acute Coronary Syndrome ACS Diagnosis: No Congestive Heart Failure Congestive Heart Failure Diagnosis No Cerebrovascular Accident CVA/TIA Diagnosis: No VTE (View Protocol) VTE Risk Factors Age>40 No Mechanical VTE Prophylaxis d/t Other No VTE Pharm Prophylaxis d/t Other Sepsis (View protocol) Sepsis Present: No If YES complete Sepsis Event Note If YES complete Sepsis Event Note Berny Garza MD 07/12/17 0354: Core Measures/Misc (10/27) Sepsis (View protocol) If YES complete Sepsis Event Note If YES complete Sepsis Event Note Attending MD Review Statement Attending Statement Attending MD Statement: examined this patient, discuss w/resident/PA/ABSTRACT MAKER, agreed w/resident/PA/ABSTRACT MAKER, discussed with nursing Attending Assessment/Plan: Ms. Hernandez is a 66-year-old female history of multiple sclerosis who is wheelchair-bound, previous small bowel obstruction status post diverting colostomy, chronic decubitus ulcer stage IV comes with complaints of nausea and vomiting since morning. Currently still nauseous and throwing up. On examination blood pressure is 138/78, heart rate of 88, temperature of 98.8, saturating 2 L of nasal cannula Assessment 1. Small bowel obstruction 2. Anion gap metabolic acidosis 3. Acute kidney injury with hyperkalemia 4. Stage IV decubitus ulcer 5. Hyperkalemia Plan Keep nothing by mouth, NG tube insertion. General surgery informed. Patient received vancomycin in the emergency department. Will give 1 dose of ceftriaxone and metronidazole. Obtain wound care consult for the sacrococcygeal wounds. Continue insulin and sodium bicarbonate andgluconate for hyperkalemia continue to monitor Heparin subcutaneous for DVT prophylaxis Iker Gardiner 07/12/17 0525: Core Measures/Misc (10/27) Sepsis (View protocol) If YES complete Sepsis Event Note If YES complete Sepsis Event Note Resident Review Statement Resident Statement: examined this patient, discussed with news intern, agreed with news intern, discussed with family, reviewed EMR data (avail), discussed with nursing , discussed with case mgmt, reviewed images, amended to note Other Findings: 66-year-old woman with MS (diagnosed 1995) on Tysabri, complicated by urinary incontinence (suprapubic catheter), sacral decubiti, nonambulatory status- wheelchair-bound who presented to [facility] ED on 07/11/2017, after experiencing multiple episodes of vomitus (nonbilious, no blood), no abdominal pain, no fevers, no recent sick contacts, no outside food consumption. Afebrile. Labs with profound leukocytosis, hematocrit 52.1 and thrombocytosis. HARIS, hyperkalemia and high lactate. Given multiple episodes of vomiting, lactate anemia, a stat abdominal x-ray obtained revealed SBO confirmed by CT abdomen pelvis. 1. Small bowel obstruction. NG tube for decompression, to low wall suction. IV fluids. IV antibiotics as needed. Serial abdominal exams. Complete bowel rest; n.p.o. Ideally, for uncomplicated SBO, antibiotics may be superfluous, but commonly practiced for concerns of bacterial translocation (date inadequate to support or refute). Given her degree of leukocytosis, lactatemia - IV ceftriaxone and Flagyl. Surgery called, Dr. Carbajal aware. 2. HARIS. Likely secondary to dehydration, vomiting. Continue IV fluid hydration. Hold any nephrotoxic drugs. Repeat BEP. 3. Hyperkalemia. Multifactorial-combination of kidney injury, hyperglycemia and bowel obstruction. Potassium raising (from 5.4-5.9. Insulin bolus 10 units followed by dextrose 25 g, calcium gluconate and sodium bicarbonate ordered. Follow-up with morning labs. 4. Sacral decubitus ulcer. Unstageable per ED nurse. Wound care consult. 5. MS. Stable. Continue Tysabri. Continue oxybutynin. Continue tizanidine. Continue amitriptyline. Continue other medications. Strictly n.p.o. Heparin for DVT prophylaxis. Full code.
[2017-07-11 22:00] VITALS: BP 138/78; BP 158/88
--- NOTE | 2017-07-11 23:21 | RADIOLOGY REPORT ---
EXAMINATION: XR ABDOMEN MULTIPLE VIEWS CLINICAL INDICATION: Vomiting. COMPARISON: Abdomen 03/09/2016. TECHNIQUE: 2 views of the abdomen. FINDINGS: Gas is seen in both large and small bowel loops with mild dilatation of the small bowel loops. Some of the small bowel loops are mildly dilated but there are other small bowel loops that are of normal caliber. This raises concern for small bowel obstruction. Gas is seen in the right colon and little gas is seen in the left colon but the colonic bowel loops are not abnormally dilated. There are surgical clips in the right upper quadrant. There is scoliosis and degenerative changes of the dorsal lumbar spine. Suprapubic catheter hasn't the lower pelvis. There is coarse calcification in the lower central pelvis. IMPRESSION: Dilated small bowel loops in the abdomen raising concern for a small bowel obstruction. CT study would be of further assessment.
--- NOTE | 2017-07-11 23:32 | CT SCAN REPORT ---
EXAMINATION: CT ABDOMEN AND PELVIS WITHOUT CONTRAST CLINICAL INFORMATION: Vomiting. Concern for small bowel obstruction. COMPARISON: CT scan abdomen pelvis 03/08/2016. Plain film abdomen today. TECHNIQUE: Multidetector volumetric imaging was performed from the superior aspect of the liver through the pubic symphysis. Sagittal and coronal reformatted images were obtained on the technologist's workstation. DLP: 1643.24 mGy-cm FINDINGS: There is artifact from the patient being scanned with the arms down. LUNG BASES: Infiltrate present at the right lung base. There is asymmetric elevation of right diaphragm compared to left. LIVER, GALLBLADDER, AND BILIARY TREE: The liver is normal in size, shape, and attenuation. No focal hepatic lesion or biliary ductal dilatation is present. Status post cholecystectomy. No bile duct dilatation. PANCREAS: There is fatty atrophy of the pancreas. No acute change of the pancreas. No inflammation or mass. SPLEEN: Unremarkable. ADRENAL GLANDS: Unremarkable. KIDNEYS AND URETERS: There are nonobstructive renal calculi. In the lower pole of the right kidney there is a 11 mm stone. In the midpole of the right kidney there is a 6 mm and a 5 mm stone. In the upper pole the right kidney there is a 6 mm stone. No stones seen in the left kidney. There is a 1.2 cm pedunculated cyst at the lower pole of left kidney. There is no ureteral calculi. There is no hydronephrosis. BLADDER: Suprapubic catheter present in the bladder. The bladder is decompressed. GASTROINTESTINAL TRACT: Patient has had prior bowel surgery with a colostomy of left colon and Barger's pouch. There is high density material within Barger's pouch which is chronic unchanged since 07/13/2012 study. There is distended small bowel loops with air-fluid levels. The distal small bowel loops are decompressed. Transition point in the midabdomen consistent with a small bowel obstruction. There are air-fluid levels in the right colon but the colon is not abnormally dilated. Small volume of scattered stool in the colon. There is no bowel wall thickening or edema. No air in the bowel wall. ABDOMINAL WALL: There is an ostomy in the left side of the abdomen with a small fat-containing parastomal hernia LYMPH NODES: Normal. VASCULAR: Scattered vascular wall calcifications of aorta without aneurysm. PELVIC VISCERA: Small coarse calcification in the low central pelvis. OSSEOUS STRUCTURES: Multilevel degenerative spondylosis of the spine with disc height narrowing and endplate spurring and facet joint arthrosis. Maria Del Carmen scoliosis of the lumbar spine. IMPRESSION: 1. Small bowel obstruction with transition in the mid abdomen. Colostomy left lower quadrant. 2. Status post colostomy. 3. Multiple nonobstructive right renal stones. 4. Suprapubic catheter in the bladder. 5. Right lower lobe infiltrate.
[2017-07-12 05:48] LABS: ABSOLUTE BASOPHIL COUNT 0 /CUMM (0.0-0.2); ABSOLUTE EOSINOPHIL COUNT 0.1 /CUMM (0.0-0.7); ABSOLUTE GRANULOCYTE CT 9.4 /CUMM (1.4-6.5); ABSOLUTE LYMPH COUNT 2.6 /CUMM (1.2-3.4); ABSOLUTE MONOCYTE COUNT 1.4 /CUMM (0.10-0.60); BASOPHIL % 0.1 % (0.0-2.0); EOSINOPHIL % 0.9 % (0-5); GRANULOCYTE % 69.4 % (42.2-75.2); MEAN CORPUSCULAR HGB 25.9 PG (27.0-31.0); MEAN CORPUSCULAR HGB CONC 32.7 G/DL (33.0-37.0); MEAN CORPUSCULAR VOLUME 79.1 FL (81.0-99.0); MEAN PLATELET VOLUME 7.4 FL (7.4-10.4); PLATELET COUNT 387 /CUMM (130-400); RED BLOOD CELL CT 5.48 /CUMM (4.20-5.40); WHITE BLOOD CELL COUNT 13.5 /CUMM (4.8-10.8)
--- NOTE | 2017-07-12 05:49 | RADIOLOGY REPORT ---
EXAMINATION: XR PORTABLE CHEST CLINICAL INFORMATION: Small bowel obstruction, check NG tube placement COMPARISON: 11/15/2016 TECHNIQUE: Portable frontal view of the chest was obtained. FINDINGS: Nasogastric tube is present along the course of the esophagus; the distalmost portion of the tube is not well seen due to patient body habitus, though there is suggestion of the tube coursing into the stomach. Right basilar opacity favoring atelectasis is noted, without additional definite consolidation bilaterally. No gross evidence of pneumothorax, though the left apex is not fully included on this exam. No significant pleural effusion. Cardiac size appears prominent though may be accentuated by patient positioning/rotation. IMPRESSION: 1. Nasogastric tube is not well seen distally due to patient body habitus, though there is suggestion of the tube coursing into the stomach; this may be able to be better visualized with an abdominal radiograph. 2. Right basilar opacity favoring atelectasis.
[2017-07-12 05:57] LABS: HEMATOCRIT 43.3 % (37-47)
[2017-07-12 06:28] VITALS: BP 130/80
--- NOTE | 2017-07-12 07:37 | PN- Housestaff ---
See Addendum Subjective Follow-up For: Small bowel obstruction. Subjective: Notes significant improvement in her symptoms after NG tube placement. No fevers or chills overnight. No abdominal pain. No diarrhea. Review of Systems Constitutional: Reports: see HPI. Objective Last 24 Hrs of Vital Signs/I&O Vital Signs Date Time Temp Pulse Resp B/P B/P Pulse O2 O2 Flow FiO2 Mean Ox Delivery Rate 07/12 06 98.4 84 20 130/80 93 Nasal Cannula 07/11 2200 98.8 88 20 138/78 92 Nasal 2.0L Cannula 07/11 2107 98.5 84 20 148/82 95 Room Air 07/11 1935 98.4 84 18 144/80 95 Room Air 07/11 1700 98.0 84 20 156/80 95 Room Air 07/11 1444 98.5 102 20 174/86 93 Room Air Intake & Output 07/12 0800 07/12 0000 07/11 1600 Intake Total 2000 0 Output Total Balance 2000 0 Intake, IV 2000 Intake, Oral 0 Patient 250 lb Weight Weight Reported by Patient Measurement Method Physical Exam General Appearance: Alert, Oriented X3, Cooperative Cardiovascular: Regular Rate, Normal S1, Normal S2 Lungs: Clear to Auscultation, Normal Air Movement Abdomen: Normal Bowel Sounds, Soft, No Tenderness Extremities: No Clubbing, No Cyanosis, No Edema Current Medications: Current Medications Sig/Mary Grace Start time Last Medication Dose Route Stop Time Status Admin Acetaminophen 0 .STK-MED ONE 07/11 1828 DC PO Acetaminophen 975 MG ONCE ONE 07/11 1800 DC 07/11 PO 07/11 1801 1827 Amitriptyline HCl 25 MG QPM 07/12 2100 AC PO Ampicillin Sodium/ 1,500 MG ONCE ONE 07/12 0030 CAN Sulbactam Sodium IV 07/12 0059 Sodium Chloride 100 ML Aspirin Buffered 81 MG DAILY 07/12 09 AC PO Baclofen 20 MG FOUR TIMES A DAY PRN 07/11 2245 AC 07/12 PO 0556 Calcium Gluconate 1 GM ONCE ONE 07/12 0415 DC Sodium Chloride 100 ML IV 07/12 0514 Ceftriaxone Sodium 1,000 MG ONCE ONE 07/12 0045 DC 07/12 IV 07/12 0046 0139 Cholecalciferol 1,000 IU DAILY 07/12 09 AC PO Clonazepam 0.5 MG DAILY PRN 07/11 2245 AC PO 07/18 2244 Dextrose 25 GM ONCE ONE 07/12 0415 DC 07/12 IV 07/12 0416 0646 Ferrous Sulfate 325 MG BID 07/12 09 AC PO Heparin Sodium 5,000 UNIT Q8 07/12 06 AC 07/12 (Porcine) SC 0556 Insulin Human Regular 10 UNITS ONCE ONE 07/12 0415 DC 07/12 IV 07/12 0416 0646 Metronidazole 500 MG ONCE ONE 07/12 0030 DC 07/12 N/A 1 UNIT IV 07/12 0129 0139 Ondansetron HCl 4 MG Q6P PRN 07/12 0545 AC IV Ondansetron HCl 0 .STK-MED ONE 07/11 2055 DC .ROUTE Ondansetron HCl 0 .STK-MED ONE 07/11 1622 DC .ROUTE Ondansetron HCl 4 MG ONCE ONE 07/11 1515 DC 07/11 IV 07/11 1516 1620 Oxybutynin Chloride 5 MG BID 07/12 09 AC PO Sodium Bicarbonate 50 MEQ ONCE ONE 07/12 0415 DC IV 07/12 0416 Sodium Chloride 1,000 ML .[id number] 07/11 2215 AC 07/11 IV 07/13 1414 2249 Sodium Chloride 1,000 ML BOLUS ONE 07/11 1815 DC 07/11 IV 07/11 1914 1921 Sodium Chloride 1,000 ML BOLUS ONE 07/11 1815 DC 07/11 IV 07/11 1914 1827 Sodium Chloride 1,000 ML BOLUS ONE 07/11 1515 DC 07/11 IV 07/11 1614 1620 Tizanidine HCl 4 MG AT BEDTIME PRN 07/11 2300 AC PO Vancomycin HCl 0 .STK-MED ONE 07/11 1828 DC .ROUTE Vancomycin HCl 1,000 MG ONCE ONE 07/11 1730 DC 07/11 Sodium Chloride 250 ML IV 07/11 1829 1903 Last 24 Hrs of Lab/Ace Results Last 24 Hrs of Labs/Mics: Laboratory Tests 07/12/17 0530: Lactic Acid 2.4 H 07/12/17 0530: Anion Gap 16, Estimated GFR 55 L, BUN/Creatinine Ratio 26.0 H, CBC w Diff NO MAN DIFF REQ, RBC 5.48 H, MCV 79.1 L, MCH 25.9 L, MCHC 32.7 L, RDW 17.0 H, MPV 7.4, Gran % 69.4, Lymphocytes % 19.4 L, Monocytes % 10.2 H, Eosinophils % 0.9, Basophils % 0.1, Absolute Granulocytes 9.4 H, Absolute Lymphocytes 2.6, Absolute Monocytes 1.4 H, Absolute Eosinophils 0.1, Absolute Basophils 0 07/12/17 0155: Lactic Acid Cancelled 07/12/17 0100: Anion Gap 13, Estimated GFR 55 L, BUN/Creatinine Ratio 28.0 H, Lactic Acid 2.8 H 07/11/17 204: Lactic Acid 2.6 H 07/11/17 184: Urine Color YEL, Urine Clarity HAZY H, Urine pH 5.5, Ur Specific [place] >= 1.030, Urine Protein 100 H, Urine Ketones TRACE H, Urine Nitrite NEG, Urine Bilirubin NEG@ICTO, Urine Urobilinogen 0.2, Ur Leukocyte Esterase MOD H, Ur Microscopic SEDIMENT EXAMINED, Urine RBC 25-50 H, Urine WBC > 75 H, Ur Epithelial Cells FEW, Urine Bacteria PACKD H, Urine Hemoglobin MOD H, Urine Glucose NEG 07/11/17 1645: Anion Gap 24 H, Estimated GFR 41 L, BUN/Creatinine Ratio 22.3, Glucose 190 H, Lactic Acid 3.0 H, Calcium 10.2, Total Bilirubin 0.5, AST 27, ALT 22, Alkaline Phosphatase 145 H, Troponin I < 0.01, Total Protein 10.6 H, Albumin 4.5, Globulin 6.1 H, Albumin/Globulin Ratio 0.7 L, Lipase 107 07/11/17 1610: CBC w Diff MAN DIFF ORDERED, RBC 6.71 H, MCV 77.7 L, MCH 25.7 L, MCHC 33.1, RDW 16.9 H, MPV 7.4, Gran % 91.1 H, Lymphocytes % 6.8 L, Monocytes % 2.0, Eosinophils % 0.1, Basophils % 0, Absolute Granulocytes 19.0 H, Segmented Neutrophils 91 H, Band Neutrophils 1, Absolute Lymphocytes 1.4, Lymphocytes 3 L, Monocytes 5, Absolute Monocytes 0.4, Absolute Eosinophils 0, Absolute Basophils 0, Platelet Estimate VERIFIED BY SMEAR, Anisocytosis 1+, Fld Total RBCs Counted 100 Microbiology 07/11 184 URINE ROUT: Urine Culture - RECD 07/11 1800 BLOOD: Blood Culture - RECD 07/11 1745 BLOOD: Blood Culture - RECD Assessment/Plan Assessment: 66-year-old woman with MS (diagnosed 1995) on Tysabri, complicated by urinary incontinence (suprapubic catheter), sacral decubiti, nonambulatory status- wheelchair-bound who presented to [facility] ED on 07/11/2017, after experiencing multiple episodes of vomitus (nonbilious, no blood), no abdominal pain, no fevers, no recent sick contacts, no outside food consumption. Afebrile. Labs with profound leukocytosis, hematocrit 52.1 and thrombocytosis. HARIS, hyperkalemia and high lactate. Given multiple episodes of vomiting, lactate anemia, a stat abdominal x-ray obtained revealed SBO confirmed by CT abdomen pelvis. 1. Small bowel obstruction. NG tube for decompression, to low wall suction. IV fluids. IV antibiotics as needed. Serial abdominal exams. Complete bowel rest; n.p.o. Ideally, for uncomplicated SBO, antibiotics may be superfluous, but commonly practiced for concerns of bacterial translocation (data inadequate to support or refute). Given her degree of leukocytosis, lactatemia - IV ceftriaxone and Flagyl. Leukocytosis improving. Surgery called, Dr. Carbajal aware. 2. HARIS. Likely secondary to dehydration, vomiting. Continue IV fluid hydration. Hold any nephrotoxic drugs. Improving. 3. Hyperkalemia. Multifactorial-combination of kidney injury, hyperglycemia and bowel obstruction. Insulin bolus 10 units followed by dextrose 25 g, calcium gluconate and sodium bicarbonate adminitered last night. Sodium rising likely secondary to effects of insulin on N/K Atpase pump and transcellular shidt. Check BEP at 1200, if persistently high, change to D5-1/2 NS or LR (Lactatemia noted, can use LR - data unequivocal). 4. Sacral decubitus ulcer. Unstageable per ED nurse. Wound care consult. 5. MS. Stable. Continue Tysabri. Continue oxybutynin. Continue tizanidine. Continue amitriptyline. Continue other medications. Strictly n.p.o. Heparin for DVT prophylaxis. Full code. Problem List: 1. H/O multiple sclerosis 2. Suprapubic catheter 3. Leukocytosis 4. Dehydration Pain Ratin Pain Location: None Pain Goal: Remain pain free Pain Plan: PRN Tomorrow's Labs & Rationales: Acutely ill patient
--- NOTE | 2017-07-12 09:26 | Cons- General Surgery ---
General Information and HPI Consulting Request Date of Consult: 07/12/17 Requested By: Berny Garza MD Reason for Consult: SBO History of Present Illness: Patient is medically complex with multiple sclerosis and debilitation related to it. She has diverting colostomy and suprapubic tube. Patient was admitted to the medical service with nausea vomiting abdominal pain and dehydration. CT scan performed on admission was concerning for possible intestinal obstruction. Overnight she was rehydrated and nasogastric tube was placed. Her abdominal pain has resolved and she feels well. Patient states these episodes that happened in the past and have all resolved without intervention. Currently she is asymptomatic. Allergies/Medications Allergies: Coded Allergies: No Known Allergies (03/25/16) Home Med List: Amitriptyline HCl 25 MG TABLET 1 TAB PO QPM TREMORS (Reported) Ascorbic Acid (Vitamin C) 500 MG TABLET 1 TAB PO DAILY SUPPLEMENT (Reported) Aspirin (Ecotrin*) 81 MG TABLET.DR 1 TAB PO DAILY HEART HEALTH (Reported) Baclofen 20 MG TABLET 2 TAB PO 4 TIMES/DAY MS (Reported) Cholecalciferol (Vitamin D3) 1,000 UNIT TABLET 1 TAB PO DAILY SUPPLEMENT ( Reported) Clonazepam (Klonopin) 0.5 MG TABLET 1 TAB PO DAILY PRN TREMOR (Reported) Cyanocobalamin (Vitamin B-12) 1,000 MCG TABLET 1 TAB PO DAILY SUPPLEMENT ( Reported) Ferrous Sulfate 325 MG (65 MG IRON) TABLET.DR 1 TAB PO BID Iron deficiency Solifenacin Succinate (Vesicare) 10 MG TABLET 1 TAB PO DAILY Bladder ( Reported) Tizanidine HCl 4 MG TABLET 1 TAB PO AT BEDTIME PRN MUSCLE SPASMS (Reported) Trospium Chloride 20 MG TABLET 1 TAB PO BID BLADDER (Reported) Vitamin A Palmitate (Vitamin A) 10,000 UNIT CAPSULE 1 CAP PO DAILY SUPPLEMENT (Reported) Vitamin E Mixed (Vitamin E) 100 UNIT TABLET 1 TAB PO DAILY SUPPLEMENT ( Reported) Current Medications: Current Medications Sig/Mary Grace Start time Last Medication Dose Route Stop Time Status Admin Acetaminophen 0 .STK-MED ONE 07/11 182 DC PO Acetaminophen 975 MG ONCE ONE 07/11 1800 DC 07/11 PO 07/11 180 1827 Amitriptyline HCl 25 MG QPM 07/12 2100 AC PO Ampicillin Sodium/ 1,500 MG ONCE ONE 07/12 0030 CAN Sulbactam Sodium IV 07/12 0059 Sodium Chloride 100 ML Aspirin Buffered 81 MG DAILY 07/12 09 AC 07/12 PO 0847 Baclofen 20 MG FOUR TIMES A DAY PRN 07/11 2245 AC 07/12 PO 0556 Calcium Gluconate 1 GM ONCE ONE 07/12 0415 DC Sodium Chloride 100 ML IV 07/12 0514 Ceftriaxone Sodium 1,000 MG ONCE ONE 07/12 0045 DC 07/12 IV 07/12 0046 0139 Cholecalciferol 1,000 IU DAILY 07/12 09 AC 07/12 PO 0846 Clonazepam 0.5 MG DAILY PRN 07/11 2245 AC PO 07/18 2244 Dextrose 25 GM ONCE ONE 07/12 0415 DC 07/12 IV 07/12 0416 0646 Ferrous Sulfate 325 MG BID 07/12 09 AC 07/12 PO 0846 Heparin Sodium 5,000 UNIT Q8 07/12 06 AC 07/12 (Porcine) SC 0556 Insulin Human Regular 10 UNITS ONCE ONE 07/12 0415 DC 07/12 IV 07/12 0416 0646 Metronidazole 500 MG ONCE ONE 07/12 0030 DC 07/12 N/A 1 UNIT IV 07/12 0129 0139 Ondansetron HCl 4 MG Q6P PRN 07/12 0545 AC IV Ondansetron HCl 0 .STK-MED ONE 07/11 2055 DC .ROUTE Ondansetron HCl 0 .STK-MED ONE 07/11 1622 DC .ROUTE Ondansetron HCl 4 MG ONCE ONE 07/11 1515 DC 07/11 IV 07/11 1516 1620 Oxybutynin Chloride 5 MG BID 07/12 899 AC 07/12 PO 0846 Sodium Bicarbonate 50 MEQ ONCE ONE 07/12 0415 DC IV 07/12 0416 Sodium Chloride 1,000 ML .[id number] 07/11 2215 AC 07/11 IV 07/13 1414 2249 Sodium Chloride 1,000 ML BOLUS ONE 07/11 1815 DC 07/11 IV 07/11 1914 1921 Sodium Chloride 1,000 ML BOLUS ONE 07/11 1815 DC 07/11 IV 07/11 1914 1827 Sodium Chloride 1,000 ML BOLUS ONE 07/11 1515 DC 07/11 IV 07/11 1614 1620 Tizanidine HCl 4 MG AT BEDTIME PRN 07/11 2300 AC PO Vancomycin HCl 0 .STK-MED ONE 07/12 1827 DC .ROUTE Vancomycin HCl 1,000 MG ONCE ONE 07/11 1730 DC 07/11 Sodium Chloride 250 ML IV 07/11 182 1903 Past History Medical History Blood Transfusion Hx: No Neurological: multiple sclerosis EENT: NONE Cardiovascular: NONE Respiratory: NONE Gastrointestinal: DIVERTING COLOSTOMY small bowel obstruction Hepatic: NONE Renal: SUPRAPUBIC TUBE Musculoskeletal: disk herniation Psychiatric: NONE Endocrine: NONE Blood Disorders: NONE Cancer(s): NONE 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 Family History Relations & Conditions If Any: BROTHER FH: cancer MOTHER Pacemaker Relation not specified for: Family history unknown Psychosocial History Where Do You Live? Home Who Do You Live With? self Services at Home: Home Health Aide, Nursing Primary Language: Azeri Smoking Status: Never Smoked Living Will? yes Functional Ability ADLs Independent: eating. Unknown: dressing, toileting, bathing. Ambulation: non-ambulatory, wheelchair IADLs Unknown: shopping, housework, finances, food prep, telephone, transportation, medication admin. Review of Systems Review of Systems: Bedbound dependent on others for ADLs. Nausea vomiting abdominal pain per HPI. Cannot assess dysuria or bowel function related to colostomy and suprapubic tube. Remainder 12 points negative Exam & Diagnostic Data Vital Signs and I&O Vital Signs Date Time Temp Pulse Resp B/P B/P Pulse O2 O2 Flow FiO2 Mean Ox Delivery Rate 07/13 627 98.4 84 20 130/80 93 Nasal Cannula 07/11 2200 98.8 88 20 138/78 92 Nasal 2.0L Cannula 07/11 2106 98.5 84 20 148/82 95 Room Air 07/11 1935 98.4 84 18 144/80 95 Room Air 07/11 1700 98.0 84 20 156/80 95 Room Air 07/11 1444 98.5 102 20 174/86 93 Room Air Intake & Output 07/12 1600 07/12 0800 07/12 0000 07/11 1600 07/11 0800 07/11 0000 Intake Total 700 2000 0 Output Total 1600 Balance -900 2000 0 Intake, IV 700 2000 Intake, Oral 0 Output, Stool 1000 Output, Urine 600 Patient 250 lb Weight Weight Reported by Patient Measurement Method Physical Exam: Gen.: She is obese no distress looks her stated age HEENT: Anicteric PERRL EOMI Abdomen: Soft nontender nondistended healed surgical scars. Functioning stoma left lower quadrant. Functioning suprapubic tube with clear yellow urine and turbid sediment. Last 24 Hours of Labs: Laboratory Tests 07/12 07/12 07/12 0530 0530 0155 Chemistry Sodium (137 - 145 mmol/L) 147 H Potassium (3.5 - 5.1 mmol/L) 4.4 Chloride (98 - 107 mmol/L) 111 H Carbon Dioxide (22 - 30 mmol/L) 21 L Anion Gap (5 - 16) 16 BUN (7 - 17 mg/dL) 26 H Creatinine (0.5 - 1.0 mg/dL) 1.0 Estimated GFR (>60 ml/min) 55 L BUN/Creatinine Ratio (7 - 25 %) 26.0 H Lactic Acid (0.7 - 2.1 mmol/L) 2.4 H Cancelled Hematology CBC w Diff NO MAN DIFF REQ WBC (4.8 - 10.8 /CUMM) 13.5 H RBC (4.20 - 5.40 /CUMM) 5.48 H Hgb (12.0 - 16.0 G/DL) 14.2 Hct (37 - 47 %) 43.3 MCV (81.0 - 99.0 FL) 79.1 L MCH (27.0 - 31.0 PG) 25.9 L MCHC (33.0 - 37.0 G/DL) 32.7 L RDW (11.5 - 14.5 %) 17.0 H Plt Count (130 - 400 /CUMM) 387 MPV (7.4 - 10.4 FL) 7.4 Gran % (42.2 - 75.2 %) 69.4 Lymphocytes % (20.5 - 51.1 %) 19.4 L Monocytes % (1.7 - 9.3 %) 10.2 H Eosinophils % (0 - 5 %) 0.9 Basophils % (0.0 - 2.0 %) 0.1 Absolute Granulocytes (1.4 - 6.5 /CUMM) 9.4 H Absolute Lymphocytes (1.2 - 3.4 /CUMM) 2.6 Absolute Monocytes (0.10 - 0.60 /CUMM) 1.4 H Absolute Eosinophils (0.0 - 0.7 /CUMM) 0.1 Absolute Basophils (0.0 - 0.2 /CUMM) 0 07/120 2039 1845 Chemistry Sodium (137 - 145 mmol/L) 144 Potassium (3.5 - 5.1 mmol/L) 5.9 H Chloride (98 - 107 mmol/L) 112 H Carbon Dioxide (22 - 30 mmol/L) 19 L Anion Gap (5 - 16) 13 BUN (7 - 17 mg/dL) 28 H Creatinine (0.5 - 1.0 mg/dL) 1.0 Estimated GFR (>60 ml/min) 55 L BUN/Creatinine Ratio (7 - 25 %) 28.0 H Lactic Acid (0.7 - 2.1 mmol/L) 2.8 H 2.6 H Urines Urine Color (YEL,AMB,STR) YEL Urine Clarity (CLEAR) HAZY H Urine pH (5.0 - 8.0) 5.5 Ur Specific [place] (1.001 - 1.035) >= 1.030 Urine Protein (NEG,<30 MG/DL) 100 H Urine Ketones (NEG) TRACE H Urine Nitrite (NEG) NEG Urine Bilirubin (NEG) NEG@ICTO Urine Urobilinogen (0.1 - 1.0 EU/dl) 0.2 Ur Leukocyte Esterase (NEG) MOD H Ur Microscopic SEDIMENT EXAMINED Urine RBC (0 - 5 /HPF) 25-50 H Urine WBC (0 - 2 /HPF) > 75 H Ur Epithelial Cells (NONE,FEW) FEW Urine Bacteria (NEG/NONE) PACKD H Urine Hemoglobin (NEG) MOD H Urine Glucose (N MG/DL) NEG 07/11 07/11 1645 1610 Chemistry Sodium (137 - 145 mmol/L) 145 Potassium (3.5 - 5.1 mmol/L) 5.4 H Chloride (98 - 107 mmol/L) 104 Carbon Dioxide (22 - 30 mmol/L) 17 L Anion Gap (5 - 16) 24 H BUN (7 - 17 mg/dL) 29 H Creatinine (0.5 - 1.0 mg/dL) 1.3 H Estimated GFR (>60 ml/min) 41 L BUN/Creatinine Ratio (7 - 25 %) 22.3 Glucose (65 - 99 mg/dL) 190 H Lactic Acid (0.7 - 2.1 mmol/L) 3.0 H Calcium (8.4 - 10.2 mg/dL) 10.2 Total Bilirubin (0.2 - 1.3 mg/dL) 0.5 AST (14 - 36 U/L) 27 ALT (9 - 52 U/L) 22 Alkaline Phosphatase (<127 U/L) 145 H Troponin I (< 0.11 ng/ml) < 0.01 Total Protein (6.3 - 8.2 g/dL) 10.6 H Albumin (3.5 - 5.0 g/dL) 4.5 Globulin (1.9 - 4.2 gm/dL) 6.1 H Albumin/Globulin Ratio (1.1 - 2.2 %) 0.7 L Lipase (23 - 300 U/L) 107 Hematology CBC w Diff MAN DIFF ORDERED WBC (4.8 - 10.8 /CUMM) 20.9 H RBC (4.20 - 5.40 /CUMM) 6.71 H Hgb (12.0 - 16.0 G/DL) 17.3 H Hct (37 - 47 %) 52.1 H MCV (81.0 - 99.0 FL) 77.7 L MCH (27.0 - 31.0 PG) 25.7 L MCHC (33.0 - 37.0 G/DL) 33.1 RDW (11.5 - 14.5 %) 16.9 H Plt Count (130 - 400 /CUMM) 457 H MPV (7.4 - 10.4 FL) 7.4 Gran % (42.2 - 75.2 %) 91.1 H Lymphocytes % (20.5 - 51.1 %) 6.8 L Monocytes % (1.7 - 9.3 %) 2.0 Eosinophils % (0 - 5 %) 0.1 Basophils % (0.0 - 2.0 %) 0 Absolute Granulocytes (1.4 - 6.5 /CUMM) 19.0 H Segmented Neutrophils (42.2 - 75.2 %) 91 H Band Neutrophils (0.0 - 5.0 %) 1 Absolute Lymphocytes (1.2 - 3.4 /CUMM) 1.4 Lymphocytes (20.5 - 51.1 %) 3 L Monocytes (1.7 - 9.3 %) 5 Absolute Monocytes (0.10 - 0.60 /CUMM) 0.4 Absolute Eosinophils (0.0 - 0.7 /CUMM) 0 Absolute Basophils (0.0 - 0.2 /CUMM) 0 Platelet Estimate (ADEQUATE) VERIFIED BY SMEAR Anisocytosis 1+ Other Body Source Fld Total RBCs Counted (%) 100 Imaging Results: CT scan of the abdomen pelvis was performed. Images were reviewed dated 2017. Findings show mildly dilated small bowel loops without exact transition point. No inflammatory changes. Assessment/Plan Assessment/Plan Patient with multiple sclerosis, debilitated from her disease. She presents with abdominal pain, nausea and vomiting and findings on CT scan concerning for intestinal obstruction. Her symptoms appear to be resolved after placement of NG tube and IV fluid hydration. No surgical intervention is required. Other etiologies to be considered would be an adynamic ileus related to urinary tract infection. From intestinal obstruction standpoint, no anorexia necessary. Defer treatment of urinary process to primary team. In regards to her intestinal process, recommend continuing her NG tube today. Follow-up plain x-ray (multiview) should be performed tomorrow. If her disease appears to be resolved, her NG tube can be removed tomorrow after the x-ray. Will follow. Consult Acknowledgment - Thank you for your consult request.
--- NOTE | 2017-07-12 14:11 | Event Note ---
Event Note Event Note: Disscussed with Dr. Fletcher regarding the need for antibiotics. It appears that she was hemoconcentrated on admission and her WBC count was probablys scondary to that. The plan is to watch her off antibiotics for now and monitor for any fevers. Will obtain CBC for am to trend WBC count.
[2017-07-12 15:37] VITALS: BP 132/84
[2017-07-12 21:37] VITALS: BP 130/92
[2017-07-13 06:52] VITALS: BP 180/90
[2017-07-13 08:16] LABS: ABSOLUTE BASOPHIL COUNT 0 /CUMM (0.0-0.2); ABSOLUTE EOSINOPHIL COUNT 0.6 /CUMM (0.0-0.7); ABSOLUTE GRANULOCYTE CT 4.5 /CUMM (1.4-6.5); ABSOLUTE MONOCYTE COUNT 0.4 /CUMM (0.10-0.60); BASOPHIL % 0.5 % (0.0-2.0); EOSINOPHIL % 7.4 % (0-5); GRANULOCYTE % 59.3 % (42.2-75.2); HEMATOCRIT 40.2 % (37-47); MEAN CORPUSCULAR HGB 25.7 PG (27.0-31.0); MEAN CORPUSCULAR HGB CONC 33.2 G/DL (33.0-37.0); MEAN CORPUSCULAR VOLUME 77.6 FL (81.0-99.0); MEAN PLATELET VOLUME 7.7 FL (7.4-10.4); PLATELET COUNT 261 /CUMM (130-400); RBC DISTRIBUTION WIDTH 17.1 % (11.5-14.5); RED BLOOD CELL CT 5.18 /CUMM (4.20-5.40); WHITE BLOOD CELL COUNT 7.5 /CUMM (4.8-10.8)
[2017-07-13 08:31] VITALS: BP 152/90
--- NOTE | 2017-07-13 09:20 | Cons- Infect Disease ---
General Information and HPI Consulting Request Date of Consult: 07/13/17 Requested By: Berny Garza MD Reason for Consult: Leukocytosis Source of Information: patient, old records History of Present Illness: This is a 66-year-old woman with a history of multiple sclerosis, wheelchair- bound, with a chronic sacral decubitus for many years, status post multiple debridements and a muscle flap, recurrent urinary tract infections, status post suprapubic cystostomy, status post colostomy after a complicated diverticulitis, with chronic wounds on the lower extremities, status post several hospitalizations for cellulitis, most recently 7 months prior to admission, and with a history of a small bowel obstruction 1-1/2 years prior to admission, managed conservatively, admitted on July 11 with the acute onset of nausea and vomiting without abdominal pain. On admission she was afebrile. Laboratory data revealed a white blood cell count of 21,000, H&H 17 and 52, platelets 457, 000, BUN/creatinine 29 and 1.3, lactic acid 3.0, lipase 107 alkaline phosphatase 145. Urinalysis 25-50 RBC/>75 WBCs. Abdominal x-ray revealed dilated small bowel loops, raising concern for a small bowel obstruction. CT of the abdomen and pelvis revealed a small bowel obstruction with transition in the mid abdomen , multiple nonobstructive right renal stones and a right lower lobe density. An NG tube was placed. She was given Vancomycin, Flagyl and Ceftriaxone initially and was then followed off antibiotics. She has remained afebrile since admission and has had no further GI symptoms. Her white blood cell count has normalized today and she offers no complaints at this time. Allergies/Medications Allergies: Coded Allergies: No Known Allergies (03/25/16) Home Med List: Amitriptyline HCl 25 MG TABLET 1 TAB PO QPM TREMORS (Reported) Ascorbic Acid (Vitamin C) 500 MG TABLET 1 TAB PO DAILY SUPPLEMENT (Reported) Aspirin (Ecotrin*) 81 MG TABLET.DR 1 TAB PO DAILY HEART HEALTH (Reported) Baclofen 20 MG TABLET 2 TAB PO 4 TIMES/DAY MS (Reported) Cholecalciferol (Vitamin D3) 1,000 UNIT TABLET 1 TAB PO DAILY SUPPLEMENT ( Reported) Clonazepam (Klonopin) 0.5 MG TABLET 1 TAB PO DAILY PRN TREMOR (Reported) Cyanocobalamin (Vitamin B-12) 1,000 MCG TABLET 1 TAB PO DAILY SUPPLEMENT ( Reported) Ferrous Sulfate 325 MG (65 MG IRON) TABLET.DR 1 TAB PO BID Iron deficiency Solifenacin Succinate (Vesicare) 10 MG TABLET 1 TAB PO DAILY Bladder ( Reported) Tizanidine HCl 4 MG TABLET 1 TAB PO AT BEDTIME PRN MUSCLE SPASMS (Reported) Trospium Chloride 20 MG TABLET 1 TAB PO BID BLADDER (Reported) Vitamin A Palmitate (Vitamin A) 10,000 UNIT CAPSULE 1 CAP PO DAILY SUPPLEMENT (Reported) Vitamin E Mixed (Vitamin E) 100 UNIT TABLET 1 TAB PO DAILY SUPPLEMENT ( Reported) Past History Travel History Traveled to [place] past 21 day No Medical History Blood Transfusion Hx: No Neurological: multiple sclerosis EENT: NONE Cardiovascular: NONE Respiratory: NONE Gastrointestinal: DIVERTING COLOSTOMY small bowel obstruction Hepatic: NONE Renal: SUPRAPUBIC TUBE Musculoskeletal: disk herniation Psychiatric: NONE Endocrine: NONE Blood Disorders: NONE 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 Family History Relations & Conditions If Any: BROTHER FH: cancer MOTHER Pacemaker Relation not specified for: Family history unknown Psychosocial History Where Do You Live? Home Who Do You Live With? self Services at Home: Home Health Aide, Nursing Primary Language: Greenlandic Smoking Status: Never Smoked Living Will? yes Functional Ability ADLs Independent: eating. Unknown: dressing, toileting, bathing. Ambulation: non-ambulatory, wheelchair IADLs Unknown: shopping, housework, finances, food prep, telephone, transportation, medication admin. Review of Systems Review of Systems All Other Systems: Reviewed and Negative Exam & Diagnostic Data Last 24 Hrs of Vital Signs/I&O Vital Signs Date Time Temp Pulse Resp B/P B/P Pulse O2 O2 Flow FiO2 Mean Ox Delivery Rate 07/13 0831 72 152/90 07/13 0652 97.9 70 20 180/90 95 07/12 2137 98.1 68 19 130/92 91 Room Air 07/12 1537 98.7 82 20 132/84 93 Nasal Cannula Intake & Output 07/13 1600 07/13 0800 07/13 0000 Intake Total 600 600 Output Total 875 250 Balance -275 350 Intake, IV 600 600 Output, 450 200 Gastric Drainage Output, Stool 50 50 Output, Urine 375 Patient 246 lb Weight Weight Bed scale Measurement Method Physical Exam Other Physical Findings: She is awake and alert in no acute distress. She is afebrile. Skin reveals no rash. HEENT exam NG tube in place. Neck is supple with no adenopathy. Lungs are clear. Heart regular rhythm with no murmur. Abdomen is obese, soft, nontender with positive bowel sounds; suprapubic tube in place with no inflammation at the site. Back sacral decubitus, with no surrounding inflammation. Extremities healed lesion on the lateral aspect of her right ankle, with no erythema or edema. Neuro paraplegia with upper extremity weakness, right greater than left. Last 24 Hours of Lab Results: Laboratory Tests 07/13 07/12 0723 1633 Chemistry Sodium (137 - 145 mmol/L) 145 144 Potassium (3.5 - 5.1 mmol/L) 3.9 3.9 Chloride (98 - 107 mmol/L) 115 H 111 H Carbon Dioxide (22 - 30 mmol/L) 19 L 22 Anion Gap (5 - 16) 11 12 BUN (7 - 17 mg/dL) 18 H 21 H Creatinine (0.5 - 1.0 mg/dL) 0.7 0.9 Estimated GFR (>60 ml/min) > 60 > 60 BUN/Creatinine Ratio (7 - 25 %) 25.7 H 23.3 Hematology CBC w Diff NO MAN DIFF REQ WBC (4.8 - 10.8 /CUMM) 7.5 RBC (4.20 - 5.40 /CUMM) 5.18 Hgb (12.0 - 16.0 G/DL) 13.3 Hct (37 - 47 %) 40.2 MCV (81.0 - 99.0 FL) 77.6 L MCH (27.0 - 31.0 PG) 25.7 L MCHC (33.0 - 37.0 G/DL) 33.2 RDW (11.5 - 14.5 %) 17.1 H Plt Count (130 - 400 /CUMM) 261 MPV (7.4 - 10.4 FL) 7.7 Gran % (42.2 - 75.2 %) 59.3 Lymphocytes % (20.5 - 51.1 %) 27.0 Monocytes % (1.7 - 9.3 %) 5.8 Eosinophils % (0 - 5 %) 7.4 H Basophils % (0.0 - 2.0 %) 0.5 Absolute Granulocytes (1.4 - 6.5 /CUMM) 4.5 Absolute Lymphocytes (1.2 - 3.4 /CUMM) 2.0 Absolute Monocytes (0.10 - 0.60 /CUMM) 0.4 Absolute Eosinophils (0.0 - 0.7 /CUMM) 0.6 Absolute Basophils (0.0 - 0.2 /CUMM) 0 Last 24 Hours of Ace Results: Blood cultures 2 July 11 negative Urine culture July 11 multiple colony types consistent with contamination Diagnostic Data Recent Imaging Findings: Abdominal x-ray revealed dilated small bowel loops, raising concern for a small bowel obstruction. CT of the abdomen and pelvis revealed a small bowel obstruction with transition in the mid abdomen, multiple nonobstructive right renal stones and a right lower lobe density. Chest x-ray July 12 reveals a right basilar opacity favoring atelectasis Assessment/Plan Assessment/Plan Impression: This is a 66-year-old woman with a history of multiple sclerosis, wheelchair- bound, with a chronic sacral decubitus for many years, recurrent urinary tract infections, status post suprapubic cystostomy, status post several hospitalizations for cellulitis, and with a history of a small bowel obstruction 1-1/2 years prior to admission, admitted on July 11 with the acute onset of nausea and vomiting, found to be afebrile with a leukocytosis and with an abdominal x-ray and CT scan revealing a small bowel obstruction. Her GI symptoms appear to have resolved with placement of the NG tube. Her leukocytosis has also resolved and, with her H&H, platelets, BUN and creatinine also all decreased, suspect that her leukocytosis was secondary to hemoconcentration from dehydration. She has no evidence for any acute infectious process at this time. Her urine culture was positive for multiple organisms, suggestive of contamination, likely secondary to the chronic suprapubic catheter. She does have a chronic sacral decubitus, and the possibility of underlying osteomyelitis must again be considered, but this would not explain her leukocytosis and further evaluation could be pursued as an outpatient. Suggestion: 1. Further management of her small bowel obstruction per Surgery 2. Continue to follow off antibiotics Consult Acknowledgment - Thank you for your consult request.
--- NOTE | 2017-07-13 11:45 | PN- Att Addend ---
Attending Addendum Attending Brief Note Patient seen and examined. Overall she feels better. She continues to have significant muscle spasms. She also says she doesn't carry a known diagnosis of hypertension but it has been episodic. On exam she is afebrile, blood pressure is 150/90, pulse is 76 and breathing at 16-18. She is awake alert oriented, lungs are clear to auscultation bilaterally, heart is S1-S2 regular, abdomen is soft. She has sacral decubiti but no evidence of inflammation and she has upper extremity weakness. She is a 66-year-old female with advanced multiple sclerosis, wheelchair-bound who came in with lactic acidosis, dehydration and an SBO. Appreciate KAITLIN martinez who feels that this is all secondary to dehydration and there is no infectious etiology. She has a chronic suprapubic catheter and the UA is chronically positive. For now we are watching off antibiotics, stop the fluids. Will repeat the abdominal x-ray as per surgery's recommendations and if the SBO is better will take out the NG tube and start feeding her.
--- NOTE | 2017-07-13 13:04 | PN- General Surgery ---
Subjective Subjective: no pain. feels well. frustrated Objective Vital Signs and I&Os Vital Signs Date Time Temp Pulse Resp B/P B/P Pulse O2 O2 Flow FiO2 Mean Ox Delivery Rate 07/13 0831 72 152/90 07/13 0552 97.9 70 20 180/90 95 07/12 2137 98.1 68 19 130/92 91 Room Air 07/12 1537 98.7 82 20 132/84 93 Nasal Cannula Intake & Output 07/13 1600 07/13 0800 07/13 0000 07/12 1600 07/12 0800 07/12 0000 Intake Total 600 600 977 343 8412 Output Total 875 713 794 6664 Balance -275 350 50 -900 2000 Intake, IV 600 600 342 879 4101 Output, 450 200 200 Gastric Drainage Output, Stool 50 50 100 1000 Output, Urine 375 250 600 Patient 246 lb 250 lb Weight Weight Bed scale Reported by Patient Measurement Method Physical Exam: gen; obese, nad. a/o x 3 abd; soft, nt, nd, scant stool in bag Current Medications: Current Medications Sig/Mary Grace Start time Last Medication Dose Route Stop Time Status Admin Amitriptyline HCl 25 MG QPM 07/12 2100 AC 07/12 PO 2128 Aspirin Buffered 81 MG DAILY 07/12 09 AC 07/13 PO 0812 Baclofen 20 MG FOUR TIMES A DAY 07/13 1000 AC 07/13 PO 1016 Baclofen 20 MG FOUR TIMES A DAY PRN 07/11 2245 DC 07/13 PO 07/13 0959 0530 Cholecalciferol 1,000 IU DAILY 07/12 0900 AC 07/13 PO 0812 Clonazepam 0.5 MG DAILY PRN 07/11 2245 AC 07/13 PO 07/18 2244 0821 Ferrous Sulfate 325 MG BID 07/12 09 AC 07/13 PO 0812 Heparin Sodium 5,000 UNIT Q8 07/12 0600 AC 07/13 (Porcine) SC 0504 Nystatin 1 LAZARA BID PRN 07/12 1145 AC 07/12 TOP 1312 Ondansetron HCl 4 MG Q6P PRN 07/12 0545 AC IV Oxybutynin Chloride 5 MG BID 07/12 0900 AC 07/13 PO 0812 Sodium Chloride 1,000 ML .[id number] 07/11 2215 DC 07/12 IV 07/13 1414 2344 Tizanidine HCl 4 MG AT BEDTIME PRN 07/11 2300 AC PO Zinc Oxide 1 LAZARA BID 07/12 1135 AC 07/13 TOP 0813 Results Last 48 Hours of Labs: Laboratory Tests 07/13 07/12 07/12 07/12 0723 1633 0900 0530 Chemistry Sodium (137 - 145 mmol/L) 145 144 Potassium (3.5 - 5.1 mmol/L) 3.9 3.9 Chloride (98 - 107 mmol/L) 115 H 111 H Carbon Dioxide (22 - 30 mmol/L) 19 L 22 Anion Gap (5 - 16) 11 12 BUN (7 - 17 mg/dL) 18 H 21 H Creatinine (0.5 - 1.0 mg/dL) 0.7 0.9 Estimated GFR (>60 ml/min) > 60 > 60 BUN/Creatinine Ratio (7 - 25 %) 25.7 H 23.3 Lactic Acid (0.7 - 2.1 mmol/L) 1.9 2.4 H Hematology CBC w Diff NO MAN DIFF REQ WBC (4.8 - 10.8 /CUMM) 7.5 RBC (4.20 - 5.40 /CUMM) 5.18 Hgb (12.0 - 16.0 G/DL) 13.3 Hct (37 - 47 %) 40.2 MCV (81.0 - 99.0 FL) 77.6 L MCH (27.0 - 31.0 PG) 25.7 L MCHC (33.0 - 37.0 G/DL) 33.2 RDW (11.5 - 14.5 %) 17.1 H Plt Count (130 - 400 /CUMM) 261 MPV (7.4 - 10.4 FL) 7.7 Gran % (42.2 - 75.2 %) 59.3 Lymphocytes % (20.5 - 51.1 %) 27.0 Monocytes % (1.7 - 9.3 %) 5.8 Eosinophils % (0 - 5 %) 7.4 H Basophils % (0.0 - 2.0 %) 0.5 Absolute Granulocytes (1.4 - 6.5 /CUMM) 4.5 Absolute Lymphocytes (1.2 - 3.4 /CUMM) 2.0 Absolute Monocytes (0.10 - 0.60 /CUMM) 0.4 Absolute Eosinophils (0.0 - 0.7 /CUMM) 0.6 Absolute Basophils (0.0 - 0.2 /CUMM) 0 06/ 06/07/12 0530 0155 0100 Chemistry Sodium (137 - 145 mmol/L) 147 H 144 Potassium (3.5 - 5.1 mmol/L) 4.4 5.9 H Chloride (98 - 107 mmol/L) 111 H 112 H Carbon Dioxide (22 - 30 mmol/L) 21 L 19 L Anion Gap (5 - 16) 16 13 BUN (7 - 17 mg/dL) 26 H 28 H Creatinine (0.5 - 1.0 mg/dL) 1.0 1.0 Estimated GFR (>60 ml/min) 55 L 55 L BUN/Creatinine Ratio (7 - 25 %) 26.0 H 28.0 H Lactic Acid (0.7 - 2.1 mmol/L) Cancelled 2.8 H Hematology CBC w Diff NO MAN DIFF REQ WBC (4.8 - 10.8 /CUMM) 13.5 H RBC (4.20 - 5.40 /CUMM) 5.48 H Hgb (12.0 - 16.0 G/DL) 14.2 Hct (37 - 47 %) 43.3 MCV (81.0 - 99.0 FL) 79.1 L MCH (27.0 - 31.0 PG) 25.9 L MCHC (33.0 - 37.0 G/DL) 32.7 L RDW (11.5 - 14.5 %) 17.0 H Plt Count (130 - 400 /CUMM) 387 MPV (7.4 - 10.4 FL) 7.4 Gran % (42.2 - 75.2 %) 69.4 Lymphocytes % (20.5 - 51.1 %) 19.4 L Monocytes % (1.7 - 9.3 %) 10.2 H Eosinophils % (0 - 5 %) 0.9 Basophils % (0.0 - 2.0 %) 0.1 Absolute Granulocytes (1.4 - 6.5 /CUMM) 9.4 H Absolute Lymphocytes (1.2 - 3.4 /CUMM) 2.6 Absolute Monocytes (0.10 - 0.60 /CUMM) 1.4 H Absolute Eosinophils (0.0 - 0.7 /CUMM) 0.1 Absolute Basophils (0.0 - 0.2 /CUMM) 0 07/11 1845 1645 Chemistry Sodium (137 - 145 mmol/L) 145 Potassium (3.5 - 5.1 mmol/L) 5.4 H Chloride (98 - 107 mmol/L) 104 Carbon Dioxide (22 - 30 mmol/L) 17 L Anion Gap (5 - 16) 24 H BUN (7 - 17 mg/dL) 29 H Creatinine (0.5 - 1.0 mg/dL) 1.3 H Estimated GFR (>60 ml/min) 41 L BUN/Creatinine Ratio (7 - 25 %) 22.3 Glucose (65 - 99 mg/dL) 190 H Lactic Acid (0.7 - 2.1 mmol/L) 2.6 H 3.0 H Calcium (8.4 - 10.2 mg/dL) 10.2 Total Bilirubin (0.2 - 1.3 mg/dL) 0.5 AST (14 - 36 U/L) 27 ALT (9 - 52 U/L) 22 Alkaline Phosphatase (<127 U/L) 145 H Troponin I (< 0.11 ng/ml) < 0.01 Total Protein (6.3 - 8.2 g/dL) 10.6 H Albumin (3.5 - 5.0 g/dL) 4.5 Globulin (1.9 - 4.2 gm/dL) 6.1 H Albumin/Globulin Ratio (1.1 - 2.2 %) 0.7 L Lipase (23 - 300 U/L) 107 Urines Urine Color (YEL,AMB,STR) YEL Urine Clarity (CLEAR) HAZY H Urine pH (5.0 - 8.0) 5.5 Ur Specific Blevins (1.001 - 1.035) >= 1.030 Urine Protein (NEG,<30 MG/DL) 100 H Urine Ketones (NEG) TRACE H Urine Nitrite (NEG) NEG Urine Bilirubin (NEG) NEG@ICTO Urine Urobilinogen (0.1 - 1.0 EU/dl) 0.2 Ur Leukocyte Esterase (NEG) MOD H Ur Microscopic SEDIMENT EXAMINED Urine RBC (0 - 5 /HPF) 25-50 H Urine WBC (0 - 2 /HPF) > 75 H Ur Epithelial Cells (NONE,FEW) FEW Urine Bacteria (NEG/NONE) PACKD H Urine Hemoglobin (NEG) MOD H Urine Glucose (N MG/DL) NEG 07/11 1610 Hematology CBC w Diff MAN DIFF ORDERED WBC (4.8 - 10.8 /CUMM) 20.9 H RBC (4.20 - 5.40 /CUMM) 6.71 H Hgb (12.0 - 16.0 G/DL) 17.3 H Hct (37 - 47 %) 52.1 H MCV (81.0 - 99.0 FL) 77.7 L MCH (27.0 - 31.0 PG) 25.7 L MCHC (33.0 - 37.0 G/DL) 33.1 RDW (11.5 - 14.5 %) 16.9 H Plt Count (130 - 400 /CUMM) 457 H MPV (7.4 - 10.4 FL) 7.4 Gran % (42.2 - 75.2 %) 91.1 H Lymphocytes % (20.5 - 51.1 %) 6.8 L Monocytes % (1.7 - 9.3 %) 2.0 Eosinophils % (0 - 5 %) 0.1 Basophils % (0.0 - 2.0 %) 0 Absolute Granulocytes (1.4 - 6.5 /CUMM) 19.0 H Segmented Neutrophils (42.2 - 75.2 %) 91 H Band Neutrophils (0.0 - 5.0 %) 1 Absolute Lymphocytes (1.2 - 3.4 /CUMM) 1.4 Lymphocytes (20.5 - 51.1 %) 3 L Monocytes (1.7 - 9.3 %) 5 Absolute Monocytes (0.10 - 0.60 /CUMM) 0.4 Absolute Eosinophils (0.0 - 0.7 /CUMM) 0 Absolute Basophils (0.0 - 0.2 /CUMM) 0 Platelet Estimate (ADEQUATE) VERIFIED BY SMEAR Anisocytosis 1+ Other Body Source Fld Total RBCs Counted (%) 100 Recent Imaging Studies: XRAY from today not read. from my interpretation of the images, there is persistent small bowel dilatation but much improved from admission. Assessment/Plan Assessment/Plan Resolving ileus/sbo. Continue NG today. Remove tomorrow if continued stool output.
--- NOTE | 2017-07-13 14:41 | RADIOLOGY REPORT ---
EXAMINATION: XR ABDOMEN MULTIPLE VIEWS CLINICAL INDICATION: NG tube in place. Assess for resolution of small bowel obstruction. COMPARISON: 07/11/2017. TECHNIQUE: 2 views of the abdomen. FINDINGS: Enteric tube extends to the stomach. An ostomy is seen in the midline of the lower abdomen. The stomach is decompressed. There are persistent mild to moderately dilated loops of small bowel measuring up to 5 cm in diameter, uncorrected for magnification in keeping with residual partial small bowel obstruction. There is gas in nondilated large bowel in the right abdomen. The bones are diffusely osteopenic with a left convex lumbar scoliosis. Deformity is seen at the right femoral subtrochanteric region. IMPRESSION: Findings consistent with residual partial small bowel obstruction. The degree of dilatation is improving compared to prior.
[2017-07-13 14:48] VITALS: BP 158/84
[2017-07-13 21:41] VITALS: BP 132/82
[2017-07-14 06:17] VITALS: BP 182/94
--- NOTE | 2017-07-14 11:34 | PN- Housestaff ---
See Addendum Subjective Follow-up For: Small bowel obstruction. Subjective: No nausea vomiting. No complaints. Anxious about NG tube discontinuation. No fevers or chills. Minimal output in the ostomy bag. Review of Systems Constitutional: Reports: see HPI. Objective Last 24 Hrs of Vital Signs/I&O Vital Signs Date Time Temp Pulse Resp B/P B/P Pulse O2 O2 Flow FiO2 Mean Ox Delivery Rate 07/14 1444 97.8 72 20 142/84 96 Room Air 07/14 0617 98.0 67 20 182/94 95 06/ 2141 97.9 67 19 132/82 94 Room Air 07/13 1600 Room Air 07/13 1448 97.7 78 20 158/84 94 Nasal Cannula Intake & Output 07/14 1600 07/14 0800 07/14 0000 Intake Total 910 400 300 Output Total 1 450 500 Balance 909 -50 -200 Intake, IV 10 400 Intake, Oral 900 300 Output, 0 Gastric Drainage Output, Stool 1 0 Output, Urine 450 500 Patient 248 lb 248 lb Weight Weight Bed scale Measurement Method Physical Exam General Appearance: Alert, Oriented X3, Cooperative Cardiovascular: Regular Rate, Normal S1, Normal S2 Lungs: Clear to Auscultation, Normal Air Movement Abdomen: Soft, Hypoactive bowel sounds. Extremities: No Clubbing, No Cyanosis, No Edema Current Medications: Current Medications Sig/Mary Grace Start time Last Medication Dose Route Stop Time Status Admin Amitriptyline HCl 25 MG QPM / 2100 AC 07/13 PO 2215 Aspirin Buffered 81 MG DAILY 07/12 09 AC 07/14 PO 1001 Baclofen 20 MG FOUR TIMES A DAY 07/13 1000 AC 07/14 PO 1434 Cholecalciferol 1,000 IU DAILY 07/12 0900 AC 07/14 PO 1002 Clonazepam 0.5 MG DAILY PRN 07/11 2245 AC 07/13 PO 08 2244 0821 Dextrose/Sodium 1,000 ML Q20H 07/13 1330 DC 07/13 Chloride IV 1336 Ferrous Sulfate 325 MG BID 07/12 0900 AC 07/14 PO 1001 Heparin Sodium 5,000 UNIT Q8 07/12 0600 AC 07/14 (Porcine) SC 1434 Nystatin 1 LAZARA BID PRN 07/12 1145 AC 07/13 TOP 2214 Ondansetron HCl 4 MG Q6P PRN 07/12 0545 AC IV Oxybutynin Chloride 5 MG BID 07/12 0900 07/14 PO 1001 Tizanidine HCl 4 MG AT BEDTIME PRN 07/11 2300 PO Zinc Oxide 1 LAZARA BID 07/12 1135 07/13 TOP 2215 Last 24 Hrs of Lab/Ace Results Last 24 Hrs of Labs/Mics: Laboratory Tests 07/14/17 0737: Anion Gap 13, Estimated GFR > 60, BUN/Creatinine Ratio 12.9 07/14/17 0600: CBC w Diff NO MAN DIFF REQ, RBC 5.16, MCV 77.8 L, MCH 25.7 L, MCHC 33.1, RDW 16.6 H, MPV 7.5, Gran % 51.8, Lymphocytes % 33.8, Monocytes % 9.1, Eosinophils % 5.0, Basophils % 0.3, Absolute Granulocytes 3.9, Absolute Lymphocytes 2.6, Absolute Monocytes 0.7 H, Absolute Eosinophils 0.4, Absolute Basophils 0 Assessment/Plan Assessment: 66-year-old woman with MS (diagnosed 1995) on Tysabri, complicated by urinary incontinence (suprapubic catheter), sacral decubiti, nonambulatory status- wheelchair-bound who presented to [facility] ED on 07/11/2017, after experiencing multiple episodes of vomitus (nonbilious, no blood), no abdominal pain, no fevers, no recent sick contacts, no outside food consumption. Afebrile. Given multiple episodes of vomiting, lactate anemia, a stat abdominal x-ray obtained revealed SBO confirmed by CT abdomen pelvis. Follow-up x-ray with resolving SBO. 1. Small bowel obstruction. Improving. Await surgery recommendations regarding NG tube discontinuation. Minimal output in ostomy bag. 2. HARIS. Resolved. 3. Hyperkalemia. Resolved. 4. Sacral decubitus ulcer. Unstageable per ED nurse. Wound care consult pending. 5. MS. Stable. Continue Tysabri. Continue oxybutynin. Continue tizanidine. Continue amitriptyline. Continue other medications. Strictly n.p.o. Heparin for DVT prophylaxis. Full code. Problem List: 1. Nausea vomiting and diarrhea 2. Sacral decubitus ulcer, stage IV Pain [facility] Goal: Remain pain free Pain Plan: PRN Tomorrow's Labs & Rationales: PAULO
--- NOTE | 2017-07-14 11:58 | PN- Infect Dx ---
Subjective Subjective: Afebrile without complaints Objective Last 24 Hrs of Vital Signs/I&O Vital Signs Date Time Temp Pulse Resp B/P B/P Pulse O2 O2 Flow FiO2 Mean Ox Delivery Rate 07/14 0617 98.0 67 20 182/94 95 07/13 2141 97.9 67 19 132/82 94 Room Air 07/13 1600 Room Air 07/13 1448 97.7 78 20 158/84 94 Nasal Cannula Intake & Output 07/14 1600 07/14 0800 06 0000 Intake Total 400 300 Output Total 450 500 Balance -50 -200 Intake, IV 400 Intake, Oral 300 Output, Stool 0 Output, Urine 450 500 Patient 248 lb Weight Weight Bed scale Measurement Method Physical Exam Other Physical Findings: She appears comfortable in no acute distress HEENT NG tube remains in place Lungs are clear Heart regular rhythm with no murmur Abdomen is soft, nontender with positive bowel sounds; colostomy with minimal serous output Extremities no cyanosis, clubbing or edema Results Last 24 Hours of Lab Results: Laboratory Tests 07/14 07/14 0737 0600 Chemistry Sodium Pending Potassium Pending Chloride Pending Carbon Dioxide Pending Anion Gap Pending BUN Pending Creatinine Pending BUN/Creatinine Ratio Pending Hematology CBC w Diff Pending WBC Pending RBC Pending Hgb Pending Hct Pending MCV Pending MCH Pending MCHC Pending RDW Pending Plt Count Pending MPV Pending Last 24 Hours of Ace Results: Blood cultures 2 July 11 negative Recent Imaging Studies: Abdominal x-ray July 13 reveals findings consistent with a partial small bowel obstruction, with decreased dilatation compared to the previous study Assessment/Plan ID Impression: Stable, with temperatures and white blood cell count normal, off antibiotics, with an improving small bowel obstruction. Suggestion: 1. Further management of her small bowel obstruction per Surgery 2. Continue to follow off antibiotics Will no longer follow at this time but please call with any questions
[2017-07-14 12:21] LABS: ABSOLUTE BASOPHIL COUNT 0 /CUMM (0.0-0.2); ABSOLUTE EOSINOPHIL COUNT 0.4 /CUMM (0.0-0.7); ABSOLUTE GRANULOCYTE CT 3.9 /CUMM (1.4-6.5); ABSOLUTE LYMPH COUNT 2.6 /CUMM (1.2-3.4); ABSOLUTE MONOCYTE COUNT 0.7 /CUMM (0.10-0.60); BASOPHIL % 0.3 % (0.0-2.0); GRANULOCYTE % 51.8 % (42.2-75.2); HEMATOCRIT 40.1 % (37-47); MEAN CORPUSCULAR HGB 25.7 PG (27.0-31.0); MEAN CORPUSCULAR HGB CONC 33.1 G/DL (33.0-37.0); MEAN CORPUSCULAR VOLUME 77.8 FL (81.0-99.0); MEAN PLATELET VOLUME 7.5 FL (7.4-10.4); PLATELET COUNT 259 /CUMM (130-400); RBC DISTRIBUTION WIDTH 16.6 % (11.5-14.5); RED BLOOD CELL CT 5.16 /CUMM (4.20-5.40); WHITE BLOOD CELL COUNT 7.6 /CUMM (4.8-10.8)
[2017-07-14 14:44] VITALS: BP 142/84
--- NOTE | 2017-07-14 17:31 | PN- General Surgery ---
Subjective Subjective: NO ABDOMINAL PAIN. STOOL OUTPUT CONTINUES. ATE FULL LIQUID DIET. Objective Vital Signs and I&Os Vital Signs Date Time Temp Pulse Resp B/P B/P Pulse O2 O2 Flow FiO2 Mean Ox Delivery Rate 07/14 1444 97.8 72 20 142/84 96 Room Air 07/14 0617 98.0 67 20 182/94 95 07/13 2141 97.9 67 19 132/82 94 Room Air Intake & Output 07/14 1600 07/14 0800 07/14 0000 07/13 1600 07/13 0800 07/13 0000 Intake Total 910 400 300 500 600 600 Output Total 1101 505 244 9589 875 250 Balance -191 -50 -200 -725 -275 350 Intake, IV 10 400 500 600 600 Intake, Oral 900 300 Output, 0 225 450 200 Gastric Drainage Output, Stool 1 0 50 50 50 Output, Urine 1100 450 500 950 375 Patient 248 lb 248 lb 246 lb Weight Weight Bed scale Bed scale Measurement Method Physical Exam: GEN; OBESE. NAD. A/O X 3 ABD; SOFT NT. ND. STOOL IN BAG Assessment/Plan Assessment/Plan RESOLVED SBO. NGT DISCONTINUED. ADVANCE DIET. D/C HOME TOMORROW IF TOLERATES.
[2017-07-14 22:39] VITALS: BP 124/80
[2017-07-15 07:18] VITALS: BP 120/68
[2017-07-15] MEDS ORDERED: DESITIN DIAPER28 GM TOP (07:22)
--- NOTE | 2017-07-15 07:25 | Patient Discharge Instructions ---
Discharge Instructions General Discharge Information You were seen/treated for: Small bowel obstruction Watch for these problems: Abdominal pain Output in the colostomy bag Nausea and vomiting Special Instructions: Please follow-up with primary care physician as an outpatient. Please follow-up with neurologist as an outpatient. Please follow-up with general surgery as an outpatient. Xeroform dressing to the lower extremity wounds, as well as sacral and ischial wounds. Diet Continue normal diet: No Recommended Diet: Low fiber diet Acute Coronary Syndrome Inclusion Criteria At DC or during hospital stay patient has or had the following: ACS DIAGNOSIS No Discharge Core Measures Meds if any: Prescribed or Continued at Discharge Meds if any: NOT Prescribed or Continued at Discharge Congestive Heart Failure Inclusion Criteria At DC or during hospital stay patient has or had the following: CHF DIAGNOSIS No Discharge Core Measures Meds if any: Prescribed or Continued at Discharge Meds if any: NOT Prescribed or Continued at Discharge Cerebrovascular accident Inclusion Criteria At DC or during hospital stay patient has or had the following: CVA/TIA Diagnosis No Discharge Core Measures Meds if any: Prescribed or Continued at Discharge Meds if any: NOT Prescribed or Continued at Discharge Venous thromboembolism Inclusion Criteria VTE Diagnosis No VTE Type NONE VTE Confirmed by (Test) NONE Discharge Core Measures - Per Current guidelines, there needs to be overlap - treatment for the first 5 days of Warfarin therapy. - If discharged on Warfarin prior to 5 days of - overlap therapy, the patient will need to be - assessed for post discharge needs including - *Post discharge parental anticoagulation - *Warfarin and/or parental anticoagulation education - *Follow up date to check INR post discharge At least 5 days overlap therapy as Inpatient No Meds if any: Prescribed or Continued at Discharge Note: Overlap Therapy is Warfarin and Anticoagulant Meds if any: NOT Prescribed or Continued at Discharge
--- NOTE | 2017-07-15 10:44 | PN- Housestaff ---
See Addendum Subjective Follow-up For: Small bowel obstruction. Subjective: No complaints. Review of Systems Constitutional: Reports: see HPI. Objective Last 24 Hrs of Vital Signs/I&O Vital Signs Date Time Temp Pulse Resp B/P B/P Pulse O2 O2 Flow FiO2 Mean Ox Delivery Rate 07/15 0718 98.2 70 20 120/68 94 Room Air 07/14 2239 98.4 68 20 124/80 95 Room Air 07/14 1444 97.8 72 20 142/84 96 Room Air Intake & Output 07/15 1600 07/15 0800 06/ 0000 Intake Total 490 Output Total 900 1250 Balance -410 -1250 Intake, IV 10 Intake, Oral 480 Output, Stool 150 Output, Urine 750 1250 Patient 240 lb Weight Weight Bed scale Measurement Method Physical Exam General Appearance: Alert, Oriented X3, Cooperative Cardiovascular: Regular Rate, Normal S1, Normal S2 Lungs: Clear to Auscultation, Normal Air Movement Abdomen: Normal Bowel Sounds, Soft Extremities: No Clubbing, No Cyanosis, No Edema Current Medications: Current Medications Sig/Mary Grace Start time Last Medication Dose Route Stop Time Status Admin Amitriptyline HCl 25 MG QPM / 2100 AC 07/14 PO 2039 Aspirin Buffered 81 MG DAILY 07/12 09 AC 07/15 PO 1001 Baclofen 20 MG FOUR TIMES A DAY 07/13 1000 AC 07/15 PO 1002 Cholecalciferol 1,000 IU DAILY 07/12 0900 AC 07/15 PO 1001 Clonazepam 0.5 MG DAILY PRN 07/11 2245 AC 07/13 PO 08 2244 0821 Ferrous Sulfate 325 MG BID 07/12 0900 AC 07/15 PO 1002 Heparin Sodium 5,000 UNIT Q8 07/12 0600 AC 07/15 (Porcine) SC 0615 Nystatin 1 LAZARA BID PRN 07/12 1145 AC 07/13 TOP 2214 Ondansetron HCl 4 MG Q6P PRN 07/12 0545 AC IV Oxybutynin Chloride 5 MG BID 07/12 0900 AC 07/15 PO 1001 Tizanidine HCl 4 MG AT BEDTIME PRN 07/11 2300 AC PO Zinc Oxide 1 LAZARA BID 07/12 1135 AC 07/13 TOP 2215 Last 24 Hrs of Lab/Ace Results Last 24 Hrs of Labs/Mics: Laboratory Tests 07/15/17 0726: Anion Gap 10, Estimated GFR > 60, BUN/Creatinine Ratio 10.0 Assessment/Plan Assessment: 66-year-old woman with MS (diagnosed 1995) on Tysabri, complicated by urinary incontinence (suprapubic catheter), sacral decubiti, nonambulatory status- wheelchair-bound who presented to [facility] ED on 07/11/2017, after experiencing multiple episodes of vomitus (nonbilious, no blood), no abdominal pain, no fevers, no recent sick contacts, no outside food consumption. Afebrile. Given multiple episodes of vomiting, lactate anemia, a stat abdominal x-ray obtained revealed SBO confirmed by CT abdomen pelvis. Follow-up x-ray with resolving SBO. NG tube discontinued. 1. Small bowel obstruction. Resolved. 2. HARIS. Resolved. 3. Hyperkalemia. Resolved. 4. Sacral decubitus ulcer. Unstageable per ED nurse. 5. MS. Stable. Continue Tysabri. Continue oxybutynin. Continue tizanidine. Continue amitriptyline. Continue other medications. Stable for discharge. Strictly n.p.o. Heparin for DVT prophylaxis. Full code. Problem List: 1. H/O multiple sclerosis 2. Sacral decubitus ulcer, stage IV Pain Ratin Pain Location: Abdomen Pain Goal: Remain pain free Pain Plan: PRN Tomorrow's Labs & Rationales: Not needed
[2017-07-15 14:24] VITALS: BP 140/80
--- NOTE | 2017-07-15 16:26 | Discharge Summary ---
Visit Information Visit Dates Admission Date: 07/11/17 Discharge Date: 07/21/17 Hospital Course Course Attending Physician: Miguel Padilla MD Primary Care Physician: Sophy Parra MD Hospital Course: 66-year-old woman with MS (diagnosed 1995) on Tysabri, complicated by urinary incontinence (suprapubic catheter), sacral decubiti, nonambulatory status- wheelchair-bound who presented to [facility] ED on 07/11/2017, after experiencing multiple episodes of vomitus (nonbilious, no blood), no abdominal pain, no fevers, no recent sick contacts, no outside food consumption. Afebrile. Labs with profound leukocytosis, hematocrit 52.1 and thrombocytosis. HARIS, hyperkalemia and high lactate. Given multiple episodes of vomiting, lactate anemia, a stat abdominal x-ray obtained revealed SBO confirmed by CT abdomen pelvis. 1. Small bowel obstruction. Patient was admitted to general medicine floors. NG tube placed. Postplacement , her symptoms of nausea and vomiting improved significantly. A surgery consult was obtained and medical management was deemed appropriate. Serial abdominal imaging was obtained, which showed continued improvement in her obstruction. By 07/14/2017, patient was tolerating diet and after careful surgery evaluation it was ascertained that the obstruction has resolved. On 07/15/2012, patient was tolerating low fiber diet felt and she will be discharged with instructions to follow-up with primary care physician and general surgery as an outpatient. She will continue low fiber diet. She will not need any antibiotics, her leukocytosis was thought to be secondary to severe hemoconcentration from nausea and vomiting. 2. HARIS. Resolved with fluid hydration. 3. Hyperkalemia. Continually improved over over the course of the stay. Normal upon discharge. 4. Sacral decubitus ulcer. Stage III and stage IV ulcers. Please see wound care consult note. 5. MS. Stable. Continue Tysabri. Continue oxybutynin. Continue tizanidine. All other home medications were continued. Patient remained Medically stable for discharge, however unable to find home agency, so had a long hospital stay. Heart healthy diet. Heparin for DVT prophylaxis. Full code. Allergies: Coded Allergies: No Known Allergies (03/25/16) Disposition Summary Disposition Principal Diagnosis: Small bowel obstruction. Additional Diagnosis: Acute kidney injury. Hyperkalemia. Discharge Disposition: home health services Discharge Instructions General Discharge Information Code Status: Full Code Patient's Diet: Low fiber diet. Patient's Activity: Return to baseline, as tolerated. Follow-Up Instructions/Appts: Please follow-up with primary care physician as an outpatient. Please follow-up with neurologist as an outpatient. Please follow-up with general surgery as an outpatient. Medications at Discharge Discharge Medications: Continue taking these medications: Aspirin (Ecotrin*) 81 MG TABLET. 1 Tablet ORAL DAILY Comments: LAST GIVEN 07/21/17 @ 1130 Cholecalciferol (Vitamin D3) 1,000 UNIT TABLET 1 Tablet ORAL DAILY Comments: LAST GIVEN 07/21/17 @ 1130 Amitriptyline HCl (Amitriptyline HCl) 25 MG TABLET 1 Tablet ORAL Every night Qty = 90 Comments: Last Taken: 07/14/17 Time: 2200PM Tizanidine HCl (Tizanidine HCl) 4 MG TABLET 1 Tablet ORAL AT BEDTIME as needed for MUSCLE SPASMS Qty = 90 Comments: Last Taken: 01/02/17 Time: 6AM Vitamin A Palmitate (Vitamin A) 10,000 UNIT CAPSULE 1 Capsule ORAL DAILY Comments: NOT GIVEN IN HOSPITAL Cyanocobalamin (Vitamin B-12) 1,000 MCG TABLET 1 Tablet ORAL DAILY Comments: NOT GIVEN IN HOSPITAL Ascorbic Acid (Vitamin C) 500 MG TABLET 1 Tablet ORAL DAILY Comments: NOT GIVEN IN HOSPITAL Vitamin E Mixed (Vitamin E) 100 UNIT TABLET 1 Tablet ORAL DAILY Comments: NOT GIVEN IN HOSPITAL Clonazepam (Klonopin) 0.5 MG TABLET 1 Tablet ORAL DAILY as needed for TREMOR Days = 30 Comments: NOT GIVEN WHILE IN HOSPITAL Baclofen (Baclofen) 20 MG TABLET 2 Tablet ORAL 4 TIMES A DAY Comments: Last Taken: 07/15/17 Time: 1000AM Ferrous Sulfate (Ferrous Sulfate) 325 MG (65 MG IRON) TABLET.DR 1 Tablet ORAL TWICE DAILY Qty = 60 Comments: LAST GIVEN 07/21/17 Time: 1000AM Solifenacin Succinate (Vesicare) 10 MG TABLET 1 Tablet ORAL DAILY Qty = 30 Comments: DITROPAN GIVEN Last Taken: 07/15/17 Time: 1000AM Trospium Chloride (Trospium Chloride) 20 MG TABLET 1 Tablet ORAL TWICE DAILY Qty = 60 Comments: NOT GIVEN IN HOSPITAL Start taking the following new medications: Cod Liver Oil/Zinc Oxide (Desitin Diaper Rash 40% Paste) 40 % PASTE..G. 1 Application On the skin TWICE DAILY Qty = 10 No Refills Comments: Last Taken: 07/13/17 Time: 2200PM Copies To: Aida CHUNG,Sophy Zhu Attending MD Review Statement Documenting Attending: Miguel Padilla MD Other Findings: The patient was seen and discussed with house staff. OK to discharge to home today. Low fiber diet.
--- NOTE | 2017-07-15 16:28 | PN- Wound Care ---
Subjective Subjective: Patient is being discharged home with continued follow-up in wound care center for chronic bilateral buttock and sacral pressure ulcers. Patient has refused group home placement for enhanced wound care. Prior evaluation for osteomyelitis was unrevealing and recent CT scan of the abdomen and pelvis did not show any bony abnormality suspicious for osteomyelitis Objective Vital Signs and I&Os Vital Signs Result Date Time Pulse Ox 97 07/15 1424 B/P 140/80 07/15 1424 Temp 98.4 07/15 1424 Pulse 77 07/15 1424 Resp 18 07/15 1424 O2 Delivery Room Air 07/15 0718 O2 Flow Rate 2.0L 07/11 2200 Intake & Output 07/15 0000 07/14 1600 07/14 0800 Intake Total 910 400 Output Total 1250 1101 450 Balance -1250 -191 -50 Intake, IV 10 400 Intake, Oral 900 Output, 0 Gastric Drainage Output, Stool 1 0 Output, Urine 1250 1100 450 Patient 248 lb 248 lb Weight Weight Bed scale Measurement Method Mike of both buttocks and coccyx area show full-thickness stage III wounds of her buttocks and stage IV wound of her coccyx there is no exposed bone undermining or sinus tracking there is no evidence of periwound erythema. Wounds measure approximately 3 x 3 cm Impression/Plan Impression/Plan Impression/Plan: 66-year-old woman with multiple sclerosis nonambulatory and has had chronic long -standing pressure ulcers of her buttocks and coccyx all of which are present on admission. Patient can be followed up in the wound care center for continued wound care. As appropriate offloading at home. Current wound care can continue with Xeroform or Aquacel Ag daily
[2017-07-15 22:03] VITALS: BP 142/78
[2017-07-16 06:25] VITALS: BP 144/68
--- NOTE | 2017-07-16 07:17 | PN- Housestaff ---
See Addendum Subjective Follow-up For: Small bowel obstruction. Social situation Subjective: seen and examined Patient is very upset that she was unable to get discharged yesterday. Denies any overnight events/pain. Review of Systems Constitutional: Reports: see HPI. Objective Last 24 Hrs of Vital Signs/I&O Vital Signs Date Time Temp Pulse Resp B/P B/P Pulse O2 O2 Flow FiO2 Mean Ox Delivery Rate 07/16 0625 98.7 68 144/68 92 Room Air 07/15 2203 98.2 77 19 142/78 97 Room Air / 1424 98.4 77 18 140/80 97 / 0718 98.2 70 20 120/68 94 Room Air Intake & Output 07/16 0800 07/16 0000 07/15 1600 Intake Total 60 240 910 Output Total 2049 1400 -1989 240 -490 Intake, IV 10 Intake, Oral 60 240 900 Output, Stool 50 100 Output, Urine 2000 1300 Physical Exam General Appearance: Alert, Oriented X3, Cooperative Skin: No Rashes Skin Temp/Moisture Exam: Warm/Dry Sepsis Skin Exam (color): Normal for Ethnicity HEENT: Atraumatic, PERRLA, EOMI Neck: Supple Cardiovascular: Normal S1, Normal S2 Lungs: Clear to Auscultation, Normal Air Movement Abdomen: Normal Bowel Sounds, Soft, No Tenderness Current Medications: Current Medications Sig/Mary Grace Start time Last Medication Dose Route Stop Time Status Admin Amitriptyline HCl 25 MG QPM 07/12 2100 AC 07/15 PO 2028 Aspirin Buffered 81 MG DAILY 07/12 09 AC 07/16 PO 0850 Baclofen 20 MG FOUR TIMES A DAY 07/13 1000 AC 07/16 PO 0849 Cholecalciferol 1,000 IU DAILY 07/12 0900 AC 07/16 PO 0850 Clonazepam 0.5 MG DAILY PRN 07/11 2245 AC 07/13 PO 07/18 2244 0821 Ferrous Sulfate 325 MG BID 07/12 09 AC 07/16 PO 0850 Heparin Sodium 5,000 UNIT Q8 07/12 06 AC 07/16 (Porcine) SC 0505 Nystatin 1 LAZARA BID PRN 07/12 1145 AC 07/13 TOP 2214 Ondansetron HCl 4 MG Q6P PRN 07/12 0545 AC IV Oxybutynin Chloride 5 MG BID 07/12 0900 AC 07/16 PO 0850 Patient Medication 1 ED ONE ONE 07/15 1645 [facility] ED 07/15 1646 Tizanidine HCl 4 MG AT BEDTIME PRN 07/11 2300 AC PO Zinc Oxide 1 LAZARA BID 07/12 1135 AC 07/13 TOP 2215 Assessment/Plan Assessment: 66-year-old woman with MS (diagnosed 1995) on Tysabri, complicated by urinary incontinence (suprapubic catheter), sacral decubiti, nonambulatory status- wheelchair-bound who presented to [facility] ED on 07/11/2017, after experiencing multiple episodes of vomitus (nonbilious, no blood), no abdominal pain, no fevers, no recent sick contacts, no outside food consumption. Afebrile. Labs with profound leukocytosis, hematocrit 52.1 and thrombocytosis. HARIS, hyperkalemia and high lactate. Given multiple episodes of vomiting, lactate anemia, a stat abdominal x-ray obtained revealed SBO confirmed by CT abdomen pelvis. 1. Small bowel obstruction. Patient was admitted to general medicine floors. NG tube placed. Postplacement , her symptoms of nausea and vomiting improved significantly. A surgery consult was obtained and medical management was deemed appropriate. Serial abdominal imaging was obtained, which showed continued improvement in her obstruction. By 07/14/2017, patient was tolerating diet and after careful surgery evaluation it was ascertained that the obstruction has resolved. On 07/15/2012, patient was tolerating low fiber diet felt and she will be discharged with instructions to follow-up with primary care physician and general surgery as an outpatient. She will continue low fiber diet. She will not need any antibiotics, her leukocytosis was thought to be secondary to severe hemoconcentration from nausea and vomiting. She is currently in the hospital due to discharge disposition issues. 2. HARIS. Resolved with fluid hydration. 3. Hyperkalemia. Continually improved over over the course of the stay. Normal upon discharge. 4. Sacral decubitus ulcer. Stage III and stage IV ulcers. Please see wound care consult note. 5. MS. Stable. Continue Tysabri. Continue oxybutynin. Continue tizanidine. All other home medications were continued. Heart healthy diet. Heparin for DVT prophylaxis. Problem List: 1. Adynamic ileus 2. HTN (hypertension) 3. H/O multiple sclerosis 4. Sacral decubitus ulcer, stage IV Pain Ratin Pain Location: n/a Pain Goal: Pain 4 or less Pain Plan: tylenol prn Tomorrow's Labs & Rationales: none
[2017-07-16 14:11] VITALS: BP 150/90
[2017-07-16 21:34] VITALS: BP 130/66
[2017-07-17 06:00] VITALS: BP 142/80
--- NOTE | 2017-07-17 12:43 | PN- Housestaff ---
See Addendum Subjective Follow-up For: Small bowel obstruction. Subjective: No complaints. Review of Systems Constitutional: Reports: see HPI. Objective Last 24 Hrs of Vital Signs/I&O Vital Signs Date Time Temp Pulse Resp B/P B/P Pulse O2 O2 Flow FiO2 Mean Ox Delivery Rate 07/17 0636 98.6 73 20 94 Room Air / 0600 142/80 07/16 2134 98.9 86 21 130/66 95 Room Air 07/16 1411 98.5 85 18 150/90 94 Intake & Output 07/17 1600 07/17 0800 07/17 0000 Intake Total 100 100 Output Total 350 800 Balance -250 -700 Intake, Oral 100 100 Output, Urine 350 800 Physical Exam General Appearance: Alert, Oriented X3, Cooperative Cardiovascular: Regular Rate, Normal S1, Normal S2 Lungs: Clear to Auscultation, Normal Air Movement Abdomen: Normal Bowel Sounds, Soft Extremities: No Clubbing, No Cyanosis Current Medications: Current Medications Sig/Mary Grace Start time Last Medication Dose Route Stop Time Status Admin Acetaminophen 650 MG ONCE ONE 07/17 899 DC 07/17 PO 07/17 0901 1006 Amitriptyline HCl 25 MG QPM 07/12 2100 AC 07/16 PO 2238 Aspirin Buffered 81 MG DAILY 07/12 899 AC 07/17 PO 0833 Baclofen 20 MG FOUR TIMES A DAY 07/13 1000 AC 07/17 PO 0833 Cholecalciferol 1,000 IU DAILY 07/12 0900 AC 07/17 PO 0833 Clonazepam 0.5 MG DAILY PRN 07/11 2245 AC 07/13 PO 07/18 2244 0821 Ferrous Sulfate 325 MG BID 07/12 09 AC 07/17 PO 0833 Heparin Sodium 5,000 UNIT Q8 07/12 0600 AC 07/17 (Porcine) SC 0609 Nystatin 1 LAZARA BID PRN 07/12 1145 AC 07/13 TOP 2214 Ondansetron HCl 4 MG Q6P PRN 07/12 0545 AC IV Oxybutynin Chloride 5 MG BID 07/12 0900 AC 07/17 PO 0833 Tizanidine HCl 4 MG AT BEDTIME PRN 07/11 2300 AC PO Zinc Oxide 1 LAZARA BID 07/12 1135 AC 07/13 TOP 2215 Assessment/Plan Assessment: 66-year-old woman with MS (diagnosed 1995) on Tysabri, complicated by urinary incontinence (suprapubic catheter), sacral decubiti, nonambulatory status- wheelchair-bound who presented to [facility] ED on 07/11/2017, after experiencing multiple episodes of vomitus (nonbilious, no blood), no abdominal pain, no fevers, no recent sick contacts, no outside food consumption. Afebrile. Given multiple episodes of vomiting, lactate anemia, a stat abdominal x-ray obtained revealed SBO confirmed by CT abdomen pelvis. Follow-up x-ray with resolving SBO. NG tube discontinued. 1. Small bowel obstruction. Resolved. 2. HARIS. Resolved. 3. Hyperkalemia. Resolved. 4. Sacral decubitus ulcer. Unstageable per ED nurse. 5. MS. Stable. Continue Tysabri. Continue oxybutynin. Continue tizanidine. Continue amitriptyline. Continue other medications. Await placement. Problem List: 1. SBO (small bowel obstruction) Pain Ratin Pain Location: Abdomen Pain Goal: Remain pain free Pain Plan: PRN Tomorrow's Labs & Rationales: Not needed
[2017-07-17 14:30] VITALS: BP 148/91
[2017-07-17 22:20] VITALS: BP 110/50
[2017-07-18 06:36] VITALS: BP 152/85
--- NOTE | 2017-07-18 07:46 | PN- Housestaff ---
Eligio CHUNG,Juliann 07/18/17 0746: Subjective Follow-up For: Small bowel obstruction Subjective: seen at bedside No overnight events. denies any complaints. Review of Systems Constitutional: Reports: see HPI. Objective Last 24 Hrs of Vital Signs/I&O Vital Signs Date Time Temp Pulse Resp B/P B/P Pulse O2 O2 Flow FiO2 Mean Ox Delivery Rate 07/18 0636 99.2 69 20 152/85 93 Room Air 07/17 2220 98.8 68 19 110/50 92 Room Air 07/17 1430 98.1 76 17 148/91 94 Room Air Intake & Output 07/18 0800 07/18 0000 07/17 1600 Intake Total 480 810 Output Total 290 071 3417 Balance -171 -750 -840 Intake, IV 10 Intake, Oral 480 800 Output, Stool 1 50 200 Output, Urine 779 645 6463 Physical Exam General Appearance: Alert, Oriented X3, Cooperative Skin: No Rashes, No Breakdown Skin Temp/Moisture Exam: Warm/Dry HEENT: Atraumatic, PERRLA, EOMI Neck: Supple Cardiovascular: Normal S1, Normal S2 Lungs: Clear to Auscultation, Normal Air Movement Abdomen: Normal Bowel Sounds, Soft, No Tenderness Extremities: No Clubbing, No Cyanosis Vascular: Normal Pulses Current Medications: Current Medications Sig/Mary Grace Start time Last Medication Dose Route Stop Time Status Admin Acetaminophen 650 MG ONCE ONE 07/17 0900 DC 07/17 PO 07/17 0901 1006 Amitriptyline HCl 25 MG QPM 07/12 2100 AC 07/17 PO 211 Aspirin Buffered 81 MG DAILY 07/12 899 AC 07/17 PO 0833 Baclofen 20 MG FOUR TIMES A DAY 07/13 1000 AC 07/17 PO 2118 Cholecalciferol 1,000 IU DAILY 07/12 09 AC 07/17 PO 0833 Clonazepam 0.5 MG DAILY PRN 07/11 2245 AC 07/13 PO 07/18 2244 0821 Ferrous Sulfate 325 MG BID 07/12 09 AC 07/17 PO 2118 Heparin Sodium 5,000 UNIT Q8 07/12 0600 AC 07/18 (Porcine) SC 0507 Nystatin 1 LAZARA BID PRN 07/12 1145 AC 07/13 TOP 2214 Ondansetron HCl 4 MG Q6P PRN 07/12 0545 AC IV Oxybutynin Chloride 5 MG BID 07/12 0900 AC 07/17 PO 2118 Tizanidine HCl 4 MG AT BEDTIME PRN 07/11 2300 AC PO Zinc Oxide 1 LAZARA BID 07/12 1135 07/17 [facility] 2135 Assessment/Plan Assessment: 66-year-old woman with MS (diagnosed 1995) on Tysabri, complicated by urinary incontinence (suprapubic catheter), sacral decubiti, nonambulatory status- wheelchair-bound who presented to ED on 07/11/2017, after experiencing multiple episodes of vomitus (nonbilious, no blood), no abdominal pain, no fevers, no recent sick contacts, no outside food consumption. Afebrile. Given multiple episodes of vomiting, lactate anemia, a stat abdominal x-ray obtained revealed SBO confirmed by CT abdomen pelvis. Follow-up x-ray with resolving SBO. NG tube discontinued. 1. Small bowel obstruction. Resolved. 2. HARIS. Resolved. 3. Hyperkalemia. Resolved. 4. Sacral decubitus ulcer. Unstageable per ED nurse. 5. MS. Stable. Continue Tysabri. Continue oxybutynin. Continue tizanidine. Continue amitriptyline. Continue other medications. Await placement. Problem List: 1. Ileus Pain Ratin Pain Location: n/a Pain Goal: Pain 4 or less Pain Plan: tylenol Tomorrow's Labs & Rationales: none Miguel Padilla MD 07/18/17 1809: Attending MD Review Statement Attending Statement Attending MD Statement: examined this patient, discuss w/resident/PA/INSTRUCTION LIBRARIAN, agreed w/resident/PA/INSTRUCTION LIBRARIAN, reviewed EMR data (avail), discussed with nursing, discussed with case mgmt, amended to note Attending Assessment/Plan: The patient was seen and discussed with house staff. Medically stable for discharge, however unable to find home agency. Will need STR. Case Management submitting name to facilities.
[2017-07-18 13:45] VITALS: BP 166/76
[2017-07-18 18:42] VITALS: BP 142/72
[2017-07-18 21:59] VITALS: BP 160/96
[2017-07-18 22:30] VITALS: BP 156/80
[2017-07-19 06:00] VITALS: BP 152/72
--- NOTE | 2017-07-19 07:44 | PN- Housestaff ---
Subjective Follow-up For: Small bowel obstruction - resolved Discharge disposition Subjective: Patient seen at bedside No complaints Review of Systems Constitutional: Reports: see HPI. Objective Last 24 Hrs of Vital Signs/I&O Vital Signs Date Time Temp Pulse Resp B/P B/P Pulse O2 O2 Flow FiO2 Mean Ox Delivery Rate 07/19 599 98.1 65 18 152/72 92 Room Air 07/18 2230 156/80 07/18 2159 98.8 67 18 160/96 93 07/18 1345 98.0 82 18 166/76 97 Room Air Intake & Output 07/19 0800 07/19 0000 07/18 1600 Intake Total 240 480 910 Output Total 1100 1151 1450 Balance -860 -671 -540 Intake, IV 10 Intake, Oral 240 480 900 Output, Stool 1 200 Output, Urine 1100 1150 1250 Physical Exam General Appearance: Alert, Oriented X3, Cooperative Skin: No Rashes, No Breakdown HEENT: Atraumatic, PERRLA, EOMI Neck: Supple Cardiovascular: Normal S1, Normal S2, No Murmurs Lungs: Clear to Auscultation, Normal Air Movement Abdomen: Normal Bowel Sounds, Soft, No Tenderness Current Medications: Current Medications Sig/Mary Grace Start time Last Medication Dose Route Stop Time Status Admin Amitriptyline HCl 25 MG QPM 07/12 2100 AC 07/18 PO 211 Aspirin Buffered 81 MG DAILY 07/12 899 AC 07/18 PO 0936 Baclofen 20 MG FOUR TIMES A DAY 07/13 1000 AC 07/18 PO 2118 Cholecalciferol 1,000 IU DAILY 07/12 09 AC 07/18 PO 0936 Clonazepam 0.5 MG DAILY PRN 07/11 2245 DC 07/13 PO 07/18 2244 0821 Ferrous Sulfate 325 MG BID 07/12 899 AC 07/18 PO 2118 Heparin Sodium 5,000 UNIT Q8 07/12 06 AC 07/19 (Porcine) SC 0603 Nystatin 1 LAZARA BID PRN 07/12 1145 AC 07/18 TOP 212 Ondansetron HCl 4 MG Q6P PRN 07/12 0545 AC IV Oxybutynin Chloride 5 MG BID 07/12 0900 AC 07/18 PO 2118 Tizanidine HCl 4 MG AT BEDTIME PRN 07/11 2300 AC PO Zinc Oxide 1 LAZARA BID 07/12 1135 07/18 TOP 2119 Assessment/Plan Assessment: 66-year-old woman with MS (diagnosed 1995) on Tysabri, complicated by urinary incontinence (suprapubic catheter), sacral decubiti, nonambulatory status- wheelchair-bound who presented to [facility] ED on 07/11/2017, after experiencing multiple episodes of vomitus (nonbilious, no blood), no abdominal pain, no fevers, no recent sick contacts, no outside food consumption. Afebrile. Given multiple episodes of vomiting, lactate anemia, a stat abdominal x-ray obtained revealed SBO confirmed by CT abdomen pelvis. Follow-up x-ray with resolving SBO. NG tube discontinued. 1. Small bowel obstruction. Resolved. 2. HARIS. Resolved. 3. Hyperkalemia. Resolved. 4. Sacral decubitus ulcer. Unstageable per ED nurse. 5. MS. Stable. Continue Tysabri. Continue oxybutynin. Continue tizanidine. Continue amitriptyline. Continue other medications. Await placement. Problem List: 1. Nausea and vomiting 2. Sacral decubitus ulcer, stage III 3. SBO (small bowel obstruction) Pain Ratin Pain Location: n/a Pain Goal: Pain 4 or less Pain Plan: tylenol prn Tomorrow's Labs & Rationales: none
--- NOTE | 2017-07-19 08:45 | PN- Att Addend ---
Attending Addendum Attending Brief Note Patient seen and examined. Plan of care discussed with the medical team and the patient. Available lab work and radiology test reports were reviewed. Pt has not new complaints. Assessment: * Weakness * HARIS - improved * Unstagable sacral decubitus ulcer * SBO- resolved. * MS exacerbation Plan; * wait for STR * pt stable for DC if bed is available. Exam: General: Patient awake alert oriented without any distress CVS: S1 plus S2 without any murmur or gallops Chest: Few scattered crepitation without any wheeze. There is no respiratory distress. 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 Extremities: No edema; no clubbing or cyanosis noted Current Medications Sig/Mary Grace Start time Last Medication Dose Route Stop Time Status Admin Amitriptyline HCl 25 MG QPM 07/12 2100 AC 07/18 PO 211 Aspirin Buffered 81 MG DAILY 07/12 09 AC 07/18 PO 0936 Baclofen 20 MG FOUR TIMES A DAY 07/13 1000 AC 07/18 PO 211 Cholecalciferol 1,000 IU DAILY 07/12 0900 AC 07/18 PO 0936 Clonazepam 0.5 MG DAILY PRN 07/11 2245 DC 07/13 PO 07/18 2244 0821 Ferrous Sulfate 325 MG BID 07/12 09 AC 07/18 PO 2118 Heparin Sodium 5,000 UNIT Q8 07/12 0600 AC 07/19 (Porcine) SC 0603 Nystatin 1 LAZARA BID PRN 07/12 1145 AC 07/18 TOP 2123 Ondansetron HCl 4 MG Q6P PRN 07/12 0545 AC IV Oxybutynin Chloride 5 MG BID 07/12 0900 AC 07/18 PO 2118 Tizanidine HCl 4 MG AT BEDTIME PRN 07/11 2300 AC PO Zinc Oxide 1 LAZARA BID 07/12 1135 AC 07/18 TOP 2119 Vital Signs Date Time Temp Pulse Resp B/P B/P Pulse O2 O2 Flow FiO2 Mean Ox Delivery Rate 07/19 599 98.1 65 18 152/72 92 Room Air 07/18 2230 156/80 07/18 2159 98.8 67 18 160/96 93 07/18 1345 98.0 82 18 166/76 97 Room Air Intake & Output 07/19 1600 07/19 0800 07/19 0000 Intake Total 240 480 Output Total 1100 1151 Balance -860 -461 Intake, Oral 240 480 Output, Stool 1 Output, Urine 1100 1150
[2017-07-19 15:01] VITALS: BP 128/64
[2017-07-19 21:39] VITALS: BP 148/90
[2017-07-20 06:08] VITALS: BP 114/90
--- NOTE | 2017-07-20 08:38 | PN- Housestaff ---
Subjective Follow-up For: Small bowel obstruction - resolved Discharge -awaiting STR placement Subjective: Patient was seen and examined. Review of Systems Constitutional: Reports: see HPI. Objective Last 24 Hrs of Vital Signs/I&O Vital Signs Date Time Temp Pulse Resp B/P B/P Pulse O2 O2 Flow FiO2 Mean Ox Delivery Rate 07/20 1443 98.1 68 20 110/70 93 Room Air 07/20 0800 92 Room Air 07/20 0608 97.9 70 20 114/90 92 07/19 2139 98.9 68 18 148/90 94 Room Air Intake & Output 07/20 1600 07/20 0800 07/20 0000 Intake Total 960 Output Total 9501 126 7137 Balance -315 -750 -1000 Intake, IV 0 Intake, Oral 960 Number 1 Bowel Movements Output, Stool 200 Output, Urine 1907 610 4640 Physical Exam General Appearance: Alert, Cooperative, No Acute Distress Skin Temp/Moisture Exam: Warm/Dry HEENT: Atraumatic, Mucous Membr. moist/pink Cardiovascular: Regular Rate, Normal S1, Normal S2 Lungs: Clear to Auscultation, Normal Air Movement Abdomen: Normal Bowel Sounds, Soft, No Tenderness Current Medications: Current Medications Sig/Mary Grace Start time Last Medication Dose Route Stop Time Status Admin Amitriptyline HCl 25 MG QPM 07/12 2100 AC 07/19 PO 2145 Aspirin Buffered 81 MG DAILY 07/12 09 AC 07/20 PO 0932 Baclofen 20 MG FOUR TIMES A DAY 07/13 1000 AC 07/20 PO 1405 Calcium Carbonate 500 MG .STK-MED ONE 07/20 0639 DC PO 07/20 0640 Cholecalciferol 1,000 IU DAILY 07/12 09 AC 07/20 PO 0932 Docusate Sodium 100 MG DAILY 07/19 1505 AC 07/20 PO 0932 Ferrous Sulfate 325 MG BID 07/12 0900 AC 07/20 PO 0932 Heparin Sodium 5,000 UNIT Q8 07/12 0600 AC 07/20 (Porcine) SC 1405 Nystatin 1 LAZARA BID PRN 07/12 1145 AC 07/20 TOP 0950 Ondansetron HCl 4 MG Q6P PRN 07/12 0545 AC IV Oxybutynin Chloride 5 MG BID 07/12 0900 AC 07/20 PO 0932 Tizanidine HCl 4 MG AT BEDTIME PRN 07/11 2300 AC PO Zinc Oxide 1 LAZARA BID 07/12 1135 07/20 TOP 0950 Assessment/Plan Assessment: 66-year-old woman with MS (diagnosed 1995) on Tysabri, complicated by urinary incontinence (suprapubic catheter), sacral decubiti, nonambulatory status- wheelchair-bound who presented to [facility] ED on 07/11/2017, after experiencing multiple episodes of vomitus (nonbilious, no blood), no abdominal pain, no fevers, no recent sick contacts, no outside food consumption. Afebrile. Given multiple episodes of vomiting, lactate anemia, a stat abdominal x-ray obtained revealed SBO confirmed by CT abdomen pelvis. Follow-up x-ray with resolving SBO. NG tube discontinued. 1. Small bowel obstruction. Resolved. 2. HARIS. Resolved. 3. Hyperkalemia. Resolved. 4. Sacral decubitus ulcer. Unstageable per ED nurse. 5. MS. Stable. Continue Tysabri. Continue oxybutynin. Continue tizanidine. Continue amitriptyline. Continue other medications. Patient is an unsafe discharge home. Awaiting placement. Problem List: 1. Sacral decubitus ulcer, stage III Pain Ratin Pain Location: n/a Pain Goal: Remain pain free Pain Plan: n/a Tomorrow's Labs & Rationales: none - stable for discharge, awaiting placement
--- NOTE | 2017-07-20 11:31 | PN- Att Addend ---
Attending Addendum Attending Brief Note Patient seen and examined. Plan of care discussed with the medical team and the patient. Available lab work and radiology test reports were reviewed. Pt has not new complaints. She is overall comfortable. She is wishing to switch her diet to regular. Denies any recent nausea vomiting abdominal pain and fever chills or difficulty breathing. Assessment: * Weakness * HARIS - improved * Unstagable sacral decubitus ulcer * SBO- resolved. * MS exacerbation Plan; * wait for STR * pt stable for DC if bed is available. * Change diet to regular-patient does not like low fiber diet Exam: General: Patient awake alert oriented without any distress CVS: S1 plus S2 without any murmur or gallops Chest: Few scattered crepitation without any wheeze. There is no respiratory distress. Abdomen: Soft non-tender, bowel sound present, no guarding or rebound FACIALIST: Awake alert oriented and follows commands appropriately; chronic LE weakness noted. Extremities: No edema; no clubbing or cyanosis noted Current Medications Sig/Mary Grace Start time Last Medication Dose Route Stop Time Status Admin Amitriptyline HCl 25 MG QPM 07/12 2100 AC 07/19 PO 2145 Aspirin Buffered 81 MG DAILY 07/12 0900 AC 07/20 PO 0932 Baclofen 20 MG FOUR TIMES A DAY 07/13 1000 AC 07/20 PO 0932 Cholecalciferol 1,000 IU DAILY 07/12 0900 AC 07/20 PO 0932 Docusate Sodium 100 MG DAILY 07/19 1505 AC 07/20 PO 0932 Ferrous Sulfate 325 MG BID 07/12 0900 AC 07/20 PO 0932 Heparin Sodium 5,000 UNIT Q8 07/12 0600 AC 07/20 (Porcine) SC 0517 Nystatin 1 LAZARA BID PRN 07/12 1145 AC 07/20 TOP 0950 Ondansetron HCl 4 MG Q6P PRN 07/12 0545 AC IV Oxybutynin Chloride 5 MG BID 07/12 0900 AC 07/20 PO 0932 Tizanidine HCl 4 MG AT BEDTIME PRN 07/11 2300 AC PO Zinc Oxide 1 LAZARA BID 07/12 1135 AC 07/20 TOP 0950 Vital Signs Date Time Temp Pulse Resp B/P B/P Pulse O2 O2 Flow FiO2 Mean Ox Delivery Rate 07/20 0800 92 Room Air 07/20 0608 97.9 70 20 114/90 92 07/19 2139 98.9 68 18 148/90 94 Room Air 07/19 1501 98.4 68 20 128/64 93 Room Air Intake & Output 07/20 1600 07/20 0800 07/20 0000 Intake Total Output Total 750 1000 Balance -750 -1000 Output, Urine 750 1000
[2017-07-20 14:43] VITALS: BP 110/70
[2017-07-20 22:06] VITALS: BP 114/78
[2017-07-21 06:13] VITALS: BP 102/70
--- NOTE | 2017-07-21 07:56 | PN- Housestaff ---
Eligio CHUNG,Juliann 07/21/17 0756: Subjective Follow-up For: Discharge disposition SBO - resolved Subjective: seen at bedside No complaints. Having breakfast. Review of Systems Constitutional: Reports: see HPI. Objective Last 24 Hrs of Vital Signs/I&O Vital Signs Date Time Temp Pulse Resp B/P B/P Pulse O2 O2 Flow FiO2 Mean Ox Delivery Rate 07/21 0613 98.3 67 20 102/70 93 07/20 2206 98.2 72 20 114/78 93 Room Air 07/20 1600 93 Room Air 07/20 1443 98.1 68 20 110/70 93 Room Air 07/20 0800 92 Room Air Intake & Output 07/21 0800 07/21 0000 07/20 1600 Intake Total 960 Output Total 393 388 0089 Balance -875 -925 -315 Intake, IV 0 Intake, Oral 960 Number 1 1 Bowel Movements Output, Stool 25 200 200 Output, Urine [phone] Physical Exam General Appearance: Alert, Oriented X3, Cooperative Skin: No Rashes, No Breakdown Assessment/Plan Assessment: 66-year-old woman with MS (diagnosed 1995) on Tysabri, complicated by urinary incontinence (suprapubic catheter), sacral decubiti, nonambulatory status- wheelchair-bound who presented to [facility] ED on 07/11/2017, after experiencing multiple episodes of vomitus (nonbilious, no blood), no abdominal pain, no fevers, no recent sick contacts, no outside food consumption. Afebrile. Given multiple episodes of vomiting, lactate anemia, a stat abdominal x-ray obtained revealed SBO confirmed by CT abdomen pelvis. Follow-up x-ray with resolving SBO. NG tube discontinued. 1. Small bowel obstruction. Resolved. 2. HARIS. Resolved. 3. Hyperkalemia. Resolved. 4. Sacral decubitus ulcer. Unstageable per ED nurse. 5. MS. Stable. Continue Tysabri. Continue oxybutynin. Continue tizanidine. Continue amitriptyline. Continue other medications. Discharged today. Problem List: 1. Adynamic ileus 2. SBO (small bowel obstruction) Pain Ratin Pain Location: n/a Pain Goal: Pain 4 or less Pain Plan: tylenol prn Tomorrow's Labs & Rationales: none Miguel Padilla MD 07/21/17 1722: Attending MD Review Statement Attending Statement Attending MD Statement: examined this patient, discuss w/resident/PA/SOCIAL SERVICES SPECIALIST, agreed w/resident/PA/SOCIAL SERVICES SPECIALIST, reviewed EMR data (avail), discussed with case mgmt, amended to note Attending Assessment/Plan: The patient was seen and discussed with house staff and case management (Gene). Looking for home care services, however backup plan is STR. Await final decision regarding home service option as patient would prefer this to STR.
[2017-07-21 14:21] VITALS: BP 100/68
== END 2017-07-21 17:15 | disposition home health service (06) | DRG 388 ==
LOC: DELPENDDIS → ERH 14:29 → 2NB 17:27 → ERHI 17:27 → ENRESERV 20:12 → ENTRNSPT 21:10 → EDTRNSPT 21:31 → EDTRNSPTSTS 21:31 → 2NB 21:41 → CMPTRNSPT 21:49 → 2NB 07-14 08:14 → ENPENDDIS 07-15 10:36 → 2NB 07-21 17:15
PROVIDERS: Emergency Medicine; Internal Medicine; Internal Medicine Adolescent Medicine; Internal Medicine Hematology & Oncology
DX: K56.609 Unspecified intestinal obstruction, unspecified as to partial versus complete obstruction (principal); L89.323 Pressure ulcer of left buttock, stage 3; L89.213 Pressure ulcer of right hip, stage 3; L89.893 Pressure ulcer of other site, stage 3; L89.154 Pressure ulcer of sacral region, stage 4; E87.2 Acidosis; G82.20 Paraplegia, unspecified; N17.9 Acute kidney failure, unspecified; Z93.3 Colostomy status; G35 Multiple sclerosis; Z99.3 Dependence on wheelchair; G83.89 Other specified paralytic syndromes; E87.5 Hyperkalemia; E86.0 Dehydration
CPT/HCPCS: 36415; 36592; 71045; 74021; 74176; 81001; 82436; 87040; 87086; 93005; 93010; 96374; 99291; J0610; J0696; J1644; J1815; J2405; J3370; J7042

== ENCOUNTER 2017-10-22 11:28 | Emergency (ER) | payer OTHER ==
[~2017-10-22] VITALS: Ht 172.7 cm; Wt 113.4 kg
[~2017-10-22 11:28] MED LIST changes: +DESITIN DIAPER28 GM TOP; +TROSPIUM CHLORI20 M1 PO
--- NOTE | 2017-10-22 13:05 | ED GENERAL ADULT ---
History of Present Illness General Chief Complaint: Female Urogenital Problems Stated Complaint: BIBA ALEJANDRO CATH NOT WORKING Source: patient Exam Limitations: no limitations Vital Signs & Intake/Output Vital Signs & Intake/Output Vital Signs Date Time Temp Pulse Resp B/P B/P Pulse O2 O2 Flow FiO2 Mean Ox Delivery Rate 10/22 1329 98.0 77 18 184/96 97 Room Air 10/22 1151 96 Room Air 10/22 1150 98.1 85 18 188/98 96 Room Air Allergies Coded Allergies: No Known Allergies (03/25/16) Reconcile Medications Amitriptyline HCl 25 MG TABLET 1 TAB PO QPM TREMORS (Reported) Ascorbic Acid (Vitamin C) 500 MG TABLET 1 TAB PO DAILY SUPPLEMENT (Reported) Aspirin (Ecotrin*) 81 MG TABLET.DR 1 TAB PO DAILY HEART HEALTH (Reported) Baclofen 20 MG TABLET 2 TAB PO 4 TIMES/DAY MS (Reported) Cholecalciferol (Vitamin D3) 1,000 UNIT TABLET 1 TAB PO DAILY SUPPLEMENT ( Reported) Clonazepam (Klonopin) 0.5 MG TABLET 1 TAB PO DAILY PRN TREMOR (Reported) Cyanocobalamin (Vitamin B-12) 1,000 MCG TABLET 1 TAB PO DAILY SUPPLEMENT ( Reported) Ferrous Sulfate 325 MG (65 MG IRON) TABLET.DR 1 TAB PO BID Iron deficiency Solifenacin Succinate (Vesicare) 10 MG TABLET 1 TAB PO DAILY Bladder ( Reported) Tizanidine HCl 4 MG TABLET 1 TAB PO AT BEDTIME PRN MUSCLE SPASMS (Reported) Trospium Chloride 20 MG TABLET 1 TAB PO BID BLADDER (Reported) Vitamin A Palmitate (Vitamin A) 10,000 UNIT CAPSULE 1 CAP PO DAILY SUPPLEMENT (Reported) Vitamin E Mixed (Vitamin E) 100 UNIT TABLET 1 TAB PO DAILY SUPPLEMENT ( Reported) Triage Note: PT BIBA FROM [facility] FOR POSSIBLE DISPLACEMENT OF SUPRAPUBIC URINARY CATHETER. EMS REPORTS PT ALSO HAS BED SORES ON COCCYX PER VISITING NURSE. PT'S COCCYX COVERED WITH DRESSING. PT'S CATHETER HAS BEEN LEAKING FOR THE PAST FEW DAYS, PT REPORTS CATHETER WAS PLACED FRIDAY. PT PRESENTS A&OX4 WITH NO OTHER COMPLAINTS. Triage Nurses Notes Reviewed? yes HPI: 66-year-old female comes in for dysfunctional suprapubic Alejandro catheter. She denies any pain or discomfort no fever or chills. She denies dysuria or hematuria. She reports ongoing for 1 week. She saw urologist who change the catheter but she continues to have the dysfunction. The patient has a alejandro catheter because she is nonambulatory, and the Alejandro also helps keep the urine away from the wounds in her buttock area. She has a visiting nurse who takes care of the wounds. The patient reports that the catheter is not draining any urine the urine is draining around the catheter and the back has been empty for 1 straight week. Past History Travel History Traveled to [place] past 21 day No Medical History Any Pertinent Medical History? 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 Psychosocial History Who do you live with Patient/Self Services at Home Home Health Aide, Nursing What is your primary language Setswana Tobacco Use: Never used ETOH Use: denies use Illicit Drug Use: denies illicit drug use Family History Family History, If Any: BROTHER FH: cancer MOTHER Pacemaker Relation not specified for: Family history unknown Hx Contributory? No Review of Systems Review of Systems Constitutional: Denies: chills. EENTM: Denies: blurred vision, double vision, visual changes. Respiratory: Denies: cough, hemoptysis, orthopnea. Cardiovascular: Denies: chest pain, edema, orthopena. GI: Denies: abdominal pain, bloating, constipation. Genitourinary: Denies: discharge, dysuria, frequency, hematuria, hesitation, pain, urgency. Musculoskeletal: Denies: back pain, gout, joint pain. Skin: Denies: cysts, change in skin color, change in hair/nails. Neurological/Psychological: Denies: anxiety, ataxia, cognitive dysfunction. Physical Exam Physical Exam General Appearance: well developed/nourished, no apparent distress, alert Head: atraumatic, normal appearance Eyes: Bilateral: PERRL, EOMI. Ears, Nose, Throat: normal pharynx, normal ENT inspection Neck: normal inspection, supple Cardiovascular: regular rate/rhythm Gastrointestinal: normal bowel sounds, soft, no organomegaly Neurologic/Psych: no motor/sensory deficits, awake, alert, oriented x 3 Skin: intact, normal color Comments: Alejandro catheter in place. Bag is completely empty. Core Measures ACS in differential dx? No CVA/TIA Diagnosis: No Sepsis Present: No Sepsis Focused Exam Completed? No Progress Differential Diagnoses . Plan of Care: . Initial ED EKG: none Comments: We will discuss the case with urology. The patient's catheter does not seem to be working for the past week. 1450 the urologist came down to evaluate the patient's Alejandro. He flushed and it was draining comfortably. 1500 the patient' dressing was changed. She has no active signs of infection. The patient has a visiting nurse will change the dressing tomorrow again. Patient's catheter is working normally at this time. Patient is safe to go home. Departure Departure Time of Disposition: 1501 Disposition: HOME OR SELF CARE Condition: Stable Clinical Impression Primary Impression: Malfunction of Alejandro catheter Referrals: Aida CHUNG,Sophy Zhu (PCP/Family) Additional Instructions: Return for any new or concerning symptoms. Return for fever. Return if fully does not work. Return for any concerns with the wounds. Departure Forms: Customer Survey General Discharge Information Critical Care Note Critical Care Note Critical Care Time: non-applicable
[2017-10-22 15:47] VITALS: BP 186/100
[2017-10-24] MEDS ORDERED: MYRBETRIQ25 M1 PO (18:21)
[2017-10-24] MEDS ORDERED: CIPRO500 M1 PO (18:22)
[2017-10-24] MEDS ORDERED: AUBAGIO14 M1 (18:25)
[2017-10-24] MEDS ORDERED: VITAMIN D5000 UNIT PO (18:26)
[2017-10-24] MEDS ORDERED: IRON325 M3 PO (18:27)
[2017-10-24] MEDS ORDERED: ZINC50 M3 PO (18:28)
[2017-10-24] MEDS ORDERED: CALCIUM600 M3 PO (18:29)
== END 2017-10-22 16:44 ==
LOC: ERH 11:28
DX: T83.038A Leakage of other urinary catheter, initial encounter (principal)
CPT/HCPCS: J1885